=== PATIENT | male | born 1950 | race Caucasian/White ===

== ENCOUNTER 2017-05-01 16:32 | Inpatient (IN) | payer MEDICARE ==
[~2017-05-01] VITALS: Ht 172.7 cm; Wt 109.2 kg
[~2017-05-01 16:32] MED LIST: ALDACTONE25 MG PO; AMBIEN10 MG PO; ANTIVERT25 MG PO; APIDRA100 U/M1 SQ; ASPIRIN81 MG PO; BACTROBAN 22 GM22 GM TOPICAL; CARAFATE1 G PO; CARDIZEM30 MG PO; CARTIA XT180 MG PO; CATAPRES0.2 MG PO; COREG12.5 MG PO; CYCLOBENZAPRINE10 MG PO; CYMBALTA30 MG PO; CYMBALTA60 MG PO; DILT-CD180 MG PO; ELAVIL25 MG PO; GLUCOPHAGE1000 MG PO; GLUCOPHAGE500 MG PO; HUMALOG 30100 UNITS/ SC; HYDROCODONE-APA1 TAB PO; HYZAAR 100-25 T1 TAB PO; K-TAB10 MEQ PO; LANTUS INSULIN10 ML SC; LASIX20 MG PO; LASIX40 MG PO; LEVEMIR100 U/M1 SC; LEVEMIR100 U/M1 SQ; LISINOPRIL10 MG PO; LISINOPRIL5 MG PO; METOPROLOL TART50 MG PO; MIRAPEX0.25 MG PO; NEURONTIN600 MG PO; NORVASC10 MG PO; PLAVIX75 MG PO; PROTONIX40 MG PO; SOLARAZE100 GM TP; SUBOXONE SL; TOPROL XL50 MG PO; TYLENOL W/CODEI1 TAB PO; ULTRAM50 MG PO; VALIUM 2 MG TAB2 MG PO
[2017-05-01 17:55] LABS: BASOPHILS 0.1 % (0-2); EOSINOPHILS 0.2 % (0-7); HEMATOCRIT 34.4 % (42.0-54.0); HEMOGLOBIN 11.3 g/dL (13.5-17.5); IMMATURE GRANULOCYTES 0.4 % (0-5); LYMPHOCYTES 12.3 % (15-50); MCH 26.5 pg (26.0-34.0); MCHC 32.8 g/dL (31.0-37.0); MCV 80.8 fL (80.0-100.0); MEAN PLATELET VOLUME 11.8 fL (7.4-10.4); MONOCYTES 6.4 % (2-11); NEUTROPHILS 80.6 % (40-80); PLATELET COUNT 158 10x3/uL (130-400); RBC 4.26 10x6/uL (4.20-6.10); RDW 16.1 % (11.5-14.5); WBC 12.9 10x3/uL (4.8-10.8)
[2017-05-01 18:23] LABS: ALBUMIN 2.9 g/dL (3.4-5.0); ALKALINE PHOSPHATASE 77 U/L (46-116); ALT (SGPT) 27 U/L (10-68); BILIRUBIN - TOTAL 0.51 mg/dL (0.2-1.3); CALCIUM 8.9 mg/dL (8.5-10.1); CARBON DIOXIDE 27.7 mmol/L (21.0-32.0); CHLORIDE - SERUM 103 mmol/L (98-107); CKMB 2.4 U/L (0.0-3.6); CREATINE KINASE 446 UL (21-232); CREATININE - SERUM 2.4 mg/dL (0.6-1.3); PROTEIN - SERUM 7.1 g/dL (6.4-8.2); SODIUM 140 mmol/L (136-145); UREA NITROGEN 46 mg/dL (7-18); eGFR NON AFRICAN AMERICAN 29 mL/min (90-120)
[2017-05-01 18:24] LABS: CALC OSMOLALITY 290 mosm/kg (275-300); GLUCOSE 91 mg/dL (74-106)
[2017-05-01 18:26] LABS: POTASSIUM - SERUM 2.9 mmol/L (3.5-5.1); TROPONIN-I 0.349 ng/mL (0.000-0.060)
[2017-05-01 18:28] LABS: APPEARANCE CLEAR (CLEAR); BILIRUBIN NEGATIVE (NEGATIVE); COLOR YELLOW (YELLOW); GLUCOSE 500 mg/dL (NEGATIVE); KETONE NEGATIVE (NEGATIVE); NITRITE NEGATIVE (NEGATIVE); PROTEIN NEGATIVE (NEGATIVE); SPECIFIC GRAVITY 1.015 (1.005-1.020); UROBILINOGEN NORMAL (NORMAL)
--- NOTE | 2017-05-01 20:55 | NUR ---
PT RECEIVED VIA STRETCHER AWAKE, ALERT, FAMILY AT SIDE. PT REQUIRED 3 OF US TO TRANSFER TO BED. PTS STATES PT WAS HERE A WEEK AGO AND WAS IN THE ICU. STATES PT HAS BEEN FALLING FREQUENTLY AT HOME AND DOES TRY TO GET UP OUT OF BED WITHOUT ASSISTANCE. PT WAS PLACED IN A BED WITH AN OVERHEAD TRAPEZE BAR. WILL ASSUME CARE AND MONITOR CLOSELY.
[2017-05-01] MEDS ORDERED: TYLENOL #4 W/CO1 TAB PO (22:13)
[2017-05-01] MEDS ORDERED: LYRICA150 MG PO (22:18)
[2017-05-01] MEDS ORDERED: OXYBUTYNIN CHLOR5 MG PO (22:24)
[2017-05-01] MEDS ORDERED: PRAVACHOL20 MG PO (22:25)
[2017-05-01] MEDS ORDERED: VITAMIN D250000 UNIT PO (22:26)
[2017-05-02] VITALS (7 sets, daily range): BP systolic 102–156; BP diastolic 62–74; Ht 172.7 cm; Wt 109.2 kg
[2017-05-02 00:30] LABS: CREATINE KINASE 340 UL (21-232)
[2017-05-02 00:31] LABS: CKMB 1.9 U/L (0.0-3.6); TROPONIN-I 0.296 ng/mL (0.000-0.060)
--- NOTE | 2017-05-02 00:48 | NUR ---
PT RESTING COMFORTABLY, STILL EXTREMELY WEAK, EYES CLOSED, RESPIRATIONS EVEN AND UNLABORED, EASILY ROUSABLE TO VERBAL STIMULI. NO NEEDS AT THIS TIME. CONTINUE TO MONITOR CLOSELY. BED LOW, CALL LIGHT IN REACH, SIDE RAILS X2, HOB 35 DEGREES, BED ALARM ON.
[2017-05-02 06:03] LABS: BASOPHILS 0 % (0-2); EOSINOPHILS 0.4 % (0-7); HEMOGLOBIN 10.3 g/dL (13.5-17.5); IMMATURE GRANULOCYTES 0.2 % (0-5); LYMPHOCYTES 14.8 % (15-50); MCHC 32.2 g/dL (31.0-37.0); MCV 80.8 fL (80.0-100.0); MEAN PLATELET VOLUME 11.7 fL (7.4-10.4); MONOCYTES 7.1 % (2-11); NEUTROPHILS 77.5 % (40-80); PLATELET COUNT 150 10x3/uL (130-400); RBC 3.96 10x6/uL (4.20-6.10); RDW 16.1 % (11.5-14.5); WBC 11.2 10x3/uL (4.8-10.8)
[2017-05-02 06:32] LABS: CALCIUM 8.5 mg/dL (8.5-10.1); CARBON DIOXIDE 28.3 mmol/L (21.0-32.0); CHLORIDE - SERUM 104 mmol/L (98-107); CKMB 0.9 U/L (0.0-3.6); CREATINE KINASE 222 UL (21-232); CREATININE - SERUM 2.2 mg/dL (0.6-1.3); MAGNESIUM - SERUM 1.8 mg/dL (1.8-2.4); SODIUM 141 mmol/L (136-145); UREA NITROGEN 40 mg/dL (7-18); eGFR NON AFRICAN AMERICAN 32 mL/min (90-120)
[2017-05-02 06:33] LABS: CALC OSMOLALITY 296 mosm/kg (275-300); GLUCOSE 212 mg/dL (74-106)
[2017-05-02 06:34] LABS: POTASSIUM - SERUM 2.7 mmol/L (3.5-5.1); TROPONIN-I 0.182 ng/mL (0.000-0.060)
--- NOTE | 2017-05-02 07:30 | NUR ---
REPORT RECEIVED. RR EVEN AND UNLABORED, PT IS CONFUSED TO SITUATION THIS MORNING. DENIES NEEDS AT THIS TIME. BED IN LOWEST POSTION, CALL HURLEY IN REACH, WILL CTM.
--- NOTE | 2017-05-02 10:41 | NUR ---
CALLED DR. JORGENSEN REGARDING POTASSIUM OF 2.7. WILL AWAIT CALL BACK/.
--- NOTE | 2017-05-02 10:45 | NUR ---
SPOKE TO DR. JORGENSEN REGARDING PT CONDTION. GAVE TELEPHONE ORDER FOR E PROTOCOL. WILL REPLACE POTASSIUM PER PROTOCL AND CTM.
--- NOTE | 2017-05-02 13:47 | NUR ---
SCD'S ON ELLEN LE
--- NOTE | 2017-05-02 15:00 | NUR ---
ASSSITED PT TO AMBULATE TO SHOWER X2 ASSIST. PT USED WALKER AND TOLERATED ACTIVITY WELL. NO SOB NOTED. PT IS ALERT AND ORIENTED. SHOWER COMPLETED AND BED CHANGE DONE. AFTER SHOWER, PT RETURNED TO BED X1 ASSIST. DENIES FURTHER NEEDS.
--- NOTE | 2017-05-02 15:45 | NUR ---
MED REC UPDATED AND CORRECT PER PT MOST ACCURATE.
[2017-05-02 16:11] LABS: ERYTHROCYTE SEDIMENTATION RATE 68 mm/hr (0-20)
--- NOTE | 2017-05-02 18:14 | NUR ---
ORDERED POTASSIUM LAB DRAW PER PROTOCOL. WILL AWAIT LAB DRAW.
[2017-05-02 18:47] LABS: CREATININE - URINE 77.3 mg/dL (30-125); PRO/CRE RATIO URINE 0.7 mg/g; PROTEIN - URINE 55.3 mg/dL (0.0-11.9)
[2017-05-02 18:50] LABS: APPEARANCE CLEAR (CLEAR); COLOR YELLOW (YELLOW); NITRITE NEGATIVE (NEGATIVE); PROTEIN NEGATIVE (NEGATIVE); SPECIFIC GRAVITY 1.005 (1.005-1.020)
[2017-05-02 18:51] LABS: BILIRUBIN NEGATIVE (NEGATIVE); GLUCOSE 1000 mg/dL (NEGATIVE); KETONE NEGATIVE (NEGATIVE); UROBILINOGEN NORMAL (NORMAL)
[2017-05-02 18:55] LABS: BACTERIA FEW /hpf (NONE SEEN); EPITHELIAL CELLS 0-5 /hpf (0-5); RED CELLS - URINE 0-5 /hpf (0-5)
--- NOTE | 2017-05-02 18:57 | NUR ---
PT RESTING QUILETY, RR EVEN AND UNLABORED. PT DENIES NEEDS AT THIS TIME. WILL GIVE REPORT ON PT CONDTION FOR THE DAY.
--- NOTE | 2017-05-02 20:00 | NUR ---
PT RESTING IN BED. ALERT/ORIENTED. VOICING NO NEEDS. SR PER TELEMETRY. PIV TO LEFT A/C SALINE LOCKED. SEE SHIFT ASSESSMENT.
--- NOTE | 2017-05-02 22:00 | NUR ---
BEDTIME MEDS GIVEN. PT RESTING. FSBS 309, 20 UNITS OF SLIDING SCALE GIVEN.
[2017-05-03 01:32] VITALS: BP 135/68
--- NOTE | 2017-05-03 02:42 | NUR ---
PT RESTING IN BED. NO DISTRESS. RESPS EVEN/NONLABORED. CPOC.
[2017-05-03 04:27] VITALS: BP 147/76
[2017-05-03 06:10] LABS: BASOPHILS 0 % (0-2); EOSINOPHILS 0.6 % (0-7); HEMATOCRIT 33.4 % (42.0-54.0); HEMOGLOBIN 10.6 g/dL (13.5-17.5); IMMATURE GRANULOCYTES 0.3 % (0-5); LYMPHOCYTES 14.8 % (15-50); MCHC 31.7 g/dL (31.0-37.0); MCV 82.1 fL (80.0-100.0); MEAN PLATELET VOLUME 11.9 fL (7.4-10.4); MONOCYTES 9.3 % (2-11); PLATELET COUNT 171 10x3/uL (130-400); RBC 4.07 10x6/uL (4.20-6.10); RDW 16.3 % (11.5-14.5); WBC 9.6 10x3/uL (4.8-10.8)
[2017-05-03 06:34] LABS: ALBUMIN 2.4 g/dL (3.4-5.0); ANION GAP 12.2 mmol/L (8-16); BILIRUBIN - TOTAL 0.63 mg/dL (0.2-1.3); CALCIUM 8.3 mg/dL (8.5-10.1); CREATININE - SERUM 1.7 mg/dL (0.6-1.3); MAGNESIUM - SERUM 1.9 mg/dL (1.8-2.4); PHOSPHOROUS 2.5 mg/dL (2.5-4.9); POTASSIUM - SERUM 3.2 mmol/L (3.5-5.1); PROTEIN - SERUM 6.7 g/dL (6.4-8.2)
--- NOTE | 2017-05-03 06:41 | NUR ---
PT RESTING IN BED. NO CHANGE FROM INITIAL SHIFT ASSESSMENT. CPOC.
--- NOTE | 2017-05-03 07:15 | NUR ---
REPORT RECEIVED. RR EVEN AND UNLABORED, PT QUESTIONING WHY HE HAS NOT BEEN RECEIVING HIS LEVEMIR AND LANTUS. WILL ADDRESS WITH PRIMARY CARE TODAY. BED IN LOWEST POSTION, CALL HURLEY IN REACH, PT SITTING ON SIDE OF BED. WILL CTM.
[2017-05-03 09:06] VITALS: BP 94/72
--- NOTE | 2017-05-03 09:30 | NUR ---
PTS K+ IS LOW THIS MORNING AT 3.2. GAVE 40MEQ OF POTASSIUM PER PROTOCOL. WILL RECHECK LAB IN 4 HRS.
[2017-05-03 12:00] VITALS: BP 146/71
--- NOTE | 2017-05-03 13:26 | NUR ---
SPOKE TO PTS FOR ROUGHLY 20 MINUTES REGARDING PT CONDITION. SHE REPORTS THAT PT FREQUENTLY BECOMES INCOHERENT AT HOME AND GETS CONFUSED. ALSO MENTIONED THAT PT FORGETS TO TAKE MEDICINE OFTEN. REPORTS FREQUENT HOME FALLS. REQUESTED UPDATE ON PT STATUS, GIVEN. EXPRESSED CONCERN OVER PT BEING D/C TOO EARLY, THIS HAS HAPPENED IN THE PAST. EXPLAINED THAT NO ORDERS ARE IN FOR D/C AT THIS POINT. DENIES FURTHER NEEDS, EXPRESSED HER GRATITUDE FOR SPEAKING WITH HER.
--- NOTE | 2017-05-03 14:00 | NUR ---
PT REPORTED THAT HE HAS DIFFUCLTY EATING THE FOOD, HE REPORTS IT IS DIFFICULT TO CHEW. WILL MODIFY DIET ORDER TO SOFT MECHANICAL. SPOKE TO SPEECH THERAPIST REGARDING PT REQUEST.
[2017-05-03 16:00] VITALS: BP 162/75
--- NOTE | 2017-05-03 18:30 | NUR ---
PT UP ON SIDE OF BED, BATHING HIMSELF. PT DENIES NEEDS AT THIS TIME. RR EVEN AND UNLABORED. WILL GIVE REPORT ON PT CONDTION FOR THE DAY.
[2017-05-03 19:00] VITALS: BP 150/73
--- NOTE | 2017-05-03 20:22 | NUR ---
PT HAS LEFT ROOM, WALKED DOWN HALLWAY TOWARDS ELEVATOR AND IS QUESTIONING IF THAT IS THE DOOR TO TAKE. ESCORTED PT BACK TO ROOM. MONI MAT APPLIED TO BED. PT HAS YELLOW FALL BRACELET AND FALL PRECAUTIONS ARE IN PLACE BUT HIS LEVEL OF CONFUSION IS GREATER TONIGHT THAN LAST NIGHT. IV THAT IS IN LEFT A/C IS NOT PATENT AND SURROUND TISSUE IS RED/WARM AND SWOLLEN. REMOVED IV. WILL ATTEMPT RESITE AFTER PT HAS SETTLED DOWN. CHANGED PT OUT OF STREET CLOTHES AND PLACED IN A GOWN. SEE ASSESSMENT.
--- NOTE | 2017-05-03 21:09 | NUR ---
FSBS 205, 12 UNITS OF SLIDING SCALE GIVEN. BEDTIME MEDS GIVEN. PT IS CONFUSED/DISORIENTED TO PLACE AND TIME. CONSTANT REORIENTATION. MONI MAT IN PLACE AND DOOR TO ROOM OPEN FOR PT TO BE VIEWABLE. WILL MONITOR.
[2017-05-04 00:29] VITALS: BP 160/77
--- NOTE | 2017-05-04 01:44 | NUR ---
PT HAS BEEN UP AND ODWN AND ALL OVER HIS ROOM. VERY RESTLESS. NO CLOTHES ON, WEARING A SHEET WRAPPED AROUND HIS BODY. STAFF REPEATEDLY TO ROOM AND PLACING HIM BACK ON MONI MAT IN BED OR CHAIR AND THEN PT BACK UP AND DOWN AGAIN. PT THEN C/O HEADACHE. MEDICATED WITH TYLENOL. BILLET SHEARER HAS NOW PROVIDED PT WITH A COMPLETE BED BATH IN HOPES OF RELAXING HIM AND PROMOTING REST. WILL MONITOR.
--- NOTE | 2017-05-04 02:19 | NUR ---
PT STILL AWAKE AND LYING IN BED, MUMBLING TO SELF, FUSSING WITH HIS COVERS. VERY RESTLESS. NO FURTHER C/O HEADACHE. MONI MAT IN PLACE. CLOSE SUPERVISION.
[2017-05-04 05:03] VITALS: BP 149/85
[2017-05-04 05:49] LABS: BASOPHILS 0.2 % (0-2); EOSINOPHILS 0.9 % (0-7); HEMATOCRIT 35.3 % (42.0-54.0); HEMOGLOBIN 11.1 g/dL (13.5-17.5); IMMATURE GRANULOCYTES 0.3 % (0-5); LYMPHOCYTES 15.6 % (15-50); MCH 26.1 pg (26.0-34.0); MCHC 31.4 g/dL (31.0-37.0); MCV 82.9 fL (80.0-100.0); MEAN PLATELET VOLUME 12.1 fL (7.4-10.4); MONOCYTES 9.1 % (2-11); NEUTROPHILS 73.9 % (40-80); PLATELET COUNT 188 10x3/uL (130-400); RBC 4.26 10x6/uL (4.20-6.10); RDW 16.1 % (11.5-14.5); WBC 9.6 10x3/uL (4.8-10.8)
[2017-05-04 06:20] LABS: ALBUMIN 2.7 g/dL (3.4-5.0); BILIRUBIN - TOTAL 0.7 mg/dL (0.2-1.3); CALCIUM 8.4 mg/dL (8.5-10.1); CARBON DIOXIDE 25.5 mmol/L (21.0-32.0); CREATININE - SERUM 1.7 mg/dL (0.6-1.3); PROTEIN - SERUM 6.4 g/dL (6.4-8.2)
[2017-05-04 06:23] LABS: ANION GAP 16.2 mmol/L (8-16); POTASSIUM - SERUM 3.7 mmol/L (3.5-5.1)
--- NOTE | 2017-05-04 07:17 | NUR ---
AM ROUNDING- RECEIVED REPORT FROM PARENT TRAINER NURSE MATTIE. PT IS CURRENTLY SITTING UP IN CHAIR WATCHING TV. ON ROOM AIR. REFUSES TO LEAVE HEART MONITOR ON PER MATTIE. PT REFUSES IV (PER MATTIE HAS TAKEN IV OUT). NO NEED AT THIS CURRENT TIME. PT INSTRUCTED TO STAY IN CHAIR. NON-SKID SOCKS ARE ON. WILL CONTINUE TO MONITOR.
[2017-05-04 08:14] VITALS: BP 117/59
--- NOTE | 2017-05-04 09:03 | CN ---
PATIENT NAME:YENI CORNELIUS MEDICAL RECORD: [id number] : 54 LOCATION:D. D.2127 ADMIT DATE: 05/01/17 ACCOUNT: [id number] CONSULTING PHYSICIAN: NADINE PEREZ MD REFERRING PHYSICIAN: ERNESTINA JORGENSEN MD DATE OF CONSULTATION: 05/02/2017 CARDIOLOGY CONSULT DIAGNOSES: 1. Shortness of breath, dyspnea on exertion. 2. Coronary artery disease. 3. Previous percutaneous transluminal coronary angioplasty stent. 4. Hypertension. 5. Hyperlipidemia. 6. Renal insufficiency. HISTORY OF PRESENT ILLNESS: This is a gentleman who presents with shortness of breath, dyspnea on exertion and chest x-ray suggested mild pulmonary edema. He has received diuresis. His breathing is improved. He had an echocardiogram earlier this month; however, with normal ejection fraction, no significant valvular heart disease. He has not had any chest pain or chest discomfort. His creatinine is 2.0. Last cardiac intervention was approximately 1 year ago. His EKG is with no acute ST-T changes. Troponin is normal. PHYSICAL EXAMINATION: GENERAL APPEARANCE: Well-nourished, well-developed, appears stated age. Level of distress, comfortable. PSYCHIATRIC: Mental status, alert, normal affect. Orientation, oriented to time, place and person. EYES: Lids and conjunctiva, noninjected. No discharge, no pallor. ENT: Lips, teeth, gums, normal dentition. Oropharynx, no cyanosis, no pallor. NECK: Carotid arteries, bilateral normal upstroke, no bruits, no thrills. JUGULAR VEINS: No jugular venous pressure or distention. CERVICAL LYMPH NODES: Nontender, nonenlarged. THYROID: Not enlarged. Nontender. No nodules. LUNGS: Respiratory effort, unlabored. CHEST: Normal curvature. No thoracic deformity. No chest wall tenderness. Percussion, resonant. Auscultation, clear. No wheezes, no rales, no rhonchi. CARDIOVASCULAR: Precordial exam, nondisplaced. No heaves or pericardial thrills. Rate and rhythm, regular. Heart sounds, normal S1, normal S2. No S3, no gallop, no rub. Systolic murmur, not heard. Diastolic murmur, not heard. EXTREMITIES: No cyanosis, no edema. Peripheral pulses, full and equal in all extremities, except as noted. No bruits appreciated. ABDOMEN: Soft, nondistended. Normal aorta. No bruit. Nontender. No masses. Liver, nontender, no hepatomegaly. Spleen, nontender, no splenomegaly. MUSCULOSKELETAL: No joint tenderness. No joint swelling. No erythema. NEUROLOGICAL: Normal gait, normal strength, normal tone. SKIN: Warm and dry. OVERALL IMPRESSION: Shortness of breath, most likely his pulmonary vascular congestion is secondary to the renal insufficiency. This is not heart failure per se. He has a normal ejection fraction, no significant valvular heart disease. He is not having any anginal symptomatology. At this time, no other cardiac workup or treatment is necessary. CONSULT REPORT [id number] YENI CORNELIUS TRANSINT:[id number] Voice Confirmation ID: [id number] DOCUMENT ID: [id number] NADINE PEREZ MD at 0903 CC: [id number] DICTATION DATE: 05/02/17817 TITLE SPECIALIST: 05/02/17 0950 ADM IN [id number] [place] [address]
[2017-05-04 12:05] VITALS: BP 164/88
--- NOTE | 2017-05-04 13:29 | NUR ---
PT CONTINUES TO WALK IN HALLWAY CONFUSED TO SITUATION. THIS NURSE HAS ESCORTED PT BACK TO ROOM SEVERAL TIMES. NON-SKID SOCKS ARE ON. PT LAYING DOWN IN BED NOW. WILL CONTINUE TO MONITOR.
[2017-05-04 16:18] VITALS: BP 142/77
--- NOTE | 2017-05-04 18:31 | NUR ---
PRIOR ON SHIFT PT HAD LOCKED BATHROOM DOOR. THIS NURSE ASKED PT WHAT HE WAS DOING, PT LAUGHED AND STATES HE IS "SLEEPING". AMBER RIVERA GOT PT OUT OF BATHROOM. NO NEED AT THIS TIME. WILL CONTINUE TO MONITOR.
[2017-05-04 19:00] VITALS: BP 159/89
--- NOTE | 2017-05-04 19:33 | NUR ---
RECEIVED REPORT, WILL ASSUME CARE OF PT, PT AT BEDSIDE, PT SITTING ON SIDE OF BED, CALL LIGHT IN REACH, BED ALARM IS ON, WILL CONTINUE PLAN OF CARE
--- NOTE | 2017-05-04 22:53 | NUR ---
BS-222- GAVE 12 UNITS HUMALOG, AND 50 UNITS OF LEVEMIR
[2017-05-05 01:21] VITALS: BP 150/73
[2017-05-05 04:00] VITALS: BP 159/79
[2017-05-05 05:12] LABS: BASOPHILS 0.1 % (0-2); EOSINOPHILS 0.8 % (0-7); HEMATOCRIT 32.7 % (42.0-54.0); HEMOGLOBIN 10.5 g/dL (13.5-17.5); IMMATURE GRANULOCYTES 0.4 % (0-5); LYMPHOCYTES 15.4 % (15-50); MCHC 32.1 g/dL (31.0-37.0); MEAN PLATELET VOLUME 11.2 fL (7.4-10.4); MONOCYTES 10.7 % (2-11); NEUTROPHILS 72.6 % (40-80); PLATELET COUNT 189 10x3/uL (130-400); RBC 4.04 10x6/uL (4.20-6.10); RDW 15.8 % (11.5-14.5); WBC 8.3 10x3/uL (4.8-10.8)
[2017-05-05 05:21] LABS: MCV 80.9 fL (80.0-100.0)
[2017-05-05 05:23] LABS: ALBUMIN 2.4 g/dL (3.4-5.0); ANION GAP 13.7 mmol/L (8-16); BILIRUBIN - TOTAL 0.5 mg/dL (0.2-1.3); CALCIUM 8.5 mg/dL (8.5-10.1); CARBON DIOXIDE 26.5 mmol/L (21.0-32.0); CREATININE - SERUM 1.5 mg/dL (0.6-1.3); POTASSIUM - SERUM 3.2 mmol/L (3.5-5.1); PROTEIN - SERUM 6.8 g/dL (6.4-8.2)
--- NOTE | 2017-05-05 07:26 | NUR ---
AM ROUNDING- RECEIVED REPORT FROM VEGETABLE PREPARER NURSE BRISEIDA. PT IS CURRENTLY LAYING IN BED ON BACK WITH EYES CLOSED RESTING. MONI BED ALARM IS ON DUE TO PT BEING CONFUSED. ON ROOM AIR. NO MONITOR (DUE TO PT NOT KEEPING IT ON). NO IV (PT REFUSED). WILL CONTINUE TO MONITOR AND CONTINUE WITH PLAN OF CARE.
[2017-05-05 08:42] VITALS: BP 159/76
[2017-05-05 12:09] VITALS: BP 162/84
--- NOTE | 2017-05-05 12:20 | NUR ---
PTS D/C PAPERWORK IS DONE. THIS NURSE CALLED PTS REGARDING D/C TRANSPORATION. STATES SHE WILL COME GET PT.
--- NOTE | 2017-05-05 13:02 | NUR ---
Patient Name: YENI CORNELIUS Admission Status: ER Accout number: [id number] Admission Date: 05-01-2017 : 1950 Admission Diagnosis: Attending: ERNESTINA VELÁZQUEZ Current LOS: 4 Anticipated DC Date: 05-05-2017 Planned Disposition: Home Primary Insurance: [employer] ADV Discharge Planning Comments: * Is the patient Alert and Oriented? Yes 0 * How many steps to enter\exit or inside your home? FEW 0 * PCP DR. MINOR 0 * Pharmacy PT CANNOT REMEMBER 0 * Preadmission Environment Home with Family 0 * ADLs Independent 0 * Equipment Cane CPAP Oxygen Walker 0 * Other Equipment OXYGEN AT NIGHT ONLY [facility] - MEDICAL EQUIPMENT PROVIDER PREFERENCE 0 * List name and contact numbers for known caregivers / representatives who currently or will assist patient after discharge: DORIS CORNELIUS, SPOUSE, 0 * Community resources currently utilized Other 0 * Please name any agencies selected above. [facility] 0 * Additional services required to return to the preadmission environment? No 0 * Can the patient safely return to the preadmission environment? Yes 0 * Has this patient been hospitalized within the prior 30 days at any hospital? No 0 CM MET WITH PT IN ROOM TO DISCUSS DISCHARGE PLANNING AND NEEDS. PT REPORTS LIVING AT HOME INDEPENDENTLY WITH HIS SPOUSE. PT HAS CANE, CPAP, NIGHT OXYGEN AND WALKER FROM [facility]. PT HAS NO OUTSIDE SERVICES ASSISTING IN THE HOME. CM DISCUSSED AVAILABILITY OF HOME HEALTH, REHAB SERVICES AND MEDICAL EQUIPMENT. PT DENIES DISCHARGE NEEDS, REPORTS [facility] NURSE WILL BE COMING TO SEE HIM AND DOES NOT SEE NEED OF HOME HEALTH AT THIS TIME. PT REPORTS HIS SPOUSE WILL PICK HIM UP FOR DISCHARGE HOME. IMPORTANT MESSAGE FROM MEDICARE PROVIDED AND EXPLAINED. Saddle Stitching Machine Operator: Marv Polk
--- NOTE | 2017-05-05 15:06 | NUR ---
ZAFAR, DAY SHIFT NURSE EXPLAINED D/C PAPERWORK TO PT AND . D/C PAPERWORK SIGNED BY PT AND PLACED IN CHART. PT HAD NO IV TO REMOVE. PT D/V VIA WHEELCHAIR.
[2017-05-06 07:31] LABS: UPE RAND - ALBUMIN 28.4 % (()); UPE RAND - ALPHA 1 GLOBULIN 11.1 % (()); UPE RAND - ALPHA 2 GLOBULIN 26.1 % (()); UPE RAND - BETA GLOBULIN 20.1 % (()); UPE RAND - GAMMA GLOBULIN 14.3 % (())
[2017-05-06 07:31] LABS: SPE - A/G RATIO 0.9 (0.7-1.7); SPE - ALBUMIN 2.7 g/dL (2.9-4.4); SPE - ALPHA-1 GLOBULIN 0.4 g/dL (0.0-0.4); SPE - ALPHA-2 GLOBULIN 0.9 g/dL (0.4-1.0); SPE - BETA GLOBULIN 0.8 g/dL (0.7-1.3); SPE - GAMMA GLOBULIN 0.8 g/dL (0.4-1.8); SPE - M-SPIKE 0.2 g/dL (Not Observed); SPE - TOTAL PROTEIN 5.6 g/dL (6.0-8.5)
== END 2017-05-05 15:24 | disposition home or self-care (01) | DRG 683 ==
LOC: D.ER 16:32 → D.M2 19:35
PROVIDERS: Family Medicine; Internal Medicine Nephrology; ADMIT Family Medicine Adult Medicine
DX: N17.9 Acute kidney failure, unspecified (principal); I13.0 Hypertensive heart and chronic kidney disease with heart failure and stage 1 through stage 4 chronic kidney disease, or unspecified chronic kidney disease; N18.4 Chronic kidney disease, stage 4 (severe); E11.22 Type 2 diabetes mellitus with diabetic chronic kidney disease; E11.65 Type 2 diabetes mellitus with hyperglycemia; I12.9 Hypertensive chronic kidney disease with stage 1 through stage 4 chronic kidney disease, or unspecified chronic kidney disease; D63.1 Anemia in chronic kidney disease; E78.5 Hyperlipidemia, unspecified; E87.6 Hypokalemia; I25.10 Atherosclerotic heart disease of native coronary artery without angina pectoris; M25.522 Pain in left elbow; I50.9 Heart failure, unspecified; R79.89 Other specified abnormal findings of blood chemistry; N28.9 Disorder of kidney and ureter, unspecified; M19.022 Primary osteoarthritis, left elbow; Z95.5 Presence of coronary angioplasty implant and graft

== ENCOUNTER → 2017-06-10 11:14 | Outpatient (CLI) | payer MEDICARE ==
[2017-05-02 12:49] VITALS: BMI 36.3
[~2017-06-10 11:14] MED LIST changes: +BAYER CHEWABLE81 MG PO; +BUPRENORPHIN-N1 EACH SL; +ELAVIL75 MG PO; +FUROSEMIDE20 MG PO; +GLIPIZIDE10 MG PO; +LYRICA150 MG PO; +LYRICA75 MG PO; +METOLAZONE5 MG PO; +NEURONTIN600 MG; +NORVASC2.5 MG PO; +NOVOLOG100 U/M1 SC; +OMNICEF300 MG PO; +OXYBUTYNIN CHLOR5 MG PO; +PRAVACHOL20 MG PO; +PROTONIX40 MG; +PULMICORT0.5 MG/21 INH; +TYLENOL #4 W/CO1 TAB PO; +VITAMIN D250000 UNIT PO
== END | disposition home or self-care (01) ==
LOC: D.MRI 11:14
DX: R42 Dizziness and giddiness (principal); S09.90XA Unspecified injury of head, initial encounter; R44.3 Hallucinations, unspecified; R56.9 Unspecified convulsions; X58.XXXA Exposure to other specified factors, initial encounter; Y93.89 Activity, other specified; Y92.89 Other specified places as the place of occurrence of the external cause

== ENCOUNTER 2017-06-22 15:51 | Inpatient (IN) | payer MEDICARE ==
[~2017-06-22] VITALS: Ht 172.7 cm; Wt 104.5 kg
--- NOTE | ~2017-06-22 | CN ---
PATIENT NAME:YENI ESPINOZA MEDICAL RECORD: [id number] : 54 LOCATION:D. D.2111 ADMIT DATE: 06/22/17 ACCOUNT: [id number] CONSULTING PHYSICIAN: NADINE PEREZ MD REFERRING PHYSICIAN: LISA RODRIGUEZ MD DATE OF CONSULTATION: 06/26/2017 DIAGNOSES: 1. Shortness of breath -- dyspnea on exertion. 2. Dqgzv-ph-lxzjxic renal insufficiency. 3. Chronic obstructive pulmonary disease. 4. Bronchitis. 5. Coronary artery disease. 6. Previous multivessel percutaneous transluminal coronary angioplasty stent. 7. Hypertension. 8. Hyperlipidemia. HISTORY OF PRESENT ILLNESS: Mr. Espinoza is well known to us with a past history of coronary artery disease. He presents with shortness of breath, dyspnea on exertion. He also has kvuwh-wf-lsmhsjo renal insufficiency and has bronchitis and COPD. He has been treated by pulmonary for this. His EKG is with no changes. Troponin is normal. He had an echocardiogram last month, revealing normal ejection fraction at 50% with no significant valvular heart disease. He has had no anginal symptomatology. PHYSICAL EXAMINATION: GENERAL APPEARANCE: Well-nourished, well-developed, appears stated age. Level of distress, comfortable. PSYCHIATRIC: Mental status, alert, normal affect. Orientation, oriented to time, place and person. EYES: Lids and conjunctiva, noninjected. No discharge, no pallor. ENT: Lips, teeth, gums, normal dentition. Oropharynx, no cyanosis, no pallor. NECK: Carotid arteries, bilateral normal upstroke, no bruits, no thrills. JUGULAR VEINS: No jugular venous pressure or distention. CERVICAL LYMPH NODES: Nontender, nonenlarged. THYROID: Not enlarged. Nontender. No nodules. LUNGS: Respiratory effort, unlabored. CHEST: Normal curvature. No thoracic deformity. No chest wall tenderness. Percussion, resonant. Auscultation, clear. No wheezes, no rales, no rhonchi. CARDIOVASCULAR: Precordial exam, nondisplaced. No heaves or pericardial thrills. Rate and rhythm, regular. Heart sounds, normal S1, normal S2. No S3, no gallop, no rub. Systolic murmur, not heard. Diastolic murmur, not heard. EXTREMITIES: No cyanosis, no edema. Peripheral pulses, full and equal in all extremities, except as noted. No bruits appreciated. ABDOMEN: Soft, nondistended. Normal aorta. No bruit. Nontender. No masses. Liver, nontender, no hepatomegaly. Spleen, nontender, no splenomegaly. MUSCULOSKELETAL: No joint tenderness. No joint swelling. No erythema. NEUROLOGICAL: Normal gait, normal strength, normal tone. SKIN: Warm and dry. OVERALL IMPRESSION: Shortness of breath, dyspnea on exertion, most likely secondary to primary pulmonary process. He does not have heart failure with a normal ejection fraction, no significant valvular heart disease. At this time, no other cardiac workup treatment is necessary. CONSULT REPORT [id number] YENI ESPINOZA TRANSINT:[id number] Voice Confirmation ID: [id number] DOCUMENT ID: [id number] NADINE PEREZ MD at 1025 CC: [id number] DICTATION DATE: 06/26/17 0933 CATTLE CARE WORKER: 06/26/17 1314 DIS IN 06/28/17 [id number] [place] [address]
[~2017-06-22 15:51] MED LIST changes: -BAYER CHEWABLE81 MG PO; -BUPRENORPHIN-N1 EACH SL; -ELAVIL75 MG PO; -FUROSEMIDE20 MG PO; -GLIPIZIDE10 MG PO; -LYRICA75 MG PO; -METOLAZONE5 MG PO; -NEURONTIN600 MG; -NORVASC2.5 MG PO; -NOVOLOG100 U/M1 SC; -OMNICEF300 MG PO; -PROTONIX40 MG; -PULMICORT0.5 MG/21 INH
[2017-06-22 17:09] LABS: BASOPHILS 0.3 % (0-2); EOSINOPHILS 0.3 % (0-7); HEMATOCRIT 35.2 % (42.0-54.0); IMMATURE GRANULOCYTES 0.1 % (0-5); LYMPHOCYTES 7.2 % (15-50); MCH 24.3 pg (26.0-34.0); MCHC 31.3 g/dL (31.0-37.0); MCV 77.9 fL (80.0-100.0); MEAN PLATELET VOLUME 11.1 fL (7.4-10.4); MONOCYTES 8.5 % (2-11); NEUTROPHILS 83.6 % (40-80); PLATELET COUNT 194 10x3/uL (130-400); RBC 4.52 10x6/uL (4.20-6.10); RDW 15.9 % (11.5-14.5)
[2017-06-22 17:38] LABS: ALBUMIN 3.4 g/dL (3.4-5.0); ANION GAP 13.9 mmol/L (8-16); BILIRUBIN - TOTAL 0.54 mg/dL (0.2-1.3); CALCIUM 8.9 mg/dL (8.5-10.1); CREATININE - SERUM 1.5 mg/dL (0.6-1.3); POTASSIUM - SERUM 3.9 mmol/L (3.5-5.1); PROTEIN - SERUM 7.5 g/dL (6.4-8.2)
[2017-06-22 17:44] LABS: TROPONIN-I 0.016 ng/mL (0.000-0.060)
[2017-06-23] VITALS: BP 141/74
[2017-06-23] MEDS ORDERED: GLUCOPHAGE1000 MG PO (00:13)
[2017-06-23] MEDS ORDERED: CYMBALTA60 MG PO (00:59)
[2017-06-23] MEDS ORDERED: NEURONTIN600 MG (01:03)
[2017-06-23] MEDS ORDERED: BUPRENORPHIN-N1 EACH SL (01:06)
[2017-06-23] MEDS ORDERED: ALDACTONE25 MG PO (01:08)
[2017-06-23] MEDS ORDERED: PROTONIX40 MG (01:09)
[2017-06-23] MEDS ORDERED: CARTIA XT180 MG PO (01:09)
[2017-06-23] MEDS ORDERED: LISINOPRIL5 MG PO (01:10)
[2017-06-23] MEDS ORDERED: GLIPIZIDE10 MG PO (01:11)
[2017-06-23] MEDS ORDERED: NORVASC10 MG PO (01:11)
[2017-06-23] MEDS ORDERED: ELAVIL75 MG PO (01:13)
[2017-06-23] MEDS ORDERED: BAYER CHEWABLE81 MG PO (01:13)
[2017-06-23] MEDS ORDERED: METOLAZONE5 MG PO (01:13)
[2017-06-23 01:44] VITALS: BMI 41.1
[2017-06-23 08:43] VITALS: BP 161/75
[2017-06-23 12:11] VITALS: BP 157/77
[2017-06-23 17:50] VITALS: BP 185/67
[2017-06-23 22:14] VITALS: BP 143/55
[2017-06-24 01:10] VITALS: BP 132/64
[2017-06-24 04:49] LABS: HEMATOCRIT 33.1 % (42.0-54.0); HEMOGLOBIN 10.5 g/dL (13.5-17.5); LYMPHOCYTES 13.4 % (15-50); MCH 24.1 pg (26.0-34.0); MCHC 31.7 g/dL (31.0-37.0); MCV 76.1 fL (80.0-100.0); MEAN PLATELET VOLUME 11.1 fL (7.4-10.4); NEUTROPHILS 72.5 % (40-80); PLATELET COUNT 168 10x3/uL (130-400); RBC 4.35 10x6/uL (4.20-6.10); WBC 6.1 10x3/uL (4.8-10.8)
[2017-06-24 05:02] LABS: CALCIUM 8.6 mg/dL (8.5-10.1); CARBON DIOXIDE 28.1 mmol/L (21.0-32.0); CREATININE - SERUM 1.8 mg/dL (0.6-1.3)
[2017-06-24 05:07] VITALS: BP 164/65
[2017-06-24 05:14] LABS: ANION GAP 14.8 mmol/L (8-16)
[2017-06-24 05:44] LABS: POTASSIUM - SERUM 2.9 mmol/L (3.5-5.1)
[2017-06-24 08:19] VITALS: BP 168/81
[2017-06-24 12:21] VITALS: BP 150/72
[2017-06-24 12:34] VITALS: Ht 172.7 cm; Wt 104.5 kg
[2017-06-24 13:19] LABS: % SATURATION 5 % (15-55); IRON 16 ug/dl (35-150); TOTAL IRON BIND CAPACITY 303 ug/dl (260-445); UNSAT IRON BIND CAPACITY 287 ug/dl (150-375)
[2017-06-24 16:08] VITALS: BP 177/91
[2017-06-24 17:35] LABS: APPEARANCE CLEAR (CLEAR); BILIRUBIN NEGATIVE (NEGATIVE); COLOR YELLOW (YELLOW); GLUCOSE 250 mg/dL (NEGATIVE); KETONE NEGATIVE (NEGATIVE); NITRITE NEGATIVE (NEGATIVE); PROTEIN TRACE mg/dL (NEGATIVE); SPECIFIC GRAVITY 1.015 (1.005-1.020); UROBILINOGEN NORMAL (NORMAL)
[2017-06-24] MEDS ORDERED: TOPROL XL50 MG PO (18:27)
[2017-06-24] MEDS ORDERED: FUROSEMIDE20 MG PO (18:29)
[2017-06-24] MEDS ORDERED: HYZAAR 100-25 T1 TAB PO (18:29)
[2017-06-24] MEDS ORDERED: LYRICA150 MG PO (18:30)
[2017-06-24] MEDS ORDERED: OXYBUTYNIN CHLOR5 MG PO (18:30)
[2017-06-24] MEDS ORDERED: PRAVACHOL20 MG PO (18:31)
[2017-06-24] MEDS ORDERED: NOVOLOG100 U/M1 SC (18:32)
[2017-06-24 21:59] VITALS: BP 122/80
[2017-06-25 01:46] VITALS: BP 143/75
[2017-06-25 05:24] VITALS: BP 153/79
[2017-06-25 07:21] LABS: FOLATE (FOLIC ACID) - SERUM 8.4 ng/mL (>3.0)
[2017-06-25 08:30] VITALS: BP 128/63
[2017-06-25 10:16] LABS: ANION GAP 14.9 mmol/L (8-16); CALCIUM 8.8 mg/dL (8.5-10.1); CARBON DIOXIDE 26.6 mmol/L (21.0-32.0); CREATININE - SERUM 2.1 mg/dL (0.6-1.3); POTASSIUM - SERUM 3.5 mmol/L (3.5-5.1)
[2017-06-25 10:48] LABS: BASOPHILS 0.1 % (0-2); EOSINOPHILS 0 % (0-7); HEMATOCRIT 34.1 % (42.0-54.0); HEMOGLOBIN 10.6 g/dL (13.5-17.5); IMMATURE GRANULOCYTES 0.3 % (0-5); LYMPHOCYTES 12.4 % (15-50); MCH 24.1 pg (26.0-34.0); MCHC 31.1 g/dL (31.0-37.0); MCV 77.7 fL (80.0-100.0); MEAN PLATELET VOLUME 11.8 fL (7.4-10.4); MONOCYTES 10.1 % (2-11); NEUTROPHILS 77.1 % (40-80); PLATELET COUNT 198 10x3/uL (130-400); RBC 4.39 10x6/uL (4.20-6.10); RDW 16.5 % (11.5-14.5); WBC 7.5 10x3/uL (4.8-10.8)
[2017-06-25 11:28] VITALS: BP 149/96
[2017-06-25 21:37] VITALS: BP 120/65
[2017-06-26 01:49] VITALS: BP 119/62
[2017-06-26 05:33] LABS: HEMATOCRIT 34.2 % (42.0-54.0); HEMOGLOBIN 10.4 g/dL (13.5-17.5); MCH 23.9 pg (26.0-34.0); MCHC 30.4 g/dL (31.0-37.0); MCV 78.4 fL (80.0-100.0); MEAN PLATELET VOLUME 11.3 fL (7.4-10.4); PLATELET COUNT 191 10x3/uL (130-400); RBC 4.36 10x6/uL (4.20-6.10); RDW 16.2 % (11.5-14.5); WBC 5.8 10x3/uL (4.8-10.8)
[2017-06-26 05:36] VITALS: BP 140/68
[2017-06-26 05:45] LABS: CALCIUM 8.2 mg/dL (8.5-10.1); CARBON DIOXIDE 30.5 mmol/L (21.0-32.0); CREATININE - SERUM 2.2 mg/dL (0.6-1.3); POTASSIUM - SERUM 3.5 mmol/L (3.5-5.1)
[2017-06-26 07:22] LABS: BASOPHILS 1 % (0-2); LYMPHOCYTES 27 % (15-50); MONOCYTES 9 % (2-11); NEUTROPHILS 63 % (40-80); PLATELET ESTIMATE NORMAL
[2017-06-26 08:23] VITALS: BP 114/66
[2017-06-26 12:14] VITALS: BP 109/49
[2017-06-26 17:09] VITALS: BP 114/53
[2017-06-26 21:30] VITALS: BP 100/50
[2017-06-27 04:45] LABS: HEMATOCRIT 34.3 % (42.0-54.0); HEMOGLOBIN 10.7 g/dL (13.5-17.5); MCH 24.3 pg (26.0-34.0); MCHC 31.2 g/dL (31.0-37.0); PLATELET COUNT 187 10x3/uL (130-400); RDW 16.1 % (11.5-14.5); WBC 6.1 10x3/uL (4.8-10.8)
[2017-06-27 04:57] LABS: ANION GAP 12.7 mmol/L (8-16); CARBON DIOXIDE 27.9 mmol/L (21.0-32.0); CREATININE - SERUM 2.1 mg/dL (0.6-1.3); POTASSIUM - SERUM 3.6 mmol/L (3.5-5.1)
[2017-06-27 04:59] LABS: EOSINOPHILS 1 % (0-7); LYMPHOCYTES 8 % (15-50); MONOCYTES 9 % (2-11); NEUTROPHILS 82 % (40-80); PLATELET ESTIMATE NORMAL
[2017-06-27 06:36] VITALS: BP 130/79
[2017-06-27 07:06] LABS: CREATININE - URINE 136.5 mg/dL (30-125); PROTEIN - URINE 52.8 mg/dL (0.0-11.9)
[2017-06-27 09:09] VITALS: BP 142/77
[2017-06-27 12:15] VITALS: BP 138/58
[2017-06-27 15:58] VITALS: BP 111/58
[2017-06-27 20:26] VITALS: BP 156/84
[2017-06-28 03:34] VITALS: BP 141/92
[2017-06-28 06:22] LABS: BASOPHILS 0.3 % (0-2); EOSINOPHILS 2.4 % (0-7); HEMATOCRIT 35.9 % (42.0-54.0); HEMOGLOBIN 11.3 g/dL (13.5-17.5); IMMATURE GRANULOCYTES 0.4 % (0-5); LYMPHOCYTES 26.6 % (15-50); MCH 24.1 pg (26.0-34.0); MCHC 31.5 g/dL (31.0-37.0); MCV 76.5 fL (80.0-100.0); MEAN PLATELET VOLUME 11.5 fL (7.4-10.4); NEUTROPHILS 60.3 % (40-80); PLATELET COUNT 220 10x3/uL (130-400); RBC 4.69 10x6/uL (4.20-6.10); RDW 15.9 % (11.5-14.5); WBC 7.6 10x3/uL (4.8-10.8)
[2017-06-28 06:49] LABS: CALCIUM 9.5 mg/dL (8.5-10.1); CARBON DIOXIDE 30.2 mmol/L (21.0-32.0); CREATININE - SERUM 1.7 mg/dL (0.6-1.3); POTASSIUM - SERUM 3.2 mmol/L (3.5-5.1)
[2017-06-28 07:00] VITALS: BP 140/83
[2017-06-28 12:48] VITALS: BP 131/65
[2017-06-28] MEDS ORDERED: LYRICA75 MG PO (15:55)
[2017-06-28] MEDS ORDERED: NORVASC2.5 MG PO (15:57)
[2017-06-28] MEDS ORDERED: LASIX40 MG PO (15:58)
[2017-06-28] MEDS ORDERED: PULMICORT0.5 MG/21 INH (15:59)
[2017-06-28 16:00] VITALS: BP 144/72
[2017-06-28] MEDS ORDERED: OMNICEF300 MG PO (16:59)
[2017-06-29 12:12] LABS: OSMOLALITY - URINE 628 (())
[2017-07-03 13:19] LABS: IMMUNOGLOBULIN E 59 IU/mL (0-100)
== END 2017-06-28 18:02 | disposition home or self-care (01) | DRG 177 ==
LOC: D.ER 15:51 → D.M2 23:26
PROVIDERS: Family Medicine; Internal Medicine Nephrology; Internal Medicine Pulmonary Disease
DX: J69.0 Pneumonitis due to inhalation of food and vomit (principal); G93.40 Encephalopathy, unspecified; J96.21 Acute and chronic respiratory failure with hypoxia; I50.23 Acute on chronic systolic (congestive) heart failure; J44.1 Chronic obstructive pulmonary disease with (acute) exacerbation; N17.9 Acute kidney failure, unspecified; I11.0 Hypertensive heart disease with heart failure; I25.10 Atherosclerotic heart disease of native coronary artery without angina pectoris; I69.920 Aphasia following unspecified cerebrovascular disease; E11.9 Type 2 diabetes mellitus without complications; G47.33 Obstructive sleep apnea (adult) (pediatric); F41.8 Other specified anxiety disorders; G20 Parkinson's disease; R33.9 Retention of urine, unspecified; E78.5 Hyperlipidemia, unspecified; I08.1 Rheumatic disorders of both mitral and tricuspid valves; D50.9 Iron deficiency anemia, unspecified; Z95.5 Presence of coronary angioplasty implant and graft; Z87.891 Personal history of nicotine dependence

== ENCOUNTER → 2017-07-23 14:05 | Outpatient (CLI) | payer MEDICARE ==
[2017-06-24 12:34] VITALS: BMI 41.0
[~2017-07-23 14:05] MED LIST changes: +BAYER CHEWABLE81 MG PO; +BUPRENORPHIN-N1 EACH SL; +ELAVIL75 MG PO; +FUROSEMIDE20 MG PO; +GLIPIZIDE10 MG PO; +LYRICA75 MG PO; +METOLAZONE5 MG PO; +NEURONTIN600 MG; +NORVASC2.5 MG PO; +NOVOLOG100 U/M1 SC; +OMNICEF300 MG PO; +PROTONIX40 MG; +PULMICORT0.5 MG/21 INH
== END | disposition home or self-care (01) ==
LOC: D.RAD 14:05
DX: K59.00 Constipation, unspecified (principal); R10.84 Generalized abdominal pain; R10.13 Epigastric pain

== ENCOUNTER 2018-04-12 12:19 | Inpatient (IN) | payer MEDICARE, MEDICAID ==
[~2018-04-12] VITALS: Ht 172.7 cm; Wt 104.3 kg
--- NOTE | ~2018-04-12 | MORECARE ---
CASE MANAGEMENT DISCHARGE SUMMARY PATIENT: YENI CORNELIUS UNIT: [id number] ADM DATE: 04/12/18 AGE: 67 : 54 SEX: M ROOM/BED: D.0093 AUTHOR: CRISTA,DOC PHYSICIAN: REFERRING PHYSICIAN: LISA RODRIGUEZ MD DATE OF SERVICE: 04/13/18 Discharge Plan Patient Name: YENI CORNELIUS Facility: [facility]:[place] : 1950 Planned Disposition: Home Anticipated Discharge Date: Discharge Date: Expected LOS: Initial Reviewer: [email or web address] Initial Review Date: 04/12/2018 Generated: 04/13/18 5:51 pm Comments DCP- Discharge Planning Updated by [email or web address]: Elli Key on 04/13/18 3:[address] Patient Name: YENI CORNELIUS Admission Status: ER Accout number: [id number] Admission Date: 04-12-2018 : 1950 Admission Diagnosis: Attending: LISA RODRIGUEZ Current LOS: 1 Anticipated DC Date: Planned Disposition: Home Primary Insurance: [facility] MEDICARE SOLUTIONS Discharge Planning Comments: CM met with patient to assess discharge planning needs. Patient lives with his and grandson at home in [place] and plans to return there at discharge. He states that he is independent with his care at home. He said that his brother will be the one to drive him home. He wears Home O2 ([facility]) has a nebulizer, walker and cane at home. There are no steps at home and his home is safe. He is not opposed to Home Health if he needs it. He questioned about extra help. Referral sent to Ashok Rodriguez after permission was given to send info. Patient denies any other needs at this present time. CM will continue to follow and assist with DC planning as needed. Ashok rodriguez will come up tomorrow and see patient. Roll Changer: Elli Key DCPIA - Discharge Planning Initial Assessment Updated by [email or web address]: Elli Key on 04/13/18 4:41 pm * Is the patient Alert and Oriented? Yes * How many steps to enter\exit or inside your home? * PCP Tanvir Ma DRY ROASTER * Pharmacy [facility] * Preadmission Environment Home with Family * ADLs Independent * Equipment Cane Nebulizer Oxygen Walker * List name and contact numbers for known caregivers / representatives who currently or will assist patient after discharge: () TERESA (SON) [phone] * Verbal permission to speak to the caregivers and representatives has been obtained from the patient. N/A * Community resources currently utilized None * Additional services required to return to the preadmission environment? Yes * Can the patient safely return to the preadmission environment? Yes * Has this patient been hospitalized within the prior 30 days at any hospital? No Last DP export: 04/13/18 3:44 p Patient Name: YENI CORNELIUS Page [id number] at 1651 All edits/amendments must be made on the electronic document DICTATION DATE: 04/13/181650 STEM ROLLER OR CRUSHER OPERATOR: TOMÁS 04/13/181650 RPT#: [id number] DC DATE: STATUS: ADM IN [facility] [address] [place] [address] END OF REPORT
--- NOTE | ~2018-04-12 | MORECARE ---
CASE MANAGEMENT DISCHARGE SUMMARY PATIENT: EYNI CORNELIUS UNIT: [id number] ADM DATE: 04/12/18 AGE: 67 : 54 SEX: M ROOM/BED: D.0714 AUTHOR: CRISTA,DOC PHYSICIAN: REFERRING PHYSICIAN: LISA RODRIGUEZ MD DATE OF SERVICE: 04/15/18 Discharge Plan Patient Name: YENI CORNELIUS Facility: [facility]:[place] : 1950 Planned Disposition: Home Anticipated Discharge Date: 04/15/18 Discharge Date: Expected LOS: 3 Initial Reviewer: [email or web address] Initial Review Date: 04/12/2018 Generated: 04/15/18 5:14 pm Comments DCP- Discharge Planning Updated by [email or web address]: Elli Key on 04/13/18 3:[address] Patient Name: YENI CORNELIUS Admission Status: ER Accout number: [id number] Admission Date: 04-12-2018 : 1950 Admission Diagnosis: Attending: LISA RODRIGUEZ Current LOS: 1 Anticipated DC Date: Planned Disposition: Home Primary Insurance: [facility] MEDICARE SOLUTIONS Discharge Planning Comments: CM met with patient to assess discharge planning needs. Patient lives with his and grandson at home in [place] and plans to return there at discharge. He states that he is independent with his care at home. He said that his brother will be the one to drive him home. He wears Home O2 ([facility]) has a nebulizer, walker and cane at home. There are no steps at home and his home is safe. He is not opposed to Home Health if he needs it. He questioned about extra help. Referral sent to Ashok Rodriguez after permission was given to send info. Patient denies any other needs at this present time. CM will continue to follow and assist with DC planning as needed. Ashok rodriguez will come up tomorrow and see patient. Table Games Supervisor: Elli Key DCPIA - Discharge Planning Initial Assessment Updated by [email or web address]: Elli Key on 04/13/18 4:41 pm * Is the patient Alert and Oriented? Yes * How many steps to enter\exit or inside your home? * PCP Tanvir Ma SHELL SIEVE OPERATOR * Pharmacy [facility] * Preadmission Environment Home with Family * ADLs Independent * Equipment Cane Nebulizer Oxygen Walker * List name and contact numbers for known caregivers / representatives who currently or will assist patient after discharge: () TERESA (SON) [phone] * Verbal permission to speak to the caregivers and representatives has been obtained from the patient. N/A * Community resources currently utilized None * Additional services required to return to the preadmission environment? Yes * Can the patient safely return to the preadmission environment? Yes * Has this patient been hospitalized within the prior 30 days at any hospital? No Coverage Notice Reviewer: [email or web address] Mindi Polk Notice Issued Date-Time: 04/15/2018 16:00 Notice Type: IM Discharge Notice Notice Delivered To: Patient Relationship to Patient: Air Conditioning Unit Assembler Name: Delivery Method: HAND - Hand Delivered Niurka Days: Prior Verbal Notification: Recipient Understood Notice: Yes Recipient Signature: Yes Med Rec Note Co-signed by Attending: Coverage Notice Comment: Last DP export: 04/15/18 3:07 p Patient Name: YENI CORNELIUS Page [id number] at 1614 All edits/amendments must be made on the electronic document DICTATION DATE: 04/15/181612 ROCK DUSTER: TOMÁS 04/15/181612 RPT#: [id number] DC DATE: STATUS: ADM IN [facility] [address] [place] [address] END OF REPORT
--- NOTE | ~2018-04-12 | EC ---
PATIENT:YENI CORNELIUS DATE OF SERVICE: 04/12/18 SEX: M MEDICAL RECORD: [id number] DATE OF : [birth year] LOCATION:D.M2 D.211 AGE OF PATIENT: 67 ADMISSION DATE: 04/12/18 REFERRING PHYSICIAN: INTERPRETING PHYSICIAN: NAIDNE KHANNA MD ECHOCARDIOGRAM REPORT ECHO CHARGES 4 ECHO COMPLETE Date: 04/13/18 CLINICAL DIAGNOSIS: CHF HX OF CAD ECHOCARDIOGRAPHIC MEASUREMENTS (adult normal given) AC root (d.<3.7cm) 3.3 cm LV Septum d (<1.2 cm> 1.2 cm Valve Excursion 1.7 cm LV Septum (systole) 1.4 cm Left Atria (s.<4.0cm> 5.0 cm LVPW d(<1.2cm) 1.0 cm RV (d.<2.3cm) 4.8 cm LVPW (sytole) 1.4 cm LV diastole(<5.6CM) 7.0 cm MV E-F(>70mm/sec) cm LV systole 5.1 cm LVOT Diameter 2.3 cm MV exc.(>10mm) 2.3 cm Est.ejection fraction (50-75%) % DOPPLER: LVIT cm/sec A 68.0 cm/sec E 119 cm/sec LA cm/sec RVSP 38 mmHg LVOT 119 cm/sec AOP1/2T m/s Asc. Ao 164 cm/sec RVOT 111 cm/sec RA cm/sec PA 153 cm/sec AV Gradient Peak 10.73mmHg AV Mean 6.64 mmHg AV Area 3.2 cm MV Gradient Peak 6.81 mmHg MV Mean 2.52 mmHg MV Area cm COMMENTS: Senior Analyst: Isidoro CASTEL Workers Compensation Claims Supervisor: 1 Dr. Khanna TAPE# PACS Pericardial Effusion N DATE OF SERVICE: 04/13/2018 FINDINGS: 1. Left ventricular chamber size is moderately dilated. Left ventricular systolic function is mildly reduced. Overall ejection fraction is in 35% to 40% range. This is marked improvement over cardiac catheterization prior to the cardiac intervention. 2. Left atrium is enlarged at 5.0 cm. Right atrium and right ventricular chamber sizes are as well moderately dilated. 3. Valvular structures have normal structure and motion. ECHOCARDIOGRAM REPORT [id number] YENI CORNELIUS 4. Doppler interrogation reveals zefun-kx-xkpi mitral regurgitation and mild tricuspid regurgitation. No other valvular insufficiency or stenosis. Pulmonary systolic pressure is estimated at 38 mmHg. 5. No evidence of pericardial effusion or left ventricular thrombus. TRANSINT:[id number] Voice Confirmation ID: [id number] DOCUMENT ID: [id number] NADINE KHANNA MD at 1059 CC: [id number] DICTATION DATE: 04/13/18 1257 FINE DINING SERVER: 04/13/18 1304 DIS IN 04/15/18 [id number] [place] [id number]
--- NOTE | ~2018-04-12 | MORECARE ---
CASE MANAGEMENT DISCHARGE SUMMARY PATIENT: YENI CORNELIUS UNIT: [id number] ADM DATE: 04/12/18 AGE: 67 : 52 SEX: M ROOM/BED: D.2113 AUTHOR: ROSE MARY TOBIN PHYSICIAN: REFERRING PHYSICIAN: LISA RODRIGUEZ MD DATE OF SERVICE: 04/13/18 Discharge Plan Patient Name: [facility]ENI CORNELIUS [facility] [facility] 1950 Planned Disposition: Home Anticipated Discharge Date: Discharge Date: Expected LOS: Initial Reviewer: [email or web address] Initial Review Date: 04/12/2018 Generated: 04/13/18 5:44 pm DCPIA - Discharge Planning Initial Assessment Updated by [email or web address]: Elli Key on 04/13/18 4:41 pm * Is the patient Alert and Oriented? Yes * How many steps to enter\exit or inside your home? * PCP Tanvir Ma APN * [facility] * Preadmission Environment Home with Family * ADLs Independent * Equipment Cane Nebulizer Oxygen Walker * List name and contact numbers for known caregivers / representatives who currently or will assist patient after discharge: () TERESA (SON) [phone] * Verbal permission to speak to the caregivers and representatives has been obtained from the patient. N/A * Community resources currently utilized None * Additional services required to return to the preadmission environment? Yes * Can the patient safely return to the preadmission environment? Yes * Has this patient been hospitalized within the prior 30 days at any hospital? No Patient Name: YENI CORNELIUS Page 23927 at 1644 All edits/amendments must be made on the electronic document DICTATION DATE: 04/13/181643 911 EMERGENCY DISPATCHER: TOMÁS 04/13/181643 RPT#: [id number] DC DATE: STATUS: ADM IN [facility] [address] [place] [address] END OF REPORT
--- NOTE | ~2018-04-12 | MORECARE ---
CASE MANAGEMENT DISCHARGE SUMMARY PATIENT: YENI CORNELIUS UNIT: [id number] ADM DATE: 04/12/18 AGE: 67 : 52 SEX: M ROOM/BED: D.2113 AUTHOR: CRISTADOC PHYSICIAN: REFERRING PHYSICIAN: LISA RODRIGUEZ MD DATE OF SERVICE: 04/15/18 Discharge Plan Patient Name: YENI CORNELIUS Facility: [facility]:[place] : 1950 Planned Disposition: Home Anticipated Discharge Date: 04/15/18 Discharge Date: Expected LOS: 3 Initial Reviewer: [email or web address] Initial Review Date: 04/12/2018 Generated: 04/15/18 5:21 pm Comments DCP- Discharge Planning Updated by [email or web address]: Marv Chase on 04/15/18 3:[address] Patient Name: YENI CORNELIUS Encounter No: [id number] : 1950 Primary Insurance: [employer] MEDIC[employer] SOLUTIONS Anticipated DC Date: 04-15-2018 Planned Disposition: Home DCP follow-up note: CM MET WITH PT IN ROOM TO DISCUSS DISCHARGE NEEDS AND PLANNING. CM DISCUSSED AVAILABILITY OF HOME HEALTH, REHAB SERVICES AND MEDICAL EQUIPMENT. PT DENIES DISCHARGE NEEDS, DENIES NEED OF HOME HEALTH REPORTING DR. CLINE IS DOING WOUND CARE IN THE OFFICE. PT REPORTS HIS SPOUSE TO TRANSPORT HOME AT DISCHARGE. IMPORTANT MESSAGE FROM MEDICARE PROVIDED AND EXPLAINED. PT DID NOT HAVE [facility] PERSONAL CARE INFORMATION STATING HE DID NOT HAVE MEDICAID TO COVER THE SERVICES. CM EXPLAINED THAT [facility] AND ALL AGES WILL COME TO HIS HOME FOR FREE EVALUATION AND ASSIST WITH MEDICAID APPLILCATION IF THEY BELIEVE PT WILL QUALIFY. CM PROVIDED PT WITH THE INFORMATION FOR [facility] [employer] ALL AGES PT REPORTED THINKING HE THREW THE BROCURE IN THE TRASH. 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 MARV CHASE, CASE MANAGEMENT DCP- Discharge Planning Updated by [email or web address]: Elli Key on 04/13/18 3:[address] Patient Name: YENI CORNELIUS Admission Status: ER Accout number: [id number] Admission Date: 04-12-2018 : 1950 Admission Diagnosis: Attending: LISA RODRIGUEZ Current LOS: 1 Anticipated DC Date: Planned Disposition: Home Primary Insurance: [facility] MEDICARE SOLUTIONS Discharge Planning Comments: CM met with patient to assess discharge planning needs. Patient lives with his and grandson at home in [place] and plans to return there at discharge. He states that he is independent with his care at home. He said that his brother will be the one to drive him home. He wears Home [employer] ([employer]) has a nebulizer, walker and cane at home. There are no steps at home and his home is safe. He is not opposed to Home Health if he needs it. He questioned about extra help. Referral sent to Ashok Rodriguez after permission was given to send info. Patient denies any other needs at this present time. CM will continue to follow and assist with DC planning as needed. Ashok rodriguez will come up tomorrow and see patient. Senior Stock Plan Administrator: Elli Key DCPIA - Discharge Planning Initial Assessment Updated by [id number]: Elli Key on 04/13/18 4:41 pm * Is the patient Alert and Oriented? Yes * How many steps to enter\exit or inside your home? * PCP Tanvir Ma APN * [facility] * Preadmission Environment Home with Family * ADLs Independent * Equipment Cane Nebulizer Oxygen Walker * List name and contact numbers for known caregivers / representatives who currently or will assist patient after discharge: () TERESA (SON) [phone] * Verbal permission to speak to the caregivers and representatives has been obtained from the patient. N/A * Community resources currently utilized None * Additional services required to return to the preadmission environment? Yes * Can the patient safely return to the preadmission environment? Yes * Has this patient been hospitalized within the prior 30 days at any hospital? No Coverage Notice Reviewer: [email or web address] - Marv Chase Notice Issued Date-Time: 04/15/2018 16:00 Notice Type: IM Discharge Notice Notice Delivered To: Patient Relationship to Patient: Motor Driver Name: Delivery Method: HAND - Hand Delivered Niurka Days: Prior Verbal Notification: Recipient Understood Notice: Yes Recipient Signature: Yes Med Rec Note Co-signed by Attending: Coverage Notice Comment: Last DP export: 04/15/18 3:14 p Patient Name: YENI CORNELIUS Page [phone] at 1622 All edits/amendments must be made on the electronic document DICTATION DATE: 04/15/181620 IMPLEMENTATION ENGINEER: TOMÁS 04/15/181620 RPT#: [id number] PA DATE: STATUS: ADM IN [facility] [address] [place] [address] END OF REPORT
--- NOTE | ~2018-04-12 | HEMODYNAMI ---
PATIENT:YENI CORNELIUS MEDICAL RECORD: [id number] : 54 LOCATION:[place] [address] ADMISSION DATE: 04/12/18 Generatedon:04/12/201817:30 Patient name: YENI CORNELIUS Patient #: [id number] SSN: : 1950 Date of study: 04/12/2018 Page: Of Hemodynamic Procedure Report Patient Data Patient Demographics Procedure consent was obtained First Name: YENI Gender: Male Last Name: ASHLI : 1950 Patient #: [id number] Age: 67 year(s) Race: Unknown Additional ID: [id number] Contact details [address]: [address] [place] [address] State: [place] City: [place] Zip code: [address] Past Medical History Allergies: No known allergies Admission Admission Data Admission Date: 04/12/2018 Admission Time: 15:21 Room #: [facility] Procedure Procedure Types Cath Procedure Diagnostic Procedure LHC LHC w/Coronaries PCI Procedure Coronary Stent Coronary Stent Initial Peripheral Cath Diagnostic Procedure 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 Peripheral Procedures Zsast-Igdqlvc-Zgr-Off Procedure Description Procedure Date Procedure Date: 04/12/2018 Procedure Start Time: 17:09 Procedure End Time: 17:25 Procedure Staff Name Function Mansoor Khanna MD Performing Physician Melchor Alcocer RN Nurse Cony Dunn RN Nurse Merlin Mcmahon RT Monitor Annie Robertson RT Scrub Procedure Data Cath Procedure Fluoroscopy Diagnostic fluoroscopy Total fluoroscopy Time: 4.3 time: 4.3 min min Diagnostic fluoroscopy Total fluoroscopy dose: dose: 1517 mGy 1517 mGy Contrast Material Contrast Material Type Amount (ml) Isovue 300 132 Entry Location Entry Primary Successful Side Size Upsize Upsize Entry Closure Succes sful Closure Location (Fr) 1 (Fr) 2 (Fr) Remarks Device Remarks Femoral Right 6 Fr Exoseal artery Short Estimated blood loss: 10 ml Diagnostic catheters Device Type Used For End Catheter Placement MULTIPACK Pigtail 5 Fr Procedure catheter MULTIPACK JL 4.0 5Fr Procedure catheter MULTIPACK 3DRC 5Fr Procedure catheter Procedure Complications No complications Procedure Medications Medication Administration Route Dosage 0.9% NaCl I.V. 100 ml/hr Oxygen etCO2 Nasal cannula 2 l/min Lidocaine 2% added to field 20 Heparin Flush Bag added to field 2 bags (1000units/500ml NS) Oxygen 6 l/min Fentanyl I.V. 50 mcg Versed I.V. 1 mg Fentanyl I.V. 50 mcg Versed I.V. 1 mg Heparin Bolus I.V. 4000 units Integrilin (Bolus I.V. 9.5 ml 2mg/ml) Integrilin (Bolus I.V. 0.5 ml 2mg/ml) Hemodynamics Rest Heart Rate: 81 (bpm) Pressure Samples Time Site Value (mmHg) Purpose Heart Use Rate(bpm) 17:12 AO 140/77(103) Snapshot 81 Snapshots Pre Cath Intra NCS Post Cath Vital Signs Time Heart Resp SPO2 etCO2 NIBP (mmHg) Rhythm Pain Sedation Rate (ipm) (%) (mmHg) Status Level (bpm) 16:59:03 86 20 87 17.1 155/91(120) NSR 0 (11) 10(A) , No pain 17:03:19 120 18 95 17.1 155/86(121) NSR 0 (11) 10(A) , No pain 17:07:39 82 16 95 12.6 150/92(126) NSR 0 (11) 10(A) , No pain 17:11:59 80 16 95 34.1 153/80(113) NSR 0 (11) 10(A) , No pain 17:16:13 67 15 96 14.8 150/94(111) NSR 0 (11) 10(A) , No pain 17:20:33 82 22 97 16.3 148/80(100) NSR 0 (11) 10(A) , No pain 17:24:43 79 16 97 12.6 142/87(124) NSR 0 (11) 10(A) , No pain Medications Time Medication Route Dose Verified Delivered Reason Notes Effectiveness by by 16:43:06 0.9% NaCl I.V. 100 Mansoor Cony used for ml/hr Jey Dunn lock maintenance supervisor 16:43:16 Oxygen etCO2 2 Mansoor Cony used for Nasal l/min Jey Dunn procedure cannula RN 16:43:21 Lidocaine 2% added 20ml Mansoor Cony for local to vial Jey Dunn anesthetic field KOO 16:43:26 Heparin Flush added 2 Mansoor Cony used for Bag to bags Jey Dunn procedure (1000units/500ml RN NS) 16:59:30 Oxygen Simple 6 Mansoor Melchor Per physician Mask l/min Jey Alcocer RN 17:04:40 Fentanyl I.V. 50 Mansoor Melchor for sedation mcg Jey Alcocer RN 17:04:48 Versed I.V. 1 mg Mansoor Melchor for sedation Jey Alcocer RN 17:19:14 Fentanyl I.V. 50 Mansoor Melchor for sedation mcg Jey Alcocer RN 17:19:19 Versed I.V. 1 mg Mansoor Melchor for sedation Jey Alcocer RN 17:19:28 Heparin Bolus I.V. 4000 Mansoor Melchor for units Jey Alcocer RN anticoagulation 17:20:04 Integrilin I.V. 9.5 Mansoor Tolberty for (Bolus 2mg/ml) ml Jey Alcocer RN antiplatelet therapy 17:20:57 Integrilin I.V. 0.5 Mansoor Melchor for (Bolus 2mg/ml) ml Jey Alcocer RN antiplatelet therapy Procedure Log Time Note 16:34:28 Diagnostic Cath Status : Elective 16:34:52 Tejinder Cho RN sent for patient. Start room use. 16:34:53 Time tracking: Regular hours (M-F 7:00 - 5:00) 16:34:58 Plan of Care:Hemodynamics will remain stable., Cardiac rhythm will remain stable., Comfort level will be maintained., Respiratory function will remain adequate., Patient/ family verbilizes understanding of procedure., Procedure tolerated without complication., Recovers from procedure without complications.. 16:35:39 Procedure type changed to Cath procedure, Diagnostic procedure, LHC, LHC w/Coronaries, PCI procedure, Coronary Stent, Coronary Stent Initial, Peripheral Cath Diagnostic Procedure, 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 Peripheral Procedures, Polrr-Tutunmd-Emx-Off 16:43:06 0.9% NaCl 100 ml/hr I.V. was administered by Cony Dunn RN; used for procedure; 16:43:16 Oxygen 2 l/min etCO2 Nasal cannula was administered by Cony Dunn RN; used for procedure; 16:43:21 Lidocaine 2% 20ml vial added to field was administered by Cony Dunn RN; for local anesthetic; 16:43:26 Heparin Flush Bag (1000units/500ml NS) 2 bags added to field was administered by Cony Dunn RN; used for procedure; 16:51:35 Patient received from ED to CCL 1 Alert and oriented. Tansferred to table in Supine position. 16:51:37 Warm blankets applied, and mary hugger turned on for patient comfort. 16:51:38 Correct patient and procedure confirmed by team. 16:51:40 Signed procedure consent form obtained from patient. 16:51:47 H&P Date Dictated: 04/12/2018 Emergent; H&P N/A. 16:51:51 Pre-procedure instructions explained to patient. 16:51:56 Family in waiting room. 16:52:01 Patient NPO since Lunch. 16:52:08 Patient allergic to No known allergies 16:52:15 Was the patient premedicated? Yes 16:52:20 Is patient on blood thinner?Yes 16:52:23 ACC The patient was administered the following blood thiners within the last 24 hours: ACCPlavix 16:56:46 Patient diabetic? Yes. 16:56:48 If diabetic: On Metformin? No 16:56:54 Snore? Yes 16:56:57 Sleep apnea? No 16:57:01 Airway obstruction? Yes COPD 16:57:10 Dentures? No ? 16:57:45 Patient pain scale 2/10 ?. 16:57:51 Vital chart was started 16:58:02 Lab results completed and on chart. 16:58:09 Right groin area was prepped with chlora-prep and draped in sterile fashion 16:58:10 Alarms reviewed by R. N. 16:58:10 Sharps counted by scrub and verified by R.N. 16:58:12 Physician arrived 16:58:12 --------ALL STOP TIME OUT------ 16:58:13 Final Timeout: patient, procedure, and site verified with staff and physician. All members of the team are in agreement. 16:58:20 Right groin site verified by team. 16:58:25 Physical assessment completed. ASA score P 2 - A patient with mild systemic disease as per Mansoor Khanna MD. 16:58:30 Sedation plan: IV Moderate Sedation Medication:Versed, Fentanyl 16:59:13 Use device set Femoral Dx 16:59:15 ACIST Syringe (48895) opened to sterile field. 16:59:15 Bag Decanter (2002S) opened to sterile field. 16:59:16 Medline Cath Pack ([id number]) opened to sterile field. 16:59:18 ACIST Hand Control (96822) opened to sterile field. 16:59:19 ACIST Manifold (22146) opened to sterile field. 16:59:20 Tegaderm 4 x 4 (1626W) opened to sterile field. 16:59:21 PERCUTANEOUS ENTRY 19GA needle opened to sterile field. 16:59:30 Oxygen 6 l/min Simple Mask was administered by Melchor Alcocer RN; Per physician; 16:59:46 SHEATH 6FR [place] (EZY140) opened to sterile field. 17:04:40 Fentanyl 50 mcg I.V. was administered by Melchor Alcocer RN; for sedation; 17:04:48 Versed 1 mg I.V. was administered by Melchor Alcocer RN; for sedation; 17:05:24 DIAGNOSTIC Multipack 5Fr catheter set (MS6232) opened to sterile field. 17:05:25 DIAGNOSTIC WIRE .035 260cm J wire (642441) opened to sterile field. 17:08:13 Quick Combo opened to sterile field. 17:08:25 Quick combo pads placed on patients chest and back. 17:09:01 Procedure started. 17:09:01 Full Disclosure recording started 17:09:04 Local anesthetic to right femoral artery with Lidocaine 2% by Mansoor Khanna MD.INITIAL ACCESS ONLY 17:09:18 Zero performed for pressure channel P1 17:10:03 A 6 Fr Short sheath was inserted into the Right Femoral artery 17:10:18 A MULTIPACK Pigtail 5 Fr catheter was advanced over the wire and used for Procedure. 17:10:59 LV angiography performed. 17:11:00 LV gram done using DO 17:11:16 EF : 25 % 17:11:20 Injector settings: Ml/sec: 10, Volume: 20, 17:11:52 Abdominal Aortagram was performed. 17:12:10 Left leg runoff performed. 17:12:11 Right leg runoff performed. 17:12:29 Baseline sample Acquired. 17:12:45 Catheter removed. 17:13:00 A MULTIPACK JL 4.0 5Fr catheter was advanced over the wire and used for Procedure. 17:13:38 LCA angiography performed. 17:14:36 Catheter removed. 17:14:43 A MULTIPACK 3DRC 5Fr catheter was advanced over the wire and used for Procedure. 17:16:15 RCA angiography performed. 17:16:17 Catheter removed. 17:16:35 Use device set TAUTH PCI 17:17:14 INFLATOR Merit BasixCompak (CC3365) opened to sterile field. 17:17:17 CHOICE PT Extra Support 182cm wire ([id number]) opened to sterile field. 17:17:31 6 Fr XB 4 guide catheter was inserted over the wire 17:17:55 GUIDE 6FR XB 4.0 catheter ([id number]) opened to sterile field. 17:18:05 CPTXS wire advanced. 17:18:46 Wire advanced across lesion. 17:19:14 Fentanyl 50 mcg I.V. was administered by Melchor Alcocer RN; for sedation; 17:19:19 Versed 1 mg I.V. was administered by Melchor Alcocer RN; for sedation; 17:19:28 Heparin Bolus 4000 units I.V. was administered by Meclhor Alcocer RN; for anticoagulation; 17:20:04 Integrilin (Bolus 2mg/ml) 9.5 ml I.V. was administered by Melchor Alcocer RN; for antiplatelet therapy; 17:20:16 Inflate balloon Inflation number: 1 A EUPHORA 3.5 x 15 Balloon ([id number]) was prepped and advanced across the 1st Ob Lillian, then inflated to 15 MILKA for 0:10 (min:sec). 17:20:30 Balloon removed over the wire. 17:20:57 Integrilin (Bolus 2mg/ml) 0.5 ml I.V. was administered by Melchor Alcocer RN; for antiplatelet therapy; 17:21:51 Place stent Inflation Number: 2 A INTEGRITY RX 3.5 x 09 stent ([id number]) was prepped and advanced across the 1st Ob Lillian. The stent was deployed at 21 MILKA for 0:10 (min:sec). 17:22:43 Stent catheter was removed intact over wire. 17:22:44 Wire removed. 17:22:45 Guide catheter removed. 17:22:46 EXOSEAL 6Fr (EX600) opened to sterile field. 17:22:57 Sheath removed intact; hemostasis achieved with Exoseal to the Right Femoral artery. 17:22:58 Procedure ended.(Physican Out) 17:23:13 Fluoroscopy time 04.30 minutes. 17:23:17 Fluoroscopy dose: 1517 mGy 17:23:17 Flurop Dose total: 1517 17:23:21 Contrast amount:Isovue 300 132ml. 17:23:23 Sharps counted by scrub and verified by R.N. 17:23:24 Insertion/operative site no bleeding no hematoma. 17:23:29 Post-op/insertion site Right Femoral artery dressed using a 4 x 4 and Tegaderm. 17:23:30 Post Procedure Pulses reassessed and unchanged 17:23:32 Post-procedure physical assessment completed. ASA score P 2 - A patient with mild systemic disease as per Mansoor Khanna MD. 17:23:35 Post procedure rhythm: unchanged. 17:23:38 Estimated blood loss: 10 ml 17:23:41 Post procedure instruction explained to patient.Patient verbalizes understanding. 17:23:41 Patient needs reinforcement of post procedure teaching. 17:23:43 Procedure and supply charges have been captured, reviewed, submitted and are correct. 17:23:47 Procedure Complication : No complications 17:25:16 Vital chart was stopped 17:25:17 See physician's report for complete and final results. 17:25:23 Report given to PCU. 17:25:33 Patient transfered to PCU with Stretcher. 17:25:42 Procedure ended. 17:25:42 Full Disclosure recording stopped 17:25:46 End room use (Document Last) Intervention Summary Intervention Notes Time ActionType Lesion and Equipment Action# Pressure Duration Attributes Used 17:20:16 Inflate 1st Ob Lillian EUPHORA 3.5 1 15 00:10 balloon x 15 Balloon ([id number]) 17:21:51 Place stent 1st Ob Lillian INTEGRITY RX 2 21 00:10 3.5 x 09 stent ([id number]) Device Usage Item Name Manufacture Quantity Catalog Number Hospital Part Current Mini mal Lot# / Charge Number Stock Stock Serial# Code ACIST Acgerald [facility] 1 41390 887138 993140 438389 20 Syringe Medical (76688) Systems Inc Bag Decanter Microtek 1 2001S 388022 60733 540424 5 (2001S) Medical Inc. Medline Cath Medline 1 [id number] 311314 00208 354807 5 Pack ([id number]) ACIST Hand Acist 1 01150 258222 064912 433107 5 Control Medical (36113) Systems Inc ACIST Acist 1 43993 589231 697452 601567 5 Manifold Medical (47235) Systems Inc Tegaderm 4 x 3M 1 1626W 918165 254365 175833 5 4 (1626W) PERCUTANEOUS Cook Medical 1 Q29999 389946 655472 5 ENTRY 19GA needle SHEATH 6FR Terumo 1 WDX236 376213 167711 379214 40 [place] (NAY848) DIAGNOSTIC Cardinal 1 PW6783 828485 62567 642899 30 Multipack Health 5Fr catheter set (KM2016) DIAGNOSTIC St Shane 1 617075 528598 267015 008749 30 WIRE .035 260cm J wire (718340) DiningCircle 1 51743-232176 346655 748467 587703 5 MULTIPACK Cardinal 1 363741 5 Pigtail 5 Fr Health catheter MULTIPACK JL Cardinal 1 366229 5 4.0 5Fr Health catheter MULTIPACK Cardinal 1 993067 5 3DRC 5Fr Health catheter INFLATOR Merit 1 FO5137 868991 076614 004161 15 [facility] BasixCompak (MF4796) CHOICE PT Hathaway 1 [id number] 366159 223089 158540 5 Extra Scientific Support 182cm wire ([id number]) GUIDE 6FR XB Cardinal 1 [id number] 664155 475790 618727 2 4.0 catheter 64 Pixels ([id number]) EUPHORA 3.5 Medtronic 1 [id number] 463286 015694 706295 5 [id number] x 15 Balloon ([id number]) INTEGRITY RX Medtronic 1 [id number] 015463 169891 383924 5 [id number] 3.5 x 09 stent ([id number]) EXOSEAL 6Fr Cardinal 1 EX600 506094 336689 805904 10 (EX600) Health Signature Audit [place] Stage Time Signature Unsigned Intra-Procedure 04/12/2018 Merlin Mcmahon 5:30:00 PM RT(R) Signatures Monitor : Merlin Mcmahon RT Signature : Date : Time : [facility] [address] [place] [address]
--- NOTE | ~2018-04-12 | OP ---
PATIENT NAME: YENI CORNELIUS MEDICAL RECORD: [id number] :54 LOCATION:D.M2 D.2113 ADMISSION DATE:04/12/18 SURGEON: NADINE PEREZ MD DATE OF OPERATION: 04/12/2018 PROCEDURES: 1. PTCA stent left circumflex. 2. Left heart catheterization. 3. Selective coronary angiography. 4. Left ventriculogram. INDICATION: Non-Q-wave myocardial infarction, unstable angina, acute coronary syndrome. DESCRIPTION OF PROCEDURE IN DETAIL: After informed consent was obtained and after a detailed description of the risks, benefits as well as alternative therapies, the patient elected to proceed with angiogram and angioplasty. The right femoral area was prepped and draped in normal sterile fashion. Right femoral artery was cannulated via modified Seldinger technique with placement of 6-Kosovan sheath. All catheters exchanged through this sheath. FINDINGS: The left ventriculogram was performed in standard 30-degree DO view reveals global hypokinesis throughout all segments. Overall ejection fraction 15% to 20%. SELECTIVE CORONARY ANGIOGRAPHY: 1. Left main is with no significant angiographic disease. 2. Left anterior descending is chronically totally occluded. 3. The left circumflex is patent; however, the first obtuse marginal has 90% to 95% stenosis. 4. Right coronary artery is chronically totally occluded, fills via left to right collaterals off the circumflex. PTCA STENT OF THE CIRCUMFLEX: The stent used was a 3.5 x 9-mm Integrity stent. Result was 0% residual stenosis. OVERALL IMPRESSION: Successful percutaneous transluminal coronary angioplasty stent of the left circumflex going from 95% initial stenosis to 0% residual. TRANSINT:[id number] Voice Confirmation ID: [id number] DOCUMENT ID: [id number] NADINE PEREZ MD at 1059 CC: [id number] DICTATION DATE: 04/12/18 1729 SCRAP BALER: 04/12/182047 DIS IN 04/15/[address] [address]
--- NOTE | ~2018-04-12 | MORECARE ---
CASE MANAGEMENT DISCHARGE SUMMARY PATIENT: YENI CORNELIUS UNIT: [id number] ADM DATE: 04/12/18 AGE: 67 : 54 SEX: M ROOM/BED: D.6134 AUTHOR: CRISTA,DOC PHYSICIAN: REFERRING PHYSICIAN: LISA RODRIGUEZ MD DATE OF SERVICE: 04/15/18 Discharge Plan Patient Name: YENI CORNELIUS Facility: [facility]:[place] : 1950 Planned Disposition: Home Anticipated Discharge Date: 04/15/18 Discharge Date: Expected LOS: 3 Initial Reviewer: [email or web address] Initial Review Date: 04/12/2018 Generated: 04/15/18 5:07 pm Comments DCP- Discharge Planning Updated by [id number]: Elli Key on 04/13/18 3:[address] Patient Name: YENI CORNELIUS Admission Status: ER Accout number: [id number] Admission Date: 04-12-2018 : 1950 Admission Diagnosis: Attending: LISA RODRIGUEZ Current LOS: 1 Anticipated DC Date: Planned Disposition: Home Primary Insurance: [facility] MEDICARE SOLUTIONS Discharge Planning Comments: CM met with patient to assess discharge planning needs. Patient lives with his and grandson at home in [place] and plans to return there at discharge. He states that he is independent with his care at home. He said that his brother will be the one to drive him home. He wears Home O2 ([employer]) has a nebulizer, walker and cane at home. There are no steps at home and his home is safe. He is not opposed to Home Health if he needs it. He questioned about extra help. Referral sent to Ashok Rodriguez after permission was given to send info. Patient denies any other needs at this present time. CM will continue to follow and assist with DC planning as needed. Ashok rodriguez will come up tomorrow and see patient. Brand Coordinator: Elli Key DCPIA - Discharge Planning Initial Assessment Updated by [email or web address]: Elli Key on 04/13/18 4:41 pm * Is the patient Alert and Oriented? Yes * How many steps to enter\exit or inside your home? * PCP Tanvir Ma [facility] * Pharmacy [facility] * Preadmission Environment Home with Family * ADLs Independent * Equipment Cane Nebulizer Oxygen Walker * List name and contact numbers for known caregivers / representatives who currently or will assist patient after discharge: () TERESA ([phone] * Verbal permission to speak to the caregivers and representatives has been obtained from the patient. N/A * Community resources currently utilized None * Additional services required to return to the preadmission environment? Yes * Can the patient safely return to the preadmission environment? Yes * Has this patient been hospitalized within the prior 30 days at any hospital? No Last DP export: 04/13/18 3:51 p Patient Name: YENI CORNELIUS Page 38578 at 1607 All edits/amendments must be made on the electronic document DICTATION DATE: 04/15/181606 HEATING AND AIR CONDITIONING MECHANIC: TOMÁS 04/15/181606 RPT#: [id number] DC DATE: STATUS: ADM IN [facility] [address] [place] [address] END OF REPORT
--- NOTE | ~2018-04-12 | OP ---
PATIENT NAME: YENI CORNELIUS MEDICAL RECORD: [id number] :54 LOCATION:D.M2 D.2113 ADMISSION DATE:04/12/18 SURGEON: NADINE PEREZ MD DATE OF OPERATION: 04/12/2018 PROCEDURE: 1. Aortofemoral runoff. 2. Abdominal aortography. INDICATION: Claudication, peripheral vascular disease, limb threatening ischemia. PROCEDURE PERFORMED: After informed consent was obtained and after a detailed description of the risks, benefits as well as alternative therapies, the patient elected to proceed with angiogram and aortofemoral runoff. The catheter was advanced for abdominal aortography, pulled back for aortofemoral runoff. FINDINGS: RIGHT LEG: A. Iliac: The common internal and external iliacs are heavy calcification, but no flow-limiting stenosis. B. Femoral system: The common and deep femoral have widely patent. Superficial femoral has a 75% to 80% stenosis in the mid vessel. C. Popliteal and infrapopliteal vessels: The popliteal is patent; however, no infrapopliteal vessels are patent. These fill via collaterals. They appear to be severely diffusely diseased throughout their entire course with multiple areas of chronic total occlusions. This is not amenable to transcatheter revascularization. LEFT LEG: A. Iliac: The common internal and external iliacs have heavy calcification, but only mild irregularities, but no flow-limiting stenosis. B. Femoral system: The common superficial and deep femoral have mqiw-de-xxuhwkmy irregularities and diffuse disease, but no flow-limiting stenosis. C. Popliteal and infrapopliteal vessels. As with the right leg, the popliteal is patent. No infrapopliteal structures are patent. OVERALL IMPRESSION: Severe infrapopliteal disease bilaterally that is not amenable to transcatheter revascularization. TRANSINT:[id number] Voice Confirmation ID: [id number] DOCUMENT ID: [id number] NADINE PEREZ MD at 1059 CC: [id number] DICTATION DATE: 04/12/181728 LIFE SKILLS COACH: 04/12/182047 DIS IN 04/15/[address] [facility] [address] [place] [id number]
[~2018-04-12 12:19] MED LIST changes: +ASPIRIN EC81 M1 PO; +K-DUR20 MEQ PO; +KEFLEX500 MG PO
[2018-04-12 13:00] LABS: BASOPHILS 0.1 % (0-2); EOSINOPHILS 0 % (0-7); HEMATOCRIT 31.5 % (42.0-54.0); HEMOGLOBIN 9.7 g/dL (13.5-17.5); IMMATURE GRANULOCYTES 0.2 % (0-5); LYMPHOCYTES 11.7 % (15-50); MCH 21.7 pg (26.0-34.0); MCHC 30.8 g/dL (31.0-37.0); MCV 70.6 fL (80.0-100.0); MONOCYTES 6.4 % (2-11); NEUTROPHILS 81.6 % (40-80); RBC 4.46 10x6/uL (4.20-6.10); RDW 18.5 % (11.5-14.5); WBC 9.2 10x3/uL (4.8-10.8)
[2018-04-12 13:03] LABS: PLATELET COUNT 225 10x3/uL (130-400)
[2018-04-12 13:08] LABS: APTT 34.1 SECONDS (22.8-39.4); INR 1.22 (0.85-1.17)
[2018-04-12 13:09] LABS: D-DIMER-QUANTITATIVE 1.14 ug/mLFEU (0.20-0.54)
[2018-04-12 13:28] LABS: ANION GAP 14.4 mmol/L (8-16); CARBON DIOXIDE 27.2 mmol/L (21.0-32.0); CREATININE - SERUM 1.6 mg/dL (0.6-1.3); POTASSIUM - SERUM 3.6 mmol/L (3.5-5.1)
[2018-04-12 13:30] VITALS: BP 151/73
[2018-04-12 13:31] LABS: TROPONIN-I 1.834 ng/mL (0.000-0.060)
[2018-04-12 14:18] LABS: APPEARANCE CLEAR (CLEAR); BACTERIA NONE SEEN /hpf (NONE SEEN); BILIRUBIN NEGATIVE (NEGATIVE); COLOR YELLOW (YELLOW); EPITHELIAL CELLS NSEEN /hpf (0-5); GLUCOSE 1000 mg/dL (NEGATIVE); KETONE NEGATIVE (NEGATIVE); NITRITE NEGATIVE (NEGATIVE); PROTEIN 3+ mg/dL (NEGATIVE); RED CELLS - URINE 0-5 /hpf (0-5); SPECIFIC GRAVITY 1.015 (1.005-1.020); UROBILINOGEN NORMAL (NORMAL); WHITE CELLS - URINE 0-5 /hpf (0-5)
[2018-04-12 14:31] VITALS: BP 147/77
[2018-04-12 15:31] VITALS: BP 181/98
[2018-04-12 16:21] LABS: CKMB 6.7 U/L (0.0-3.6); CREATINE KINASE 157 UL (21-232)
[2018-04-12 16:25] LABS: TROPONIN-I 4.021 ng/mL (0.000-0.060)
[2018-04-12 16:54] LABS: BASOPHILS 0.2 % (0-2); EOSINOPHILS 0 % (0-7); HEMATOCRIT 31.6 % (42.0-54.0); HEMOGLOBIN 9.8 g/dL (13.5-17.5); IMMATURE GRANULOCYTES 0.2 % (0-5); LYMPHOCYTES 10.8 % (15-50); MCH 21.9 pg (26.0-34.0); MCV 70.5 fL (80.0-100.0); MONOCYTES 7.1 % (2-11); NEUTROPHILS 81.7 % (40-80); PLATELET COUNT 217 10x3/uL (130-400); RBC 4.48 10x6/uL (4.20-6.10); RDW 18.6 % (11.5-14.5); WBC 9.6 10x3/uL (4.8-10.8)
[2018-04-12 17:02] LABS: % SATURATION 4 % (15-55); IRON 12 ug/dl (35-150); TOTAL IRON BIND CAPACITY 270 ug/dl (260-445); UNSAT IRON BIND CAPACITY 258 ug/dl (150-375)
[2018-04-12] MEDS ORDERED: NORCO 7.5/325 T1 TA1 PO (18:02)
[2018-04-12 18:48] VITALS: BP 142/84; BMI 35.0
[2018-04-12 21:01] VITALS: BP 147/75
[2018-04-13 01:29] VITALS: BP 157/68
[2018-04-13 05:44] VITALS: BP 135/66
[2018-04-13 06:04] LABS: BASOPHILS 0.1 % (0-2); EOSINOPHILS 0.1 % (0-7); HEMATOCRIT 29.2 % (42.0-54.0); HEMOGLOBIN 8.9 g/dL (13.5-17.5); IMMATURE GRANULOCYTES 0.1 % (0-5); LYMPHOCYTES 14.4 % (15-50); MCH 21.4 pg (26.0-34.0); MCHC 30.5 g/dL (31.0-37.0); MCV 70.2 fL (80.0-100.0); MONOCYTES 8.3 % (2-11); PLATELET COUNT 228 10x3/uL (130-400); RBC 4.16 10x6/uL (4.20-6.10); RDW 18.6 % (11.5-14.5); WBC 8.7 10x3/uL (4.8-10.8)
[2018-04-13 06:44] LABS: ALBUMIN 2.3 g/dL (3.4-5.0); ANION GAP 12.9 mmol/L (8-16); BILIRUBIN - TOTAL 0.58 mg/dL (0.2-1.3); CALCIUM 8.3 mg/dL (8.5-10.1); CARBON DIOXIDE 30.4 mmol/L (21.0-32.0); CHOL - HDL RATIO 2.7 ratio (2.3-4.9); CREATININE - SERUM 1.5 mg/dL (0.6-1.3); LDL-HDL RATIO 1.3 ratio (1.5-3.5); MAGNESIUM - SERUM 1.8 mg/dL (1.8-2.4); POTASSIUM - SERUM 3.3 mmol/L (3.5-5.1); PROTEIN - SERUM 6.4 g/dL (6.4-8.2)
[2018-04-13 09:05] VITALS: BP 147/70
[2018-04-13 12:06] VITALS: BP 147/63
[2018-04-13 14:49] VITALS: Ht 172.7 cm; Wt 104.3 kg
[2018-04-13 17:12] VITALS: BP 132/70
[2018-04-13 20:00] VITALS: BP 124/64
[2018-04-14 04:00] VITALS: BP 128/66
[2018-04-14 06:19] LABS: BASOPHILS 0.3 % (0-2); EOSINOPHILS 1.6 % (0-7); HEMATOCRIT 30.6 % (42.0-54.0); HEMOGLOBIN 9.3 g/dL (13.5-17.5); IMMATURE GRANULOCYTES 0.1 % (0-5); LYMPHOCYTES 16.9 % (15-50); MCH 21.6 pg (26.0-34.0); MCHC 30.4 g/dL (31.0-37.0); MEAN PLATELET VOLUME 10.6 fL (7.4-10.4); NEUTROPHILS 71.1 % (40-80); PLATELET COUNT 231 10x3/uL (130-400); RBC 4.31 10x6/uL (4.20-6.10); RDW 18.5 % (11.5-14.5); WBC 6.7 10x3/uL (4.8-10.8)
[2018-04-14 06:52] LABS: CALCIUM 8.3 mg/dL (8.5-10.1); CARBON DIOXIDE 35.1 mmol/L (21.0-32.0); CREATININE - SERUM 1.6 mg/dL (0.6-1.3); MAGNESIUM - SERUM 1.8 mg/dL (1.8-2.4); PHOSPHOROUS 3.4 mg/dL (2.5-4.9); POTASSIUM - SERUM 3.1 mmol/L (3.5-5.1)
[2018-04-14 08:27] VITALS: BP 160/83
[2018-04-14 09:19] LABS: FOLATE (FOLIC ACID) - SERUM 11.3 ng/mL (>3.0)
[2018-04-14 11:00] VITALS: BP 147/89
[2018-04-14 18:38] VITALS: BP 139/89
[2018-04-14 20:00] VITALS: BP 198/96
[2018-04-15 00:53] VITALS: BP 166/70
[2018-04-15 04:00] VITALS: BP 160/89
[2018-04-15 05:51] LABS: BASOPHILS 0.3 % (0-2); EOSINOPHILS 2.2 % (0-7); HEMATOCRIT 33.4 % (42.0-54.0); HEMOGLOBIN 10.3 g/dL (13.5-17.5); IMMATURE GRANULOCYTES 0.3 % (0-5); LYMPHOCYTES 18.3 % (15-50); MCH 21.8 pg (26.0-34.0); MCHC 30.8 g/dL (31.0-37.0); MCV 70.8 fL (80.0-100.0); MEAN PLATELET VOLUME 10.9 fL (7.4-10.4); MONOCYTES 8.9 % (2-11); PLATELET COUNT 246 10x3/uL (130-400); RBC 4.72 10x6/uL (4.20-6.10); RDW 18.6 % (11.5-14.5); WBC 7.9 10x3/uL (4.8-10.8)
[2018-04-15 06:09] LABS: APTT 30.3 SECONDS (22.8-39.4); INR 1.16 (0.85-1.17); PROTIME 14.4 SECONDS (11.6-15.0)
[2018-04-15 06:22] LABS: ANION GAP 12.6 mmol/L (8-16); CALCIUM 8.6 mg/dL (8.5-10.1); CARBON DIOXIDE 30.2 mmol/L (21.0-32.0); CREATININE - SERUM 1.4 mg/dL (0.6-1.3); MAGNESIUM - SERUM 1.8 mg/dL (1.8-2.4); PHOSPHOROUS 3.3 mg/dL (2.5-4.9)
[2018-04-15 06:23] LABS: POTASSIUM - SERUM 3.8 mmol/L (3.5-5.1)
[2018-04-15 08:58] VITALS: BP 140/78
[2018-04-15 11:00] VITALS: BP 182/92
[2018-04-15 15:45] VITALS: BP 165/86
[2018-04-15] MEDS ORDERED: BROVANA15 MCG/2 M INH (15:55)
[2018-04-15] MEDS ORDERED: ATROVENT 0.02%2.5 ML UPD (15:55)
[2018-04-15] MEDS ORDERED: LEVAQUIN750 MG PO (15:55)
[2018-04-15] MEDS ORDERED: XOPENEX 0.0.63 MG/3 INH (15:55)
[2018-04-15] MEDS ORDERED: OMNICEF300 MG PO (15:55)
== END 2018-04-15 18:30 | disposition home or self-care (01) | DRG 248 ==
LOC: D.ER 12:19 → D.EDHOLD 15:21 → D.M2 15:21
PROVIDERS: Family Medicine; Internal Medicine Interventional Cardiology; Internal Medicine Nephrology; Specialist
PROC: B2151ZZ Fluoroscopy of Left Heart using Low Osmolar Contrast (ICD-10-PCS; 2018-04-12)
PROC: B4101ZZ Fluoroscopy of Abdominal Aorta using Low Osmolar Contrast (ICD-10-PCS; 2018-04-12)
PROC: 02703DZ Dilation of Coronary Artery, One Artery with Intraluminal Device, Percutaneous Approach (ICD-10-PCS; principal; 2018-04-12 17:00)
PROC: 4A023N7 Measurement of Cardiac Sampling and Pressure, Left Heart, Percutaneous Approach (ICD-10-PCS; 2018-04-12 17:00)
PROC: B2111ZZ Fluoroscopy of Multiple Coronary Arteries using Low Osmolar Contrast (ICD-10-PCS; 2018-04-12 17:00)
DX: I21.4 Non-ST elevation (NSTEMI) myocardial infarction (principal); I50.23 Acute on chronic systolic (congestive) heart failure; J69.0 Pneumonitis due to inhalation of food and vomit; J15.6 Pneumonia due to other Gram-negative bacteria; J44.0 Chronic obstructive pulmonary disease with (acute) lower respiratory infection; J44.1 Chronic obstructive pulmonary disease with (acute) exacerbation; I13.0 Hypertensive heart and chronic kidney disease with heart failure and stage 1 through stage 4 chronic kidney disease, or unspecified chronic kidney disease; E11.52 Type 2 diabetes mellitus with diabetic peripheral angiopathy with gangrene; I96 Gangrene, not elsewhere classified; I25.110 Atherosclerotic heart disease of native coronary artery with unstable angina pectoris; J30.9 Allergic rhinitis, unspecified; G20 Parkinson's disease; M81.0 Age-related osteoporosis without current pathological fracture; D50.9 Iron deficiency anemia, unspecified; I27.20 Pulmonary hypertension, unspecified; F41.9 Anxiety disorder, unspecified; F32.9 Major depressive disorder, single episode, unspecified; E11.621 Type 2 diabetes mellitus with foot ulcer; N18.9 Chronic kidney disease, unspecified; E11.22 Type 2 diabetes mellitus with diabetic chronic kidney disease; Z86.73 Personal history of transient ischemic attack (TIA), and cerebral infarction without residual deficits

== ENCOUNTER 2018-05-01 12:32 | Inpatient (IN) | payer MEDICARE, MEDICAID ==
[~2018-05-01] VITALS: Ht 172.7 cm
--- NOTE | ~2018-05-01 | EC ---
PATIENT:YENI CORNELIUS DATE OF SERVICE: 05/01/18 SEX: M MEDICAL RECORD: [id number] DATE OF : [birth year] LOCATION:D.M2 D.211 AGE OF PATIENT: 67 ADMISSION DATE: 05/01/18 REFERRING PHYSICIAN: INTERPRETING PHYSICIAN: DEREK PEREZ MD ECHOCARDIOGRAM REPORT ECHO CHARGES 5 ECHO LIMITED Date: 05/02/18 CLINICAL DIAGNOSIS: CHF ECHOCARDIOGRAPHIC MEASUREMENTS (adult normal given) AC root (d.<3.7cm) cm LV Septum d (<1.2 cm> 1.9 cm Valve Excursion cm LV Septum (systole) 2.1 cm Left Atria (s.<4.0cm> 4.3 cm LVPW d(<1.2cm) 1.7 cm RV (d.<2.3cm) 4.2 cm LVPW (sytole) 2.0 cm LV diastole(<5.6CM) 7.3 cm MV E-F(>70mm/sec) cm LV systole 4.6 cm LVOT Diameter cm MV exc.(>10mm) cm Est.ejection fraction (50-75%) % DOPPLER: LVIT cm/sec A cm/sec E cm/sec LA cm/sec RVSP 22 mmHg LVOT cm/sec AOP1/2T m/s Asc. Ao cm/sec RVOT cm/sec RA cm/sec PA cm/sec AV Gradient Peak mmHg AV Mean mmHg AV Area cm MV Gradient Peak mmHg MV Mean mmHg MV Area cm COMMENTS: Motor Vehicle Field Representative: 2 XENIA CASTLE [employer]olstery Measurer: Saundra Perez TAPE# PACS Pericardial Effusion N DATE OF SERVICE: PROCEDURE: Transthoracic echocardiogram. FINDINGS: 1. This is a limited study. The patient was shown to have a dilated left ventricular cavity. The ejection fraction is 35% to 40%. 2. Left atrium is mildly dilated. 3. There is mitral annular calcification associated with also trace mitral regurgitation. ECHOCARDIOGRAM REPORT [id number] YENI CORNELIUS 4. The aortic valve is grossly normal. 5. The right ventricle is mildly dilated. 6. Tricuspid valve has trace tricuspid regurgitation. RVSP appears to be normal at 22 mmHg. There is no pericardial effusion and there is moderate pulmonary valve insufficiency. CONCLUSIONS: The patient has evidence of hypertensive heart disease with a dilated left ventricle, a mildly reduced left ventricular systolic function and inflow characteristics are consistent with diastolic dysfunction. TRANSINT:[id number] Voice Confirmation ID: [id number] DOCUMENT ID: [id number] DEREK PEREZ MD CC: [id number] DICTATION DATE: 05/03/18 1034 HOUSE CARPENTER HELPER: 05/03/18 1055 ADM IN [facility] [address] [place] [id number]
--- NOTE | ~2018-05-01 | HEMODYNAMI ---
PATIENT:YENI CORNELIUS MEDICAL RECORD: [id number] : 54 LOCATION:[facility] D.2111 ADMISSION DATE: 05/01/18 Generatedon:05/06/201816:53 Patient name: YENI CORNELIUS Patient #: [id number] : 1950 Date of study: 05/06/2018 Page: Of Hemodynamic Procedure Report Patient Data Patient Demographics Procedure consent was obtained First Name: YENI Gender: Male Last Name: ASHLI : 1950 [facility] Initial: JENNIFER Age: 67 year(s) Patient #: [id number] Race: SSN: [id number] Additional ID: [id number] Contact details [address]: [address] [place] [address] State: [place] City: [place] Zip code: [address] Past Medical History Allergies Allergen Reaction Date Comments Reported Other allergy 05/06/2018 BIACTRIM Admission Admission Data Admission Date: 05/01/2018 Admission Time: 13:44 Room #: D.2111 Procedure Procedure Types Cath Procedure Peripheral Cath Diagnostic Procedure Abd/Extremity Extremities AFRO Lower Ext Arterio Procedure Description Procedure Date Procedure Date: 05/06/2018 Procedure Start Time: 15:34 Procedure Staff Name Function Jean Gonzales MD Performing Physician Isabel Wallace RN Nurse Jasmeet Wells RT Scrub April Magdaleno RT Monitor Portia Keenan RN Nurse Procedure Data Cath Procedure Fluoroscopy Diagnostic fluoroscopy Total fluoroscopy Time: time: 22.5 min 22.5 min Diagnostic fluoroscopy Total fluoroscopy dose: 393 dose: 393 mGy mGy Contrast Material Contrast Material Type Amount (ml) Isovue 300 95 Entry Location Entry Primary Successful Side Size Upsize Upsize Entry Closure Succes sful Closure Location (Fr) 1 (Fr) 2 (Fr) Remarks Device Remarks Femoral Exoseal artery Procedure Medications Medication Administration Route Dosage Heparin Flush Bag added to field 3 bags (1000units/500ml NS) Lidocaine 1% added to field 20 Versed I.V. 2 mg Fentanyl I.V. 100 mcg Versed I.V. 1 mg Fentanyl I.V. 50 mcg Heparin Bolus I.V. 5000 units Versed I.V. 1 mg Fentanyl I.V. 50 mcg Nitroglycerin IC/IA I.A. 250 mcg Hemodynamics Rest Heart Rate: 62 (bpm) Snapshots Pre Cath Intra NCS Post Cath Vital Signs Time Heart Resp SPO2 etCO2 NIBP (mmHg) Rhythm Pain Sedation Rate (ipm) (%) (mmHg) Status Level (bpm) 15:26:57 60 11 95 29.7 175/85(141) NSR 0 (11) 10(A) , No pain 15:31:32 57 98 13.4 169/89(138) NSR 0 (11) 10(A) , No pain 15:36:31 57 15 98 22.3 Measuring NSR 0 (11) 10(A) , No pain 15:37:26 57 14 98 19.3 166/84(105) NSR 0 (11) 10(A) , No pain 15:42:01 59 17 98 11.1 168/87(113) NSR 0 (11) 10(A) , No pain 15:47:00 60 14 95 0 Measuring NSR 0 (11) 10(A) , No pain 15:48:01 60 11 96 0 159/87(139) NSR 0 (11) 10(A) , No pain 15:52:32 60 19 94 24.5 166/91(137) NSR 0 (11) 10(A) , No pain 15:57:12 57 7 94 8.1 162/82(141) NSR 0 (11) 10(A) , No pain 16:01:47 55 13 96 14.1 162/89(140) NSR 0 (11) 10(A) , No pain 16:06:23 57 11 96 11.1 158/87(135) NSR 0 (11) 10(A) , No pain 16:10:57 56 11 98 18.6 162/87(134) NSR 0 (11) 10(A) , No pain 16:15:34 55 16 99 13.4 154/84(132) NSR 0 (11) 10(A) , No pain 16:20:06 55 97 23 148/87(131) NSR 0 (11) 10(A) , No pain 16:24:37 56 0 98 25.3 152/81(130) NSR 0 (11) 10(A) , No pain 16:29:09 54 9 98 22.3 148/83(129) NSR 0 (11) 10(A) , No pain 16:33:40 54 98 19.3 155/81(137) NSR 0 (11) 10(A) , No pain 16:38:14 56 5 95 10.4 137/73(123) NSR 0 (11) 10(A) , No pain 16:42:41 60 97 30.5 138/81(101) NSR 0 (11) 10(A) , No pain 16:47:07 58 96 9.6 146/82(119) NSR 0 (11) 10(A) , No pain 16:51:35 60 12 96 26.8 131/84(99) NSR 0 (11) 10(A) , No pain Medications Time Medication Route Dose Verified Delivered Reason Notes Effec tiveness by by 15:42:15 Heparin Flush added 3 M J Long M J Long used for Bag to bags MD BURRELL procedure (1000units/500ml field NS) 15:42:25 Lidocaine 1% added 20ml M J Long M J Long to vial MD BURRELL field 15:42:35 Versed I.V. 2 mg M J Long Isabel for MD Wallace RN sedation 15:43:37 Fentanyl I.V. 100 M J Long Isabel for mindy Wallace RN sedation 16:17:03 Versed I.V. 1 mg M J Long Isabel for MD Wallace RN sedation 16:17:12 Fentanyl I.V. 50 M J Long Isabel for mcg MD Wallace RN sedation 16:34:47 Heparin Bolus I.V. 5000 M J Long Isabel units MD Wallace RN 16:36:43 Versed I.V. 1 mg M J Long Isabel for MD Rodrigo KOO sedation 16:36:52 Fentanyl I.V. 50 M J Long Isabel for mindy Wallace RN sedation 16:40:22 Nitroglycerin I.A. 250 M J Long M J Long IC/IA mindy BURRELL MD Procedure Log Time Note 15:10:10 Jasmeet Wells RT (R) (CV) sent for patient. Start room use. 15:10:21 Time tracking: Regular hours (M-F 7:00 - 5:00) 15:10:26 Plan of Care:Hemodynamics will remain stable., Cardiac rhythm will remain stable., Comfort level will be maintained., Respiratory function will remain adequate., Patient/ family verbilizes understanding of procedure., Procedure tolerated without complication., Recovers from procedure without complications.. 15:10:32 Patient received from Med II to IR Alert and oriented. Tansferred to table in Supine position. 15:10:33 Correct patient and procedure confirmed by team. 15:10:35 Signed procedure consent form obtained from patient. 15:10:36 ECG and BP/O2 sat monitors applied to patient. 15:10:37 Full Disclosure recording started 15:10:37 - 15:10:42 H&P Date Dictated: 05/06/2018 Within 30 days and on chart.. 15:10:43 Pre-procedure instructions explained to patient. 15:10:43 Pre-op teaching completed and patient verbalized understanding. 15:10:47 Family unavailable. 15:10:50 Patient NPO since Midnight. 15:11:22 Patient allergic to Other allergyBIACTRIM 15:11:33 Is the patient allergic to Iodine/contrast media? No. 15:11:34 Is patient on blood thinner?Yes 15:11:37 ACC The patient was administered the following blood thiners within the last 24 hours: ACCPlavix 15:11:40 Patient diabetic? Yes. 15:11:43 If diabetic: On Metformin? No 15:11:46 - 15:11:46 ----Pre-sedation anethsthesia assessment.---- 15:11:50 Previous problem with sedation/anesthesia? No ? 15:11:54 Snore? Yes 15:11:55 Sleep apnea? Yes 15:11:56 Deviated septum? No 15:11:58 Opens mouth fully? No 15:12:00 Sticks out tongue? No 15:12:03 Airway obstruction? No ? 15:12:11 Dentures? Yes UPPER IN TIGHT 15:12:15 Pre procedure: right dorsailis pedis pulse Doppler 15:12:18 Pre procedure: left dorsailis pedis pulse Doppler 15:12:22 Pre procedure: right posterior tibial pulse Doppler 15:12:27 Pre procedure: left posterior tibial pulse Doppler 15:12:34 Use device set IR Diagnostic 15:12:35 ACIST Syringe (33201) opened to sterile field. 15:12:36 ACIST Hand Control (98023) opened to sterile field. 15:12:36 ACIST Manifold (42071) opened to sterile field. 15:12:37 Sterile Angiographic Pack opened to sterile field. 15:12:38 Bag Decanter (2002S) opened to sterile field. 15:12:39 Tegaderm 4 x 4 (1626W) opened to sterile field. 15:21:42 TUBING Contrast Injection High Pressure (ZGD666V) opened to sterile field. 15:21:42 DOC .035 wire (W96857) opened to sterile field. 15:21:43 SHEATH 5FR [place] (HKY693) opened to sterile field. 15:21:44 Micropuncture VSI 4FR kit opened to sterile field. 15:25:30 Vital chart was started 15:25:32 Baseline sample Acquired. 15:25:50 - 15:26:03 Left groin area was prepped with chlora-prep and draped in sterile fashion 15:26:07 - 15:33:11 Physician arrived 15:33:20 --------ALL STOP TIME OUT------ 15:33:22 Final Timeout: patient, procedure, and site verified with staff and physician. All members of the team are in agreement. 15:34:02 Procedure started. 15:34:09 Local anesthetic to left femerol artery with Lidocaine 1% by Jean Gonzales MD.INITIAL ACCESS ONLY 15:42:00 Angiodynamics Omniflush 5Fr 65cm ([id number]) opened to sterile field. 15:42:15 Heparin Flush Bag (1000units/500ml NS) 3 bags added to field was administered by Jean Gonzales MD; used for procedure; 15:42:25 Lidocaine 1% 20ml vial added to field was administered by Jean Gonzales MD; ; 15:42:35 Versed 2 mg I.V. was administered by Isabel Wallace RN; for sedation; 15:43:37 Fentanyl 100 mcg I.V. was administered by Isabel Wallace RN; for sedation; 15:47:47 GLIDE WIRE ANGLE 260cm (KR0045) opened to sterile field. 15:48:01 TORQUE DEVICE PLASTIC .038 ( TD01) opened to sterile field. 15:59:31 SHEATH 6FR Destination (RSR01) opened to sterile field. 15:59:40 CXI SUPPORT .035 135 CM STR catheter (J93562) opened to sterile field. 15:59:41 ARAYA 260 wire (U14574) opened to sterile field. 16:17:03 Versed 1 mg I.V. was administered by Isabel Wallace RN; for sedation; 16:17:12 Fentanyl 50 mcg I.V. was administered by Isabel Wallace RN; for sedation ; 16:21:59 ROADRUNNER .035 260 glide wire (A77017) opened to sterile field. 16:25:36 CHOICE PT Extra Support J 300cm guide wire (0991927O0) opened to steril e field. 16:27:55 Inflate balloon Inflation number: 1 A CHOCOLATE 2.5 x 120 x 150 balloon ([id number]) was prepped and advanced across the Undefined1, then inflated to 0 MILKA for 0:00 (min:sec). 16:28:43 INFLATOR BasixTOUCH (SZ0869) opened to sterile field. 16:34:47 Heparin Bolus 5000 units I.V. was administered by Isabel Wallace RN; ; 16:36:43 Versed 1 mg I.V. was administered by Isabel Wallace RN; for sedation; 16:36:52 Fentanyl 50 mcg I.V. was administered by Isabel Wallace RN; for sedation ; 16:40:03 SHEATH 6FR [place] (TFU847) opened to sterile field. 16:40:22 Nitroglycerin IC/IA 250 mcg I.A. was administered by Jean Gonzales MD; ; 16:49:22 A sheath was inserted into the Femoral artery 16:49:22 Sheath removed intact; hemostasis achieved with Exoseal to the Femoral artery. 16:49:32 EXOSEAL 6Fr (EX600) opened to sterile field. 16:49:37 Procedure ended.(Physican Out) 16:49:54 Fluoroscopy time 22.50 minutes. 16:50:01 Fluoroscopy dose: 393 mGy 16:50:01 Flurop Dose total: 393 16:50:15 Contrast amount:Isovue 300 95ml. 16:50:18 Procedure and supply charges have been captured, reviewed, submitted an d are correct. 16:52:27 Report given to AIRVEND. 16:53:08 Vital chart was stopped Intervention Summary Intervention Notes Time ActionType Lesion and Equipment Used Action# Pressure Duration Attributes 16:27:55 Inflate Undefined1 CHOCOLATE 2.5 x 1 0 00:00 balloon 120 x 150 balloon ([id number]) Device Usage Item Name Manufacture Quantity Catalog Number [facility] Part [facility] Minimal Lot# / Charge Number Stock Stock Serial# Code ACIST Syringe Acist Medical 1 79484 265473 115407 007760 20 (86787) Systems Inc ACIST Hand Acist Medical 1 52519 285712 566089 295664 5 Control (98435) Systems Inc ACIST Manifold Acist Medical 1 29972 542707 327956 837049 5 (69234) Systems Inc Sterile Cardinal 1 [id number] 370722 302624 5 Angiographic Pack Health Bag Decanter Microtek 1 2002S 078040 32388 448285 5 () Medical Inc. Tegaderm 4 x 4 3M 1 1626W 829151 908655 275951 5 (1626W) TUBING Contrast [facility] Medical 1 [id number] 998382 845659 213182 5 Injection High Pressure (SHR890R) DOC .035 wire [facility] 1 B21685 624352 649173 5 (E69923) SHEATH 5FR Terumo 1 AWM526 578234 460943 069593 40 [place] (GVE655) Micropuncture VSI VSI VASCULAR 1 7266V 667960 745272 5 4FR kit SOLUTIONS Angiodynamics Angiodynamics 1 66429111 688277 779558 597143 5 Omniflush 5Fr 65cm (89357185) GLIDE WIRE ANGLE Terumo 1 UZ9461 621063 551238 026733 5 260cm (JH7987) TORQUE DEVICE [place] 1 TD01 372966 541208 039377 5 PLASTIC .038 ( Scientific TD01) SHEATH 6FR Terumo 1 RSR01 329119 48802 558454 5 Destination (RSR01) CXI SUPPORT .035 [facility] 1 G96407 709699 667295 610119 5 2475489 135 CM STR catheter (P72075) ARAYA 260 wire [facility] 1 W69535 918896 12277 874612 5 9885680 (V78571) ROADRUNNER .035 [facility] 1 O61075 494202 419085 780719 5 [id number] 260 glide wire (Q24957) CHOICE PT Extra [place] 1 [id number] 851130 20181207 547370 5 Support J 300cm Scientific guide wire (9525886O2) CHOCOLATE 2.5 x Medtronic 1 [id number] 867820 519105 716706 5 [id number] 120 x 150 balloon O [id number] ([id number]) TW [id number] INFLATOR [facility] Medical 1 OL9584 376208 708058 761563 5 BasixTOUCH (NK7380) SHEATH 6FR Terumo 1 KBX694 120491 524162 696538 40 [place] (NNN283) EXOSEAL 6Fr Cardinal 1 EX600 515561 254109 017245 10 (EX600) Health Signature Audit [place] Stage Time Signature Unsigned Intra-Procedure 05/06/2018 April Magdaleno 4:53:04 PM RT(R) Signatures Monitor : April Magdaleno RT Signature : Date : Time : [place] [id number] [place] [address]
--- NOTE | ~2018-05-01 | MORECARE ---
CASE MANAGEMENT DISCHARGE SUMMARY PATIENT: YENI CORNELIUS UNIT: [id number] ADM DATE: 05/01/18 AGE: 67 : 54 SEX: M ROOM/BED: D.2111 AUTHOR: ROSE MARY TOBIN PHYSICIAN: REFERRING PHYSICIAN: LISA RODRIGUEZ MD DATE OF SERVICE: 05/07/18 Discharge Plan Patient Name: YENI CORNELIUS Facility: [facility]:[place] : 1950 Planned Disposition: Home Anticipated Discharge Date: 05/07/18 Discharge Date: 05/07/2018 Expected LOS: 6 Initial Reviewer: [email or web address] Initial Review Date: 05/07/2018 Generated: 05/07/18 6:44 pm Comments DCP- Discharge Planning Updated by [email or web address]: Marv Polk on 05/07/18 4:[address] Patient Name: YENI CORNELIUS Admission Status: ER Accout number: [id number] Admission Date: 05-01-2018 : 1950 Admission Diagnosis:SEPSIS, UNSPECIFIED ORGANISM Attending: LISA RODRIGUEZ Current LOS: 6 Anticipated DC Date: 05-07-2018 Planned Disposition: Home Primary Insurance: [facility] MEDICARE SOLUTIONS Discharge Planning Comments: CM MET WITH PT IN ROOM TO DISCUSS DISCHARGE PLANNING AND NEEDS. PT REPORTS LIVING AT HOME INDEPENDENTLY WITH SPOUSE AND GRANDSON. PT HAS HOME OXYGEN, NEBULIZER, CANE AND WALKER FROM [facility]. PT HAS NO OUTSIDE SERVICES ASSISTING IN THE HOME. CM DISCUSSED AVAILABILITY OF HOME HEALTH, REHAB SERVICES AND MEDICAL EQUIPMENT. PT DENIES DISCHARGE NEEDS, REPORTS HIS WILL PICK HIM UP FOR DISCHARGE HOME. IMPORTANT MESSAGE FROM MEDICARE PROVIDED AND EXPLAINED. THERMITE WELDER NURSE NOTIFIED. Director Of Development And Marketing: Marv Polk DCPIA - Discharge Planning Initial Assessment Updated by [email or web address]: Marv Polk on 05/07/18 5:42 pm * Is the patient Alert and Oriented? Yes * How many steps to enter\exit or inside your home? NONE * PCP EMILIANO DUKES * Pharmacy [facility] * Preadmission Environment Home with Family * ADLs Independent * Equipment Cane Nebulizer Oxygen Walker * Other Equipment HOME OXYGEN [facility] - MEDICAL EQUIPMENT PROVIDER * List name and contact numbers for known caregivers / representatives who currently or will assist patient after discharge: DORIS CORNELIUS, SPOUSE, * Verbal permission to speak to the caregivers and representatives has been obtained from the patient. N/A * Community resources currently utilized None * Please name any agencies selected above. NONE * Additional services required to return to the preadmission environment? No * Can the patient safely return to the preadmission environment? Yes * Has this patient been hospitalized within the prior 30 days at any hospital? Yes Coverage Notice Reviewer: [id number] Mindi Polk Notice Issued Date-Time: 05/07/2018 11:35 Notice Type: IM Discharge Notice Notice Delivered To: Patient Relationship to Patient: Pocket Secretary Assembler Name: Delivery Method: HAND - Hand Delivered Niurka Days: Prior Verbal Notification: Recipient Understood Notice: Yes Recipient Signature: Yes Med Rec Note Co-signed by Attending: Coverage Notice Comment: Patient Name: YENI CORNELIUS Page 54042 at 1744 All edits/amendments must be made on the electronic document DICTATION DATE: 05/07/181742 GARBAGE COLLECTOR: TOMÁS 05/07/181742 RPT#: [id number] DC DATE:05/07/18 STATUS: DIS IN [facility] [address] [place] [address] END OF REPORT
[~2018-05-01 12:32] MED LIST changes: +ATROVENT 0.02%2.5 ML UPD; +BROVANA15 MCG/2 M INH; +LEVAQUIN750 MG PO; +NORCO 7.5/325 T1 TA1 PO; +XOPENEX 0.0.63 MG/3 INH
[2018-05-01 13:15] VITALS: BP 136/63
[2018-05-01 13:16] LABS: BASOPHILS 0.4 % (0-2); EOSINOPHILS 0.4 % (0-7); HEMOGLOBIN 9.2 g/dL (13.5-17.5); IMMATURE GRANULOCYTES 0.2 % (0-5); LYMPHOCYTES 18.5 % (15-50); MCH 21.3 pg (26.0-34.0); MCHC 30.7 g/dL (31.0-37.0); MCV 69.6 fL (80.0-100.0); MONOCYTES 8.7 % (2-11); NEUTROPHILS 71.8 % (40-80); PLATELET COUNT 176 10x3/uL (130-400); RBC 4.31 10x6/uL (4.20-6.10); RDW 18.8 % (11.5-14.5); WBC 5.6 10x3/uL (4.8-10.8)
[2018-05-01 13:30] VITALS: BP 135/60
[2018-05-01 13:30] LABS: ALBUMIN 2.6 g/dL (3.4-5.0); ALKALINE PHOSPHATASE 89 U/L (46-116); ALT (SGPT) 14 U/L (10-68); BILIRUBIN - TOTAL 0.43 mg/dL (0.2-1.3); CALC OSMOLALITY 286 mosm/kg (275-300); CALCIUM 8.3 mg/dL (8.5-10.1); CARBON DIOXIDE 31.3 mmol/L (21.0-32.0); CHLORIDE - SERUM 102 mmol/L (98-107); CREATININE - SERUM 1.5 mg/dL (0.6-1.3); POTASSIUM - SERUM 3.3 mmol/L (3.5-5.1); PROTEIN - SERUM 6.6 g/dL (6.4-8.2); SODIUM 138 mmol/L (136-145); UREA NITROGEN 17 mg/dL (7-18); eGFR NON AFRICAN AMERICAN 50 mL/min (90-120)
[2018-05-01 13:31] LABS: GLUCOSE 259 mg/dL (74-106)
[2018-05-01 13:43] LABS: CKMB 0.8 U/L (0.0-3.6); CREATINE KINASE 53 UL (21-232); PRO BNP 6304 pg/mL (0-125)
[2018-05-01 13:45] VITALS: BP 130/63
[2018-05-01 13:45] LABS: TROPONIN-I < 0.017 ng/mL (0.000-0.060)
[2018-05-01 14:00] VITALS: BP 150/69
[2018-05-01] MEDS ORDERED: LEVEMIR IN100 UNITS/ SC (16:38)
[2018-05-01] MEDS ORDERED: NORCO 7.5/325 T1 TA1 PO (16:43)
[2018-05-01 17:01] VITALS: BP 147/69; BMI 33.9; BMI 37.3
[2018-05-01 20:00] VITALS: BP 119/61
[2018-05-02] VITALS: BP 140/66
[2018-05-02 04:00] VITALS: BP 129/59
[2018-05-02 08:12] VITALS: BP 128/41
[2018-05-02 12:16] VITALS: BP 144/66
[2018-05-02 16:08] LABS: INR 1.33 (0.85-1.17)
[2018-05-02 16:09] LABS: D-DIMER-QUANTITATIVE 1.44 ug/mLFEU (0.20-0.54)
[2018-05-02 16:30] LABS: % SATURATION 5 % (15-55); IRON 15 ug/dl (35-150); TOTAL IRON BIND CAPACITY 265 ug/dl (260-445); UNSAT IRON BIND CAPACITY 250 ug/dl (150-375)
[2018-05-02 18:32] VITALS: BP 152/68
[2018-05-02 20:30] VITALS: BP 135/70
[2018-05-03 00:30] VITALS: BP 130/67
[2018-05-03 04:30] VITALS: BP 137/68
[2018-05-03 05:14] LABS: BASOPHILS 0.3 % (0-2); EOSINOPHILS 0.8 % (0-7); HEMOGLOBIN 8.3 g/dL (13.5-17.5); IMMATURE GRANULOCYTES 0.3 % (0-5); LYMPHOCYTES 24.7 % (15-50); MCH 20.9 pg (26.0-34.0); MCHC 29.6 g/dL (31.0-37.0); MCV 70.5 fL (80.0-100.0); MONOCYTES 13.6 % (2-11); NEUTROPHILS 60.3 % (40-80); PLATELET COUNT 143 10x3/uL (130-400); RBC 3.97 10x6/uL (4.20-6.10)
[2018-05-03 05:18] LABS: WBC 3.8 10x3/uL (4.8-10.8)
[2018-05-03 05:27] LABS: ANION GAP 7.4 mmol/L (8-16); CARBON DIOXIDE 32.8 mmol/L (21.0-32.0); CREATININE - SERUM 1.8 mg/dL (0.6-1.3); LDL-HDL RATIO 1.4 ratio (1.5-3.5); POTASSIUM - SERUM 3.2 mmol/L (3.5-5.1)
[2018-05-03 09:31] VITALS: BP 140/62
[2018-05-03 11:35] VITALS: BP 139/65
[2018-05-03 12:21] LABS: APPEARANCE CLEAR (CLEAR); BACTERIA FEW /hpf (NONE SEEN); BILIRUBIN NEGATIVE (NEGATIVE); COLOR YELLOW (YELLOW); EPITHELIAL CELLS 0-5 /hpf (0-5); GLUCOSE NEGATIVE (NEGATIVE); KETONE NEGATIVE (NEGATIVE); MUCUS <1+ /lpf (NONE SEEN); NITRITE NEGATIVE (NEGATIVE); PROTEIN NEGATIVE (NEGATIVE); RED CELLS - URINE 0-5 /hpf (0-5); SPECIFIC GRAVITY 1.015 (1.005-1.020); UROBILINOGEN NORMAL (NORMAL); WHITE CELLS - URINE 0-5 /hpf (0-5)
[2018-05-03 13:51] VITALS: BMI 36.4
[2018-05-03 16:36] VITALS: BP 134/68
[2018-05-03 19:00] VITALS: BP 145/65
[2018-05-04 01:37] VITALS: BP 146/62
[2018-05-04 05:38] LABS: BASOPHILS 0.4 % (0-2); EOSINOPHILS 0.9 % (0-7); HEMATOCRIT 31.6 % (42.0-54.0); HEMOGLOBIN 9.5 g/dL (13.5-17.5); LYMPHOCYTES 16.2 % (15-50); MCH 21.3 pg (26.0-34.0); MCHC 30.1 g/dL (31.0-37.0); MCV 70.9 fL (80.0-100.0); MONOCYTES 10.5 % (2-11); PLATELET COUNT 169 10x3/uL (130-400); RBC 4.46 10x6/uL (4.20-6.10); RDW 18.9 % (11.5-14.5)
[2018-05-04 05:45] LABS: WBC 5.6 10x3/uL (4.8-10.8)
[2018-05-04 06:11] VITALS: BP 160/68
[2018-05-04 06:27] LABS: ANION GAP 11.7 mmol/L (8-16); CALCIUM 8.3 mg/dL (8.5-10.1); CARBON DIOXIDE 33.3 mmol/L (21.0-32.0); CREATININE - SERUM 1.9 mg/dL (0.6-1.3); MAGNESIUM - SERUM 1.9 mg/dL (1.8-2.4); PHOSPHOROUS 3.7 mg/dL (2.5-4.9)
[2018-05-04 07:28] LABS: FOLATE (FOLIC ACID) - SERUM 13.2 ng/mL (>3.0)
[2018-05-04 09:39] VITALS: BP 164/76
[2018-05-04 11:45] VITALS: BP 151/66
[2018-05-04 19:00] VITALS: BP 156/78
[2018-05-05 01:14] VITALS: BP 153/72
[2018-05-05 05:25] VITALS: BP 155/83
[2018-05-05 05:53] LABS: BASOPHILS 0.2 % (0-2); EOSINOPHILS 2.8 % (0-7); HEMATOCRIT 32.7 % (42.0-54.0); IMMATURE GRANULOCYTES 0.2 % (0-5); LYMPHOCYTES 36.8 % (15-50); MCH 21.3 pg (26.0-34.0); MCHC 30.6 g/dL (31.0-37.0); MCV 69.6 fL (80.0-100.0); MONOCYTES 11.1 % (2-11); NEUTROPHILS 48.9 % (40-80); PLATELET COUNT 198 10x3/uL (130-400); RDW 18.9 % (11.5-14.5); WBC 5.3 10x3/uL (4.8-10.8)
[2018-05-05 06:11] LABS: ANION GAP 8.7 mmol/L (8-16); CALCIUM 8.5 mg/dL (8.5-10.1); CARBON DIOXIDE 33.3 mmol/L (21.0-32.0); CREATININE - SERUM 1.6 mg/dL (0.6-1.3); PHOSPHOROUS 3.4 mg/dL (2.5-4.9); VANCOMYCIN - TROUGH 30.3 ug/mL (10.0-20.0)
[2018-05-05 09:27] VITALS: BP 146/78
[2018-05-05 11:33] VITALS: BP 139/59
[2018-05-05 16:30] VITALS: Ht 172.7 cm
[2018-05-05 19:45] VITALS: BP 156/69
[2018-05-05 23:35] VITALS: BP 148/76
[2018-05-06 03:34] VITALS: BP 160/77
[2018-05-06 06:14] LABS: BASOPHILS 0.5 % (0-2); EOSINOPHILS 2.6 % (0-7); HEMATOCRIT 35.3 % (42.0-54.0); HEMOGLOBIN 10.9 g/dL (13.5-17.5); IMMATURE GRANULOCYTES 0.2 % (0-5); LYMPHOCYTES 30.1 % (15-50); MCH 21.3 pg (26.0-34.0); MCHC 30.9 g/dL (31.0-37.0); MCV 69.1 fL (80.0-100.0); MONOCYTES 7.2 % (2-11); NEUTROPHILS 59.4 % (40-80); PLATELET COUNT 214 10x3/uL (130-400); RBC 5.11 10x6/uL (4.20-6.10); RDW 18.9 % (11.5-14.5); WBC 6.2 10x3/uL (4.8-10.8)
[2018-05-06 06:35] LABS: INR 1.17 (0.85-1.17); PROTIME 14.4 SECONDS (11.6-15.0)
[2018-05-06 06:39] LABS: ANION GAP 13.9 mmol/L (8-16); CALCIUM 8.9 mg/dL (8.5-10.1); CARBON DIOXIDE 31.2 mmol/L (21.0-32.0); CREATININE - SERUM 1.6 mg/dL (0.6-1.3); PHOSPHOROUS 3.8 mg/dL (2.5-4.9); POTASSIUM - SERUM 3.1 mmol/L (3.5-5.1)
[2018-05-06 08:22] VITALS: BP 156/57
[2018-05-06 11:39] VITALS: BP 174/82
[2018-05-06 15:30] VITALS: BP 179/86
[2018-05-06 19:45] VITALS: BP 146/76
[2018-05-06 23:45] VITALS: BP 180/86
[2018-05-07 03:55] VITALS: BP 187/85
[2018-05-07 05:04] LABS: BASOPHILS 0.5 % (0-2); EOSINOPHILS 1.9 % (0-7); HEMATOCRIT 35.8 % (42.0-54.0); IMMATURE GRANULOCYTES 0.2 % (0-5); LYMPHOCYTES 28.5 % (15-50); MCH 21.2 pg (26.0-34.0); MCHC 30.7 g/dL (31.0-37.0); MCV 68.8 fL (80.0-100.0); MONOCYTES 6.9 % (2-11); PLATELET COUNT 214 10x3/uL (130-400); RDW 18.6 % (11.5-14.5)
[2018-05-07 05:07] LABS: WBC 8.3 10x3/uL (4.8-10.8)
[2018-05-07 05:22] LABS: ANION GAP 11.6 mmol/L (8-16); CALCIUM 8.8 mg/dL (8.5-10.1); CARBON DIOXIDE 29.2 mmol/L (21.0-32.0); CREATININE - SERUM 1.7 mg/dL (0.6-1.3); PHOSPHOROUS 3.2 mg/dL (2.5-4.9); POTASSIUM - SERUM 3.8 mmol/L (3.5-5.1)
[2018-05-07 08:35] VITALS: BP 130/73
[2018-05-07] MEDS ORDERED: KEFLEX500 MG PO (09:50)
== END 2018-05-07 12:23 | disposition home or self-care (01) | DRG 853 ==
LOC: D.ER 12:32 → D.M2 13:44 → D.EDHOLD 13:44 → D.M2 15:15
PROVIDERS: Emergency Medicine; General Practice; Internal Medicine Nephrology; Radiology Vascular & Interventional Radiology
PROC: 047T3ZZ Dilation of Right Peroneal Artery, Percutaneous Approach (ICD-10-PCS; principal; 2018-05-06 15:00)
DX: A41.9 Sepsis, unspecified organism (principal); J96.21 Acute and chronic respiratory failure with hypoxia; I13.0 Hypertensive heart and chronic kidney disease with heart failure and stage 1 through stage 4 chronic kidney disease, or unspecified chronic kidney disease; F17.213 Nicotine dependence, cigarettes, with withdrawal; E11.52 Type 2 diabetes mellitus with diabetic peripheral angiopathy with gangrene; I96 Gangrene, not elsewhere classified; L03.031 Cellulitis of right toe; I50.9 Heart failure, unspecified; N18.9 Chronic kidney disease, unspecified; E11.22 Type 2 diabetes mellitus with diabetic chronic kidney disease; E11.40 Type 2 diabetes mellitus with diabetic neuropathy, unspecified; I25.10 Atherosclerotic heart disease of native coronary artery without angina pectoris; G20 Parkinson's disease; F41.9 Anxiety disorder, unspecified; F32.9 Major depressive disorder, single episode, unspecified; J44.9 Chronic obstructive pulmonary disease, unspecified; Z86.73 Personal history of transient ischemic attack (TIA), and cerebral infarction without residual deficits; E87.6 Hypokalemia; D50.9 Iron deficiency anemia, unspecified

== ENCOUNTER 2018-05-28 08:00 | Outpatient (CLI) | payer MEDICARE, MEDICAID ==
[~2018-05-28 08:00] MED LIST changes: +LEVEMIR IN100 UNITS/ SC
[2018-06-03 07:52] VITALS: BMI 33.3
== END 2018-05-28 08:01 | disposition home or self-care (01) ==
LOC: D.OPS 08:00
DX: M86.9 Osteomyelitis, unspecified (principal); Z01.812 Encounter for preprocedural laboratory examination; Z53.9 Procedure and treatment not carried out, unspecified reason

== ENCOUNTER 2018-06-03 07:20 | Day surgery (SDC) | payer MEDICARE, MEDICAID ==
[2018-05-28 11:49] LABS: BASOPHILS 0.3 % (0-2); HEMOGLOBIN 10.4 g/dL (13.5-17.5); IMMATURE GRANULOCYTES 0.3 % (0-5); LYMPHOCYTES 30.9 % (15-50); MCH 21.4 pg (26.0-34.0); MCHC 30.6 g/dL (31.0-37.0); MCV 69.8 fL (80.0-100.0); MONOCYTES 9.1 % (2-11); NEUTROPHILS 57.4 % (40-80); PLATELET COUNT 251 10x3/uL (130-400); RBC 4.87 10x6/uL (4.20-6.10); RDW 19.3 % (11.5-14.5); WBC 5.9 10x3/uL (4.8-10.8)
[2018-05-28 12:01] LABS: ANION GAP 13.2 mmol/L (8-16); CALCIUM 9.1 mg/dL (8.5-10.1); CARBON DIOXIDE 29.3 mmol/L (21.0-32.0); CREATININE - SERUM 1.4 mg/dL (0.6-1.3); POTASSIUM - SERUM 3.5 mmol/L (3.5-5.1)
[2018-05-28 13:25] LABS: APTT 26.5 SECONDS (22.8-39.4); INR 1.01 (0.85-1.17); PROTIME 12.8 SECONDS (11.6-15.0)
[~2018-06-03] VITALS: Ht 175.3 cm; Wt 102.1 kg
[2018-06-03 07:52] VITALS: BP 125/84; Ht 175.3 cm; Wt 102.1 kg
--- NOTE | 2018-06-03 12:19 | NUR ---
DC INSTRUCTIONS GIVEN TO PT/FAMILY. STATE UNDERSTANDING. DC'D IV CATH FULLY INTACT.
[2018-06-03] MEDS ORDERED: NORCO 10-325 TA1 TAB PO (12:20)
--- NOTE | 2018-06-03 12:42 | NUR ---
PT LEFT UNIT VIA WC AT 1239
== END 2018-06-03 12:39 | disposition home or self-care (01) ==
LOC: D.OPS 07:20 → D.PAN 09:15 → D.OPS 10:00 → D.PAN 10:00 → D.OPS 10:05
PROVIDERS: Anesthesiology
DX: E11.69 Type 2 diabetes mellitus with other specified complication (principal); M86.9 Osteomyelitis, unspecified; Z86.73 Personal history of transient ischemic attack (TIA), and cerebral infarction without residual deficits; G20 Parkinson's disease; I11.0 Hypertensive heart disease with heart failure; I50.9 Heart failure, unspecified; I25.10 Atherosclerotic heart disease of native coronary artery without angina pectoris; Z72.0 Tobacco use

== ENCOUNTER → 2018-06-22 17:26 | Outpatient (CLI) | payer MEDICARE, MEDICAID ==
[2018-06-03 07:52] VITALS: BMI 33.3
[~2018-06-22 17:26] MED LIST changes: +NORCO 10-325 TA1 TAB PO
== END | disposition home or self-care (01) ==
LOC: D.LABREF 17:26
DX: I50.9 Heart failure, unspecified (principal); I25.10 Atherosclerotic heart disease of native coronary artery without angina pectoris; E11.9 Type 2 diabetes mellitus without complications; J44.9 Chronic obstructive pulmonary disease, unspecified

== ENCOUNTER 2018-09-24 11:06 | Inpatient (IN) | payer MEDICARE, MEDICAID ==
[~2018-09-24 11:06] MED LIST changes: -K-TAB10 MEQ PO
[2018-09-24] MEDS ORDERED: LYRICA150 MG PO (11:30)
[2018-09-24] MEDS ORDERED: HYTRIN5 MG PO (11:32)
[2018-09-24] MEDS ORDERED: FUROSEMIDE40 MG PO (11:33)
[2018-09-24] MEDS ORDERED: COZAAR100 MG PO (11:34)
[2018-09-24] MEDS ORDERED: HYDROCHLOROTHIA25 MG PO (11:34)
[2018-09-24] MEDS ORDERED: SYMBICORT 16010.2 GM INH (11:35)
[2018-09-24] MEDS ORDERED: ALBUTEROL SULF8.5 GM INH (11:36)
[2018-09-24 11:50] LABS: BASOPHILS 0.3 % (0-2); EOSINOPHILS 1.2 % (0-7); HEMATOCRIT 32.7 % (42.0-54.0); HEMOGLOBIN 9.9 g/dL (13.5-17.5); IMMATURE GRANULOCYTES 0.1 % (0-5); LYMPHOCYTES 18.5 % (15-50); MCH 20.7 pg (26.0-34.0); MCHC 30.3 g/dL (31.0-37.0); MCV 68.3 fL (80.0-100.0); MONOCYTES 9.3 % (2-11); NEUTROPHILS 70.6 % (40-80); PLATELET COUNT 147 10x3/uL (130-400); RBC 4.79 10x6/uL (4.20-6.10); RDW 19.5 % (11.5-14.5); WBC 6.9 10x3/uL (4.8-10.8)
[2018-09-24 12:08] LABS: ALBUMIN 3.1 g/dL (3.4-5.0); ALKALINE PHOSPHATASE 101 U/L (46-116); ALT (SGPT) 19 U/L (10-68); BILIRUBIN - TOTAL 0.61 mg/dL (0.2-1.3); CALC OSMOLALITY 300 mosm/kg (275-300); CALCIUM 8.6 mg/dL (8.5-10.1); CARBON DIOXIDE 30.3 mmol/L (21.0-32.0); CHLORIDE - SERUM 104 mmol/L (98-107); CREATININE - SERUM 1.4 mg/dL (0.6-1.3); POTASSIUM - SERUM 3.4 mmol/L (3.5-5.1); SODIUM 143 mmol/L (136-145); UREA NITROGEN 28 mg/dL (7-18); eGFR NON AFRICAN AMERICAN 54 mL/min (90-120)
[2018-09-24 12:09] LABS: GLUCOSE 278 mg/dL (74-106)
[2018-09-24 12:19] LABS: CKMB 1.5 U/L (0.0-3.6); CREATINE KINASE 70 UL (21-232); PRO BNP 10497 pg/mL (0-125); TROPONIN-I 0.029 ng/mL (0.000-0.060)
[2018-09-24 13:00] VITALS: BP 173/90
[2018-09-24 14:00] VITALS: BP 176/95
--- NOTE | 2018-09-24 15:07 | NUR ---
REPORT CALLED, ROOM BEING CLEANED, FLOOR STAFF WILL NOTIFY WHEN ROOM READY.
--- NOTE | 2018-09-24 16:00 | NUR ---
PT HERE FROM ER. VSS AND WNL. ASSESSMENT PERFORMED. MED REC COMPLETED. DENIES PAIN AT THIS TIME, WILL CONT TO FOLLOW PLAN OF CARE
[2018-09-24 17:07] VITALS: BP 145/87; BMI 34.0
[2018-09-24] MEDS ORDERED: TYLENOL #4 W/CO1 TAB PO (17:40)
--- NOTE | 2018-09-24 19:15 | NUR ---
RECEIVED REPORT, WILL ASSUME CARE OF PT, DENIES ANY NEEDS AT THIS TIME, BED IS LOW, SRX2, CALL LIGHT IN REACH, WILL CONTINUE PLAN OF CARE
[2018-09-24 20:32] VITALS: BP 190/101
--- NOTE | 2018-09-24 22:22 | NUR ---
PLACED PT ON TELEMTRY
[2018-09-25 00:47] VITALS: BP 185/95
--- NOTE | 2018-09-25 02:54 | NUR ---
I have reviewed this patient and I concur with the Shift Assessment completed by the Licensed Practical Nurse today this shift.
[2018-09-25 04:57] LABS: BASOPHILS 0.4 % (0-2); EOSINOPHILS 1.5 % (0-7); HEMATOCRIT 33.7 % (42.0-54.0); HEMOGLOBIN 10.1 g/dL (13.5-17.5); IMMATURE GRANULOCYTES 0.1 % (0-5); LYMPHOCYTES 20.6 % (15-50); MCH 20.5 pg (26.0-34.0); MCV 68.4 fL (80.0-100.0); MONOCYTES 9.3 % (2-11); NEUTROPHILS 68.1 % (40-80); PLATELET COUNT 154 10x3/uL (130-400); RBC 4.93 10x6/uL (4.20-6.10); RDW 19.3 % (11.5-14.5); WBC 6.9 10x3/uL (4.8-10.8)
[2018-09-25 05:14] LABS: ALBUMIN 2.9 g/dL (3.4-5.0); BILIRUBIN - TOTAL 0.87 mg/dL (0.2-1.3); CALCIUM 8.3 mg/dL (8.5-10.1); CARBON DIOXIDE 34.2 mmol/L (21.0-32.0); CREATININE - SERUM 1.3 mg/dL (0.6-1.3); POTASSIUM - SERUM 3.2 mmol/L (3.5-5.1); PROTEIN - SERUM 6.9 g/dL (6.4-8.2)
--- NOTE | 2018-09-25 05:20 | NUR ---
K+ 3.2 WILL FOLLOW EP
[2018-09-25 05:24] VITALS: BP 179/92
--- NOTE | 2018-09-25 07:30 | NUR ---
REPORT RECIEVED AND MORNING ROUNDING COMPLETE. PT LAYING IN BED HIGH FOWLERS, PT STATES HE IS NOT FEELING WELL THIS MORNING. PT IS RECIEVEING O2 AT 2L VIA NC. PT HAS A LEFT UPPER ARM PIV THATS SL. DRESSING C/D/I. PT STATES HE HAS NO NEEDS AT THIS TIME. CALL LIGHT WITHIN REACH AND BED IN LOWEST POSITION.
[2018-09-25 08:10] VITALS: BP 175/94
[2018-09-25 11:37] VITALS: BMI 39.1
[2018-09-25 11:51] VITALS: BP 166/85
[2018-09-25 12:12] VITALS: BMI 34.0
[2018-09-25 16:01] VITALS: BP 146/80
--- NOTE | 2018-09-25 18:17 | NUR ---
I have reviewed this patient and I concur with the Shift Assessment completed by the Licensed Practical Nurse today this shift.
[2018-09-25 20:00] VITALS: BP 190/94
--- NOTE | 2018-09-25 20:14 | NUR ---
INITIAL ROUNDS COMPLETED AT 1915 HRS. PT SITTING IN CHAIR BY SINK SHAVING. DENIES ANY DISCOMFORT. ASSESSMENT COMPLETED AY 1950 HRS. SR WITH BBB AND OCC PVC'S PER CM HR 68. ALERT AND ORIENTED TO PERSON, PLACE AND TIME. NORIE[place]. IV TO UPPER L ARM SL. LUNGS DIMINISHED IN BASES BILAT. TRACE EDEMA TO LOWER LEGS. R BIG TOE AMPUTATED. DENIES ANY DISCOMFORT. SR UP X2, CALL LIGHT WITHIN REACH.
[2018-09-25] MEDS ORDERED: AMBIEN5 MG PO (20:31)
--- NOTE | 2018-09-25 21:57 | NUR ---
VOIDED PER BEDPAN. REPOSITIONED IN BED FOR COMFORT. CALL LIGHT WITHIN REACH.
[2018-09-26] VITALS: BP 175/93
--- NOTE | 2018-09-26 00:18 | NUR ---
PT RESTING WITH EYES CLOSED. RESP EVEN AND REGULAR. CPAP IN USE. CALL LIGHT WITHIN REACH.
--- NOTE | 2018-09-26 02:19 | NUR ---
PT RESTING WITH EYES CLOSED. RESP EVEN AND REGULAR. CPAP MACHINE IN USE. SR UP X2, CALL LIGHT WITHIN REACH.
--- NOTE | 2018-09-26 03:58 | NUR ---
PT RESTING WITH EYES CLOSED. RESP EVEN AND REGULAR. CPAP INUSE. CALL LIGHT WITHIN REACH.
[2018-09-26 04:00] VITALS: BP 159/72
--- NOTE | 2018-09-26 06:17 | NUR ---
PT STATED HE RESTED WELL DURING SHIFT. VSS. AM FSBS 135. NO COVERGE NEEDED. NEEDS MET; WILL CONTINUE TO MONITOR.
[2018-09-26 06:33] LABS: BASOPHILS 0.4 % (0-2); EOSINOPHILS 2.3 % (0-7); HEMATOCRIT 31.9 % (42.0-54.0); HEMOGLOBIN 9.5 g/dL (13.5-17.5); MCH 20.6 pg (26.0-34.0); MCHC 29.8 g/dL (31.0-37.0); MONOCYTES 10.4 % (2-11); NEUTROPHILS 58.9 % (40-80); PLATELET COUNT 153 10x3/uL (130-400); RBC 4.62 10x6/uL (4.20-6.10); RDW 19.8 % (11.5-14.5); WBC 5.6 10x3/uL (4.8-10.8)
[2018-09-26 06:40] LABS: ALBUMIN 2.8 g/dL (3.4-5.0); ANION GAP 10.3 mmol/L (8-16); BILIRUBIN - TOTAL 0.71 mg/dL (0.2-1.3); CALCIUM 8.5 mg/dL (8.5-10.1); CARBON DIOXIDE 32.1 mmol/L (21.0-32.0); CREATININE - SERUM 1.3 mg/dL (0.6-1.3); POTASSIUM - SERUM 3.4 mmol/L (3.5-5.1); PROTEIN - SERUM 6.5 g/dL (6.4-8.2)
--- NOTE | 2018-09-26 07:30 | NUR ---
RECEIVED PT IN BED AAOX4 RESP UNLABORED DENIES ANY NEEDS OR DISCOMFORT AT THIS TIME
[2018-09-26 08:14] VITALS: BP 173/85
--- NOTE | 2018-09-26 11:46 | NUR ---
FSBS 204 HUMALOG 4 UNITS GIVEN SQ LT ARM
[2018-09-26 12:08] VITALS: BP 164/76
[2018-09-26 15:49] VITALS: BP 151/81
--- NOTE | 2018-09-26 16:06 | NUR ---
FSBS 197 PT REFUSES COVERAGE
--- NOTE | 2018-09-26 20:14 | NUR ---
INITIAL ROUNDS COMPLETED AT 1910 HRS. PT IN BATHROOM. ASSESSMENT COMPLETED AT 1945 H RS. VSS. SR WITH BBB AND OCC PVC'S HR 63. IV TO UPPER L ARM WITH DOBUTREX AT 3MCQ/KG/MIN (9.4CC/HR). IV PATENT. O2 2LNC. LUNGS DIMINSHED IN BASES BILAT. TRACE EDEMA TO LOWER LEGS. OLD AMPUTATION TO R BIG TOE NOTED. CALL LIGHT WITHIN REACH.
[2018-09-26 20:33] VITALS: BP 178/87
--- NOTE | 2018-09-26 21:32 | NUR ---
PM FSBS 193. 2 UNITS HUMALOG GIVEN SUB-Q TO UPPER R ARM. PM MEDS GIVEN. PM SNACK SERVED. PT INSISTED THAT DOBUTREX DRIP BE DC'D. INFORMED PT RATIONALE FOR DRIP. PT THE STATED HE DOES'T NEED IT AND HE WILL TAKE PILLS AT HOME. DR ALMARAZ NOTIFIED. NO NEW ORDERS.
--- NOTE | 2018-09-26 23:47 | NUR ---
PT RESTING WITH EYES CLOSED. RESP EVEN AND REGULAR. SR UPX2,CALL LIGHT WITHIN REACH. CPAP IN USE.
[2018-09-27 00:33] VITALS: BP 180/96
--- NOTE | 2018-09-27 01:58 | NUR ---
PT RESTING WITH EYES CLOSED. RESP EVEN AND REGULAR. CALL LIGHT WITHIN REACH. CPAP IN USE.
--- NOTE | 2018-09-27 04:09 | NUR ---
PT RESTING WITH EYES CLOSED. RESP EVEN AND REGULAR. SR UP X2, CALL LIGHT WITHIN REACH. CPAP IN USE.
[2018-09-27 05:08] VITALS: BP 168/77
--- NOTE | 2018-09-27 06:42 | NUR ---
VSS THROUGHTOUT NIGHT. SR WITH BBB PER CM. PT DENIED ANY DISCOMFORT. AM FSBS 114. NO COVERAGE NEEDED. NEEDS MET; WILL CONTINUE TO MONITOR.
[2018-09-27 06:46] LABS: ALBUMIN 2.7 g/dL (3.4-5.0); ANION GAP 7.2 mmol/L (8-16); BILIRUBIN - TOTAL 0.68 mg/dL (0.2-1.3); CALCIUM 8.4 mg/dL (8.5-10.1); CARBON DIOXIDE 33.4 mmol/L (21.0-32.0); CREATININE - SERUM 1.5 mg/dL (0.6-1.3); POTASSIUM - SERUM 3.6 mmol/L (3.5-5.1); PROTEIN - SERUM 6.4 g/dL (6.4-8.2)
[2018-09-27 06:58] LABS: BASOPHILS 0.3 % (0-2); EOSINOPHILS 2.6 % (0-7); HEMATOCRIT 31.1 % (42.0-54.0); HEMOGLOBIN 9.1 g/dL (13.5-17.5); LYMPHOCYTES 28.1 % (15-50); MCH 20.3 pg (26.0-34.0); MCHC 29.3 g/dL (31.0-37.0); MCV 69.3 fL (80.0-100.0); MONOCYTES 11.5 % (2-11); NEUTROPHILS 57.5 % (40-80); PLATELET COUNT 149 10x3/uL (130-400); RBC 4.49 10x6/uL (4.20-6.10); RDW 19.6 % (11.5-14.5); WBC 6.2 10x3/uL (4.8-10.8)
--- NOTE | 2018-09-27 07:40 | NUR ---
REPORT RECEIVED. WILL CONTINUE WITH POC. PT CURRENTLY LYING SUPINE. CALL LIGHT W/I REACH. PT IS AAO AND UP AD SANTI. RR EVEN AND UNLABORED ON 2L 02. L.UPPER ARM PIV IS SALINE LOCKED. PT DENIES ANY NEEDS AT THIS TIME. NO S/S OF DISTRESS NOTED. WILL CTM.
[2018-09-27 08:00] VITALS: BP 160/83
--- NOTE | 2018-09-27 11:04 | NUR ---
I have reviewed this patient and I concur with the Shift Assessment completed by the Licensed Practical Nurse today this shift.
[2018-09-27 12:00] VITALS: BP 176/82
[2018-09-27 16:20] VITALS: BP 178/75
--- NOTE | 2018-09-27 17:10 | NUR ---
OT NOTE: PT COMPLETED ADL MOB WITH CGA/MIN A. PT COMPLETED BED MOB WITH SBA. PT COMPLETED BUE AROM EX. PT COMPLETED FACE WASHING AT SINK WITH CGA/MIN A. [id number] THANK YOU, NEL DELEON
[2018-09-27 20:00] VITALS: BP 153/101
--- NOTE | 2018-09-27 20:15 | NUR ---
RECEIVED REPORT, WILL ASSUME CARE OF PT,ROAMING IN WADE IN A WHEELCHAIR
[2018-09-28] VITALS: BP 167/101
--- NOTE | 2018-09-28 03:48 | NUR ---
I have reviewed this patient and I concur with the Shift Assessment completed by the Licensed Practical Nurse today this shift.
[2018-09-28 04:00] VITALS: BP 147/92
[2018-09-28 06:29] LABS: ALBUMIN 3.3 g/dL (3.4-5.0); ANION GAP 14.8 mmol/L (8-16); BILIRUBIN - TOTAL 1.36 mg/dL (0.2-1.3); CALCIUM 8.6 mg/dL (8.5-10.1); CARBON DIOXIDE 28.1 mmol/L (21.0-32.0); CREATININE - SERUM 1.6 mg/dL (0.6-1.3); POTASSIUM - SERUM 3.9 mmol/L (3.5-5.1); PROTEIN - SERUM 7.1 g/dL (6.4-8.2)
[2018-09-28 06:39] LABS: HEMATOCRIT 35.3 % (42.0-54.0); HEMOGLOBIN 10.7 g/dL (13.5-17.5); MCH 20.7 pg (26.0-34.0); MCHC 30.3 g/dL (31.0-37.0); MCV 68.4 fL (80.0-100.0); PLATELET COUNT 168 10x3/uL (130-400); RBC 5.16 10x6/uL (4.20-6.10); RDW 20.3 % (11.5-14.5)
[2018-09-28 06:47] LABS: WBC 11.1 10x3/uL (4.8-10.8)
--- NOTE | 2018-09-28 07:00 | NUR ---
RECEIVED REPORT. ASSUMED CARE OF PATIENT. PATIENT LYING IN BED WITH EYES CLOSED. STRONG URINE ODOR FROM ROOM. PATIENT REPORTED TO BE URINATING IN FLOOR LAST NIGHT. RESP EVEN AND UNLABORED. O2 VIA NC @ 2L/MIN. NO DISTRESS. EASILY AROUSED AND PATIENT GOES RIGHT BACK TO SLEEEP.
--- NOTE | 2018-09-28 08:27 | NUR ---
ASSISTED PATIENT OOB TO CHAIR AT BEDSIDE. PATIENT DRENCHED IN URINE. BED CLEANSED AT THIS TIME. PATIENT PULLING OXYGEN OFF. PATIENT IS NOT ORIENTED TO PLACE OR TIME, ONLY NAME. PATIENT REFUSING IV TO BE CONNECTED, DOBUTAMINE. PATIENT DID TAKE ALL ORAL MEDICATIONS AT THIS TIME WITHOUT DIFFICULTY. LYRICA HELD PATIENT AWAKE ONE MOMENT, SLEEPING THE NEXT, APPEARS SEDATED. PATIENT QUESTIONED ABOUT PAIN, HE DENIES ANY PAIN EXCEPT FOR A FEW PAINS IN HIS STOMACH. QUESTIONED ABOUT BOWEL MOVEMENTS AND PATIENT HAD A BOWEL MOVEMENT LAST PM PER HIM. CALL LIGHT PLACED WITHIN REACH. TRAY TABLE PLACED IN FRONT OF PATIENT WITH AM MEAL ON TABLE. CALL LIGHT PLACED WITHIN REACH. NO ACUTE DISTRESS.
[2018-09-28 08:39] LABS: EOSINOPHILS 1 % (0-7); LYMPHOCYTES 15 % (15-50); MONOCYTES 8 % (2-11); NEUTROPHILS 76 % (40-80); PLATELET ESTIMATE NORMAL
[2018-09-28 08:40] LABS: ANISOCYTOSIS OCC; ROULEAUX OCC
--- NOTE | 2018-09-28 08:41 | NUR ---
SPOKE WITH LAUREEN ABOUT PATIENTS COGNITIVE STATUS. INFORMED LYRICA DOSE HELD DUE TO PATIENT APPEARS SEDATED AND IS NOT ORIENTED. NEW ORDERS RECEIVED FOR ABGS NOW. RT CALLED AND INFORMED OF NEW ORDER.
[2018-09-28 08:57] VITALS: BP 189/111
--- NOTE | 2018-09-28 11:31 | NUR ---
FSBS 168. PATIENT REFUSING TO EAT. INSULIN NOT ADMINISTERED. PATIENT PLACED IN BED BY THERAPY. PATIENT LYING IN BED WITH EYES OPEN. NO CHANGE OF COGNITION SINCE THIS AM. PATIENT IS AWAKE ONE MINUTE, SLEEPING THE NEXT. VSS. CALL LIGHT WITHIN REACH. PATIENT NOT PARTICIPATING IN CARES.
[2018-09-28 11:59] VITALS: BP 152/86
--- NOTE | 2018-09-28 12:07 | NUR ---
PATIENTS CALLED TO CHECK ON HIM QUESTIONING ABOUT HIS RELEASED. DISCUSSED CONDITION. PATIENTS STATES HE HAS BEEN HOSPITALIZED ALOT FOR DISORIENTATION AND SHE NOTICED YESTERDAY THAT HE WAS TALKING AND NOT MAKING SENSE. PATIENTS THANKED THIS VETERINARY PHARMACOLOGIST AND STATED IT IS BETTER IF HE IS UP THERE BECAUSE HE COMES HOME AND FALLS BEING DISORIENTED AND THEN I HAVE TO BRING HIM RIGHT BACK. NOTIFIED WE ARE MONITORING HIM CAREFULLY.
--- NOTE | 2018-09-28 13:29 | NUR ---
Nutrition Follow Up: Reviewed chart Pt on a Diabetic diet eating 89% past 3 days Pt is not eating well today BG 168,[address] following
--- NOTE | 2018-09-28 13:55 | NUR ---
PATIENT LYING IN BED, CONFUSED, NOT ANWERING APPROPRIATELY. PATIENT WILL NOT LEAVE HIS OXYGEN ON. REAPPLIED OXYGEN. CALL LIGHT WITHIN REACH. CONTINUES TO PULL HIS OXYGEN OFF. REAPPLIED AGAIN. PATIENT COMPLAINS OF PAIN TO HIS ABDOMEN. ABD SOFT, NOT TENDER DURING PALPATION. BS X 4. HOB ELEVATED, WHEEZES NOTED BILATERALLY.
--- NOTE | 2018-09-28 14:06 | NUR ---
TURNED AND REPOSITIONED. INCONTINENT CARE PROVIDED. NO DISTRESS. CPAP APPLIED PATIENT IS A MOUTH BREATHER AND WAS DRIFTING OFF TO SLEEP. RESTING WELL AT THIS TIME.
--- NOTE | 2018-09-28 15:01 | NUR ---
PATIENT RESTING WITH CPAP ON. TAKES CPAP OFF MULTIPLE TIMES AND NURSING REPLACES CPAP. CONTINUES TO BE CONFUSED, ALTERED MENTAL STATUS, DENIES PAIN, LYRICA HELD DUE TO MENTAL STATUS FLUCTUATING. CALL LIGHT WITHIN REACH.
[2018-09-28 16:11] VITALS: BP 188/90
--- NOTE | 2018-09-28 16:36 | NUR ---
PATIENT HAS NOT CONSUMED ANY MEAL TODAY NOR CONSUMED SNACKS THAT HAVE BEEN OFFERED. FSBS 206. INSULIN NOT ADMINISTERED BECAUSE PATIENT IS NOT EATING.
--- NOTE | 2018-09-28 17:32 | NUR ---
URINALYSIS COLLECTED VIA IN AND OUT CATH AND SUBMITTED TO LAB AT 1725
[2018-09-28 18:08] LABS: APPEARANCE CLEAR (CLEAR); BILIRUBIN NEGATIVE (NEGATIVE); COLOR YELLOW (YELLOW); GLUCOSE NEGATIVE (NEGATIVE); KETONE NEGATIVE (NEGATIVE); NITRITE NEGATIVE (NEGATIVE); PROTEIN 1+ mg/dL (NEGATIVE); SPECIFIC GRAVITY 1.025 (1.005-1.020); UROBILINOGEN NORMAL (NORMAL)
--- NOTE | 2018-09-28 18:11 | NUR ---
AT BEDSIDE AND SWITCHED PATIENT FROM CPAP TO BIPAP. PATIENT WITH MASK ON AT THIS TIME. CALL LIGHT WITHIN REACH. .
--- NOTE | 2018-09-28 19:20 | NUR ---
ASSESSMENT COMPLETE, PT RESTING WITH BIPAP IN USE. PT AROUSES TO STERNAL RUB AND WILL ANSWER TO NAME. PT CONFUSED TO TIME AND PLACE. IV TO LEFT UPPER ARM SL, IV SITE CLEAN AND DRY. BED ALARM IN USE FOR PT SAFETY, BED LOW, CL IN REACH.
--- NOTE | 2018-09-28 19:38 | NUR ---
OT NOTE: PT COMPLETED BED MOB AND SUPINE TO SIT WITH CGA/MIN A. PT COMPLETED GROOMING TASK WITH SET UP. 120/136 THANK YOU, NEL DELEON
[2018-09-28 20:00] VITALS: BP 162/99
--- NOTE | 2018-09-28 20:34 | NUR ---
PT WONT WAKE UP ENOUGH TO TAKE PO MEDS.
--- NOTE | 2018-09-28 22:16 | NUR ---
PT AWAKE NOW, MEDICATIONS GIVEN IN A BITE OF APPLE SAUCE. PT PULLED OFF BIPAP MASK AND MASK IS NOW BROKEN, RT AT BED SIDE TO REPLACE MASK.
--- NOTE | 2018-09-28 23:10 | NUR ---
ENTERED PTS ROOM, PTS NC IS OFF AND IV TO LEFT UPPER ARM IS OUT, TIP INTACT. PLACED PT BACK ON O2 VIA NC.
[2018-09-29 00:30] VITALS: BP 189/104
--- NOTE | 2018-09-29 00:35 | NUR ---
SOLE CUTTER AT BED SIDE, BATH AND LINEN CHANGE COMPLETE.
--- NOTE | 2018-09-29 01:36 | NUR ---
RT AT BED SIDE, PT PLACED BACK ON BI PAP.
--- NOTE | 2018-09-29 04:07 | NUR ---
I have reviewed this patient and I concur with the Shift Assessment completed by the Licensed Practical Nurse today this shift.
[2018-09-29 05:00] VITALS: BP 163/88
[2018-09-29 05:01] LABS: BASOPHILS 0.2 % (0-2); EOSINOPHILS 0 % (0-7); HEMATOCRIT 35.2 % (42.0-54.0); HEMOGLOBIN 10.6 g/dL (13.5-17.5); IMMATURE GRANULOCYTES 0.2 % (0-5); LYMPHOCYTES 10.5 % (15-50); MCH 20.7 pg (26.0-34.0); MCHC 30.1 g/dL (31.0-37.0); MCV 68.8 fL (80.0-100.0); MONOCYTES 8.4 % (2-11); NEUTROPHILS 80.7 % (40-80); PLATELET COUNT 152 10x3/uL (130-400); RBC 5.12 10x6/uL (4.20-6.10); RDW 20.5 % (11.5-14.5); WBC 12.3 10x3/uL (4.8-10.8)
[2018-09-29 05:27] LABS: ALBUMIN 2.9 g/dL (3.4-5.0); ANION GAP 15.2 mmol/L (8-16); BILIRUBIN - TOTAL 1.68 mg/dL (0.2-1.3); CALCIUM 8.7 mg/dL (8.5-10.1); CARBON DIOXIDE 27.6 mmol/L (21.0-32.0); POTASSIUM - SERUM 3.8 mmol/L (3.5-5.1); PROTEIN - SERUM 7.4 g/dL (6.4-8.2)
--- NOTE | 2018-09-29 05:47 | NUR ---
BS 248, COVERED WITH 2 UNITS PER INSULIN, WHICH IS HALF THE DOSE ORDERED, DID NOT WANT TO GIEVN FULL AMOUNT DUE TO PT NOT EATING WELL.
--- NOTE | 2018-09-29 07:24 | NUR ---
REPORT RECEIVED. WILL CONTINUE WITH POC. PT CURRENTLY LYING SEMI FOWLERS. CALL LIGHT W/I REACH. PT IS AAO AND UP WITH ASSIST. RR EVEN AND UNLABORED ON 2L 02. [facility] NURSE REPORTED PT PULLED OUT PIV. PT IS PLEASANT AT THE MOMENT AND DENIES ANY NEEDS. WILL CTM.
[2018-09-29 08:39] VITALS: BP 128/76
--- NOTE | 2018-09-29 10:03 | NUR ---
STARTED NEW PIV TO THE RIGHT HAND. 22GA X1 ATTEMPT. PT TOLERATED WELL AND VERBALIZED HE WOULD NOT PULL THIS ONE OUT. RESTARTED DOBUTAMINE DRIP @3MCG/KG/IN OR 9ML/HR. PT DENIES ANY NEEDS. WILL CTM.
[2018-09-29 11:51] VITALS: BP 130/61
--- NOTE | 2018-09-29 12:26 | NUR ---
OT NOTE: PT UP IN BED, AGAIN VERY LETHARGIC WITH HAND ON HIS COFFEE CUP(WHICH WAS SPILLED ALL OVER TRAY)..AWAKENED PT BUT REQUIRED FREQ CUES TO STAY AWAKE. CONTINUAL CUES FOR EACH BITE OF BREAKFAST. SET UP AND VERBAL CUES FOR GROOMING; ABLE TO ALEXANDR DENTURES WITHOUT ASSIST. BED MOB WITH MIN ASSIST; SIT TO STAND WITH MIN ASSIST IN ORDER TO CLEAN FOOD FROM BED. BACK TO BED BUT STILL LETHARGIC. ORIENTED TO PLACE AND ABLE TO PROVIDE INFO REGARDING PLOF, HOWEVER, STILL CONFUSED.(830/9) LISSETTE MACIAS, OTR/L
--- NOTE | 2018-09-29 15:06 | NUR ---
I have reviewed this patient and I concur with the Shift Assessment completed by the Licensed Practical Nurse today this shift.
--- NOTE | 2018-09-29 16:38 | MORECARE ---
CASE MANAGEMENT DISCHARGE SUMMARY PATIENT: YENI CORNELIUS UNIT: [id number] ADM DATE: 09/24/18 AGE: 67 : 52 SEX: M ROOM/BED: D.2128 AUTHOR: CRISTADOC PHYSICIAN: REFERRING PHYSICIAN: ASHLYN LOPEZ MD DATE OF SERVICE: 09/29/18 Discharge Plan Patient Name: YENI CORNELIUS Facility: [facility]:[place] : 1950 Planned Disposition: Home with Home Health Anticipated Discharge Date: 09/29/18 Discharge Date: Expected LOS: 5 Initial Reviewer: [id number] Initial Review Date: 09/24/2018 Generated: 09/29/18 5:38 pm DCPIA - Discharge Planning Initial Assessment Updated by RASTA: Marv Polk on 09/29/18 4:36 pm * Is the patient Alert and Oriented? Yes * How many steps to enter\exit or inside your home? NONE * PCP [facility] * Pharmacy [facility] * Preadmission Environment Home with Family * ADLs Independent * Equipment Cane Nebulizer Oxygen Walker * Other Equipment HOME OXYGEN ONLY [facility] - PROVIDER * List name and contact numbers for known caregivers / representatives who currently or will assist patient after discharge: DORIS CORNELIUS, SPOUSE, * Verbal permission to speak to the caregivers and representatives has been obtained from the patient. Yes * Community resources currently utilized None * Please name any agencies selected above. NONE * Additional services required to return to the preadmission environment? No * Can the patient safely return to the preadmission environment? Yes * Has this patient been hospitalized within the prior 30 days at any hospital? No External Providers External Provider: [email or web address] Next Contact Date: 09/30/2018 Service Request Date: Service Type: Resolution: Reviewer: Comments: Coverage Notice Reviewer: [id number] Mindi Polk Notice Issued Date-Time: 09/29/2018 9:25 Notice Type: Patient Choice Letter Notice Delivered To: Patient Relationship to Patient: Printing Technician Name: Delivery Method: HAND - Hand Delivered Niurka Days: Prior Verbal Notification: Recipient Understood Notice: Yes Recipient Signature: Yes Med Rec Note Co-signed by Attending: Coverage Notice Comment: [facility] Reviewer: [id number] Mindi Polk Notice Issued Date-Time: 09/29/2018 9:25 Notice Type: IM Discharge Notice Notice Delivered To: Patient Relationship to Patient: Printing Technician Name: Delivery Method: HAND - Hand Delivered Niurka Days: Prior Verbal Notification: Recipient Understood Notice: Yes Recipient Signature: Yes Med Rec Note Co-signed by Attending: Coverage Notice Comment: Patient Name: YENI CORNELIUS Page [phone] at 1638 All edits/amendments must be made on the electronic document DICTATION DATE: 09/29/181637 BELLOWS ASSEMBLER: TOMÁS 09/29/188 RPT#: [id number] DC DATE: STATUS: ADM IN [facility] [address] [place] [address] END OF REPORT
--- NOTE | 2018-09-29 16:47 | MORECARE ---
CASE MANAGEMENT DISCHARGE SUMMARY PATIENT: YENI CORNELIUS UNIT: [id number] ADM DATE: 09/24/18 AGE: 67 : 52 SEX: M ROOM/BED: D.4527 AUTHOR: CRISTA,DOC PHYSICIAN: REFERRING PHYSICIAN: ASHLYN LOPEZ MD DATE OF SERVICE: 09/29/18 Discharge Plan Patient Name: YENI CORNELIUS Facility: [facility]:[place] : 1950 Planned Disposition: Home with Home Health Anticipated Discharge Date: 09/29/18 Discharge Date: Expected LOS: 5 Initial Reviewer: [email or web address] Initial Review Date: 09/24/2018 Generated: 09/29/18 5:47 pm Comments DCP- Discharge Planning Updated by [id number]: Marv Polk on 09/29/18 3:[address] Patient Name: YENI CORNELIUS Admission Status: ER Accout number: [id number] Admission Date: 09-24-2018 : 1950 Admission Diagnosis:SHORTNESS OF BREATH Attending: ASHLYN LOPEZ Current LOS: 5 Anticipated DC Date: 09-29-2018 Planned Disposition: Home with Home Health Primary Insurance: [facility] MEDICARE [employer] PLANNED EXTERNAL PROVIDER: [facility] Discharge Planning Comments: CM MET WITH PT IN ROOM TO DISCUSS DISCHARGE PLANNING AND NEEDS. PT REPORTS LIVING AT HOME INDEPENDENTLY WITH SPOUSE. PT HAS HOME OXYGEN ONLY, CANE, NEBULIZER, AND WALKER FROM [facility]. PT HAS NO OUTSIDE SERVICES ASSISTING IN THE HOME. CM DISCUSSED AVAILABILITY OF HOME HEALTH, REHAB SERVICES AND MEDICAL EQUIPMENT. PT WOULD LIKE HOME HEALTH WITH [facility] FOR DISCHARGE HOME. PROVIDER LISTING GIVEN, CHOICE SIGNED FOR [facility]. PT DENIES OTHER DISCHARGE NEEDS AT THIS TIME, REPORTS HIS WILL PICK HIM UP FOR DISCHARGE HOME. IMPORTANT MESSAGE FROM MEDICARE PROVIDED AND EXPLAINED. PT PLANS TO DISCHARGE HOME WITH SPOUSE, WANTS [facility] FOR DISCHARGE HOME. CM TO COMPLETE HOME HEALTH ARRANGEMENTS WITH PHYSICIAN AGREEMENT AND HOME HEALTH ORDERS. CM TO FOLLOW AND ASSIST NEEDED. Termite Exterminator: Marv Polk DCPIA - Discharge Planning Initial Assessment Updated by [id number]: Marv Polk on 09/29/18 4:36 pm * Is the patient Alert and Oriented? Yes * How many steps to enter\exit or inside your home? NONE * PCP [facility] * Pharmacy [facility] * Preadmission Environment Home with Family * ADLs Independent * Equipment Cane Nebulizer Oxygen Walker * Other Equipment HOME OXYGEN ONLY [facility] - PROVIDER * List name and contact numbers for known caregivers / representatives who currently or will assist patient after discharge: DORIS CORNELIUS, SPOUSE, * Verbal permission to speak to the caregivers and representatives has been obtained from the patient. Yes * Community resources currently utilized None * Please name any agencies selected above. NONE * Additional services required to return to the preadmission environment? No * Can the patient safely return to the preadmission environment? Yes * Has this patient been hospitalized within the prior 30 days at any hospital? No Coverage Notice Reviewer: [id number] Polk Notice Issued Date-Time: 09/29/2018 9:25 Notice Type: Patient Choice Letter Notice Delivered To: Patient Relationship to Patient: Civil Engineering Intern Name: Delivery Method: HAND - Hand Delivered Niurka Days: Prior Verbal Notification: Recipient Understood Notice: Yes Recipient Signature: Yes Med Rec Note Co-signed by Attending: Coverage Notice Comment: [facility] Reviewer: [id number] Polk Notice Issued Date-Time: 09/29/2018 9:25 Notice Type: IM Discharge Notice Notice Delivered To: Patient Relationship to Patient: Civil Engineering Intern Name: Delivery Method: HAND - Hand Delivered Niurka Days: Prior Verbal Notification: Recipient Understood Notice: Yes Recipient Signature: Yes Med Rec Note Co-signed by Attending: Coverage Notice Comment: Last DP export: 09/29/18 3:38 p Patient Name: YENI CORNELIUS Page [phone] at 1647 All edits/amendments must be made on the electronic document DICTATION DATE: 09/29/181646 CHARCOAL BURNER BEEHIVE KILN: TOMÁS 09/29/181646 RPT#: [id number] DC DATE: STATUS: ADM IN [facility] [address] [place] [address] END OF REPORT
--- NOTE | 2018-09-29 19:22 | NUR ---
PT CALLED FOR A SWEET TEA. PT RECEIVED. PT ATE 20% OF HIS DINNER. REMOVED TRAY FROM ROOM. PT IS ALERT, BUT NOT ORIENTED TO SITUATION AT THIS TIME. DOBUTAMINE INFUSING ORDERED AT 9.1 TO RIGHT HAND 22G. PT ON 3.5L O2 NC. BIPAP AT BEDSIDE. PT WILL CALL FOR ASSIST WHEN NEEDED. ALARM ON AND ACTIVE. NAME AND DATE PLACED ON BOARD. WILL CPOC
[2018-09-29 20:00] VITALS: BP 142/72; BP 161/78
--- NOTE | 2018-09-29 22:05 | NUR ---
PT FSBS TREATED WITH 55 UNITS OF LEVEMIR. PT BEDCHANGED AND PT UP TO SHOWER. RIGHT HAND INFUSING DOBUTAMINE ORDERED. PT BACK TO SIDE OF BED. DENIES ANY NEEDS. PT HAS AN ALTERED THOUGHT PROCESS. ABLE TO TELL NURSE NAME, AND YEAR. HAS DIFFICULTY ANSWERING QUESTIONS. PT HAS NO S/S OF DISTRESS. BEDLOW AND CALL LIGHT INREACH. WILL CPOC
[2018-09-30 00:30] VITALS: BP 146/72; BP 161/78
[2018-09-30 04:30] VITALS: BP 140/76
--- NOTE | 2018-09-30 05:41 | NUR ---
PT ASLEEP. BIPAP ON, BEDLOW AND CALL LIGHT IN REACH. ALARM ON AND ACTIVE. PT HAS NO S/S OF DISTRESS. WILL CPOC
--- NOTE | 2018-09-30 07:21 | NUR ---
PT FSBS IS 178 2 UNITS GIVEN ORDERED.
[2018-09-30 07:41] LABS: BASOPHILS 0.2 % (0-2); EOSINOPHILS 0.2 % (0-7); HEMOGLOBIN 9.8 g/dL (13.5-17.5); IMMATURE GRANULOCYTES 0.3 % (0-5); LYMPHOCYTES 13.6 % (15-50); MCH 20.9 pg (26.0-34.0); MCHC 29.7 g/dL (31.0-37.0); MCV 70.2 fL (80.0-100.0); MONOCYTES 10.8 % (2-11); NEUTROPHILS 74.9 % (40-80); PLATELET COUNT 129 10x3/uL (130-400); RDW 20.8 % (11.5-14.5)
[2018-09-30 07:47] LABS: ANION GAP 10.4 mmol/L (8-16); CALCIUM 8.5 mg/dL (8.5-10.1); CARBON DIOXIDE 29.1 mmol/L (21.0-32.0); CREATININE - SERUM 1.5 mg/dL (0.6-1.3); POTASSIUM - SERUM 3.5 mmol/L (3.5-5.1)
[2018-09-30 07:56] LABS: WBC 9.1 10x3/uL (4.8-10.8)
[2018-09-30 08:33] VITALS: BP 132/64
[2018-09-30 11:48] VITALS: BP 130/69
--- NOTE | 2018-09-30 15:39 | NUR ---
OT NOTE: PT SEEN IN PM.. NO FAMILY IN ROOM. PT HOLDING A SONIC CUP AND STATED THAT HIS BROUGHT THIS TO HIM. PT SITTING UP ON EDGE OF BED WITH GOOD SITTING BALANCE. PT ABLE TO SCOOT BACK ON BED WITHOUT ASSIST( HE WAS SITTING ON THE VERY EDGE)..ABLE TO PERFORM SIMPLE GROOMING TASKS WITH SET UP AND SEVERAL VERBAL CUES. PT REMAINS SLOW TO RESPOND TO VERBAL COMMANDS. PERFORMED UE AROM EXS WITH MINIMAL REST BREAKS. ASSISTED BACK IN BED WITH VERY MINIMAL ASSIST.() LISSETTE MACIAS, OTR/L
[2018-09-30 15:52] VITALS: BP 138/71
--- NOTE | 2018-09-30 15:57 | NUR ---
OT NOTE: PT COMPLETED TRANSFERS WITH MIN A. PT COMPLETED ADL MOB WITH MIN A. PT COMPLETED SELF HYGIENE TASKS WITH MIN A FOR TASK COMPLETION. 199/725 THANK YOU, NEL DELEON
--- NOTE | 2018-09-30 19:10 | NUR ---
WALKING ROUNDS. PT DOBUTAMINE NOT ON TURNED PUMP ON AND CHECKED IV. IV IS OUT AND IS NOT INTACT. REMOVED IV AND WILL PLACE IV SOON ABLE. PT SITTING ON SIDE OF BED, 3.5L O2 NC. PT DENIES ANY NEEDS AT THIS TIME. NO S/S OF DISTRESS. CALL LIGHT IN REACH. WILL CPOC
[2018-09-30 20:00] VITALS: BP 189/111
--- NOTE | 2018-09-30 21:00 | NUR ---
PT SITTING ON SIDE OF BED. NOURISHMENT WITHIN REACH. 3.5L O2 NC. PT DENIES ANY NEEDS AT THIS TIME. NO S/S OF DISTRESS. WILL START PIV SOON POSSIBLE.
--- NOTE | 2018-09-30 23:17 | NUR ---
PT FSBS IS 162 LEVEMIR GIVEN ORDERED 55 UNITS. VELIA CLARK ATTEMPTING FOR IV. RIGHT HAND IV REMOVED WITH CATH INTACT. PT STATES IT HAS BEEN OFF SINCE AFTER LUNCH. PT HAS NO S/S OF DISTRESS. MONITOR PLACED ON PT FOR MONITORING. PT WILL CALL FOR ASSIST WHEN NEEDED. WILL CPOC
--- NOTE | 2018-09-30 23:27 | NUR ---
ONE ATTEMPT UNSUCCESSFUL. STARTING SECOND ATTEMPT NOW
--- NOTE | 2018-09-30 23:30 | NUR ---
BP IS 189/111 NIGHT TIME TOPROL GIVEN.
--- NOTE | 2018-09-30 23:38 | NUR ---
LEFT FOREARM 20G PLACED. DOBUTAMINE RESTARTED ORDERED AT 3MCG/KG/HR RATE IS 9.1 PT SITTING ON SIDE OF BED DRINKING TEA. NO S/S OF DISTRESS. WILL CPOC
--- NOTE | 2018-10-01 03:33 | NUR ---
CALLED DR RODRIGUEZ REGARDING INCREASED BLOOD PRESSURE, NO ANSWER LEFT VOICE MAIL WILL CALL BACK LATER IF ABLE
--- NOTE | 2018-10-01 04:15 | NUR ---
SPOKE WITH MYLA REGARDING BLOOD PRESSURE. SHE STATED CONTINUE TO WATCH BP, GIVE MORNING MEDICATIONS EARLY IF NEEDED. WILL CPOC
--- NOTE | 2018-10-01 04:53 | NUR ---
PT HAD A RUN OF 9 PVC'S IN A ROW. CHECKED ON PT. PT AROUSED WHEN NURSE VERBALIZED TO PT. PT DENIES ANY NEEDS. WILL CPOC
[2018-10-01 05:00] VITALS: BP 181/93
[2018-10-01 06:07] LABS: HEMATOCRIT 36.1 % (42.0-54.0); HEMOGLOBIN 10.7 g/dL (13.5-17.5); MCH 21.4 pg (26.0-34.0); MCHC 29.6 g/dL (31.0-37.0); MCV 72.1 fL (80.0-100.0); NEUTROPHILS 74.3 % (40-80); PLATELET COUNT 123 10x3/uL (130-400); RBC 5.01 10x6/uL (4.20-6.10); RDW 21.3 % (11.5-14.5); WBC 9.7 10x3/uL (4.8-10.8)
[2018-10-01 06:17] LABS: ANION GAP 7.7 mmol/L (8-16); CALCIUM 8.1 mg/dL (8.5-10.1); CARBON DIOXIDE 31.9 mmol/L (21.0-32.0)
[2018-10-01 06:34] LABS: CREATININE - SERUM 3.2 mg/dL (0.6-1.3)
[2018-10-01 06:35] LABS: POTASSIUM - SERUM 2.6 mmol/L (3.5-5.1)
--- NOTE | 2018-10-01 06:54 | NUR ---
POTASSIUM 2.6 STARTED ELECTROLYTE PROTOCOL. 1ST 20MEQ OF KDUR GIVEN. GLUCOSE 99 NO INSULIN NEEDED. PT WILL CALL FOR ASSIST WHEN NEEDED. WILL CPOC
--- NOTE | 2018-10-01 07:30 | NUR ---
REPORT RECEIVED. WILL CONTINUE WITH POC. PT CURRENTLY SITTING ON EDGE OF BED. CALL LIGHT W/I REACH. PT IS AAO AND UP WITH ASSIST. RR EVEN AND UNLABORED ON 3.5L 02. L.FOR PIV IS SALINE LOCKED. PT DENIES ANY NEEDS AT THIS TIME. NO S/S OF DISTRESS NOTED. WILL CTM.
[2018-10-01 09:10] VITALS: BP 154/76
--- NOTE | 2018-10-01 10:45 | NUR ---
PT REFUSED BIPAP AT THIS TIME, WILL NOT LET ME PLACE BIPAP ON FACE, STATED HE DOES NOT WANT IT AND WILL NOT WEAR IT
--- NOTE | 2018-10-01 12:40 | NUR ---
OT NOTE: PT ALERT AND SITTING ON EOB IN AM. APPEARED IN GOOD SPIRITS; ORIENTED X 3. PROVIDED PT WITH BASIN AND HE WAS ABLE TO PERFORM BATHING TASKS WHILE SITTING ON EOB WITH OCCASSIONAL ASSIST. ( MIN ASSIST FOR FEET).. ABLE TO ALEXANDR GOWN AND SHORTS WITH SET UP AND EXT TIME; IN ROOM AMBULATION TO SINK AND THEN TO CHAIR ( APPROX 12 FT) WITH WALKER, GAIT BELT, 02, AND CGA. UE STRENGTHENING EXS WITH MIN REST BREAKS. PT OBSERVED LATER AMBULATING WITH WALKER DOWN HALLWAY. HE WAS MORE CONFUSED AND DISORIENTED. STATED HE WAS TRYING TO FIND THE MAN THAT HE WAS SUPPOSED TO HELP THIS AFTERNOON BUT DIDNT KNOW HIS NAME OR WHERE HE WAS. RE ORIENTED PT..ASSISTED BACK TO CHAIR AND PROVIDED ALARM PAD. RE APPLIED 02 AND REPLACED PHONE, CALL LIGHT, AND URINAL NEXT TO CHAIR. ([phone]...[phone])
--- NOTE | 2018-10-01 12:44 | MORECARE ---
CASE MANAGEMENT DISCHARGE SUMMARY PATIENT: YENI CORNELIUS UNIT: [id number] ADM DATE: 09/24/18 AGE: 67 : 52 SEX: M ROOM/BED: D.5366 AUTHOR: CRISTA,DOC PHYSICIAN: REFERRING PHYSICIAN: ASHLYN LOPEZ MD DATE OF SERVICE: 10/01/18 Discharge Plan Patient Name: YENI CORNELIUS Facility: [facility]:[place] : 1950 Planned Disposition: Home with Home Health Anticipated Discharge Date: 09/29/18 Discharge Date: Expected LOS: 5 Initial Reviewer: [id number] Initial Review Date: 09/24/2018 Generated: 10/01/18 1:44 pm Comments DCP- Discharge Planning Updated by [email or web address]: Marv Polk on 09/29/18 3:[address] Patient Name: YENI CORNELIUS Admission Status: ER Accout number: [id number] Admission Date: 09-24-2018 : 1950 Admission Diagnosis:SHORTNESS OF BREATH Attending: ASHLYN LOPEZ Current LOS: 5 Anticipated DC Date: 09-29-2018 Planned Disposition: Home with Home Health Primary Insurance: [facility] MEDICARE [employer] PLANNED EXTERNAL PROVIDER: [facility] Discharge Planning Comments: CM MET WITH PT IN ROOM TO DISCUSS DISCHARGE PLANNING AND NEEDS. PT REPORTS LIVING AT HOME INDEPENDENTLY WITH SPOUSE. PT HAS HOME OXYGEN ONLY, CANE, NEBULIZER, AND WALKER FROM [facility]. PT HAS NO OUTSIDE SERVICES ASSISTING IN THE HOME. CM DISCUSSED AVAILABILITY OF HOME HEALTH, REHAB SERVICES AND MEDICAL EQUIPMENT. PT WOULD LIKE HOME HEALTH WITH [facility] FOR DISCHARGE HOME. PROVIDER LISTING GIVEN, CHOICE SIGNED FOR [facility]. PT DENIES OTHER DISCHARGE NEEDS AT THIS TIME, REPORTS HIS WILL PICK HIM UP FOR DISCHARGE HOME. IMPORTANT MESSAGE FROM MEDICARE PROVIDED AND EXPLAINED. PT PLANS TO DISCHARGE HOME WITH SPOUSE, WANTS [facility] FOR DISCHARGE HOME. CM TO COMPLETE HOME HEALTH ARRANGEMENTS WITH PHYSICIAN AGREEMENT AND HOME HEALTH ORDERS. CM TO FOLLOW AND ASSIST NEEDED. Cctv Technician: Marv Polk DCPIA - Discharge Planning Initial Assessment Updated by [id number]: Marv Polk on 09/29/18 4:36 pm * Is the patient Alert and Oriented? Yes * How many steps to enter\exit or inside your home? NONE * PCP [facility] * Pharmacy [facility] * Preadmission Environment Home with Family * ADLs Independent * Equipment Cane Nebulizer Oxygen Walker * Other Equipment HOME OXYGEN ONLY [facility] - PROVIDER * List name and contact numbers for known caregivers / representatives who currently or will assist patient after discharge: DORIS CORNELIUS, SPOUSE, * Verbal permission to speak to the caregivers and representatives has been obtained from the patient. Yes * Community resources currently utilized None * Please name any agencies selected above. NONE * Additional services required to return to the preadmission environment? No * Can the patient safely return to the preadmission environment? Yes * Has this patient been hospitalized within the prior 30 days at any hospital? No External [facility]iders [facility] Next Contact Date: 10/01/2018 Service Request Date: Service Type: Resolution: Reviewer: Comments: Coverage Notice Reviewer: [id number] Mindi Polk Notice Issued Date-Time: 09/29/2018 9:25 Notice Type: Patient Choice Letter Notice Delivered To: Patient Relationship to Patient: Road Inspector Name: Delivery Method: HAND - Hand Delivered Niurka Days: Prior Verbal Notification: Recipient Understood Notice: Yes Recipient Signature: Yes Med Rec Note Co-signed by Attending: Coverage Notice Comment: [facility] Reviewer: [id number] Mindi Polk Notice Issued Date-Time: 09/29/2018 9:25 Notice Type: IM Discharge Notice Notice Delivered To: Patient Relationship to Patient: Road Inspector Name: Delivery Method: HAND - Hand Delivered Niurka Days: Prior Verbal Notification: Recipient Understood Notice: Yes Recipient Signature: Yes Med Rec Note Co-signed by Attending: Coverage Notice Comment: Last DP export: 09/29/18 3:47 p Patient Name: YENI CORNELIUS Page 05145 at 1244 All edits/amendments must be made on the electronic document DICTATION DATE: 10/01/18 1243 STEAM POWERPLANT SUPERVISOR: TOMÁS 10/01/18 1243 RPT#: [id number] NH DATE: STATUS: ADM IN [facility] [address] [place] [address] END OF REPORT
--- NOTE | 2018-10-01 13:01 | MORECARE ---
CASE MANAGEMENT DISCHARGE SUMMARY PATIENT: YENI CORNELIUS UNIT: [id number] ADM DATE: 09/24/18 AGE: 67 : 52 SEX: M ROOM/BED: D.2128 AUTHOR: CRISTA,DOC PHYSICIAN: REFERRING PHYSICIAN: ASHLYN LOPEZ MD DATE OF SERVICE: 10/01/18 Discharge Plan Patient Name: YENI CORNELIUS Facility: [facility]:[place] : 1950 Planned Disposition: Home with Home Health Anticipated Discharge Date: 09/29/18 Discharge Date: Expected LOS: 5 Initial Reviewer: [id number] Initial Review Date: 09/24/2018 Generated: 10/01/18 2:00 pm Comments DCP- Discharge Planning Updated by [id number]: Marv Polk on 10/01/18 11:[address] Patient Name: YENI CORNELIUS Encounter No: [id number] : 1950 Primary Insurance: [facility]IC[facility] SOLUTIONS Anticipated DC Date: 09-29-2018 Planned Disposition: Home with Home Health External Planned Provider: [facility] DCP follow-up note: CM RECEIVED ORDER FOR TRILOGY. CM MET WITH PT IN ROOM DISCUSSED ORDER, PROVIDED PROVIDER LISTING. PT SIGNED CONSENT FOR [facility] HE ALREADY HAS OXYGEN AND NEBULIZER WITH THEM. CM CALLED [facility], , SPOKE TO CAYLA WHO TOOK TRILOGY ORDER. CM FAX TRILOGY ORDERS TO [facility] AT [phone]. [facility] TO PROCESS TRILOGY ORDER AND IF QUALIFIES[facility]. CM WAITING TRILOGY MACHINE PROCESSING AND DELIVERY FROM [facility]. PT PLANS TO DISCHARGE HOME WITH SPOUSE, WANTS [facility] FOR DISCHARGE HOME. CM TO COMPLETE HOME HEALTH ARRANGEMENTS WITH PHYSICIAN AGREEMENT AND HOME HEALTH ORDERS. CM TO FOLLOW AND ASSIST NEEDED. Press Writer: Marv Polk DCP- Discharge Planning Updated by [id number]: Marv Polk on 09/29/18 3:[address] Patient Name: YENI CORNELIUS Admission Status: ER Accout number: [id number] Admission Date: 09-24-2018 : 1950 Admission Diagnosis:SHORTNESS OF BREATH Attending: ASHLYN LOPEZ Current LOS: 5 Anticipated DC Date: 09-29-2018 Planned Disposition: Home with Home Health Primary Insurance: [facility] SOLUTIONS PLANNED EXTERNAL PROVIDER: [facility] Discharge Planning Comments: CM MET WITH PT IN ROOM TO DISCUSS DISCHARGE PLANNING AND NEEDS. PT REPORTS LIVING AT HOME INDEPENDENTLY WITH SPOUSE. PT HAS HOME OXYGEN ONLY, CANE, NEBULIZER, AND WALKER FROM [facility]. PT HAS NO OUTSIDE SERVICES ASSISTING IN THE HOME. CM DISCUSSED AVAILABILITY OF HOME HEALTH, REHAB SERVICES AND MEDICAL EQUIPMENT. PT WOULD LIKE HOME HEALTH WITH [facility] FOR DISCHARGE HOME. PROVIDER LISTING GIVEN, CHOICE SIGNED FOR [facility]. PT DENIES OTHER DISCHARGE NEEDS AT THIS TIME, REPORTS HIS WILL PICK HIM UP FOR DISCHARGE HOME. IMPORTANT MESSAGE FROM MEDICARE PROVIDED AND EXPLAINED. PT PLANS TO DISCHARGE HOME WITH SPOUSE, WANTS [facility] FOR DISCHARGE HOME. CM TO COMPLETE HOME HEALTH ARRANGEMENTS WITH PHYSICIAN AGREEMENT AND HOME HEALTH ORDERS. CM TO FOLLOW AND ASSIST NEEDED. Press Writer: Marv Polk DCPIA - Discharge Planning Initial Assessment Updated by [id number]: Marv Polk on 09/29/18 4:36 pm * Is the patient Alert and Oriented? Yes * How many steps to enter\exit or inside your home? NONE * PCP [facility] * Pharmacy [facility] * Preadmission Environment Home with Family * ADLs Independent * Equipment Cane Nebulizer Oxygen Walker * Other Equipment HOME OXYGEN ONLY [facility] - PROVIDER * List name and contact numbers for known caregivers / representatives who currently or will assist patient after discharge: DORIS CORNELIUS, SPOUSE, * Verbal permission to speak to the caregivers and representatives has been obtained from the patient. Yes * Community resources currently utilized None * Please name any agencies selected above. NONE * Additional services required to return to the preadmission environment? No * Can the patient safely return to the preadmission environment? Yes * Has this patient been hospitalized within the prior 30 days at any hospital? No Coverage Notice Reviewer: [id number] Mindi Polk Notice Issued Date-Time: 09/29/2018 9:25 Notice Type: Patient Choice Letter Notice Delivered To: Patient Relationship to Patient: Supervisor Rubber Covering Name: Delivery Method: HAND - Hand Delivered Niurka Days: Prior Verbal Notification: Recipient Understood Notice: Yes Recipient Signature: Yes Med Rec Note Co-signed by Attending: Coverage Notice Comment: [facility] Reviewer: [id number] Polk Notice Issued Date-Time: 09/29/2018 9:25 Notice Type: IM Discharge Notice Notice Delivered To: Patient Relationship to Patient: Supervisor Rubber Covering Name: Delivery Method: HAND - Hand Delivered Niurka Days: Prior Verbal Notification: Recipient Understood Notice: Yes Recipient Signature: Yes Med Rec Note Co-signed by Attending: Coverage Notice Comment: Reviewer: [id number] Mindi Polk Notice Issued Date-Time: 10/01/2018 12:25 Notice Type: Patient Choice Letter Notice Delivered To: Patient Relationship to Patient: Supervisor Rubber Covering Name: Delivery Method: HAND - Hand Delivered Niurka Days: Prior Verbal Notification: Recipient Understood Notice: Yes Recipient Signature: Yes Med Rec Note Co-signed by Attending: Coverage Notice Comment: JUAN MANUEL [employer] DP export: 10/01/18 11:44 a Patient Name: YENI CORNELIUS Page 53241 at 1301 All edits/amendments must be made on the electronic document DICTATION DATE: 10/01/18 1300 SCRAP CHARGER: TOMÁS 10/01/18 1300 RPT#: [id number] DC DATE: STATUS: ADM IN [facility] [address] [place] [address] END OF REPORT
[2018-10-01 13:24] VITALS: BP 159/82
--- NOTE | 2018-10-01 13:45 | NUR ---
Nutrition Follow Up: Diabetic diet-pt is eating well >/=75% intake of meals today Weight 209lb BG 182,99 today Pt reports no nutritional requests or concerns at this time Encouraged good po intake RD following
--- NOTE | 2018-10-01 15:05 | NUR ---
PT REFUSES TO WEAR BIPAP STATES HE WILL NOT PUT IT ON. PT THINKS HE HAS BEEN WEARING BIPAP BUT HE HAS NOT. PT WILL NOT LET ME PLACE BIPAP ON HIS FACE EVEN THOUGH THE RISKS WERE EXPLAINED TO PT
--- NOTE | 2018-10-01 15:13 | MORECARE ---
CASE MANAGEMENT DISCHARGE SUMMARY PATIENT: YENI CORNELIUS UNIT: [id number] ADM DATE: 09/24/18 AGE: 67 : 52 SEX: M ROOM/BED: D.2630 AUTHOR: CRISTA,DOC PHYSICIAN: REFERRING PHYSICIAN: ASHLYN LOPEZ MD DATE OF SERVICE: 10/01/18 Discharge Plan Patient Name: YENI CORNELIUS Facility: [facility]:[place] : 1950 Planned Disposition: Home with Home Health Anticipated Discharge Date: 09/29/18 Discharge Date: Expected LOS: 5 Initial Reviewer: [id number] Initial Review Date: 09/24/2018 Generated: 10/01/18 4:13 pm Comments DCP- Discharge Planning Updated by [id number]: Marv Polk on 10/01/18 2:[address] Patient Name: YENI CORNELIUS Encounter No: [id number] : 1950 Primary Insurance: [facility] MEDICARE SOLUTIONS Anticipated DC Date: 09-29-2018 Planned Disposition: Home with Home Health External Planned Provider: [facility] DCP follow-up note: CM RECEIVED ORDER FOR TRILOGY. CM MET WITH PT IN ROOM DISCUSSED ORDER, PROVIDED PROVIDER LISTING. PT SIGNED CONSENT FOR [facility] HE ALREADY HAS OXYGEN AND NEBULIZER WITH THEM. CM CALLED [facility], , SPOKE TO CAYLA WHO TOOK TRILOGY ORDER. CM FAX TRILOGY ORDERS TO [facility] AT [phone]. [facility] TO PROCESS TRILOGY ORDER AND IF QUALIFIES[facility]. CM WAITING TRILOGY MACHINE PROCESSING AND DELIVERY FROM [facility]. PT PLANS TO DISCHARGE HOME WITH SPOUSE, WANTS [facility] FOR DISCHARGE HOME. CM TO COMPLETE HOME HEALTH ARRANGEMENTS WITH PHYSICIAN AGREEMENT AND HOME HEALTH ORDERS. CM TO FOLLOW AND ASSIST NEEDED. Correctional Medicine Physician: Marv Polk Appended by Marv Polk on 10/01/2018 15:12 CDT: CM SPOKE TO [facility] STITCH RUBBER AT THE NURSES STATION, SHE HAS RECEIVED REFERRAL AND THEY CANNOT BILL PT'S INSURANCE FOR TRILOGY MACHINE. THEY FORWARDED THE REFERRAL TO [facility] [place]. CM SPOKE TO PT IN ROOM WHO REPORTS HE RATHER USE SOMEONE LOCAL. CM CALLED [facility], SPOKE TO KRISS WHO INFORMED CM THAT THEY CAN BILL PT'S INSURANCE. CM NOTIFIED PT IN ROOM, PT SIGNED CONSENT FOR [facility]. CM CALLED [facility], , NOTIFIED TO CANCEL REFERRAL. CM RECEIVED CALL FROM LUANNE WHO ASKED CM WHY THE ORDER WAS CANCELLED. CM EXPLAINED. CM LATER RECEIVED CALL FROM LUANNE WHO INFORMED CM THAT PT'S SPOUSE HAS BEEN CALLED AND SHE WANTS TO USE [facility] FOR THE TRILOGY AND THEY WILL PROCESS ORDER FOR DELIVERY TO HOSPITAL TOMORROW, 10-02-18, AND THEY WILL BE PROVIDING PT GREAT SERVICE AND SUPPORT AT HOME. CM CALLED AND SPOKE TO DORIS CORNELIUS, PT'S SPOUSE, , WHO VERIFIED CHOICE. CM SPOKE TO PT IN ROOM, DISCUSSED ABOVE, PT SIGNED CHOICE FOR [facility]. [facility], , TO PROCESS ORDER AND DELIVER TRILOGY MACHINE TO PT'S HOSPITAL ROOM TOMORROW. PT PLANS TO DISCHARGE HOME WITH SPOUSE, WANTS [facility] FOR DISCHARGE HOME. CM TO COMPLETE HOME HEALTH ARRANGEMENTS WITH PHYSICIAN AGREEMENT AND HOME HEALTH ORDERS. CM TO FOLLOW AND ASSIST NEEDED. Correctional Medicine Physician: Marv Polk DCP- Discharge Planning Updated by [id number]: Marv Polk on 09/29/18 3:[address] Patient Name: YENI CORNELIUS Admission Status: ER Accout number: [id number] Admission Date: 09-24-2018 : 1950 Admission Diagnosis:SHORTNESS OF BREATH Attending: ASHLYN LOPEZ Current LOS: 5 Anticipated DC Date: 09-29-2018 Planned Disposition: Home with Home Health Primary Insurance: [facility] MEDICARE SOLUTIONS PLANNED EXTERNAL PROVIDER: [facility] Discharge Planning Comments: CM MET WITH PT IN ROOM TO DISCUSS DISCHARGE PLANNING AND NEEDS. PT REPORTS LIVING AT HOME INDEPENDENTLY WITH SPOUSE. PT HAS HOME OXYGEN ONLY, CANE, NEBULIZER, AND WALKER FROM [facility]. PT HAS NO OUTSIDE SERVICES ASSISTING IN THE HOME. CM DISCUSSED AVAILABILITY OF HOME HEALTH, REHAB SERVICES AND MEDICAL EQUIPMENT. PT WOULD LIKE HOME HEALTH WITH [facility] FOR DISCHARGE HOME. PROVIDER LISTING GIVEN, CHOICE SIGNED FOR [facility]. PT DENIES OTHER DISCHARGE NEEDS AT THIS TIME, REPORTS HIS WILL PICK HIM UP FOR DISCHARGE HOME. IMPORTANT MESSAGE FROM MEDICARE PROVIDED AND EXPLAINED. PT PLANS TO DISCHARGE HOME WITH SPOUSE, WANTS [facility] FOR DISCHARGE HOME. CM TO COMPLETE HOME HEALTH ARRANGEMENTS WITH PHYSICIAN AGREEMENT AND HOME HEALTH ORDERS. CM TO FOLLOW AND ASSIST NEEDED. Correctional Medicine Physician: Marv Polk DCPIA - Discharge Planning Initial Assessment Updated by RASTA: Marv Polk on 09/29/18 4:36 pm * Is the patient Alert and Oriented? Yes * How many steps to enter\exit or inside your home? NONE * PCP [facility] * Pharmacy [facility] * Preadmission Environment Home with Family * ADLs Independent * Equipment Cane Nebulizer Oxygen Walker * Other Equipment HOME OXYGEN ONLY [facility] - PROVIDER * List name and contact numbers for known caregivers / representatives who currently or will assist patient after discharge: DORIS CORNELIUS, SPOUSE, * Verbal permission to speak to the caregivers and representatives has been obtained from the patient. Yes * Community resources currently utilized None * Please name any agencies selected above. NONE * Additional services required to return to the preadmission environment? No * Can the patient safely return to the preadmission environment? Yes * Has this patient been hospitalized within the prior 30 days at any hospital? No Coverage Notice Reviewer: [id number] Polk Notice Issued Date-Time: 09/29/2018 9:25 Notice Type: Patient Choice Letter Notice Delivered To: Patient Relationship to Patient: Mechanical Press Operator Name: Delivery Method: HAND - Hand Delivered Niurka Days: Prior Verbal Notification: Recipient Understood Notice: Yes Recipient Signature: Yes Med Rec Note Co-signed by Attending: Coverage Notice Comment: [facility] Reviewer: [id number] Polk Notice Issued Date-Time: 09/29/2018 9:25 Notice Type: IM Discharge Notice Notice Delivered To: Patient Relationship to Patient: Mechanical Press Operator Name: Delivery Method: HAND - Hand Delivered Niurka Days: Prior Verbal Notification: Recipient Understood Notice: Yes Recipient Signature: Yes Med Rec Note Co-signed by Attending: Coverage Notice Comment: Reviewer: [id number] Polk Notice Issued Date-Time: 10/01/2018 12:25 Notice Type: Patient Choice Letter Notice Delivered To: Patient Relationship to Patient: Mechanical Press Operator Name: Delivery Method: HAND - Hand Delivered Niurka Days: Prior Verbal Notification: Recipient Understood Notice: Yes Recipient Signature: Yes Med Rec Note Co-signed by Attending: Coverage Notice Comment: JUAN MANUEL Rebolledo DP export: 10/01/18 12:01 p Patient Name: YENI CORNELIUS Page [id number] at 1513 All edits/amendments must be made on the electronic document DICTATION DATE: 10/01/181512 TRANSIT OPERATOR: TOMÁS 10/01/181512 RPT#: [id number] DC DATE: STATUS: ADM IN [facility] [address] [place] [address] END OF REPORT
[2018-10-01 17:05] VITALS: BP 171/858
--- NOTE | 2018-10-01 19:20 | NUR ---
PT UP WALKING AROUND. TRIED TO GO DOWN STAIRS. REDIRECTED PT TO ROOM AND SET IN CHAIR WITH AN ALARM. PT GIVEN NOURISHMENT. PT WILL CALL FOR ASSIST WHEN NEEDED. CHECKED SUGAR DURING REPORT IT IS 168. WILL CPOC
--- NOTE | 2018-10-01 19:30 | NUR ---
PT REFUSING TELEMETRY. RETURNED TO PROFESSOR OF LITERATURE
--- NOTE | 2018-10-01 19:52 | NUR ---
fsbs IS 168 NIGHT DOSE OF LEVEMIR GIVEN. PT SITTING IN CHAIR. HOLDING BAG OF CLOTHES. WANTING TO GO HOME TONIGHT. TOLD PT FOR SAFETY HE NEEDS TO STAY IN ROOM AND LET NURSES AND STAFF ASSIST WITH NEEDS. PT AGREES FOR NOW. NOURISHMENT PROVIDED. SNACK PROVIDED. PT ALARM ON AND ACTIVE. WILL CPOC
[2018-10-01 20:00] VITALS: BP 182/87
--- NOTE | 2018-10-02 00:35 | NUR ---
PT HAS NOW SETTLED DOWN. ON BIPAP. ALARM ON AND ACTIVE. PT GOT OUT OF BED AND KEPT TRYING TO LEAVE EVERY 10-20 MINS SINCE NURSE TOOK OVER. PT HAS NO S/S OF DISTRESS. BEDLOW AND CALL LIGHT IN REACH. WILL CPOC
--- NOTE | 2018-10-02 02:50 | NUR ---
PT ASLEEP. ON O2. PT HAS NO S/S OF DISTRESS. BEDLOW AND CALL LIGHT IN REACH. ALARM ON AND ACTIVE WILL CPOC
--- NOTE | 2018-10-02 03:27 | NUR ---
PT WOKE UP ALARM ALERTED NURSE. PT SITTING ON SIDE OF BED EATING GRAMCRACKERS AND DRINKING ON MILK. PT SETTING ALARM OFF SEVERAL TIMES WITHIN THE LAST 20 MINS FALLING ASLEEP AND LEANING FORWARD. NURSE PLACED O2 BACK ONTO PT AND INSTRUCTED TO LEAN BACK AND PUT FEET INTO BED. PT COMPLIED. BEDLOW AND CALL LIGHT IN REACH. ALARM ON AND ACTIVE. WILL CPOC
[2018-10-02 05:56] LABS: BASOPHILS 0.1 % (0-2); EOSINOPHILS 0.8 % (0-7); HEMATOCRIT 32.3 % (42.0-54.0); HEMOGLOBIN 9.6 g/dL (13.5-17.5); IMMATURE GRANULOCYTES 0.3 % (0-5); LYMPHOCYTES 9.5 % (15-50); MCH 20.9 pg (26.0-34.0); MCHC 29.7 g/dL (31.0-37.0); MCV 70.2 fL (80.0-100.0); MONOCYTES 10.6 % (2-11); NEUTROPHILS 78.7 % (40-80); RDW 21.4 % (11.5-14.5); WBC 8.8 10x3/uL (4.8-10.8)
[2018-10-02 05:58] LABS: PLATELET COUNT 163 10x3/uL (130-400)
[2018-10-02 06:04] LABS: ANION GAP 14.7 mmol/L (8-16); CALCIUM 8.4 mg/dL (8.5-10.1); CARBON DIOXIDE 26.1 mmol/L (21.0-32.0); POTASSIUM - SERUM 3.8 mmol/L (3.5-5.1)
[2018-10-02 06:19] LABS: CREATININE - SERUM 1.3 mg/dL (0.6-1.3)
[2018-10-02 06:22] VITALS: BP 160/60
--- NOTE | 2018-10-02 06:34 | NUR ---
PT GLUCOSE IS 80, NO INSULIN NEEDED. PT ALARM ON AND ACTIVE. PT REFUSES SNACK. DIET COKE GIVEN. PT DENIES ANY OTHER NEEDS. NO S/S OF DISTRESS. WILL CPOC
--- NOTE | 2018-10-02 07:00 | NUR ---
RECEIVED REPORT. ASSUMED CARE OF PATIENT. SITTING UP IN BED, ALERT, AND CONFUSED. PATIENT TELLING THIS ROUTE SALESPERSON IT IS 1996 AND THAT HE IS NOT IN THE HOSPITAL. REORIENTED. CALL LIGHT WITHIN REACH. BED ALARM PATENT TO FULL BED. NO DISTRESS.
--- NOTE | 2018-10-02 08:57 | NUR ---
[employer] HERE TO SET UP TRILOGY BUT PATIENT IS NOT ORIENTED AND NON ABLE TO COMPREHEND INSTRUCTIONS PROVIDED. ATTEMPTYING TO CALL PATIENT SPOUSE. REACHED ON HOME NUMBER AND SHE STATES IT IS OKAY FOR REP TO COME TO THE HOUSE. LUBA KENNEDY, FOREPART REDUCER IS THE REP FROM [facility] THAT WILL BE GOING TO THE HOME ONCE LEAVING THE HOSPITAL.
[2018-10-02 09:08] VITALS: BP 174/86
--- NOTE | 2018-10-02 09:40 | NUR ---
PATIENT FOUND SITTING IN FLOOR BESIDE BED WHEN THIS UNDERLAY STITCHER EXITED [id number]. BED ALARM ALARMING. PATIENT STATES HE SLID OFF OF THE BED. PT, VERNON, CARYN KOO AND THIS UNDERLAY STITCHER ASSISTED PATIENT OUT OF FLOOR TO BED AFTER COMPLETING ASSESSMENT OF PATIENT FOR ACUTE INJURIES. ABLE TO MOVE ALL EXTREMITIES WITHOUT DIFFICULTY. PATIENT NOTED TO BE WEAK TRANSFERRING TO BED. PATIENT PROVIDED WITH INCONTINENT CARE. SIDE RAILS UP FOR SAFETY. BED ALARM PATENT. CALL LIGHT WITHIN REACH. NO ACUTE DISTRESS. OXYGEN REAPPLIED.
--- NOTE | 2018-10-02 09:59 | NUR ---
BED ALARM. PATIENT FOUND SCOOTED TO THE END OF THE BED TRYING TO GET UP. PATIENT IS CONFUSED STATING THAT SOME MAN IS WAITING ON HIM. ASSISTED PATIENT BACK TO BED. OXYGEN REAPPLIED PATIENT KEEPS PULLING OXYGEN OFF. CALL LIGHT WITHIN REACH. NO DISTRESS. BED ALARM PATENT.
[2018-10-02 11:31] VITALS: BP 152/71
--- NOTE | 2018-10-02 11:47 | NUR ---
FSBS 75. NO INSULIN PER SLIDING SCALE. PATIENT FOUND WITH OXYGEN OFF AGAIN. REAPPLIED. TALKING STATING HE IS GOING HOME, ASSISTED TO SCOOT BACK UP IN THE BED. BED ALARM PATENT.
--- NOTE | 2018-10-02 12:04 | NUR ---
PULLED PATIENT UP IN BED AGAIN. REAPPLIED OXGEN. NO DISTRESS. CALL LIGHT WITIN REACH
[2018-10-02 15:30] VITALS: BP 173/93
--- NOTE | 2018-10-02 16:29 | NUR ---
FSBS 76. NO INSULIN PER SLIDING SCALE.
--- NOTE | 2018-10-02 17:30 | NUR ---
RESTING IN BED WITH EYE CLOSED, BIPAP PATENT. AROUSED BY SPEECH AND SOFT TOUCH. CALL LIGHT WITHIN REACH. NO DISTRESS.
--- NOTE | 2018-10-02 19:57 | NUR ---
RECIEVED UP IN BED WITH HOB ELEVATED AND BIPAP IN PLACE. EYES CLOSED AND EASILY AROUSED TO VERBAL STIMULI. BIPAP ALARM WENT OFF AND REENTERED THE ROOM AND PT HAD REMOVED BIPAP. ASKED WHAT HE NEEDED AND UNABLE TO ANSWER. BABBLES WHEN ATTEMPTED TO ANSWER. ORIENTED TO PERSON ONLY. REPORTED INCONTINENT OF URINE. URINAL AT BEDSIDE. ASSITED PT TO DRINK WATER. UNABLE TO FOLLOW DIRECTION TO SUCK ON STRAW. LID TAKEN OFF AND ABLE TO GIVE WATER. BED ALARM IN PLACE.
[2018-10-02 20:00] VITALS: BP 190/99
[2018-10-03] VITALS: BP 181/82
--- NOTE | 2018-10-03 02:57 | NUR ---
PATIENT REFUSED TO GO BACK ON HIS BIPAP AT 0258
[2018-10-03 03:00] VITALS: BP 169/71
[2018-10-03 05:45] LABS: BASOPHILS 0.3 % (0-2); EOSINOPHILS 0.1 % (0-7); IMMATURE GRANULOCYTES 0.3 % (0-5); LYMPHOCYTES 8.4 % (15-50); MCH 20.9 pg (26.0-34.0); MCHC 29.7 g/dL (31.0-37.0); MCV 70.2 fL (80.0-100.0); MONOCYTES 8.1 % (2-11); NEUTROPHILS 82.8 % (40-80); PLATELET COUNT 200 10x3/uL (130-400); RBC 5.27 10x6/uL (4.20-6.10); RDW 21.8 % (11.5-14.5); WBC 11.7 10x3/uL (4.8-10.8)
[2018-10-03 05:51] LABS: CARBON DIOXIDE 24.2 mmol/L (21.0-32.0); CREATININE - SERUM 1.5 mg/dL (0.6-1.3); POTASSIUM - SERUM 4.2 mmol/L (3.5-5.1)
--- NOTE | 2018-10-03 06:07 | NUR ---
PULLING BIPAP AND O2 PER HIGH FLOW OFF ALL SHIFT UNABLE TO REDIRECT AT TIME. TORE UP BIPAP MASK AND RT NOTIFIED AND AWARE. INCONTINENT SEVERAL TIMES AND SA UP ON SIDE OF BED AND URINATED IN FLOOR. PT STATES " I DID'NT KNOW THAT". VERY CONFUSED. REQUIRED SEVERAL COMPLETE BED CHANGES AND FLOOR WIPED UP AND EVS MOPPED AREA. ABLE TO PUT BIPAP BACK ON HIM AND LAYING IN BED WITH EYES CLOSED AT THIS TIME. HAS BEEN AWAKE MOST OF NIGHT.
--- NOTE | 2018-10-03 07:34 | NUR ---
ROUNDING DONE WITH PATIENT RECEIVING UPDRAFT TREATMENT. PATIENT IS ALERT TO SELF ONLY. ON 3L PER HIGH FLOW. LEFT FA PIV SEEN WITH SALINE LOCK. DEPENDS ON. BILATERAL WHEEZES HEARD THROUGHOUT LUNG HDZ. WILL MONITOR FOR SAFETY.
--- NOTE | 2018-10-03 07:56 | NUR ---
B/P MEDS GIVEN EARLY FOR B/P READING OF 198/98.
[2018-10-03 08:32] VITALS: BP 198/98
[2018-10-03 12:27] VITALS: BP 189/75
--- NOTE | 2018-10-03 14:06 | NUR ---
PATIENT IS RESTING WITH HIS BIPAP ON. I WILL RE-SITE IV AFTER HE WAKES UP.
--- NOTE | 2018-10-03 14:15 | NUR ---
OT NOTE: PT MORE CONFUSED TODAY..VERY SLOW PROCESSING. WANTS TO GO SEE BUT THINKS WE ARE AT THE [employer]. ATTEMPTED TO RE ORIENT BUT PT UNABLE TO REMEMBER WITH 2 MIN INTERVALS. ASSISTED PT WITH AMB AROUND BED. PT HAD URINATED IN FLOOR AND WAS UNAWARE..PROVIDED CLEAN SOCKS AND PT REQUIRED MIN/MOD ASSIST TO ALEXANDR THEM.. CONSTANT CUES TO STAY FOCUSED ON TASK. STATING THAT HIS BACK WAS HURTIN BUT WANTED NOTHING FOR PAIN. ASSISTED PT TO CHAIR, AND THEN HE WANTED TO RETURN TO BED. EDUCATION AND ORIENTATION TO CALL LIGHT. LISSETTE MACIAS, OTR/L
--- NOTE | 2018-10-03 15:25 | NUR ---
RESTING WITH EYES CLOSED, RESP ARE EVEN. ON BIPAP. WILL ATTEMPT IV WHEN AWAKE.
[2018-10-03 15:58] VITALS: BP 147/77
--- NOTE | 2018-10-03 16:11 | NUR ---
I ATTEMPTED IV SITE TO RIGHT AC, UNABLE TO THREAD PAST FLASH. I CALLED YOVANY, WATCHSTANDER AND SHE IS UNABLE TO COME. I ALSO CALLED ICU AND ER, THEY ARE UNABLE TO COME.
--- NOTE | 2018-10-03 16:30 | NUR ---
PER DR RODRIGUEZ WE CAN LEAVE THE IV OUT.
--- NOTE | 2018-10-03 16:34 | NUR ---
DR RODRIGUEZ HERE TO MAKE ROUNDS.
--- NOTE | 2018-10-03 19:52 | NUR ---
RECIEVED SITTING UP ON SIDE OF BED. ALERT AND CONFUSED. SPEECH IS BABBLED. PT IS TOTAL CARE. INCONT OF B/B. HAS NO IV AT THIS TIME. VERY HARD TO REDIRECT TO STAY IN BED. BED ALARM IN PLACE AND FUNCTIONING PROPERLY. WEARING YELLOW GOWN AND STAR ON THE DOOR. O2 AT 3 LITERS PER HIGH FLOW N/C. CONT TO PULL O2 OFF. REPLACED PRN.
[2018-10-03 20:26] VITALS: BP 142/79
[2018-10-04 01:17] VITALS: BP 163/83
[2018-10-04 05:29] LABS: BASOPHILS 0.3 % (0-2); EOSINOPHILS 0.4 % (0-7); HEMATOCRIT 35.2 % (42.0-54.0); HEMOGLOBIN 10.5 g/dL (13.5-17.5); IMMATURE GRANULOCYTES 0.2 % (0-5); MCH 20.9 pg (26.0-34.0); MCHC 29.8 g/dL (31.0-37.0); MCV 70.1 fL (80.0-100.0); NEUTROPHILS 82.1 % (40-80); PLATELET COUNT 200 10x3/uL (130-400); RBC 5.02 10x6/uL (4.20-6.10); RDW 21.5 % (11.5-14.5); WBC 10.8 10x3/uL (4.8-10.8)
[2018-10-04 05:55] VITALS: BP 182/90
[2018-10-04 05:56] LABS: ANION GAP 11.4 mmol/L (8-16); CALCIUM 8.6 mg/dL (8.5-10.1); CARBON DIOXIDE 28.6 mmol/L (21.0-32.0); CREATININE - SERUM 1.5 mg/dL (0.6-1.3)
[2018-10-04 08:08] VITALS: BP 171/86
[2018-10-04 12:08] VITALS: BP 179/80
--- NOTE | 2018-10-04 15:00 | NUR ---
ATTEMPTED TO GIVE PT HIS MEDICATION. PT WOULD NOT OPEN MOUTH TO TAKE MEDICATION. SECOND NURSE ATTEMPTED MEDICATION ADMINISTRATION AND FAILED WELL.
--- NOTE | 2018-10-04 16:13 | NUR ---
ORDERED IV SOLU-MEDROL. PT HAD NO IV ACCESS. INSERTED 22G PIV TO PT LEFT UPPER ARM X1 ATTEMPT. PT TOLERATED WELL. WILL CONT TO FOLLOW POC
--- NOTE | 2018-10-04 16:29 | NUR ---
OT NOTE: PT COMPLETED BUE AARBONY EXS. PT HAS INCREASED CONFUSION. NURSING AWARE. THANK YOU, NEL DELEON
[2018-10-04 17:21] LABS: APPEARANCE CLEAR (CLEAR); BILIRUBIN NEGATIVE (NEGATIVE); COLOR YELLOW (YELLOW); GLUCOSE NEGATIVE (NEGATIVE); KETONE NEGATIVE (NEGATIVE); NITRITE NEGATIVE (NEGATIVE); PROTEIN 1+ mg/dL (NEGATIVE); SPECIFIC GRAVITY 1.015 (1.005-1.020); UROBILINOGEN NORMAL (NORMAL)
--- NOTE | 2018-10-04 18:34 | NUR ---
PT GROANING AND STATES HE IS IN PAIN. NOTIFIED PRECIOUS LANZA THAT NURSING HAS HELD LYRICA DUE TO PT BEING LETHARGIC AND NOW PT IS REFUSING ORAL MEDICATIONS. PER MYLA LANG, NO IV PAIN MEDICATION WILL BE ORDERED AND CONT TO TRY TO GET PT TO TAKE THE LYRICA.
--- NOTE | 2018-10-04 19:14 | NUR ---
ASSESSMENT COMPLETE, PT ALERT BUT CONFUSED TO TIME AND PLACE AND SITUATION. RESPERATIONS NON LABORED ON O2 AT 3 LITERS VIA NC. IV TO LEFT UPPER SL, SITE CLEAN AND DRY. MONI MAYITO IN USE FOR PT SAFETY, BED LOW, CL IN REACH.
[2018-10-04 22:04] VITALS: BP 160/84
[2018-10-05 00:04] VITALS: BP 127/73
--- NOTE | 2018-10-05 04:26 | NUR ---
I have reviewed this patient and I concur with the Shift Assessment completed by the Licensed Practical Nurse today this shift.
[2018-10-05 05:55] VITALS: BP 180/85
[2018-10-05 06:50] LABS: ALBUMIN 2.6 g/dL (3.4-5.0); ANION GAP 13.3 mmol/L (8-16); BILIRUBIN - TOTAL 1.04 mg/dL (0.2-1.3); CALCIUM 8.9 mg/dL (8.5-10.1); CARBON DIOXIDE 28.6 mmol/L (21.0-32.0); POTASSIUM - SERUM 3.9 mmol/L (3.5-5.1); PROTEIN - SERUM 7.2 g/dL (6.4-8.2)
[2018-10-05 06:51] LABS: CREATININE - SERUM 1.1 mg/dL (0.6-1.3)
[2018-10-05 07:42] VITALS: BP 181/87
--- NOTE | 2018-10-05 07:44 | NUR ---
PT LAYING IN BED RESTING. PT ALERT TO SELF. REORIENTED PT TO TIME, PLACE AND SITUATION. SPEECH GARBLED. 3L 02 VIA HIGH FLOW AT THIS TIME. SAFETY PRECATIONS IN PLACE. MONI MAT ON. WHITE BED ALARM ON. NO SKID SOCKS IN PLACE. SR UP X 3. BED LOWERED AND LOCKED. CL IN REACH. WILL CTM.
[2018-10-05 08:44] LABS: BASOPHILS 0 % (0-2); EOSINOPHILS 0 % (0-7); HEMATOCRIT 36.7 % (42.0-54.0); IMMATURE GRANULOCYTES 0.2 % (0-5); LYMPHOCYTES 4.4 % (15-50); MCH 20.9 pg (26.0-34.0); MCV 69.8 fL (80.0-100.0); MONOCYTES 2.7 % (2-11); NEUTROPHILS 92.7 % (40-80); PLATELET COUNT 231 10x3/uL (130-400); RBC 5.26 10x6/uL (4.20-6.10); RDW 21.5 % (11.5-14.5); WBC 8.6 10x3/uL (4.8-10.8)
--- NOTE | 2018-10-05 09:40 | MORECARE ---
CASE MANAGEMENT DISCHARGE SUMMARY PATIENT: YENI CORNELIUS UNIT: [id number] ADM DATE: 09/24/18 AGE: 67 : 52 SEX: M ROOM/BED: D.2128 AUTHOR: CRISTADOC PHYSICIAN: REFERRING PHYSICIAN: ASHLYN LOPEZ MD DATE OF SERVICE: 10/05/18 Discharge Plan Patient Name: YENI CORNELIUS Facility: [facility]:[place] : 1950 Planned Disposition: Home with Home Health Anticipated Discharge Date: 09/29/18 Discharge Date: Expected LOS: 5 Initial Reviewer: [id number] Initial Review Date: 09/24/2018 Generated: 10/05/18 10:40 am Comments DCP- Discharge Planning Updated by [id number]: Marv Polk on 10/05/18 8:[address] Patient Name: YENI CORNELIUS Encounter No: [id number] : 1950 Primary Insurance: [facility] MEDICARE SOLUTIONS Anticipated DC Date: 09-29-2018 Planned Disposition: Home with Home Health External Planned Provider: [facility] DCP follow-up note: CM CALLED LUBA OF [facility], , TRILOGY HAS BEEN DELIVERED, SET UP AT PT'S HOME PER REQUEST OF SPOUSE, TEACHING HAS BEEN PROVIDED TO PT'S SPOUSE. PT'S SPOUSE INFORMED LUBA THAT THEY ALSO WANT A HOSPITAL BED, BEDSIDE COMMODE AND WALKER FOR HOME USE. PT PLANS TO DISCHARGE HOME WITH SPOUSE, WANTS [facility] FOR DISCHARGE HOME. CM TO COMPLETE HOME HEALTH ARRANGEMENTS WITH PHYSICIAN AGREEMENT AND HOME HEALTH ORDERS. PT'S SPOUSE REQUESTING HOSPITAL BED, BEDSIDE COMMODE AND WALKER. CM TO ARRANGE WITH [facility] WITH PHYSICAL AGREEMENT AND ORDERS. CM TO FOLLOW AND ASSIST NEEDED. Candlemaker: Marv Polk DCP- Discharge Planning Updated by [id number]: Marv Polk on 10/01/18 2:[address] Patient Name: YENI CORNELIUS Encounter No: [id number] : 1950 Primary Insurance: C MEDICARE SOLUTIONS Anticipated DC Date: 09-29-2018 Planned Disposition: Home with Home Health External Planned Provider: [facility] DCP follow-up note: CM RECEIVED ORDER FOR TRILOGY. CM MET WITH PT IN ROOM DISCUSSED ORDER, PROVIDED PROVIDER LISTING. PT SIGNED CONSENT FOR [facility] HE ALREADY HAS OXYGEN AND NEBULIZER WITH THEM. CM CALLED [facility], , SPOKE TO CAYLA WHO TOOK TRILOGY ORDER. CM FAX TRILOGY ORDERS TO [facility] AT [phone]. [facility] TO PROCESS TRILOGY ORDER AND IF QUALIFIES, DELIVER TO HOPITAL ROOM WHEN APPROVED. CM WAITING TRILOGY MACHINE PROCESSING AND DELIVERY FROM [facility]. PT PLANS TO DISCHARGE HOME WITH SPOUSE, WANTS [facility] FOR DISCHARGE HOME. CM TO COMPLETE HOME HEALTH ARRANGEMENTS WITH PHYSICIAN AGREEMENT AND HOME HEALTH ORDERS. CM TO FOLLOW AND ASSIST NEEDED. Candlemaker: Marv Polk Appended by Marv Polk on 10/01/2018 15:12 CDT: CM SPOKE TO [facility] AUTOMATION MANAGER AT THE NURSES STATION, SHE HAS RECEIVED REFERRAL AND THEY CANNOT BILL PT'S INSURANCE FOR TRILOGY MACHINE. THEY FORWARDED THE REFERRAL TO [facility] IN [place]. CM SPOKE TO PT IN ROOM WHO REPORTS HE RATHER USE SOMEONE LOCAL. CM CALLED [facility], SPOKE TO KRISS WHO INFORMED CM THAT THEY CAN BILL PT'S INSURANCE. CM NOTIFIED PT IN ROOM, PT SIGNED CONSENT FOR [facility]. CM CALLED [facility], , NOTIFIED TO CANCEL REFERRAL. CM RECEIVED CALL FROM LUBA [facility] WHO ASKED CM WHY THE ORDER WAS CANCELLED. CM EXPLAINED. CM LATER RECEIVED CALL FROM LUBA [facility] WHO INFORMED CM THAT PT'S SPOUSE HAS BEEN CALLED AND SHE WANTS TO USE [facility] FOR THE TRILOGY AND THEY WILL PROCESS ORDER FOR DELIVERY TO HOSPITAL TOMORROW, 10-02-18, AND THEY WILL BE PROVIDING PT GREAT SERVICE AND SUPPORT AT HOME. CM CALLED AND SPOKE TO DORIS CORNELIUS, PT'S SPOUSE, , WHO VERIFIED CHOICE. CM SPOKE TO PT IN ROOM, DISCUSSED ABOVE, PT SIGNED CHOICE FOR [facility]. [facility], , TO PROCESS ORDER AND DELIVER TRILOGY MACHINE TO PT'S HOSPITAL ROOM TOMORROW. PT PLANS TO DISCHARGE HOME WITH SPOUSE, WANTS [facility] FOR DISCHARGE HOME. CM TO COMPLETE HOME HEALTH ARRANGEMENTS WITH PHYSICIAN AGREEMENT AND HOME HEALTH ORDERS. CM TO FOLLOW AND ASSIST NEEDED. Candlemaker: Marv Polk DCP- Discharge Planning Updated by [id number]: Marv Polk on 09/29/18 3:[address] Patient Name: YENI CORNELIUS Admission Status: ER Accout number: [id number] Admission Date: 09-24-2018 : 1950 Admission Diagnosis:SHORTNESS OF BREATH Attending: ASHLYN LOPEZ Current LOS: 5 Anticipated DC Date: 09-29-2018 Planned Disposition: Home with Home Health Primary Insurance: [facility] MEDICARE SOLUTIONS PLANNED EXTERNAL PROVIDER: [facility] Discharge Planning Comments: CM MET WITH PT IN ROOM TO DISCUSS DISCHARGE PLANNING AND NEEDS. PT REPORTS LIVING AT HOME INDEPENDENTLY WITH SPOUSE. PT HAS HOME OXYGEN ONLY, CANE, NEBULIZER, AND WALKER FROM [facility]. PT HAS NO OUTSIDE SERVICES ASSISTING IN THE HOME. CM DISCUSSED AVAILABILITY OF HOME HEALTH, REHAB SERVICES AND MEDICAL EQUIPMENT. PT WOULD LIKE HOME HEALTH WITH [facility] FOR DISCHARGE HOME. PROVIDER LISTING GIVEN, CHOICE SIGNED FOR [facility]. PT DENIES OTHER DISCHARGE NEEDS AT THIS TIME, REPORTS HIS WILL PICK HIM UP FOR DISCHARGE HOME. IMPORTANT MESSAGE FROM MEDICARE PROVIDED AND EXPLAINED. PT PLANS TO DISCHARGE HOME WITH SPOUSE, WANTS [facility] FOR DISCHARGE HOME. CM TO COMPLETE HOME HEALTH ARRANGEMENTS WITH PHYSICIAN AGREEMENT AND HOME HEALTH ORDERS. CM TO FOLLOW AND ASSIST NEEDED. Candlemaker: Marv Polk DCPIA - Discharge Planning Initial Assessment Updated by [id number]: Marv Polk on 09/29/18 4:36 pm * Is the patient Alert and Oriented? Yes * How many steps to enter\exit or inside your home? NONE * PCP [facility] * Pharmacy [facility] * Preadmission Environment Home with Family * ADLs Independent * Equipment Cane Nebulizer Oxygen Walker * Other Equipment HOME OXYGEN ONLY [facility] - PROVIDER * List name and contact numbers for known caregivers / representatives who currently or will assist patient after discharge: DORIS CORNELIUS, SPOUSE, * Verbal permission to speak to the caregivers and representatives has been obtained from the patient. Yes * Community resources currently utilized None * Please name any agencies selected above. NONE * Additional services required to return to the preadmission environment? No * Can the patient safely return to the preadmission environment? Yes * Has this patient been hospitalized within the prior 30 days at any hospital? No Coverage Notice Reviewer: [id number] - Marv Polk Notice Issued Date-Time: 09/29/2018 9:25 Notice Type: Patient Choice Letter Notice Delivered To: Patient Relationship to Patient: Inspector Sheet Metal Parts Name: Delivery Method: HAND - Hand Delivered Niurka Days: Prior Verbal Notification: Recipient Understood Notice: Yes Recipient Signature: Yes Med Rec Note Co-signed by Attending: Coverage Notice Comment: [facility] Reviewer: RASTA Polk Notice Issued Date-Time: 09/29/2018 9:25 Notice Type: IM Discharge Notice Notice Delivered To: Patient Relationship to Patient: Inspector Sheet Metal Parts Name: Delivery Method: HAND - Hand Delivered Niurka Days: Prior Verbal Notification: Recipient Understood Notice: Yes Recipient Signature: Yes Med Rec Note Co-signed by Attending: Coverage Notice Comment: Reviewer: RASTA Polk Notice Issued Date-Time: 10/01/2018 12:25 Notice Type: Patient Choice Letter Notice Delivered To: Patient Relationship to Patient: Inspector Sheet Metal Parts Name: Delivery Method: HAND - Hand Delivered Niurka Days: Prior Verbal Notification: Recipient Understood Notice: Yes Recipient Signature: Yes Med Rec Note Co-signed by Attending: Coverage Notice Comment: [facility] Reviewer: RASTA Polk Notice Issued Date-Time: 10/01/2018 14:25 Notice Type: Patient Choice Letter Notice Delivered To: Patient Relationship to Patient: Inspector Sheet Metal Parts Name: Delivery Method: HAND - Hand Delivered Niurka Days: Prior Verbal Notification: Recipient Understood Notice: Yes Recipient Signature: Yes Med Rec Note Co-signed by Attending: Coverage Notice Comment: [place] Reviewer: RASTA Polk Notice Issued Date-Time: 10/01/2018 14:55 Notice Type: Patient Choice Letter Notice Delivered To: Patient Relationship to Patient: Inspector Sheet Metal Parts Name: Delivery Method: PHONE - Phone Niurka Days: Prior Verbal Notification: Recipient Understood Notice: Yes Recipient Signature: Yes Med Rec Note Co-signed by Attending: Coverage Notice Comment: [facility] DP export: 10/01/18 2:13 p Patient Name: YENI CORNELIUS Page [id number] at 0940 All edits/amendments must be made on the electronic document DICTATION DATE: 10/05/18938 RESEARCH TEST ENGINE OPERATOR: TOMÁS 10/05/18938 RPT#: [id number] DC DATE: STATUS: ADM IN [facility] [address] [place] [address] END OF REPORT
--- NOTE | 2018-10-05 09:53 | NUR ---
PT GIVEN A BATH BY CLINICAL APPLICATIONS SPECIALIST. AFTER BATH PT SAT UP IN BED. PT REFUSES TO EAT BREAKFAST. PT UNABLE TO TELL ME WHERE HE IS OR WHY. PT SPEECH VERY GARBLED AND SLURRED. PT ONLY ABLE TO TELL ME HIS NAME. PT TOOK MEDICATIONS IN APPLE SAUCE. PT MOANED THE WHOLE TIME NURSE IN ROOM. IV TO R UPPER ARM PATENT, SL, NO REDNESS, OR EDEMA NOTED. SPOKE WITH ABOUT PT CARE. FALL PRECAUTIONS IN PLACE. WILL CTM.
--- NOTE | 2018-10-05 09:55 | NUR ---
DR. FAIR IN PT ROOM ROUNDING. STATED HE WOULD PUT IN ORDERS FOR PT TO HAVE LASIX
[2018-10-05 11:25] VITALS: BP 163/95
--- NOTE | 2018-10-05 12:34 | NUR ---
PT FOUND LAYING ON HIS STOMACH WITHOUT WEARING HIS OXYGEN. O2 REAPPLIED. SPO2 97%. REPOSITIONED PT BACK ON HIS BACK AND UP IN BED. PT MOANING AND GROANING. UN ABLE TO UNDERSTAND WORDS. REFUSES TO EAT LUNCH. SR UP X 3. YELLOW GOWN ON. NON SKID SOCKS ON. MONI MAT ON. WHITE BED ALARM ON. WILL CTM.
--- NOTE | 2018-10-05 13:11 | NUR ---
PT BED ALARM GOING OFF. UPON ENTERING PT ROOM, PT SITTING UP ON SIDE OF BED. WITH ASSISTANCE. WE GOT PT BACK UP IN BED. PT STATED THAT HE DIDNT KNOW WHAT HE WAS DOING. PT VERY CONFUSED AT THIS TIME. BED ALARM ON. WILL CTM.
--- NOTE | 2018-10-05 13:25 | NUR ---
I have reviewed this patient and I concur with the Shift Assessment completed by the Licensed Practical Nurse today this shift.
--- NOTE | 2018-10-05 14:36 | MORECARE ---
CASE MANAGEMENT DISCHARGE SUMMARY PATIENT: YENI CORNELIUS UNIT: [id number] ADM DATE: 09/24/18 AGE: 67 : 54 SEX: M ROOM/BED: D.2128 AUTHOR: CRISTADOC PHYSICIAN: REFERRING PHYSICIAN: ASHLYN LOPEZ MD DATE OF SERVICE: 10/05/18 Discharge Plan Patient Name: YENI CORNELIUS Facility: [facility]:[place] : 1950 Planned Disposition: Home with Home Health Anticipated Discharge Date: 09/29/18 Discharge Date: Expected LOS: 5 Initial Reviewer: [id number] Initial Review Date: 09/24/2018 Generated: 10/05/18 3:36 pm Comments DCP- Discharge Planning Updated by [id number]: Marv Polk on 10/05/18 8:[address] Patient Name: YENI CORNELIUS Encounter No: [id number] : 1950 Primary Insurance: [facility] MEDICARE SOLUTIONS Anticipated DC Date: 09-29-2018 Planned Disposition: Home with Home Health External Planned Provider: [facility] DCP follow-up note: CM CALLED LUBA OF [facility], , TRILOGY HAS BEEN DELIVERED, SET UP AT PT'S HOME PER REQUEST OF SPOUSE, TEACHING HAS BEEN PROVIDED TO PT'S SPOUSE. PT'S SPOUSE INFORMED LUBA THAT THEY ALSO WANT A HOSPITAL BED, BEDSIDE COMMODE AND WALKER FOR HOME USE. PT PLANS TO DISCHARGE HOME WITH SPOUSE, WANTS [facility] FOR DISCHARGE HOME. CM TO COMPLETE HOME HEALTH ARRANGEMENTS WITH PHYSICIAN AGREEMENT AND HOME HEALTH ORDERS. PT'S SPOUSE REQUESTING HOSPITAL BED, BEDSIDE COMMODE AND WALKER. CM TO ARRANGE WITH [facility] WITH PHYSICAL AGREEMENT AND ORDERS. CM TO FOLLOW AND ASSIST NEEDED. Underground Repairer: Marv Polk DCP- Discharge Planning Updated by [id number]: Marv Polk on 10/01/18 2:[address] Patient Name: YENI CORNELIUS Encounter No: [id number] : 1950 Primary Insurance: C MEDICARE SOLUTIONS Anticipated DC Date: 09-29-2018 Planned Disposition: Home with Home Health External Planned Provider: [facility] DCP follow-up note: CM RECEIVED ORDER FOR TRILOGY. CM MET WITH PT IN ROOM DISCUSSED ORDER, PROVIDED PROVIDER LISTING. PT SIGNED CONSENT FOR [facility] HE ALREADY HAS OXYGEN AND NEBULIZER WITH THEM. CM CALLED [facility], , SPOKE TO CAYLA WHO TOOK TRILOGY ORDER. CM FAX TRILOGY ORDERS TO [facility] AT [phone]. [facility] TO PROCESS TRILOGY ORDER AND IF QUALIFIES, DELIVER TO HOPITAL ROOM WHEN APPROVED. CM WAITING TRILOGY MACHINE PROCESSING AND DELIVERY FROM [facility]. PT PLANS TO DISCHARGE HOME WITH SPOUSE, WANTS [facility] FOR DISCHARGE HOME. CM TO COMPLETE HOME HEALTH ARRANGEMENTS WITH PHYSICIAN AGREEMENT AND HOME HEALTH ORDERS. CM TO FOLLOW AND ASSIST NEEDED. Underground Repairer: Marv Polk Appended by Marv Polk on 10/01/2018 15:12 CDT: CM SPOKE TO [facility] RN PROVIDER RELATIONS AT THE NURSES STATION, SHE HAS RECEIVED REFERRAL AND THEY CANNOT BILL PT'S INSURANCE FOR TRILOGY MACHINE. THEY FORWARDED THE REFERRAL TO [facility] IN [place]. CM SPOKE TO PT IN ROOM WHO REPORTS HE RATHER USE SOMEONE LOCAL. CM CALLED [facility], SPOKE TO KRISS WHO INFORMED CM THAT THEY CAN BILL PT'S INSURANCE. CM NOTIFIED PT IN ROOM, PT SIGNED CONSENT FOR [facility]. CM CALLED [facility], , NOTIFIED TO CANCEL REFERRAL. CM RECEIVED CALL FROM LUBA [employer] WHO ASKED CM WHY THE ORDER WAS CANCELLED. CM EXPLAINED. CM LATER RECEIVED CALL FROM [facility] [employer] WHO INFORMED CM THAT PT'S SPOUSE HAS BEEN CALLED AND SHE WANTS TO USE [facility] FOR THE TRILOGY AND THEY WILL PROCESS ORDER FOR DELIVERY TO HOSPITAL TOMORROW, 10-02-18, AND THEY WILL BE PROVIDING PT GREAT SERVICE AND SUPPORT AT HOME. CM CALLED AND SPOKE TO DORIS CORNELIUS, PT'S SPOUSE, , WHO VERIFIED CHOICE. CM SPOKE TO PT IN ROOM, DISCUSSED ABOVE, PT SIGNED CHOICE FOR [facility]. [facility], , TO PROCESS ORDER AND DELIVER TRILOGY MACHINE TO PT'S HOSPITAL ROOM TOMORROW. PT PLANS TO DISCHARGE HOME WITH SPOUSE, WANTS [facility] FOR DISCHARGE HOME. CM TO COMPLETE HOME HEALTH ARRANGEMENTS WITH PHYSICIAN AGREEMENT AND HOME HEALTH ORDERS. CM TO FOLLOW AND ASSIST NEEDED. Underground Repairer: Marv Polk DCP- Discharge Planning Updated by [id number]: Marv Polk on 09/29/18 3:[address] Patient Name: YENI CORNELIUS Admission Status: ER Accout number: [id number] Admission Date: 09-24-2018 : 1950 Admission Diagnosis:SHORTNESS OF BREATH Attending: ASHLYN LOPEZ Current LOS: 5 Anticipated DC Date: 09-29-2018 Planned Disposition: Home with Home Health Primary Insurance: [facility] MEDICARE SOLUTIONS PLANNED EXTERNAL PROVIDER: [facility] Discharge Planning Comments: CM MET WITH PT IN ROOM TO DISCUSS DISCHARGE PLANNING AND NEEDS. PT REPORTS LIVING AT HOME INDEPENDENTLY WITH SPOUSE. PT HAS HOME OXYGEN ONLY, CANE, NEBULIZER, AND WALKER FROM [facility]. PT HAS NO OUTSIDE SERVICES ASSISTING IN THE HOME. CM DISCUSSED AVAILABILITY OF HOME HEALTH, REHAB SERVICES AND MEDICAL EQUIPMENT. PT WOULD LIKE HOME HEALTH WITH [facility] FOR DISCHARGE HOME. PROVIDER LISTING GIVEN, CHOICE SIGNED FOR [facility]. PT DENIES OTHER DISCHARGE NEEDS AT THIS TIME, REPORTS HIS WILL PICK HIM UP FOR DISCHARGE HOME. IMPORTANT MESSAGE FROM MEDICARE PROVIDED AND EXPLAINED. PT PLANS TO DISCHARGE HOME WITH SPOUSE, WANTS [facility] FOR DISCHARGE HOME. CM TO COMPLETE HOME HEALTH ARRANGEMENTS WITH PHYSICIAN AGREEMENT AND HOME HEALTH ORDERS. CM TO FOLLOW AND ASSIST NEEDED. Underground Repairer: Marv Polk DCPIA - Discharge Planning Initial Assessment Updated by [id number]: Marv Polk on 10/05/18 2:36 pm * Is the patient Alert and Oriented? Yes * How many steps to enter\exit or inside your home? NONE * PCP [facility] - DR. VERAS * Pharmacy [facility] * Preadmission Environment Home with Family * ADLs Independent * Equipment Cane Nebulizer Oxygen Walker * Other Equipment HOME OXYGEN ONLY [facility] - PROVIDER * List name and contact numbers for known caregivers / representatives who currently or will assist patient after discharge: DORIS CORNELIUS, SPOUSE, * Verbal permission to speak to the caregivers and representatives has been obtained from the patient. Yes * Community resources currently utilized None * Please name any agencies selected above. NONE * Additional services required to return to the preadmission environment? No * Can the patient safely return to the preadmission environment? Yes * Has this patient been hospitalized within the prior 30 days at any hospital? No Coverage Notice Reviewer: [id number] - Marv Polk Notice Issued Date-Time: 09/29/2018 9:25 Notice Type: IM Discharge Notice Notice Delivered To: Patient Relationship to Patient: Country Printer Apprentice Name: Delivery Method: HAND - Hand Delivered Niurka Days: Prior Verbal Notification: Recipient Understood Notice: Yes Recipient Signature: Yes Med Rec Note Co-signed by Attending: Coverage Notice Comment: Reviewer: RASTA Polk Notice Issued Date-Time: 10/01/2018 14:55 Notice Type: Patient Choice Letter Notice Delivered To: Patient Relationship to Patient: Country Printer Apprentice Name: Delivery Method: PHONE - Phone Niurka Days: Prior Verbal Notification: Recipient Understood Notice: Yes Recipient Signature: Yes Med Rec Note Co-signed by Attending: Coverage Notice Comment: TANA allergy specialist: RASTA Polk Notice Issued Date-Time: 10/01/2018 14:25 Notice Type: Patient Choice Letter Notice Delivered To: Patient Relationship to Patient: Country Printer Apprentice Name: Delivery Method: HAND - Hand Delivered Niurka Days: Prior Verbal Notification: Recipient Understood Notice: Yes Recipient Signature: Yes Med Rec Note Co-signed by Attending: Coverage Notice Comment: [place] Reviewer: RASTA Polk Notice Issued Date-Time: 10/01/2018 12:25 Notice Type: Patient Choice Letter Notice Delivered To: Patient Relationship to Patient: Country Printer Apprentice Name: Delivery Method: HAND - Hand Delivered Niurka Days: Prior Verbal Notification: Recipient Understood Notice: Yes Recipient Signature: Yes Med Rec Note Co-signed by Attending: Coverage Notice Comment: JUAN MANUEL Reviewer: RASTA Polk Notice Issued Date-Time: 09/29/2018 9:25 Notice Type: Patient Choice Letter Notice Delivered To: Patient Relationship to Patient: Country Printer Apprentice Name: Delivery Method: HAND - Hand Delivered Niurka Days: Prior Verbal Notification: Recipient Understood Notice: Yes Recipient Signature: Yes Med Rec Note Co-signed by Attending: Coverage Notice Comment: [facility] DP export: 10/05/18 8:40 a Patient Name: YENI CORNELIUS Page [id number] at 1436 All edits/amendments must be made on the electronic document DICTATION DATE: 10/05/181435 IRONER: TOMÁS 10/05/181435 RPT#: [id number] DC DATE: STATUS: ADM IN [facility] [address] [place] [address] END OF REPORT
[2018-10-05 15:26] VITALS: BP 166/81
--- NOTE | 2018-10-05 19:15 | NUR ---
PT RESTING IN BED. O2 PLACED BACK ON, FAMILY IN ROOM BUT IS ASLEEP. PT GIVEN NOURISHMENT. NAME AND DATE PLACED NO BOARD. BED ALARM ON AND ACTIVE. WILL CPOC
--- NOTE | 2018-10-05 19:52 | NUR ---
OT NOTE: PT REQUIRED MAX/TOTAL A WITH FACE WASHING AND HAIR GROOMING TASKS. PT CONFUSED THIS AM. THANK YOU, NEL DELEON
--- NOTE | 2018-10-05 21:19 | NUR ---
PT SITTING ON SIDE OF BED. NIGHT MEDICATIONS GIVEN. NO REG INSULIN. ONLY LEVEMIR. PT FACE IS FLUSHED. NO FEVER. PT DENIES ANY NEEDS. HAS NO S/S OF DISTRESS. BEDALARM ON AND ACTIVE. WILL CPOC
[2018-10-05 21:27] VITALS: BP 172/79
--- NOTE | 2018-10-05 22:36 | NUR ---
PT INCONT A MODERATE AMOUNT. CLEANED PT AND APPLIED NEW BREIF. CLEANED BED AND ASSISTED PT WITH LAYING DOWN. RESP IN ROOM GIVING A BREATHING TREATMENT. PT ALERT TO NAME ONLY. UNABLE TO GET PT TO TAKE ALL OF ORAL MEDICATIONS. BEDALARM ON AND ACTIVE. WILL CPOC
[2018-10-06 00:38] VITALS: BP 178/87
--- NOTE | 2018-10-06 00:49 | NUR ---
PT SITTING ON SIDE OF BED. EXPRESSING PAIN. UNABLE TO TELL NURSE WHERE, TYLENOL GIVEN. FAMILY BACK INTO ROOM. ALARM ON AND ACTIVE. PLACED O2 BACK ON. WILL CPOC
--- NOTE | 2018-10-06 00:55 | NUR ---
GAVE PT A TYLENOL AND LAID BACK INTO BED. ALARM ON AND ACTIVE. WILL CPOC
--- NOTE | 2018-10-06 01:44 | NUR ---
APPLIED MED FULL FACE MASK VIA BILEVEL FI02 40% PT LILLIAN APPLICATION WELL. SEVERAL ATTEMPTS HAVE BEEN MADE TO KEEP NC ON NOSE HOWEVER PT CONTINUOUSLY TAKES OFF.
--- NOTE | 2018-10-06 02:00 | NUR ---
PT TOOK OFF BIPAP. PLACED MASK BACK ON ATTEMPTED TO LAY PT DOWN. PT CONTINUES TO SIT ON SIDE OF BED. ALARM ON AND ACTIVE. WILL CPOC
--- NOTE | 2018-10-06 02:15 | NUR ---
PT TOOK OFF MASK AGAIN. PLACED NC AND LAID PT DOWN ONCE AGAIN. ALARM ON AND ACTIVE. PT HAS NO S/S OF DISTRESS. WILL CPOC
--- NOTE | 2018-10-06 04:50 | NUR ---
PT SITTING UP ON SIDE OF BED AGAIN. CHANGED PT BREIF. INCONT A MODERATE AMOUNT. FAMILY AT BEDSIDE. NOT ASSISTING WITH PT CONFUSION OR PT GETTING OUT OF BED, FAMILY SLEEPING IN CHAIR WITH BLANKET OVER FACE. PUT PT O2 BACK ON AND FIXED ALARM. WILL CPOC
[2018-10-06 05:38] LABS: BASOPHILS 0 % (0-2); EOSINOPHILS 0 % (0-7); HEMATOCRIT 39.5 % (42.0-54.0); HEMOGLOBIN 12.3 g/dL (13.5-17.5); IMMATURE GRANULOCYTES 0.3 % (0-5); LYMPHOCYTES 3.9 % (15-50); MCH 21.8 pg (26.0-34.0); MCHC 31.1 g/dL (31.0-37.0); MCV 69.9 fL (80.0-100.0); MONOCYTES 5.8 % (2-11); PLATELET COUNT 265 10x3/uL (130-400); RBC 5.65 10x6/uL (4.20-6.10); RDW 22.1 % (11.5-14.5)
[2018-10-06 06:15] VITALS: BP 164/80
--- NOTE | 2018-10-06 06:22 | NUR ---
FAMILY LEFT. PT LAYING IN BED. O2 ON 3L NO S/S OF DISTRESS. WILL CPOC
[2018-10-06 06:40] LABS: ANION GAP 11.8 mmol/L (8-16); BILIRUBIN - TOTAL 0.88 mg/dL (0.2-1.3); CALCIUM 9.1 mg/dL (8.5-10.1); CARBON DIOXIDE 30.9 mmol/L (21.0-32.0); CREATININE - SERUM 1.5 mg/dL (0.6-1.3); MAGNESIUM - SERUM 2.5 mg/dL (1.8-2.4); PHOSPHOROUS 4.3 mg/dL (2.5-4.9); POTASSIUM - SERUM 3.7 mmol/L (3.5-5.1); PROTEIN - SERUM 7.3 g/dL (6.4-8.2)
--- NOTE | 2018-10-06 07:12 | NUR ---
FSBS IS 194 2 UNITS GIVEN PER SLIDING SCALE. PT ALARM ON AND ACTIVE. WILL CPCO
[2018-10-06 08:03] VITALS: BP 165/80
[2018-10-06 11:50] VITALS: BP 171/87
--- NOTE | 2018-10-06 13:39 | NUR ---
Nutrition Follow Up: Pt was asleep at the time of RD visit. Interview deferred. Chart reviewed. Diet: ADA PO Intake: 29% meal avg BM: 10/04/18 Labs reviewed - Glucose, Na elevated Meds noted including Lasix, Solu Medrol Pt continues with poor po intake. Pt is currently not meeting est nutritional needs. Rec consider liberalizing diet to encourage po intake. Will send Glucerna with meals. Will continue to honor food preferences. RD following.
--- NOTE | 2018-10-06 14:51 | NUR ---
OT NOTE: PT SEEN IN AM. PT SITTING ON EOB WITH HEAD ON BEDSIDE TABLE. PT CONFUSED AND DISORIENTED. PROVIDED PT WITH WASH CLOTH AND WAS ABLE TO WASH FACE AND HANDS. PT ASKED IF HE WOULD LIKE TO SIT UP IN CHAIR AND HE STATED NO. ATTEMPTED UE AROM EXS BUT PT REQUIRED FREQ AND CONSTANT CUES TO CONTINUE WITH EXS. LISSETTE MACIAS, OTR/L
[2018-10-06 15:05] VITALS: BP 175/87
--- NOTE | 2018-10-06 16:51 | MORECARE ---
CASE MANAGEMENT DISCHARGE SUMMARY PATIENT: YENI CORNELIUS UNIT: [id number] ADM DATE: 09/24/18 AGE: 67 : [birth year] SEX: M ROOM/BED: D.2128 AUTHOR: CRISTA,DOC PHYSICIAN: REFERRING PHYSICIAN: ASHLYN LOPEZ MD DATE OF SERVICE: 10/06/18 Discharge Plan Patient Name: YENI CORNELIUS Facility: [facility]:[place] : 1950 Planned Disposition: Home with Home Health Anticipated Discharge Date: 09/29/18 Discharge Date: Expected LOS: 5 Initial Reviewer: [id number] Initial Review Date: 09/24/2018 Generated: 10/06/18 5:51 pm Comments DCP- Discharge Planning Updated by [id number]: Marv Polk on 10/06/18 3:[address] Patient Name: YENI CORNELIUS Encounter No: [id number] : 1950 Primary Insurance: [facility] MEDICARE SOLUTIONS Anticipated DC Date: 09-29-2018 Planned Disposition: Home with Home Health External Planned Provider: [facility] DCP follow-up note: CM RECEIVED CALL FROM PT'S SPOUSE, , WHO INFORMED CM THAT SHE BROUGHT THE TRILOGY FROM HOME BUT STAFF BROKE IT IN ROOM, SHE HAS CONTACTED [facility] TO COME AND REPLACE THE BROKEN MASK. REPORTED PLAN FOR PT TO GO HOME AND DOES NOT WANT HOSPITAL BED, BUT THINKS SHE MAY NEED A NEW WALKER AND BEDSIDE COMMODE. CM LATER MET WITH [facility], , TRILOGY HAS BEEN REPAIRED; [facility] PROVIDED CM WITH INVOICE AND INFORMED CM THAT THE HOSPITAL NEEDS TO PAY FOR THE REPLACEMENT STAFF BROKE IT; [facility] REPORTS THE BEDSIDE NURSE SIGNED THE WRITTEN STATEMENT ON THE INVOICE AND THE NURSES AIDE INITIALE THE STATEMENT. [facility] REPORTS THEY CAN DELIVER BEDSIDE COMMODE AND WALKER FOR HOME USE IF NEEDED AND ORDERS ARE OBTAINED. CM NOTIFIED DIRECTOR OLIVIA REINA PROVIDED PAPERWORK FROM [facility]. PT PLANS TO DISCHARGE HOME WITH SPOUSE, WANTS [facility] FOR DISCHARGE HOME. CM TO COMPLETE HOME HEALTH ARRANGEMENTS WITH PHYSICIAN AGREEMENT AND HOME HEALTH ORDERS. PT'S SPOUSE REQUESTING BEDSIDE COMMODE AND WALKER. CM TO ARRANGE WITH [facility] WITH PHYSICIAN AGREEMENT AND ORDERS. CM TO FOLLOW AND ASSIST NEEDED. Coil Maker: Marv Polk DCP- Discharge Planning Updated by [id number]: Marv Polk on 10/05/18 8:[address] Patient Name: YENI CORNELIUS Encounter No: [id number] : 1950 Primary Insurance: [facility] MEDICARE SOLUTIONS Anticipated DC Date: 09-29-2018 Planned Disposition: Home with Home Health External Planned Provider: [facility] follow-up note: CM CALLED [facility], , TRILOGY HAS BEEN DELIVERED, SET UP AT PT'S HOME PER REQUEST OF SPOUSE, TEACHING HAS BEEN PROVIDED TO PT'S SPOUSE. PT'S SPOUSE INFORMED [facility] THAT THEY ALSO WANT A HOSPITAL BED, BEDSIDE COMMODE AND WALKER FOR HOME USE. PT PLANS TO DISCHARGE HOME WITH SPOUSE, WANTS [facility] FOR DISCHARGE HOME. CM TO COMPLETE HOME HEALTH ARRANGEMENTS WITH PHYSICIAN AGREEMENT AND HOME HEALTH ORDERS. PT'S SPOUSE REQUESTING HOSPITAL BED, BEDSIDE COMMODE AND WALKER. CM TO ARRANGE WITH [facility] WITH PHYSICAL AGREEMENT AND ORDERS. CM TO FOLLOW AND ASSIST NEEDED. Coil Maker: Marv Polk UTP- Discharge Planning Updated by [id number]: Marv Polk on 10/01/18 2:[address] Patient Name: YENI CORNELIUS Encounter No: [id number] : 1950 Primary Insurance: [facility] MEDICARE SOLUTIONS Anticipated DC Date: 09-29-2018 Planned Disposition: Home with Home Health External Planned Provider: [facility] follow-up note: CM RECEIVED ORDER FOR TRILOGY. CM MET WITH PT IN ROOM DISCUSSED ORDER, PROVIDED PROVIDER LISTING. PT SIGNED CONSENT FOR [facility] HE ALREADY HAS OXYGEN AND NEBULIZER WITH THEM. CM CALLED [facility], , SPOKE TO CAYLA WHO TOOK TRILOGY ORDER. CM FAX TRILOGY ORDERS TO [facility] AT [phone]. [facility] TO PROCESS TRILOGY ORDER AND IF QUALIFIES, DELIVER TO [facility] ROOM WHEN APPROVED. CM WAITING TRILOGY MACHINE PROCESSING AND DELIVERY FROM [facility]. PT PLANS TO DISCHARGE HOME WITH SPOUSE, WANTS [facility] FOR DISCHARGE HOME. CM TO COMPLETE HOME HEALTH ARRANGEMENTS WITH PHYSICIAN AGREEMENT AND HOME HEALTH ORDERS. CM TO FOLLOW AND ASSIST NEEDED. Coil Maker: Marv Polk Appended by Marv Polk on 10/01/2018 15:12 CDT: CM SPOKE TO [facility] HOGSHEAD OPENER AT THE NURSES STATION, SHE HAS RECEIVED REFERRAL AND THEY CANNOT BILL PT'S INSURANCE FOR TRILOGY MACHINE. THEY FORWARDED THE REFERRAL TO [facility] IN [place]. CM SPOKE TO PT IN ROOM WHO REPORTS HE RATHER USE SOMEONE LOCAL. CM CALLED [facility], SPOKE TO KRISS WHO INFORMED CM THAT THEY CAN BILL PT'S INSURANCE. CM NOTIFIED PT IN ROOM, PT SIGNED CONSENT FOR [facility]. CM CALLED [facility], , NOTIFIED TO CANCEL REFERRAL. CM RECEIVED CALL FROM [facility] WHO ASKED CM WHY THE ORDER WAS CANCELLED. CM EXPLAINED. CM LATER RECEIVED CALL FROM [facility] WHO INFORMED CM THAT PT'S SPOUSE HAS BEEN CALLED AND SHE WANTS TO USE [facility] FOR THE TRILOGY AND THEY WILL PROCESS ORDER FOR DELIVERY TO HOSPITAL TOMORROW, 10-02-18, AND THEY WILL BE PROVIDING PT GREAT SERVICE AND SUPPORT AT HOME. CM CALLED AND SPOKE TO DORIS CORNELIUS, PT'S SPOUSE, , WHO VERIFIED CHOICE. CM SPOKE TO PT IN ROOM, DISCUSSED ABOVE, PT SIGNED CHOICE FOR [facility]. [facility], , TO PROCESS ORDER AND DELIVER TRILOGY MACHINE TO PT'S HOSPITAL ROOM TOMORROW. PT PLANS TO DISCHARGE HOME WITH SPOUSE, WANTS [facility] FOR DISCHARGE HOME. CM TO COMPLETE HOME HEALTH ARRANGEMENTS WITH PHYSICIAN AGREEMENT AND HOME HEALTH ORDERS. CM TO FOLLOW AND ASSIST NEEDED. Coil Maker: Marv Polk DCP- Discharge Planning Updated by [id number]: Marv Polk on 09/29/18 3:[address] Patient Name: YENI CORNELIUS Admission Status: ER Accout number: [id number] Admission Date: 09-24-2018 : 1950 Admission Diagnosis:SHORTNESS OF BREATH Attending: ASHLYN LOPEZ Current LOS: 5 Anticipated DC Date: 09-29-2018 Planned Disposition: Home with Home Health Primary Insurance: [facility] MEDICARE SOLUTIONS PLANNED EXTERNAL PROVIDER: [facility] Discharge Planning Comments: CM MET WITH PT IN ROOM TO DISCUSS DISCHARGE PLANNING AND NEEDS. PT REPORTS LIVING AT HOME INDEPENDENTLY WITH SPOUSE. PT HAS HOME OXYGEN ONLY, CANE, NEBULIZER, AND WALKER FROM [facility]. PT HAS NO OUTSIDE SERVICES ASSISTING IN THE HOME. CM DISCUSSED AVAILABILITY OF HOME HEALTH, REHAB SERVICES AND MEDICAL EQUIPMENT. PT WOULD LIKE HOME HEALTH WITH [facility] FOR DISCHARGE HOME. PROVIDER LISTING GIVEN, CHOICE SIGNED FOR [facility]. PT DENIES OTHER DISCHARGE NEEDS AT THIS TIME, REPORTS HIS WILL PICK HIM UP FOR DISCHARGE HOME. IMPORTANT MESSAGE FROM MEDICARE PROVIDED AND EXPLAINED. PT PLANS TO DISCHARGE HOME WITH SPOUSE, WANTS [facility] FOR DISCHARGE HOME. CM TO COMPLETE HOME HEALTH ARRANGEMENTS WITH PHYSICIAN AGREEMENT AND HOME HEALTH ORDERS. CM TO FOLLOW AND ASSIST NEEDED. Coil Maker: Marv Polk DCPIA - Discharge Planning Initial Assessment Updated by [id number]: Marv Polk on 10/05/18 2:36 pm * Is the patient Alert and Oriented? Yes * How many steps to enter\exit or inside your home? NONE * PCP [facility] - DR. VERAS * Pharmacy [facility] * Preadmission Environment Home with Family * ADLs Independent * Equipment Cane Nebulizer Oxygen Walker * Other Equipment HOME OXYGEN ONLY [facility] - PROVIDER * List name and contact numbers for known caregivers / representatives who currently or will assist patient after discharge: DORIS CORNELIUS, SPOUSE, * Verbal permission to speak to the caregivers and representatives has been obtained from the patient. Yes * Community resources currently utilized None * Please name any agencies selected above. NONE * Additional services required to return to the preadmission environment? No * Can the patient safely return to the preadmission environment? Yes * Has this patient been hospitalized within the prior 30 days at any hospital? No Coverage Notice Reviewer: [id number] Polk Notice Issued Date-Time: 09/29/2018 9:25 Notice Type: Patient Choice Letter Notice Delivered To: Patient Relationship to Patient: Infection Control Nurse Name: Delivery Method: HAND - Hand Delivered Niurka Days: Prior Verbal Notification: Recipient Understood Notice: Yes Recipient Signature: Yes Med Rec Note Co-signed by Attending: Coverage Notice Comment: [facility] Reviewer: [id number] Mindi Polk Notice Issued Date-Time: 09/29/2018 9:25 Notice Type: IM Discharge Notice Notice Delivered To: Patient Relationship to Patient: Infection Control Nurse Name: Delivery Method: HAND - Hand Delivered Niurka Days: Prior Verbal Notification: Recipient Understood Notice: Yes Recipient Signature: Yes Med Rec Note Co-signed by Attending: Coverage Notice Comment: Reviewer: [email or web address] Polk Notice Issued Date-Time: 10/01/2018 12:25 Notice Type: Patient Choice Letter Notice Delivered To: Patient Relationship to Patient: Infection Control Nurse Name: Delivery Method: HAND - Hand Delivered Niurka Days: Prior Verbal Notification: Recipient Understood Notice: Yes Recipient Signature: Yes Med Rec Note Co-signed by Attending: Coverage Notice Comment: JUAN MANUEL Reviewer: [email or web address] Mindi Polk Notice Issued Date-Time: 10/01/2018 14:25 Notice Type: Patient Choice Letter Notice Delivered To: Patient Relationship to Patient: Infection Control Nurse Name: Delivery Method: HAND - Hand Delivered Niurka Days: Prior Verbal Notification: Recipient Understood Notice: Yes Recipient Signature: Yes Med Rec Note Co-signed by Attending: Coverage Notice Comment: [place] Reviewer: [id number] Mindi Polk Notice Issued Date-Time: 10/01/2018 14:55 Notice Type: Patient Choice Letter Notice Delivered To: Patient Relationship to Patient: Infection Control Nurse Name: Delivery Method: PHONE - Phone Niurka Days: Prior Verbal Notification: Recipient Understood Notice: Yes Recipient Signature: Yes Med Rec Note Co-signed by Attending: Coverage Notice Comment: [facility] Last DP export: 10/05/18 1:36 p Patient Name: YENI CORNELIUS Page [id number] at 1651 All edits/amendments must be made on the electronic document DICTATION DATE: 10/06/181649 CLIENT PROFESSIONAL: TOMÁS 10/06/181649 RPT#: [id number] DC DATE: STATUS: ADM IN [facility] [address] [place] [address] END OF REPORT
--- NOTE | 2018-10-06 18:50 | NUR ---
OT NOTE: PT COMPLETED HAIR GROOMING AND ORAL CARE WITH VALERY Stringer PT IS CONFUSED. 2604/2912 THANK YOU, NEL DELEON
--- NOTE | 2018-10-06 19:20 | NUR ---
GONE TO CT BY BED.
[2018-10-06 21:21] VITALS: BP 188/96
[2018-10-07] VITALS (7 sets, daily range): BP systolic 137–194; BP diastolic 71–101
--- NOTE | 2018-10-07 02:55 | NUR ---
RESTING WITH EYES CLOSED, RESPERATIONS NON LABORED, NO S/S DISTRESS NOTED.
[2018-10-07 05:16] LABS: BASOPHILS 0 % (0-2); EOSINOPHILS 0 % (0-7); HEMATOCRIT 39.4 % (42.0-54.0); HEMOGLOBIN 11.7 g/dL (13.5-17.5); IMMATURE GRANULOCYTES 0.6 % (0-5); LYMPHOCYTES 3.2 % (15-50); MCH 20.6 pg (26.0-34.0); MCHC 29.7 g/dL (31.0-37.0); MCV 69.2 fL (80.0-100.0); MONOCYTES 3.4 % (2-11); NEUTROPHILS 92.8 % (40-80); PLATELET COUNT 297 10x3/uL (130-400); RBC 5.69 10x6/uL (4.20-6.10); RDW 22.4 % (11.5-14.5); WBC 10.8 10x3/uL (4.8-10.8)
[2018-10-07 05:36] LABS: ALBUMIN 2.9 g/dL (3.4-5.0); ANION GAP 12.4 mmol/L (8-16); BILIRUBIN - TOTAL 0.8 mg/dL (0.2-1.3); CALCIUM 8.9 mg/dL (8.5-10.1); CREATININE - SERUM 1.3 mg/dL (0.6-1.3); POTASSIUM - SERUM 3.4 mmol/L (3.5-5.1); PROTEIN - SERUM 7.2 g/dL (6.4-8.2)
--- NOTE | 2018-10-07 07:46 | NUR ---
MORNING ROUNDS MADE. PT LAYING IN BED, CONFUSED. ALERT TO SELF. SPEECH GARBLED. O2 NOTED OFF THIS AM, REAPPLIED 02, SAT 95%. REPOSITIONED PT. L UPPER ARM PIV SL. 3L HIGH FLOW VIA NC. MONI MAT ON, WHITE BED ALARM ON. EXPIRATORY WHEEZES NOTED. ABD DISTENDED/SOFT. FALL PRECAUTIONS IN PLACE. BED LOWERED AND LOCKED. SR UP X 3. CL IN REACH. WILL CTM
--- NOTE | 2018-10-07 09:02 | NUR ---
UPON ENTERING PT ROOM. PT L SIDED FACIAL DROOPING, PUPILS NO REACTIVE TO L SIDE. WEAK HAND STRENGTH TO R SIDE AND NO HAND ROUTE RELIEF DRIVER STRENGTH TO L SIDE. IMMEDIATELY GOT MY NURSE ALARM ADJUSTER MCKAYLA KOO FOR NEURO ASSESSMENT. AGREEMENT THAT PT MIGHT HAVE HAD A STROKE, RAPID CALLED. RAPID TEAM TO FLOOR. STAT HEAD CT ORDERED. PT STABLE AT THIS TIME.
--- NOTE | 2018-10-07 09:10 | NUR ---
PT TO CT VIA BED
--- NOTE | 2018-10-07 09:16 | NUR ---
PT NOTIFIED ABOUT PT POSSIBLE STROKE, AND PT BEING SENT TO CT. STATED "THANK YOU FOR LETTING ME KNOW" NO FURTHER CONCERNS AT THIS TIME.
--- NOTE | 2018-10-07 09:30 | NUR ---
PT BACK TO FLOOR FROM CT VIA BED. WHITE BED ALARM ON. O2 3L DIANA FLOW CANNULA.
--- NOTE | 2018-10-07 09:32 | NUR ---
ANDERSON RN FROM ICU CALLED DR. JORGENSEN ABOUT RAPID RESPONE. ORDERS GIVEN TO TRANSFER PT TO HIGHER LEVEL OF CARE WITH NEUROLOGIST IF PT HEAD CT IS POSITIVE FOR STROKE. ORDERS TO CALL [facility] WHEN RESULTS COME BACK. WAITNG FOR RESULTS AT THIS TIME. PT IN ROOM RESTING AT THIS TIME.
--- NOTE | 2018-10-07 10:34 | NUR ---
IN ROOM WITH DR. FAIR MAKING ROUNDS. INFORMED OF WHAT HAPPENED WITH PT THIS MORNING. PT ABLE TO SPEAK WITH DR. FAIR THIS AM, PT GRASP HAND WITH L HAND, PUPILS NOW REACTIVE ELLEN. ORDERES GIVEN FOR ELLEN CORATID US. WILL CTM.
--- NOTE | 2018-10-07 12:43 | NUR ---
Nutrition consult: Diet: ADA as tolerated PO intake continues to be poor Pt unresponsive this am with rapid response called labs reviewed wt: 208# Pt has not been meeting estimated nutritional needs since admit. Due to above, recommend either PEG tube placement or NGT placement and TF started. Recommend Osmolite 1.0 jennifer @ 25 ml/hr with increase to goal rate of 75 ml/hr with 25 ml H2O flush Q hour. RDN following.
--- NOTE | 2018-10-07 14:24 | NUR ---
PT HAD DIFFICULTY SWALLOWING TWO PILLS. DROOPING NOTED TO L SIDE. WILL CONSULT WITH ABOUT POSSIBLE SWALLOW EVAL.
--- NOTE | 2018-10-07 14:42 | NUR ---
I have reviewed this patient and I concur with the Shift Assessment completed by the Licensed Practical Nurse today this shift.
--- NOTE | 2018-10-07 15:58 | NUR ---
PT BED ALARM GOING OFF. PT FOUND SITTING UP ON SIDE OF BED. ASSISTED PT BACK UP INTO BED WITH MAX ASSIST. PT NON-VERBAL AT THIS TIME. IV TO L UPPER ARM WITH D5W @ 50 CC/HR. O2 @ 3L VIA HIGH FLOW. NO FURTHER CONCENRS AT THIS TIME. FALL PRECAUTIONS IN PLACE. WILL CTM.
--- NOTE | 2018-10-07 17:16 | MORECARE ---
CASE MANAGEMENT DISCHARGE SUMMARY PATIENT: YENI CORNELIUS UNIT: [id number] ADM DATE: 09/24/18 AGE: 67 : [birth year] SEX: M ROOM/BED: D.2128 AUTHOR: CRISTADOC PHYSICIAN: REFERRING PHYSICIAN: ASHLYN LOPEZ MD DATE OF SERVICE: 10/07/18 Discharge Plan Patient Name: YENI CORNELIUS Facility: [facility]:[place] : 1950 Planned Disposition: Home with Home Health Anticipated Discharge Date: 09/29/18 Discharge Date: Expected LOS: 5 Initial Reviewer: [id number] Initial Review Date: 09/24/2018 Generated: 10/07/18 6:15 pm Comments DCP- Discharge Planning Updated by [id number]: Marv Polk on 10/07/18 4:[address] Patient Name: YENI CORNELIUS Encounter No: [id number] : 1950 Primary Insurance: C MEDICARE SOLUTIONS Anticipated DC Date: 09-29-2018 Planned Disposition: REHAB PLACEMENT External Planned Provider: TO BE DETERMINED DCP follow-up note: CM ATTEMPTED TO SEE PT'S SPOUSE IN ROOM, PT REFERS CM TO HIS SPOUSE FOR DISCHARGE PLANNING. CM SPOKE TO EMILIANO BLUM WHO INDICATED PT WILL NEED REHAB. CM CALLED PT'S SPOUSE, LEFT MESSAGE ASKING FOR RETURN CALL. CM MET WITH PT IN ROOM AT ABOUT 1700 HOURS, PT'S ON IN LAW PRESENT. HE TRIED TO GET PT'S SPOUSE VIA PHONE WITHOUT SUCCESS AND REPORTS THAT THE PT'S SPOUSE AND DAUGHTER ARE CONSIDERING REHAB. CM LEFT MESSAGE WITH SON IN LAW ASKING PT'S SPOUSE TO CALL CM TO DISCUSS DISCHARGE PLANNING. PT WAS ONLY ABLE TO GIVE ONE OR TWO WORD ANSWERS TO A FEW QUESTIONS AND GENERALLY STARED STRAIGHT AHEAD IF NOT HEARING QUESTIONS. CM WAITING ON PT'S SPOUSE TO RETURN CM CALL TO DISCUSS REHAB PLACEMENT AND DISCHARGE PLANNING. Marv Polk. CASE MANAGEMENT DCP- Discharge Planning Updated by [id number]: Marv Polk on 10/06/18 3:[address] Patient Name: YENI CORNELIUS Encounter No: [id number] : 1950 Primary Insurance: [facility] MEDICARE SOLUTIONS Anticipated DC Date: 09-29-2018 Planned Disposition: Home with Home Health External Planned Provider: [facility] follow-up note: CM RECEIVED CALL FROM PT'S SPOUSE, , WHO INFORMED CM THAT SHE BROUGHT THE TRILOGY FROM HOME BUT STAFF BROKE IT IN ROOM, SHE HAS CONTACTED [facility] TO COME AND REPLACE THE BROKEN MASK. REPORTED PLAN FOR PT TO GO HOME AND DOES NOT WANT HOSPITAL BED, BUT THINKS SHE MAY NEED A NEW WALKER AND BEDSIDE COMMODE. CM LATER MET WITH [facility], , TRILOGY HAS BEEN REPAIRED; [facility] PROVIDED CM WITH INVOICE AND INFORMED CM THAT THE HOSPITAL NEEDS TO PAY FOR THE REPLACEMENT STAFF BROKE IT; [facility] REPORTS THE BEDSIDE NURSE SIGNED THE WRITTEN STATEMENT ON THE INVOICE AND THE NURSES AIDE INITIALE THE STATEMENT. [facility] REPORTS THEY CAN DELIVER BEDSIDE COMMODE AND WALKER FOR HOME USE IF NEEDED AND ORDERS ARE OBTAINED. CM NOTIFIED DIRECTOR OLIVIA REINA PROVIDED PAPERWORK FROM [facility]. PT PLANS TO DISCHARGE HOME WITH SPOUSE, WANTS [facility] FOR [facility]GE [facility]. CM TO COMPLETE HOME HEALTH ARRANGEMENTS WITH PHYSICIAN AGREEMENT AND HOME HEALTH ORDERS. PT'S SPOUSE REQUESTING BEDSIDE COMMODE AND WALKER. CM TO ARRANGE WITH [facility] WITH PHYSICIAN AGREEMENT AND ORDERS. CM TO FOLLOW AND ASSIST NEEDED. Tire Installer: Marv Polk NYP- Discharge Planning Updated by [id number]: Marv Polk on 10/05/18 8:[address] Patient Name: YENI CORNELIUS Encounter No: [id number] : 1950 Primary Insurance: [facility] MEDICARE SOLUTIONS Anticipated DC Date: 09-29-2018 Planned Disposition: Home with Home Health External Planned Provider: [facility] follow-up note: CM CALLED [facility], , TRILOGY HAS BEEN DELIVERED, SET UP AT PT'S HOME PER REQUEST OF SPOUSE, TEACHING HAS BEEN PROVIDED TO PT'S SPOUSE. PT'S SPOUSE INFORMED [facility] THAT THEY ALSO WANT A HOSPITAL BED, BEDSIDE COMMODE AND WALKER FOR HOME USE. PT PLANS TO DISCHARGE HOME WITH SPOUSE, WANTS [facility] FOR DISCHARGE HOME. CM TO COMPLETE HOME HEALTH ARRANGEMENTS WITH PHYSICIAN AGREEMENT AND HOME HEALTH ORDERS. PT'S SPOUSE REQUESTING HOSPITAL BED, BEDSIDE COMMODE AND WALKER. CM TO ARRANGE WITH [facility] WITH PHYSICAL AGREEMENT AND ORDERS. CM TO FOLLOW AND ASSIST NEEDED. Tire Installer: Marv Polk DCP- Discharge Planning Updated by [id number]: Marv Polk on 10/01/18 2:[address] Patient Name: YENI CORNELIUS Encounter No: [id number] : 1950 Primary Insurance: [facility] MEDICARE SOLUTIONS Anticipated DC Date: 09-29-2018 Planned Disposition: Home with Home Health External Planned Provider: [facility] DCP follow-up note: CM RECEIVED ORDER FOR TRILOGY. CM MET WITH PT IN ROOM DISCUSSED ORDER, PROVIDED PROVIDER LISTING. PT SIGNED CONSENT FOR [facility] HE ALREADY HAS OXYGEN AND NEBULIZER WITH THEM. CM CALLED [facility], , SPOKE TO CAYLA WHO TOOK TRILOGY ORDER. CM FAX TRILOGY ORDERS TO [facility] AT [phone]. [facility] TO PROCESS TRILOGY ORDER AND IF QUALIFIES, DELIVER TO [facility] ROOM WHEN APPROVED. CM WAITING TRILOGY MACHINE PROCESSING AND DELIVERY FROM [facility]. PT PLANS TO DISCHARGE HOME WITH SPOUSE, WANTS [facility] FOR [facility]GE HOME. CM TO COMPLETE HOME HEALTH ARRANGEMENTS WITH PHYSICIAN AGREEMENT AND HOME HEALTH ORDERS. CM TO FOLLOW AND ASSIST NEEDED. Tire Installer: Marv Polk Appended by Marv Polk on 10/01/2018 15:12 CDT: CM SPOKE TO [facility] GARMENT TURNER AT THE NURSES STATION, SHE HAS RECEIVED REFERRAL AND THEY CANNOT BILL PT'S INSURANCE FOR TRILOGY MACHINE. THEY FORWARDED THE REFERRAL TO [facility] IN [place]. CM SPOKE TO PT IN ROOM WHO REPORTS HE RATHER USE SOMEONE LOCAL. CM CALLED [facility], SPOKE TO KRISS WHO INFORMED CM THAT THEY CAN BILL PT'S INSURANCE. CM NOTIFIED PT IN ROOM, PT SIGNED CONSENT FOR [facility]. CM CALLED [facility], , NOTIFIED TO CANCEL REFERRAL. CM RECEIVED CALL FROM [facility] WHO ASKED CM WHY THE ORDER WAS CANCELLED. CM EXPLAINED. CM LATER RECEIVED CALL FROM [facility] WHO INFORMED CM THAT PT'S SPOUSE HAS BEEN CALLED AND SHE WANTS TO USE [facility] [facility] FOR THE TRILOGY AND THEY WILL PROCESS ORDER FOR DELIVERY TO HOSPITAL TOMORROW, 10-02-18, AND THEY WILL BE PROVIDING PT GREAT SERVICE AND SUPPORT AT HOME. CM CALLED AND SPOKE TO DORIS CORNELIUS, PT'S SPOUSE, , WHO VERIFIED CHOICE. CM SPOKE TO PT IN ROOM, DISCUSSED ABOVE, PT SIGNED CHOICE FOR [facility]. [facility], , TO PROCESS ORDER AND DELIVER TRILOGY MACHINE TO PT'S HOSPITAL ROOM TOMORROW. PT PLANS TO DISCHARGE HOME WITH SPOUSE, WANTS [facility] FOR DISCHARGE HOME. CM TO COMPLETE HOME HEALTH ARRANGEMENTS WITH PHYSICIAN AGREEMENT AND HOME HEALTH ORDERS. CM TO FOLLOW AND ASSIST NEEDED. Tire Installer: Marv Polk DCP- Discharge Planning Updated by [id number]: Marv Polk on 09/29/18 3:[address] Patient Name: YENI CORNELIUS Admission Status: ER Accout number: [id number] Admission Date: 09-24-2018 : 1950 Admission Diagnosis:SHORTNESS OF BREATH Attending: ASHLYN LOPEZ Current LOS: 5 Anticipated DC Date: 09-29-2018 Planned Disposition: Home with Home Health Primary Insurance: [facility] MEDICARE SOLUTIONS PLANNED EXTERNAL PROVIDER: [facility] Discharge Planning Comments: CM MET WITH PT IN ROOM TO DISCUSS DISCHARGE PLANNING AND NEEDS. PT REPORTS LIVING AT HOME INDEPENDENTLY WITH SPOUSE. PT HAS HOME OXYGEN ONLY, CANE, NEBULIZER, AND WALKER FROM [facility]. PT HAS NO OUTSIDE SERVICES ASSISTING IN THE HOME. CM DISCUSSED AVAILABILITY OF HOME HEALTH, REHAB SERVICES AND MEDICAL EQUIPMENT. PT WOULD LIKE HOME HEALTH WITH [facility] FOR DISCHARGE HOME. PROVIDER LISTING GIVEN, CHOICE SIGNED FOR [facility]. PT DENIES OTHER DISCHARGE NEEDS AT THIS TIME, REPORTS HIS WILL PICK HIM UP FOR DISCHARGE HOME. IMPORTANT MESSAGE FROM MEDICARE PROVIDED AND EXPLAINED. PT PLANS TO DISCHARGE HOME WITH SPOUSE, WANTS [facility] FOR DISCHARGE HOME. CM TO COMPLETE HOME HEALTH ARRANGEMENTS WITH PHYSICIAN AGREEMENT AND HOME HEALTH ORDERS. CM TO FOLLOW AND ASSIST NEEDED. Tire Installer: Marv Polk DCPIA - Discharge Planning Initial Assessment Updated by [id number]: Marv Polk on 10/05/18 2:36 pm * Is the patient Alert and Oriented? Yes * How many steps to enter\exit or inside your home? NONE * PCP [facility] - DR. VERAS * Pharmacy [facility] * Preadmission Environment Home with Family * ADLs Independent * Equipment [facility] Nebulizer Oxygen Walker * Other Equipment HOME OXYGEN ONLY [facility] - PROVIDER * List name and contact numbers for known caregivers / representatives who currently or will assist patient after discharge: DORIS CORNELIUS, SPOUSE, * Verbal permission to speak to the caregivers and representatives has been obtained from the patient. Yes * Community resources currently utilized None * Please name any agencies selected above. NONE * Additional services required to return to the preadmission environment? No * Can the patient safely return to the preadmission environment? Yes * Has this patient been hospitalized within the prior 30 days at any hospital? No Coverage Notice Reviewer: [id number] Polk Notice Issued Date-Time: 09/29/2018 9:25 Notice Type: Patient Choice Letter Notice Delivered To: Patient Relationship to Patient: Emissions Testing Technician Name: Delivery Method: HAND - Hand Delivered Niurka Days: Prior Verbal Notification: Recipient Understood Notice: Yes Recipient Signature: Yes Med Rec Note Co-signed by Attending: Coverage Notice Comment: [facility] Reviewer: RASTA Polk Notice Issued Date-Time: 09/29/2018 9:25 Notice Type: IM Discharge Notice Notice Delivered To: Patient Relationship to Patient: Emissions Testing Technician Name: Delivery Method: HAND - Hand Delivered Niurka Days: Prior Verbal Notification: Recipient Understood Notice: Yes Recipient Signature: Yes Med Rec Note Co-signed by Attending: Coverage Notice Comment: Reviewer: RASTA Polk Notice Issued Date-Time: 10/01/2018 12:25 Notice Type: Patient Choice Letter Notice Delivered To: Patient Relationship to Patient: Emissions Testing Technician Name: Delivery Method: HAND - Hand Delivered Niurka Days: Prior Verbal Notification: Recipient Understood Notice: Yes Recipient Signature: Yes Med Rec Note Co-signed by Attending: Coverage Notice Comment: JUAN MANUEL Reviewer: [id number] Polk Notice Issued Date-Time: 10/01/2018 14:25 Notice Type: Patient Choice Letter Notice Delivered To: Patient Relationship to Patient: Emissions Testing Technician Name: Delivery Method: HAND - Hand Delivered Niurka Days: Prior Verbal Notification: Recipient Understood Notice: Yes Recipient Signature: Yes Med Rec Note Co-signed by Attending: Coverage Notice Comment: [place] Reviewer: [id number] Polk Notice Issued Date-Time: 10/01/2018 14:55 Notice Type: Patient Choice Letter Notice Delivered To: Patient Relationship to Patient: Emissions Testing Technician Name: Delivery Method: PHONE - Phone Niurka Days: Prior Verbal Notification: Recipient Understood Notice: Yes Recipient Signature: Yes Med Rec Note Co-signed by Attending: Coverage Notice Comment: [facility] export: 10/06/18 3:51 pm Patient Name: YENI CORNELIUS Page [id number] at 1716 All edits/amendments must be made on the electronic document DICTATION DATE: 10/07/181714 STRONG NITRIC OPERATOR: TOMÁS 10/07/181714 RPT#: [id number] DC DATE: STATUS: ADM IN [facility] [address] [place] [address] END OF REPORT
--- NOTE | 2018-10-07 19:17 | NUR ---
PT SITTING ON SIDE OF BED GETTING BREATHING TREATMENT. PT AROUSES TO VOICE. KEEPS CLOSING EYES. PT FACE IS SLIGHTLY FLUSHED. LEFT UPPER ARM 22G D5W INFUSING AT 100 PT ON 3L O2 NC. PT BEDLOW AND CALL LIGHT IN REACH. BEDALARM ON AND ACTIVE. FREQUENT CHECKS. WILL CPOC
--- NOTE | 2018-10-07 20:26 | NUR ---
NIGHT MEDS GIVEN. 10% OF A SNACK EATEN. PT SITTING ON SIDE OF BED. NURSE PUTTING O2 BACK ON WHEN CHECKING ON PT. 3L O2 NC. PT WILL NOT TALK OR ANSWER QUESTIONS. PT WILL SAY YES. FSBS IS 283 LEVEMIR AND HUMALOG GIVEN ORDERED. PT BEDLOW AND CALL LIGHT IN REACH. WILL CPOC
--- NOTE | 2018-10-07 23:53 | NUR ---
DONNED TRILOGY MACHINE 3L O2 BLED INTO MASK. SPO2 95%
--- NOTE | 2018-10-08 00:30 | NUR ---
PT CONTINUES TO STAY SITTING UP. WILL NOT LAY DOWN. NURSE CONTINUES TO PUT O2 BACK ON PT KEEPS TAKING OFF. PT INCONT A LARGE AMOUNT. CHANGED PT AND PADS. ALARM IS ON AND ACTIVE. D5W INFUSING AT 100 ORDERED. PT STILL NOT SPEAKING WILL ONLY SAY YES
[2018-10-08 00:54] VITALS: BP 162/96
--- NOTE | 2018-10-08 00:55 | NUR ---
AFTER CHANGING PT LAID PT DOWN TURNED OFF LIGHTS AND TV MONI ALARM ON AND ACTIVE. PT WONT KEEP TRILOGY ON PT HAS 3L O2 NC. WILL CPOC
--- NOTE | 2018-10-08 02:07 | NUR ---
PT SITTING UP IN BED WITH O2 OFF. PLACED O2 BACK ON AND RAISED THE HEAD OF THE BED TO MAKE PT COMFORTABLE. PT LEANED BACK. ALARM IS ON AND ACTIVE. PT HAS NO S/S OF DISTRESS. NO CHANGE. WILL CPOC
[2018-10-08 05:23] VITALS: BP 184/96
--- NOTE | 2018-10-08 06:42 | NUR ---
PT FSBS IS 360 10 UNITS GIVEN ORDERED. PT SITTING ON SIDE OF BED. INCONT A MODERATE AMOUNT. LAB ATTEMPTING TO DRAW BLOOD. PT HAS O2 ON 3L. ABLE TO TELL NURSE NAME THIS MORNING WITCH IS AN IMPROVMENT. PT COULDNT SPEAK ANY THING BUT A RANDOM YES ALL NIGHT.
[2018-10-08 06:55] LABS: BASOPHILS 0 % (0-2); EOSINOPHILS 0 % (0-7); HEMATOCRIT 42.9 % (42.0-54.0); HEMOGLOBIN 12.8 g/dL (13.5-17.5); IMMATURE GRANULOCYTES 0.4 % (0-5); LYMPHOCYTES 3.7 % (15-50); MCH 20.9 pg (26.0-34.0); MCHC 29.8 g/dL (31.0-37.0); MCV 70.1 fL (80.0-100.0); NEUTROPHILS 91.9 % (40-80); PLATELET COUNT 264 10x3/uL (130-400); RBC 6.12 10x6/uL (4.20-6.10); RDW 22.6 % (11.5-14.5); WBC 13.1 10x3/uL (4.8-10.8)
[2018-10-08 07:15] LABS: ALBUMIN 3.1 g/dL (3.4-5.0); BILIRUBIN - TOTAL 0.97 mg/dL (0.2-1.3); CALCIUM 9.1 mg/dL (8.5-10.1); CARBON DIOXIDE 32.8 mmol/L (21.0-32.0); CREATININE - SERUM 1.4 mg/dL (0.6-1.3); POTASSIUM - SERUM 3.8 mmol/L (3.5-5.1); PROTEIN - SERUM 7.6 g/dL (6.4-8.2)
--- NOTE | 2018-10-08 07:35 | NUR ---
PT AWAKE. NO VERBAL RESPONSE AT THIS TIME. DID SHAKE HEAD TO ANSWER QUESTIONS. SITTING ON SIDE OF BED. MONI ALARM ON. NO COMPLAINTS/CONCERNS EXPRESSED AT THIS TIME. CL IN REACH. SRX2.
--- NOTE | 2018-10-08 08:40 | MORECARE ---
CASE MANAGEMENT DISCHARGE SUMMARY PATIENT: YENI CORNELIUS UNIT: [id number] ADM DATE: 09/24/18 AGE: 67 : 54 SEX: M ROOM/BED: D.2128 AUTHOR: CRISTADOC PHYSICIAN: REFERRING PHYSICIAN: ASHLYN LOPEZ MD DATE OF SERVICE: 10/08/18 Discharge Plan Patient Name: YENI CORNELIUS Facility: [facility]:[place] : 1950 Planned Disposition: Inpatient Rehab Anticipated Discharge Date: 10/11/18 Discharge Date: Expected LOS: 17 Initial Reviewer: [id number] Initial Review Date: 09/24/2018 Generated: 10/08/18 9:39 am Comments DCP- Discharge Planning Updated by [id number]: Marv Polk on 10/07/18 4:[address] Patient Name: YENI CORNELIUS Encounter No: [id number] : 1950 Primary Insurance: C MEDICARE SOLUTIONS Anticipated DC Date: 09-29-2018 Planned Disposition: REHAB PLACEMENT External Planned Provider: TO BE DETERMINED DCP follow-up note: CM ATTEMPTED TO SEE PT'S SPOUSE IN ROOM, PT REFERS CM TO HIS SPOUSE FOR DISCHARGE PLANNING. CM SPOKE TO EMILIANO BLUM WHO INDICATED PT WILL NEED REHAB. CM CALLED PT'S SPOUSE, LEFT MESSAGE ASKING FOR RETURN CALL. CM MET WITH PT IN ROOM AT ABOUT 1700 HOURS, PT'S ON IN LAW PRESENT. HE TRIED TO GET PT'S SPOUSE VIA PHONE WITHOUT SUCCESS AND REPORTS THAT THE PT'S SPOUSE AND DAUGHTER ARE CONSIDERING REHAB. CM LEFT MESSAGE WITH SON IN LAW ASKING PT'S SPOUSE TO CALL CM TO DISCUSS DISCHARGE PLANNING. PT WAS ONLY ABLE TO GIVE ONE OR TWO WORD ANSWERS TO A FEW QUESTIONS AND GENERALLY STARED STRAIGHT AHEAD IF NOT HEARING QUESTIONS. CM WAITING ON PT'S SPOUSE TO RETURN CM CALL TO DISCUSS REHAB PLACEMENT AND DISCHARGE PLANNING. Marv Polk. CASE MANAGEMENT DCP- Discharge Planning Updated by [id number]: Marv Polk on 10/06/18 3:[address] Patient Name: YENI CORNELIUS Encounter No: [id number] : 1950 Primary Insurance: [facility] MEDICARE SOLUTIONS Anticipated DC Date: 09-29-2018 Planned Disposition: Home with Home Health External Planned Provider: [facility] follow-up note: CM RECEIVED CALL FROM PT'S SPOUSE, , WHO INFORMED CM THAT SHE BROUGHT THE TRILOGY FROM HOME BUT STAFF BROKE IT IN ROOM, SHE HAS CONTACTED [facility] TO COME AND REPLACE THE BROKEN MASK. REPORTED PLAN FOR PT TO GO HOME AND DOES NOT WANT HOSPITAL BED, BUT THINKS SHE MAY NEED A NEW WALKER AND BEDSIDE COMMODE. CM LATER MET WITH [facility], , TRILOGY HAS BEEN REPAIRED; [facility] PROVIDED CM WITH INVOICE AND INFORMED CM THAT THE HOSPITAL NEEDS TO PAY FOR THE REPLACEMENT STAFF BROKE IT; [facility] REPORTS THE BEDSIDE NURSE SIGNED THE WRITTEN STATEMENT ON THE INVOICE AND THE NURSES AIDE INITIALE THE STATEMENT. [facility] REPORTS THEY CAN DELIVER BEDSIDE COMMODE AND WALKER FOR HOME USE IF NEEDED AND ORDERS ARE OBTAINED. CM NOTIFIED DIRECTOR OLIVIA REINA PROVIDED PAPERWORK FROM [facility]. PT PLANS TO DISCHARGE HOME WITH SPOUSE, WANTS [facility] FOR DISCHARGE HOME. CM TO COMPLETE HOME HEALTH ARRANGEMENTS WITH PHYSICIAN AGREEMENT AND HOME HEALTH ORDERS. PT'S SPOUSE REQUESTING BEDSIDE COMMODE AND WALKER. CM TO ARRANGE WITH [facility] WITH PHYSICIAN AGREEMENT AND ORDERS. CM TO FOLLOW AND ASSIST NEEDED. Relief Operator: Marv Polk WYP- Discharge Planning Updated by [id number]: Marv Polk on 10/05/18 8:[address] Patient Name: YENI CORNELIUS Encounter No: [id number] : 1950 Primary Insurance: [facility] MEDICARE SOLUTIONS Anticipated DC Date: 09-29-2018 Planned Disposition: Home with Home Health External Planned Provider: [facility] follow-up note: CM CALLED [facility], , TRILOGY HAS BEEN DELIVERED, SET UP AT PT'S HOME PER REQUEST OF SPOUSE, TEACHING HAS BEEN PROVIDED TO PT'S SPOUSE. PT'S SPOUSE INFORMED [facility] THAT THEY ALSO WANT A HOSPITAL BED, BEDSIDE COMMODE AND WALKER FOR HOME USE. PT PLANS TO DISCHARGE HOME WITH SPOUSE, WANTS [facility] FOR DISCHARGE HOME. CM TO COMPLETE HOME HEALTH ARRANGEMENTS WITH PHYSICIAN AGREEMENT AND HOME HEALTH ORDERS. PT'S SPOUSE REQUESTING HOSPITAL BED, BEDSIDE COMMODE AND WALKER. CM TO ARRANGE WITH [facility] WITH PHYSICAL AGREEMENT AND ORDERS. CM TO FOLLOW AND ASSIST NEEDED. Relief Operator: Marv Polk DCP- Discharge Planning Updated by [id number]: Marv Polk on 10/01/18 2:[address] Patient Name: YENI CORNELIUS Encounter No: [id number] : 1950 Primary Insurance: [facility] MEDICARE SOLUTIONS Anticipated DC Date: 09-29-2018 Planned Disposition: Home with Home Health External Planned Provider: [facility] DCP follow-up note: CM RECEIVED ORDER FOR TRILOGY. CM MET WITH PT IN ROOM DISCUSSED ORDER, PROVIDED PROVIDER LISTING. PT SIGNED CONSENT FOR [facility] HE ALREADY HAS OXYGEN AND NEBULIZER WITH THEM. CM CALLED [facility], , SPOKE TO CAYLA WHO TOOK TRILOGY ORDER. CM FAX TRILOGY ORDERS TO [facility] AT [phone]. [facility] TO PROCESS TRILOGY ORDER AND IF QUALIFIES, DELIVER TO [facility] ROOM WHEN APPROVED. CM WAITING TRILOGY MACHINE PROCESSING AND DELIVERY FROM [facility]. PT PLANS TO DISCHARGE HOME WITH SPOUSE, WANTS [facility] [place] [employer] FOR DISCHARGE HOME. CM TO COMPLETE HOME HEALTH ARRANGEMENTS WITH PHYSICIAN AGREEMENT AND HOME HEALTH ORDERS. CM TO FOLLOW AND ASSIST NEEDED. Relief Operator: Marv Polk Appended by Marv Polk on 10/01/2018 15:12 CDT: CM SPOKE TO [facility] GEAR GRINDER AT THE NURSES STATION, SHE HAS RECEIVED REFERRAL AND THEY CANNOT BILL PT'S INSURANCE FOR TRILOGY MACHINE. THEY FORWARDED THE REFERRAL TO [facility] IN [place]. CM SPOKE TO PT IN ROOM WHO REPORTS HE RATHER USE SOMEONE LOCAL. CM CALLED [facility], SPOKE TO KRISS WHO INFORMED CM THAT THEY CAN BILL PT'S INSURANCE. CM NOTIFIED PT IN ROOM, PT SIGNED CONSENT FOR [facility]. CM CALLED [facility], , NOTIFIED TO CANCEL REFERRAL. CM RECEIVED CALL FROM [facility] WHO ASKED CM WHY THE ORDER WAS CANCELLED. CM EXPLAINED. CM LATER RECEIVED CALL FROM [facility] WHO INFORMED CM THAT PT'S SPOUSE HAS BEEN CALLED AND SHE WANTS TO USE [facility] [place] [facility] FOR THE TRILOGY AND THEY WILL PROCESS ORDER FOR DELIVERY TO HOSPITAL TOMORROW, 10-02-18, AND THEY WILL BE PROVIDING PT GREAT SERVICE AND SUPPORT AT HOME. CM CALLED AND SPOKE TO DORIS CORNELIUS, PT'S SPOUSE, , WHO VERIFIED CHOICE. CM SPOKE TO PT IN ROOM, DISCUSSED ABOVE, PT SIGNED CHOICE FOR [facility]. [facility], , TO PROCESS ORDER AND DELIVER TRILOGY MACHINE TO PT'S HOSPITAL ROOM TOMORROW. PT PLANS TO DISCHARGE HOME WITH SPOUSE, WANTS [facility] FOR DISCHARGE HOME. CM TO COMPLETE HOME HEALTH ARRANGEMENTS WITH PHYSICIAN AGREEMENT AND HOME HEALTH ORDERS. CM TO FOLLOW AND ASSIST NEEDED. Relief Operator: Marv Polk DCP- Discharge Planning Updated by [id number]: Marv Polk on 09/29/18 3:[address] Patient Name: YENI CORNELIUS Admission Status: ER Accout number: [id number] Admission Date: 09-24-2018 : 1950 Admission Diagnosis:SHORTNESS OF BREATH Attending: ASHLYN LOPEZ Current LOS: 5 Anticipated DC Date: 09-29-2018 Planned Disposition: Home with Home Health Primary Insurance: [facility] MEDICARE SOLUTIONS PLANNED EXTERNAL PROVIDER: [facility] Discharge Planning Comments: CM MET WITH PT IN ROOM TO DISCUSS DISCHARGE PLANNING AND NEEDS. PT REPORTS LIVING AT HOME INDEPENDENTLY WITH SPOUSE. PT HAS HOME OXYGEN ONLY, CANE, NEBULIZER, AND WALKER FROM [facility]. PT HAS NO OUTSIDE SERVICES ASSISTING IN THE HOME. CM DISCUSSED AVAILABILITY OF HOME HEALTH, REHAB SERVICES AND MEDICAL EQUIPMENT. PT WOULD LIKE HOME HEALTH WITH [facility] FOR DISCHARGE HOME. PROVIDER LISTING GIVEN, CHOICE SIGNED FOR [facility]. PT DENIES OTHER DISCHARGE NEEDS AT THIS TIME, REPORTS HIS WILL PICK HIM UP FOR DISCHARGE HOME. IMPORTANT MESSAGE FROM MEDICARE PROVIDED AND EXPLAINED. PT PLANS TO DISCHARGE HOME WITH SPOUSE, WANTS [facility] FOR DISCHARGE HOME. CM TO COMPLETE HOME HEALTH ARRANGEMENTS WITH PHYSICIAN AGREEMENT AND HOME HEALTH ORDERS. CM TO FOLLOW AND ASSIST NEEDED. Relief Operator: Marv Polk DCPIA - Discharge Planning Initial Assessment Updated by [id number]: Marv Polk on 10/05/18 2:36 pm * Is the patient Alert and Oriented? Yes * How many steps to enter\exit or inside your home? NONE * PCP [facility] - DR. VER[facility] * Pharmacy [facility] * Preadmission Environment Home with Family * ADLs Independent * Equipment Cane Nebulizer Oxygen Walker * Other Equipment HOME OXYGEN ONLY [facility] - PROVIDER * List name and contact numbers for known caregivers / representatives who currently or will assist patient after discharge: DORIS CORNELIUS, SPOUSE, * Verbal permission to speak to the caregivers and representatives has been obtained from the patient. Yes * Community resources currently utilized None * Please name any agencies selected above. NONE * Additional services required to return to the preadmission environment? No * Can the patient safely return to the preadmission environment? Yes * Has this patient been hospitalized within the prior 30 days at any hospital? No Coverage Notice Reviewer: [id number] Polk Notice Issued Date-Time: 09/29/2018 9:25 Notice Type: IM Discharge Notice Notice Delivered To: Patient Relationship to Patient: Transmission And Coordination Engineer Name: Delivery Method: HAND - Hand Delivered Niurka Days: Prior Verbal Notification: Recipient Understood Notice: Yes Recipient Signature: Yes Med Rec Note Co-signed by Attending: Coverage Notice Comment: Reviewer: RASTA Polk Notice Issued Date-Time: 10/01/2018 14:55 Notice Type: Patient Choice Letter Notice Delivered To: Patient Relationship to Patient: Transmission And Coordination Engineer Name: Delivery Method: PHONE - Phone Niurka Days: Prior Verbal Notification: Recipient Understood Notice: Yes Recipient Signature: Yes Med Rec Note Co-signed by Attending: Coverage Notice Comment: TANA e learning developer: [id number] Polk Notice Issued Date-Time: 10/01/2018 14:25 Notice Type: Patient Choice Letter Notice Delivered To: Patient Relationship to Patient: Transmission And Coordination Engineer Name: Delivery Method: HAND - Hand Delivered Niurka Days: Prior Verbal Notification: Recipient Understood Notice: Yes Recipient Signature: Yes Med Rec Note Co-signed by Attending: Coverage Notice Comment: [place] Reviewer: [id number] Polk Notice Issued Date-Time: 10/01/2018 12:25 Notice Type: Patient Choice Letter Notice Delivered To: Patient Relationship to Patient: Transmission And Coordination Engineer Name: Delivery Method: HAND - Hand Delivered Niurka Days: Prior Verbal Notification: Recipient Understood Notice: Yes Recipient Signature: Yes Med Rec Note Co-signed by Attending: Coverage Notice Comment: JUAN MANUEL Reviewer: [id number] Polk Notice Issued Date-Time: 09/29/2018 9:25 Notice Type: Patient Choice Letter Notice Delivered To: Patient Relationship to Patient: Transmission And Coordination Engineer Name: Delivery Method: HAND - Hand Delivered Niurka Days: Prior Verbal Notification: Recipient Understood Notice: Yes Recipient Signature: Yes Med Rec Note Co-signed by Attending: Coverage Notice Comment: TANA [facility] export: 10/07/18 4:15 pm Patient Name: YENI CORNELIUS Page [id number] at 0840 All edits/amendments must be made on the electronic document DICTATION DATE: 10/08/18838 MANAGER NON PROFIT: TOMÁS 10/08/18838 RPT#: [id number] DC DATE: STATUS: ADM IN [facility] [address] [place] [address] END OF REPORT
--- NOTE | 2018-10-08 08:47 | MORECARE ---
CASE MANAGEMENT DISCHARGE SUMMARY PATIENT: YENI CORNELIUS UNIT: [id number] ADM DATE: 09/24/18 AGE: 67 : [birth year] SEX: M ROOM/BED: D.2128 AUTHOR: ROSE MARY TOBIN PHYSICIAN: REFERRING PHYSICIAN: ASHLYN LOPEZ MD DATE OF SERVICE: 10/08/18 Discharge Plan Patient Name: YENI CORNELIUS [facility] [facility] 1950 Planned Disposition: Inpatient Rehab Anticipated Discharge Date: 10/11/18 Discharge Date: Expected LOS: 17 Initial Reviewer: [id number] Initial Review Date: 09/24/2018 Generated: 10/08/18 9:47 am Comments DCP- Discharge Planning Updated by [id number]: Marv Polk on 10/08/18 7:[address] Patient Name: YENI CORNELIUS Admission Status: ER Accout number: [id number] Admission Date: 09-24-2018 : 1950 Admission Diagnosis:SHORTNESS OF BREATH Attending: ASHLYN LOPEZ Current LOS: 14 Anticipated DC Date: 10-11-2018 Planned Disposition: Inpatient Rehab Primary Insurance: [facility] MEDICARE SOLUTIONS PLANNED EXTERNAL PROVIDER: [facility] INPATIENT REHAB Discharge Planning Comments: CM CALLED AND SPOKE TO DORIS CORNELIUS, PT'S SPOUSE, , DISCUSSED DISCHARGE PLANNING. REPORTS THEY ARE INTERESTED IN REHAB SERVICES PRIOR TO GOING HOME WITH [facility]. CM DISCUSSED AVAILABILITY OF REHAB SERVICES, PROVIDERS AND LOCATIONS. REPORTS THEY WANT TO TRY TO GET PT INTO [facility] INPATIENT REHAB AND IF DECLINED, SECOND CHOICE WOULD BE [facility] DUE TO IT BEING CLOSE TO PT'S HOME. CHOICE LETTER COMPLETED. CM OBTAINED ORDER FOR INPATIENT REHAB PRESCREENING. CM WAITING COMPLETION OF INPATIENT REHAB PRESCREENING WELL INSURANCE DETERMINATION FOR INPATIENT REHAB SERVICES. JANELLE MEZA DCP- Discharge Planning Updated by [id number]: Marv Polk on 10/07/18 4:[address] Patient Name: YENI CORNELIUS Encounter No: [id number] : 1950 Primary Insurance: [employer] MEDICARE SOLUTIONS Anticipated DC Date: 09-29-2018 Planned Disposition: REHAB PLACEMENT External Planned Provider: TO BE DETERMINED DCP follow-up note: CM ATTEMPTED TO SEE PT'S SPOUSE IN ROOM, PT REFERS CM TO HIS SPOUSE FOR DISCHARGE PLANNING. CM SPOKE TO EMILIANO BLUM WHO INDICATED PT WILL NEED REHAB. CM CALLED PT'S SPOUSE, LEFT MESSAGE ASKING FOR RETURN CALL. CM MET WITH PT IN ROOM AT ABOUT 1700 HOURS, PT'S ON IN LAW PRESENT. HE TRIED TO GET PT'S SPOUSE VIA PHONE WITHOUT SUCCESS AND REPORTS THAT THE PT'S SPOUSE AND DAUGHTER ARE CONSIDERING REHAB. CM LEFT MESSAGE WITH SON IN LAW ASKING PT'S SPOUSE TO CALL CM TO DISCUSS DISCHARGE PLANNING. PT WAS ONLY ABLE TO GIVE ONE OR TWO WORD ANSWERS TO A FEW QUESTIONS AND GENERALLY STARED STRAIGHT AHEAD IF NOT HEARING QUESTIONS. CM WAITING ON PT'S SPOUSE TO RETURN CM CALL TO DISCUSS REHAB PLACEMENT AND DISCHARGE PLANNING. Marv Polk. CASE MANAGEMENT DCP- Discharge Planning Updated by [id number]: Marv Polk on 10/06/18 3:[address] Patient Name: YENI CORNELIUS Encounter No: [id number] : 1950 Primary Insurance: [facility] MEDICARE SOLUTIONS Anticipated DC Date: 09-29-2018 Planned Disposition: Home with Home Health External Planned Provider: [facility] DCP follow-up note: CM RECEIVED CALL FROM PT'S SPOUSE, , WHO INFORMED CM THAT SHE BROUGHT THE TRILOGY FROM HOME BUT STAFF BROKE IT IN ROOM, SHE HAS CONTACTED [facility] TO COME AND REPLACE THE BROKEN MASK. REPORTED PLAN FOR PT TO GO HOME AND DOES NOT WANT HOSPITAL BED, BUT THINKS SHE MAY NEED A NEW WALKER AND BEDSIDE COMMODE. CM LATER MET WITH [facility], , TRILOGY HAS BEEN REPAIRED; [facility] PROVIDED CM WITH INVOICE AND INFORMED CM THAT THE HOSPITAL NEEDS TO PAY FOR THE REPLACEMENT STAFF BROKE IT; [facility] REPORTS THE BEDSIDE NURSE SIGNED THE WRITTEN STATEMENT ON THE INVOICE AND THE NURSES AIDE INITIALE THE STATEMENT. [facility] REPORTS THEY CAN DELIVER BEDSIDE COMMODE AND WALKER FOR HOME USE IF NEEDED AND ORDERS ARE OBTAINED. CM NOTIFIED DIRECTOR OLIVIA REINA PROVIDED PAPERWORK FROM [facility]. PT PLANS TO DISCHARGE HOME WITH SPOUSE, [employer] [facility] FOR DISCHARGE HOME. CM TO COMPLETE HOME HEALTH ARRANGEMENTS WITH PHYSICIAN AGREEMENT AND HOME HEALTH ORDERS. PT'S SPOUSE REQUESTING BEDSIDE COMMODE AND WALKER. CM TO ARRANGE WITH [facility] WITH PHYSICIAN AGREEMENT AND ORDERS. CM TO FOLLOW AND ASSIST NEEDED. Atomizer Assembler: Marv Polk IAP- Discharge Planning Updated by [id number]: Marv Polk on 10/05/18 8:[address] Patient Name: YENI CORNELIUS Encounter No: [id number] : 1950 Primary Insurance: [facility] MEDICARE SOLUTIONS Anticipated DC Date: 09-29-2018 Planned Disposition: Home with Home Health External Planned Provider: [facility] follow-up note: CM CALLED [facility] OF [employer] [facility], , TRILOGY HAS BEEN DELIVERED, SET UP AT PT'S HOME PER REQUEST OF SPOUSE, TEACHING HAS BEEN PROVIDED TO PT'S SPOUSE. PT'S SPOUSE INFORMED [facility] THAT THEY ALSO WANT A HOSPITAL BED, BEDSIDE COMMODE AND WALKER FOR HOME USE. PT PLANS TO DISCHARGE HOME WITH SPOUSE, WANTS [employer] [facility] FOR DISCHARGE HOME. CM TO COMPLETE HOME HEALTH ARRANGEMENTS WITH PHYSICIAN AGREEMENT AND HOME HEALTH ORDERS. PT'S SPOUSE REQUESTING HOSPITAL BED, BEDSIDE COMMODE AND WALKER. CM TO ARRANGE WITH [facility] WITH PHYSICAL AGREEMENT AND ORDERS. CM TO FOLLOW AND ASSIST NEEDED. Atomizer Assembler: Marv Polk [facility]- Discharge Planning Updated by [id number]: Marv Polk on 10/01/18 2:[address] Patient Name: YENI CORNELIUS Encounter No: [id number] : 1950 Primary Insurance: [facility] MEDICARE SOLUTIONS Anticipated DC Date: 09-29-2018 Planned Disposition: Home with Home Health External Planned Provider: [facility] follow-up note: CM RECEIVED ORDER FOR TRILOGY. CM MET WITH PT IN ROOM DISCUSSED ORDER, PROVIDED PROVIDER LISTING. PT SIGNED CONSENT FOR [facility] HE ALREADY HAS OXYGEN AND NEBULIZER WITH THEM. CM CALLED [facility], , SPOKE TO CAYLA WHO TOOK TRILOGY ORDER. CM FAX TRILOGY ORDERS TO [facility] AT [phone]. [facility] TO PROCESS TRILOGY ORDER AND IF QUALIFIES, [facility] APPROVED. CM WAITING TRILOGY MACHINE PROCESSING AND DELIVERY FROM [facility]. PT PLANS TO DISCHARGE HOME WITH SPOUSE, WANTS [employer] [facility] FOR DISCHARGE HOME. CM TO COMPLETE HOME HEALTH ARRANGEMENTS WITH PHYSICIAN AGREEMENT AND HOME HEALTH ORDERS. CM TO FOLLOW AND ASSIST NEEDED. Atomizer Assembler: Marv Polk Appended by Marv Polk on 10/01/2018 15:12 CDT: CM SPOKE TO [facility] TOP DYEING MACHINE TENDER AT THE NURSES STATION, SHE HAS RECEIVED REFERRAL AND THEY CANNOT BILL PT'S INSURANCE FOR TRILOGY MACHINE. THEY FORWARDED THE REFERRAL TO [facility] IN [place]. CM SPOKE TO PT IN ROOM WHO REPORTS HE RATHER USE SOMEONE LOCAL. CM CALLED [facility], SPOKE TO KRISS WHO INFORMED CM THAT THEY CAN BILL PT'S INSURANCE. CM NOTIFIED PT IN ROOM, PT SIGNED CONSENT FOR [facility]. CM CALLED [facility], , NOTIFIED TO CANCEL REFERRAL. CM RECEIVED CALL FROM [facility] [employer] WHO ASKED CM WHY THE ORDER WAS CANCELLED. CM EXPLAINED. CM LATER RECEIVED CALL FROM [facility] [employer] WHO INFORMED CM THAT PT'S SPOUSE HAS BEEN CALLED AND SHE WANTS TO USE [facility] FOR THE TRILOGY AND THEY WILL PROCESS ORDER FOR DELIVERY TO HOSPITAL TOMORROW, 10-02-18, AND THEY WILL BE PROVIDING PT GREAT SERVICE AND SUPPORT AT HOME. CM CALLED AND SPOKE TO DORIS CORNELIUS, PT'S SPOUSE, , WHO VERIFIED CHOICE. CM SPOKE TO PT IN ROOM, DISCUSSED ABOVE, PT SIGNED CHOICE FOR [facility]. [facility], , TO PROCESS ORDER AND DELIVER TRILOGY MACHINE TO PT'S HOSPITAL ROOM TOMORROW. PT PLANS TO DISCHARGE HOME WITH SPOUSE, WANTS [facility] FOR DISCHARGE HOME. CM TO COMPLETE HOME HEALTH ARRANGEMENTS WITH PHYSICIAN AGREEMENT AND HOME HEALTH ORDERS. CM TO FOLLOW AND ASSIST NEEDED. Atomizer Assembler: Marv Polk DCP- Discharge Planning Updated by [id number]: Marv Polk on 09/29/18 3:[address] Patient Name: YENI CORNELIUS Admission Status: ER Accout number: [id number] Admission Date: 09-24-2018 : 1950 Admission Diagnosis:SHORTNESS OF BREATH Attending: ASHLYN LOPEZ Current LOS: 5 Anticipated DC Date: 09-29-2018 Planned Disposition: Home with Home Health Primary Insurance: [facility] MEDICARE SOLUTIONS PLANNED EXTERNAL PROVIDER: [employer] [facility] Discharge Planning Comments: CM MET WITH PT IN ROOM TO DISCUSS DISCHARGE PLANNING AND NEEDS. PT REPORTS LIVING AT HOME INDEPENDENTLY WITH SPOUSE. PT HAS HOME OXYGEN ONLY, CANE, NEBULIZER, AND WALKER FROM [facility]. PT HAS NO OUTSIDE SERVICES ASSISTING IN THE HOME. CM DISCUSSED AVAILABILITY OF HOME HEALTH, REHAB SERVICES AND MEDICAL EQUIPMENT. PT WOULD LIKE HOME HEALTH WITH [facility] FOR DISCHARGE HOME. PROVIDER LISTING GIVEN, CHOICE SIGNED FOR [facility] [employer] [facility]. PT DENIES OTHER DISCHARGE NEEDS AT THIS TIME, REPORTS HIS WILL PICK HIM UP FOR DISCHARGE HOME. IMPORTANT MESSAGE FROM MEDICARE PROVIDED AND EXPLAINED. PT PLANS TO DISCHARGE HOME WITH SPOUSE, WANTS [employer] [facility] FOR DISCHARGE HOME. CM TO COMPLETE HOME HEALTH ARRANGEMENTS WITH PHYSICIAN AGREEMENT AND HOME HEALTH ORDERS. CM TO FOLLOW AND ASSIST NEEDED. Atomizer Assembler: Marv Polk DCPIA - Discharge Planning Initial Assessment Updated by [id number]: Marv Polk on 10/05/18 2:36 pm * Is the patient Alert and Oriented? Yes * How many steps to enter\exit or inside your home? NONE * PCP [facility] - DR. VERAS * Pharmacy [facility] * Preadmission Environment Home with Family * ADLs Independent * Equipment Cane Nebulizer Oxygen Walker * Other Equipment HOME OXYGEN ONLY [facility] - PROVIDER * List name and contact numbers for known caregivers / representatives who currently or will assist patient after discharge: DORIS CORNELIUS, SPOUSE, * Verbal permission to speak to the caregivers and representatives has been obtained from the patient. Yes * Community resources currently utilized None * Please name any agencies selected above. NONE * Additional services required to return to the preadmission environment? No * Can the patient safely return to the preadmission environment? Yes * Has this patient been hospitalized within the prior 30 days at any hospital? No Coverage Notice Reviewer: [id number] Polk Notice Issued Date-Time: 09/29/2018 9:25 Notice Type: IM Discharge Notice Notice Delivered To: Patient Relationship to Patient: Track Laborer Name: Delivery Method: HAND - Hand Delivered Niurka Days: Prior Verbal Notification: Recipient Understood Notice: Yes Recipient Signature: Yes Med Rec Note Co-signed by Attending: Coverage Notice Comment: Reviewer: RASTA Polk Notice Issued Date-Time: 10/01/2018 14:55 Notice Type: Patient Choice Letter Notice Delivered To: Patient Relationship to Patient: Track Laborer Name: Delivery Method: PHONE - Phone Niurka Days: Prior Verbal Notification: Recipient Understood Notice: Yes Recipient Signature: Yes Med Rec Note Co-signed by Attending: Coverage Notice Comment: ELITE quality control director: RASTA Polk Notice Issued Date-Time: 10/01/2018 14:25 Notice Type: Patient Choice Letter Notice Delivered To: Patient Relationship to Patient: Track Laborer Name: Delivery Method: HAND - Hand Delivered Niurka Days: Prior Verbal Notification: Recipient Understood Notice: Yes Recipient Signature: Yes Med Rec Note Co-signed by Attending: Coverage Notice Comment: [place] Reviewer: [id number] Mindi Polk Notice Issued Date-Time: 10/01/2018 12:25 Notice Type: Patient Choice Letter Notice Delivered To: Patient Relationship to Patient: Track Laborer Name: Delivery Method: HAND - Hand Delivered Niurka Days: Prior Verbal Notification: Recipient Understood Notice: Yes Recipient Signature: Yes Med Rec Note Co-signed by Attending: Coverage Notice Comment: JUAN MANUEL Reviewer: [id number] Mindi Polk Notice Issued Date-Time: 09/29/2018 9:25 Notice Type: Patient Choice Letter Notice Delivered To: Patient Relationship to Patient: Track Laborer Name: Delivery Method: HAND - Hand Delivered Niurka Days: Prior Verbal Notification: Recipient Understood Notice: Yes Recipient Signature: Yes Med Rec Note Co-signed by Attending: Coverage Notice Comment: [facility] Last DP export: 10/08/18 7:39 am Patient Name: YENI CORNELIUS Page [id number] at 0847 All edits/amendments must be made on the electronic document DICTATION DATE: 10/08/18845 MOTION PICTURE ACTOR: TOMÁS 10/08/18845 RPT#: [id number] DC DATE: STATUS: ADM IN [facility] [address] [place] [address] END OF REPORT
[2018-10-08 09:30] VITALS: BP 166/87
--- NOTE | 2018-10-08 10:35 | NUR ---
I have reviewed this patient and I concur with the Shift Assessment completed by the Licensed Practical Nurse today this shift.
[2018-10-08 11:00] VITALS: BP 154/92
--- NOTE | 2018-10-08 11:35 | NUR ---
Rehab Note- Acute Inpatient Rehab prescreen order received. The patient has [facility] insurance and will require a PreAuth prior to an acute inpatient rehab stay. PreAuth has been started, Ref#[id number]. Will await for request for clinicals to be sent for review at this time. Will follow at this time. Thank you for this referral! Shayy Keenan RN Clinical Liaison, [facility] Rehab
--- NOTE | 2018-10-08 13:51 | NUR ---
PT HAS BEEN TALKING IN FULL SENTANCES AND HAVING COHEARENT CONVERSATIONS WITH IS FAMILY AND MYSELF. NO COMPLAINTS AT THIS TIME. CL IN REACH. SRX2.
--- NOTE | 2018-10-08 14:56 | NUR ---
PT RESTING COMFORTABLY FOR THE LAST HOUR. HAS BEEN UP ALL DAY. TRYING TO DISTURB LITTLE POSSIBLE.
--- NOTE | 2018-10-08 15:58 | NUR ---
OT NOTE: PT SEEN IN AM, SITTING ON EOB WITH ONLY A BRIEF ON. INITIALLY PT WAS VERY VERBAL, CONFUSED, BUT ABLE TO CARRY ON A SHORT CONVERSATION. BREAKFAST TRAY IN FRONT OF HIM, BUT HE REFUSED TO EAT OR DRINK. AFTER EXTENSIVE ENCOURAGEMENT, FINALLY AMBULATED PT TO TOILET, BRIEF WAS COMPLETELY WET. EXT TIME AND MOD ASSIST TO AMBULATE. CHANGED LINENS AND PROVIDED WASH CLOTH FOR PT TO WASH HANDS AND FACE. PT ABLE TO WASH FACE, BUT UNABLE TO DO REMAINDER OF BODY. VERY SLOW PROCESSING ( 10-12 SECONDS).. LONG ENOUGH TO FORGET WHAT HE WAS DOING. PT AGITATED AT TIMES, HE DID NOT WANT TO BATHE OR LIE DOWN..HOWEVER, EASILY RE DIRECTED. LISSETTE MACIAS, OTR/L
[2018-10-08 16:00] VITALS: BP 152/76
--- NOTE | 2018-10-08 16:09 | NUR ---
OT NOTE: PT COMPLETED BED MOB TASKS WITH MIN/MOD A. PT COMPLETED SIMPLE GROOMING TASK WITH MIN A. THANK YOU, ANN DELEON
--- NOTE | 2018-10-08 17:24 | NUR ---
PT ASLEEP THORUGH SUPPER. DID NOT DISTURB HE HAD NOT STARTED SLEEPING TILL SEVERAL HOURS AGO AFTER BEING UP MOST OF THE NIGHT. CL IN REACH. BED ALARM ON. SRX2.
[2018-10-08 20:00] VITALS: BP 167/91
--- NOTE | 2018-10-08 20:45 | NUR ---
INITIAL ROUNDS COMPLETED AT 1905 HRS. PT RESTING WITH EYES CLOSED WITH OWN BIPAP ON, RESP EVEN AND REGULAR. ASSESSMENT COMPLETED AT 1950 HRS. PT ALERT, ORIENTED TO PERSON AND PLACE. REORIENTED TO TIME. IV TO UPPER L ARM SL. LUNGS DIMINISHED IN BASES BILAT. [place]. FOLLOWS COMMANDS BUT SLOW TO RESPOND. SR UP X2, CALL LIGHT WITHIN REACH AND BED ALARM ON.
--- NOTE | 2018-10-08 22:48 | NUR ---
PM MEDS GIVEN. PT SWALLOWED WITHOUT DIFFICULTY. FSBS 171. PM INSULIN GIVEN PER S/S. SCHEDULED LEVEMIR GIVEN. PM SNACK SERVED. PT REFUSED TO WEAR BIPAP. O2 3LNC PLACED. PT INCONTINENT OF URINE. INCONTINENT CARE DONE. BED LINENS CHANGED. PT REPOSITIONED IN BED FOR COMFORT. PT ASKED TO CALL . PT KNEW PHONE NUMBER. PT SPOKE WITH . THIS NURSE ALSO SPOKE WITH SPOUSE AND INFORMED HER THAT THERE IS NO ORDERS FOR DC IN AM [facility] PT STATES THERE IS. SR UP X2, CALL LIGHT WITHIN REACH AND BED ALARM ON.
--- NOTE | 2018-10-09 00:16 | NUR ---
PT AWAKE; DENIES ANY DISCOMFORT. SR UP X2, CALL LIGHT WITHIN REACH AND BED ALARM ON.
--- NOTE | 2018-10-09 01:53 | NUR ---
PT RESTING WITH EYES CLOSED. RESP EVEN AND REGULAR. O2 3LNC. SR UP X2, CALL LIGHT WITHIN REACH AND BED ALARM ON.
--- NOTE | 2018-10-09 04:24 | NUR ---
PT INCONTINENT OF URINE. INCONTINENT CARE DONE. SR UP X2,CALL LIGHT WITHIN REACH AND BED ALARM ON.
[2018-10-09 04:39] VITALS: BP 142/78
--- NOTE | 2018-10-09 05:47 | NUR ---
VSS THROUGHOUT NIGHT. PT DENIED ANY DISCOMFORT. REFUSED TO WEAR TRILOGY MASK AT HS. NEEDS MET;WILL CONTINUE TO MONITOR.
[2018-10-09 05:54] LABS: BASOPHILS 0 % (0-2); EOSINOPHILS 0.1 % (0-7); HEMATOCRIT 39.2 % (42.0-54.0); HEMOGLOBIN 11.8 g/dL (13.5-17.5); IMMATURE GRANULOCYTES 0.4 % (0-5); LYMPHOCYTES 4.4 % (15-50); MCH 20.9 pg (26.0-34.0); MCHC 30.1 g/dL (31.0-37.0); MCV 69.4 fL (80.0-100.0); MONOCYTES 2.8 % (2-11); NEUTROPHILS 92.3 % (40-80); PLATELET COUNT 248 10x3/uL (130-400); RBC 5.65 10x6/uL (4.20-6.10); WBC 13.4 10x3/uL (4.8-10.8)
[2018-10-09 06:14] LABS: ALBUMIN 2.6 g/dL (3.4-5.0); ANION GAP 9.6 mmol/L (8-16); BILIRUBIN - TOTAL 0.77 mg/dL (0.2-1.3); CALCIUM 8.3 mg/dL (8.5-10.1); CREATININE - SERUM 1.3 mg/dL (0.6-1.3); POTASSIUM - SERUM 3.6 mmol/L (3.5-5.1); PROTEIN - SERUM 6.4 g/dL (6.4-8.2)
--- NOTE | 2018-10-09 06:53 | NUR ---
PT RESTING COMFORTABLY IN BED, WEARING TRIOLOGY AT THIS TIME. RESP EVEN AND NONLABORED. LT UPPER ARM IV SL. BEDSIDE RAILS X2, MONI ALARM ON, CALL LIGHT IN REACH, NAD NOTED, WILL CONTINUE PLAN OF CARE.
--- NOTE | 2018-10-09 08:22 | NUR ---
AM MEDS GIVEN AT THIS TIME. PT UP TO SIDE OF BED, EATING BREAKFAST, DENIES ANY NEEDS AT THIS TIME. CALL LIGHT IN REACH, NAD NOTED,W ILL CONTINUE TO MONITOR.
[2018-10-09 08:44] VITALS: BP 159/80
--- NOTE | 2018-10-09 10:29 | NUR ---
TRIED CALLING PT'S AND SHE IS UNAVAILABLE.
--- NOTE | 2018-10-09 11:53 | NUR ---
BLOOD SUGAR OF 213, 4UINITS OF INSULIN GIVEN PER S.S, PT DENIES ANY NEEDS AT THIS TIME. CALL LIGHT IN REACH, NAD NOTED, WILL CONTINUE TO MONITOR.
[2018-10-09 12:08] VITALS: BP 139/75
--- NOTE | 2018-10-09 14:50 | NUR ---
CALLED PHARMACY AND SPOKE WITH RAGHAV, INFORMED HER THAT I NEED ANOTHER LEVEMIR PEN FOR PT FOR PATRICK.
[2018-10-09 15:50] VITALS: BP 155/86
--- NOTE | 2018-10-09 16:18 | NUR ---
BLOOD SUGAR OF 215, 4UNITS OF INSULIN GIVEN PER S/S. PT UP TO SIDE OF BED, DENIES ANY NEEDS AT THIS TIME. CALL LIGHT IN REACH, NAD NOTED.
[2018-10-09 19:55] VITALS: BP 170/77
--- NOTE | 2018-10-09 20:35 | NUR ---
RECIEVED UP IN BED WITH EYES OPEN. PLEASANT AND SMILING. ASKED THIS NURSE "HOW ARE YOU". THIS NURSE TOOK CARE OF PT LAST WEEKEND. ORIENTED X4 AT THIS TIME. ASKING WHEN HE COULD LEAVE TOMORROW. STATED HIS DOCTOR HAD DISCHARGED HIM TODAY. UNSURE OF WHICH DOCTOR. EXPLAINED THAT HE HAD MORE THAN ON DOCTOR AND I WOULD HAVE TO LOOK. NO DISCHARGE ORDER AT SUNI TIME.
[2018-10-09 23:55] VITALS: BP 138/68
[2018-10-10 03:59] VITALS: BP 129/71
[2018-10-10 06:32] LABS: BASOPHILS 0 % (0-2); EOSINOPHILS 0.1 % (0-7); HEMATOCRIT 38.9 % (42.0-54.0); HEMOGLOBIN 11.8 g/dL (13.5-17.5); IMMATURE GRANULOCYTES 0.4 % (0-5); LYMPHOCYTES 9.8 % (15-50); MCH 20.9 pg (26.0-34.0); MCHC 30.3 g/dL (31.0-37.0); MONOCYTES 7.8 % (2-11); NEUTROPHILS 81.9 % (40-80); PLATELET COUNT 233 10x3/uL (130-400); RBC 5.64 10x6/uL (4.20-6.10); WBC 10.7 10x3/uL (4.8-10.8)
[2018-10-10 06:42] LABS: ALBUMIN 2.7 g/dL (3.4-5.0); ANION GAP 7.6 mmol/L (8-16); BILIRUBIN - TOTAL 0.58 mg/dL (0.2-1.3); CALCIUM 8.6 mg/dL (8.5-10.1); CARBON DIOXIDE 31.8 mmol/L (21.0-32.0); CREATININE - SERUM 1.5 mg/dL (0.6-1.3); POTASSIUM - SERUM 3.4 mmol/L (3.5-5.1); PROTEIN - SERUM 6.2 g/dL (6.4-8.2)
--- NOTE | 2018-10-10 07:13 | NUR ---
PT IN ROOM ON PHONE, STATES NO COMPLAINTS OR CONCERNS. A/O FOR ME. CL IN REACH, SRX2.
--- NOTE | 2018-10-10 07:54 | NUR ---
PT DECIDED HE WOULD BE LEAVING AND TOOK OFF DOWN THE WADE WONDERING, WITH HOME BIPAP MACHINE ON HIS SHOULDER. STATED HIS SON WAS GOING TO COME PICK HIM UP AND HE WAS LEAVING THIS MORNING. FINALLY GOT PT TO SIT AND CALM DOWN, WON'T BE HERE UNTIL LATER AND CONVINCED HIM TO WAIT FOR HIS DISCHARGE PLEASE. PT IS STILL DISGRUNTLED BUT CURRENTLY PARKED IN A WHEELCHAIR IN FRONT OF THE NURSES DESK SO THAT I CAN KEEP A CLOSER EYE ON HIM AND SO HE DOESN'T FEEL MORE SECLUDED.
[2018-10-10 08:09] VITALS: BP 143/83
--- NOTE | 2018-10-10 08:23 | NUR ---
PT FAMILY CAME TO VISIT AND STATED THAT THE PATIENT HAS A LONG STANDING HISTORY OF DEVOLVING INTO HIS CURRENT CONFUSED STATE EVERY TIME HE NEEDS A STINT. STATED THAT LAST TIME THEY KNEW HE HAD 70% BLOCKAGE. FAMILY IS REQUESTING THAT ANA MELGOZA SO THEY CAN MAKE SURE IT'S NOT ANOTHER HEART CATH ISSUE.
[2018-10-10 11:12] VITALS: BP 148/86
--- NOTE | 2018-10-10 14:30 | NUR ---
I have reviewed this patient and I concur with the Shift Assessment completed by the Licensed Practical Nurse today this shift.
[2018-10-10 16:12] VITALS: BP 153/80
--- NOTE | 2018-10-10 19:37 | NUR ---
ROUNDS COMPLETED. VSS. AAOX1. PT APPEARS CONFUSED, FOUND PT TRYING TO WALK OUT OF HIS ROOM. BED ALARM ON. BUT FAMILY FOUND SEEM TO HAVE FOUND A WAY TO TURN BOTH BED AND MOIN ALARM OFF. EDUCATE FAMILY ON THE IMPORTANCE OF THE BED ALARM. FAMILY STATES PT SEEM TO BE MORE CONFUSED AT HS. DISCOLARATION TO RLE. PT DENIES ANY PAIN AT THIS TIME. FAMILY AT BEDSIDE O2 2L. PT DENIES ANY FURTHER NEEDS AT THIS TIME. WILL CTM. CL IN REACH, BED IN LOW, SR UP X2. MONI ARM ON.
[2018-10-10 20:38] VITALS: BP 151/68
--- NOTE | 2018-10-11 03:00 | NUR ---
PT IN BED WITH EYES CLOSED. TRILOGY BIPAP ON. WILL CPOC.
[2018-10-11 04:57] VITALS: BP 122/53
[2018-10-11 06:33] LABS: BASOPHILS 0 % (0-2); EOSINOPHILS 0.4 % (0-7); HEMATOCRIT 39.2 % (42.0-54.0); HEMOGLOBIN 11.7 g/dL (13.5-17.5); IMMATURE GRANULOCYTES 0.4 % (0-5); LYMPHOCYTES 16.5 % (15-50); MCH 20.9 pg (26.0-34.0); MCHC 29.8 g/dL (31.0-37.0); MCV 69.9 fL (80.0-100.0); MONOCYTES 7.5 % (2-11); NEUTROPHILS 75.2 % (40-80); PLATELET COUNT 246 10x3/uL (130-400); RBC 5.61 10x6/uL (4.20-6.10); RDW 22.1 % (11.5-14.5); WBC 9.8 10x3/uL (4.8-10.8)
[2018-10-11 06:53] LABS: ALBUMIN 2.5 g/dL (3.4-5.0); ANION GAP 6.5 mmol/L (8-16); BILIRUBIN - TOTAL 0.55 mg/dL (0.2-1.3); CALCIUM 8.3 mg/dL (8.5-10.1); CREATININE - SERUM 1.3 mg/dL (0.6-1.3); POTASSIUM - SERUM 3.5 mmol/L (3.5-5.1); PROTEIN - SERUM 5.7 g/dL (6.4-8.2)
[2018-10-11 08:23] VITALS: BP 173/87
--- NOTE | 2018-10-11 08:30 | NUR ---
PT RESTING IN BED, SHIFT ASSESSMENT PERFORMED. PT ORIENTED TO NAME AND ONLY. MONI ALARM ON AND TESTED. DENIES PAIN AT THIS TIME. CALL LIGHT WITHIN REACH. WILL CONT TO FOLLOW POC
[2018-10-11 11:57] VITALS: BP 138/64
--- NOTE | 2018-10-11 14:46 | CN ---
PATIENT NAME:YENI CORNELIUS MEDICAL RECORD: [id number] : 54 LOCATION:.[facility].2128 ADMIT DATE: 09/24/18 ACCOUNT: [id number] CONSULTING PHYSICIAN: JENA HU MD REFERRING PHYSICIAN: ASHLYN LOPEZ MD DATE OF CONSULTATION: 10/10/2018 PSYCHIATRIC CONSULTATION IDENTIFYING DATA: The patient is 67 years old and he is admitted to the hospital secondary to multiple medical problems. CHIEF COMPLAINT: Confusion and agitation. HISTORY OF PRESENT ILLNESS: The patient is unfortunately critically ill. He has been admitted to the hospital secondary to an exacerbation of underlying COPD. He has chronic respiratory failure with hypoxia. He also has congestive heart failure, coronary artery disease, hypertension, diabetes, Parkinson's disease, and myopathy. The patient is experiencing symptoms of delirium, some confusion, some agitation, and some restlessness. Given his current medical state, it is really not possible to determine what his baseline level of functioning was, but it is clear that this is a worsening of his underlying symptoms. He at times has been agitated, but he has not been threatening or aggressive from what I can discern from scanning the physician and nursing notes. MENTAL STATUS: The patient is awake, alert, and partially oriented. His mood is anxious. His affect is constricted. Thought processes are disorganized. There are no thoughts of harming himself or others and no overt psychotic symptoms. ASSESSMENT: Delirium. PLAN: The patient is clearly delirious secondary to multiple factors. Obviously, the treatment is to correct underlying metabolic conditions and improve his hypoxia. Unfortunately, the use of steroids is worsening the condition. I am going to take a fairly subtle approach to him since I do not want to suppress his respirations by sedating him. I am going to recommend and in fact have ordered Trilafon at bedtime along with p.r.n. use of Geodon. He will also receive Cymbalta on a scheduled basis. I think his long-term prognosis is guarded and his mental status will clearly improve once his underlying metabolic symptoms resolve and the steroids can be discontinued. TRANSINT:[id number] Voice Confirmation ID: [id number] DOCUMENT ID: [id number] JENA HU MD at 1442 CC: [id number] DICTATION DATE: 10/10/18 1110 FIRE TOWER KEEPER: 10/10/18 1223 ADM IN [facility] 0 [facility]
[2018-10-11 15:40] VITALS: BP 146/61
--- NOTE | 2018-10-11 18:18 | NUR ---
PT RESTING IN CHAIR. MONI ALARM ON AND TESTED. DENIES ANY OTHER NEEDS AT THIS TIME.WILL CONT TO FOLLOW POC
--- NOTE | 2018-10-11 19:11 | NUR ---
RECIEVED UP IN BED WITH EYES OPEN AND TV ON. ALERT AND ORIENTED X4. AMBULATED WITH SBA. REMAINS INCONT OF URINE. O2 @ 2L PER N/C. DENIES ANY NEEDS AT THIS TIME.
[2018-10-11 20:46] VITALS: BP 154/76
[2018-10-12] VITALS (7 sets, daily range): BP systolic 132–158; BP diastolic 67–82
[2018-10-12 07:04] LABS: ALBUMIN 2.6 g/dL (3.4-5.0); BILIRUBIN - TOTAL 0.79 mg/dL (0.2-1.3); CALCIUM 8.1 mg/dL (8.5-10.1); CARBON DIOXIDE 30.2 mmol/L (21.0-32.0); CREATININE - SERUM 1.1 mg/dL (0.6-1.3); POTASSIUM - SERUM 3.2 mmol/L (3.5-5.1); PROTEIN - SERUM 5.7 g/dL (6.4-8.2)
--- NOTE | 2018-10-12 07:10 | NUR ---
RECEIVED SITTING UP ON SIDE OF BED. RESP EVEN WITHOUT LABOR O2 ON ALERT ANSWERS TO NAME AND IN FULL SENTENCES. CL IN REACH. SKIN W/D WILL CONTINUE WITH PLAN OF CARE.
[2018-10-12 07:13] LABS: HEMATOCRIT 39.2 % (42.0-54.0); HEMOGLOBIN 11.9 g/dL (13.5-17.5); MCH 20.8 pg (26.0-34.0); MCHC 30.4 g/dL (31.0-37.0); MCV 68.5 fL (80.0-100.0); PLATELET COUNT 267 10x3/uL (130-400); RBC 5.72 10x6/uL (4.20-6.10); RDW 22.4 % (11.5-14.5)
[2018-10-12 07:50] LABS: BASOPHILS 1 % (0-2); EOSINOPHILS 1 % (0-7); LYMPHOCYTES 13 % (15-50); MONOCYTES 10 % (2-11); NEUTROPHILS 74 % (40-80); PLATELET ESTIMATE NORMAL
--- NOTE | 2018-10-12 09:00 | NUR ---
ASSESSMENT COMPLETE WITH NO C/O AT THIS TIME. RESP EVEN WITHOUT LABOR SKIN W/D SITTING UP ON SIDE OF BED WITH BED ALARM ON AND NON-SKID SOCKS CL IN REACH
--- NOTE | 2018-10-12 10:17 | MORECARE ---
CASE MANAGEMENT DISCHARGE SUMMARY PATIENT: YENI CORNELIUS UNIT: [id number] ADM DATE: 09/24/18 AGE: 67 : [birth year] SEX: M ROOM/BED: D.2128 AUTHOR: ROSE MARY TOBIN PHYSICIAN: REFERRING PHYSICIAN: ASHLYN LOPEZ MD DATE OF SERVICE: 10/12/18 Discharge Plan Patient Name: YENI CORNELIUS Facility: [facility]:[place] : 1950 Planned Disposition: Inpatient Rehab Anticipated Discharge Date: 10/11/18 Discharge Date: Expected LOS: 17 Initial Reviewer: [id number] Initial Review Date: 09/24/2018 Generated: 10/12/18 11:16 am Comments DCP- Discharge Planning Updated by [id number]: April Chase on 10/12/18 9:[address] Patient Name: YENI CORNELIUS Encounter No: [id number] : 1950 Primary Insurance: [employer] MEDICARE SOLUTIONS Anticipated DC Date: 10-11-2018 Planned Disposition: Inpatient Rehab External Planned Provider: [facility] INPATIENT REHAB DCP follow-up note: CM RECEIVED CALL FROM ADRIAN OF INPATIENT REHAB AT [facility], PATIENTS INSURANCE HAS APPROVED INPATIENT REHAB. CM NOTIFIED PT IN ROOM WHO IS WILLING FOR REHAB AT [facility]. IMPORTANT MESSAGE FROM MEDICARE PROVIDED AND EXPLAINED. PT REPORTS THAT DR. RODRIGUEZ DISCUSSED POSSIBLE TRANSFER TO [facility] DUE TO STOKE, PT STATES HE WILL DO WHAT THE DOCTOR THINKS BEST. CM NOTIFED EMILIANO JAY OF INSURANCE AUTHORIZATION FOR INPATIENT REHAB. PT'S INSURANCE HAS AUTHORIZED INPATIENT REHAB SERVICES AT [facility]. CM WAITING MEDICAL STABILITY FOR DISCHARGE TO REHAB. NOTIFY INPATIENT REHAB WHEN READY TO DISCHARGE. April Chase CASE MANAGEMENT DCP- Discharge Planning Updated by [id number]: April Chase on 10/08/18 7:[address] Patient Name: YENI CORNELIUS Admission Status: ER Accout number: [id number] Admission Date: 09-24-2018 : 1950 Admission Diagnosis:SHORTNESS OF BREATH Attending: ASHLYN LOPEZ Current LOS: 14 Anticipated DC Date: 10-11-2018 Planned Disposition: Inpatient Rehab Primary Insurance: C MEDICARE SOLUTIONS PLANNED EXTERNAL PROVIDER: [facility] INPATIENT REHAB Discharge Planning Comments: CM CALLED AND SPOKE TO DORIS CORNELIUS, PT'S SPOUSE, , DISCUSSED DISCHARGE PLANNING. REPORTS THEY ARE INTERESTED IN REHAB SERVICES PRIOR TO GOING HOME WITH [facility]. CM DISCUSSED AVAILABILITY OF REHAB SERVICES, PROVIDERS AND LOCATIONS. REPORTS THEY WANT TO TRY TO GET PT INTO [facility] INPATIENT REHAB AND IF DECLINED, SECOND CHOICE WOULD BE [facility] DUE TO IT BEING CLOSE TO PT'S HOME. CHOICE LETTER COMPLETED. CM OBTAINED ORDER FOR INPATIENT REHAB PRESCREENING. CM WAITING COMPLETION OF INPATIENT REHAB PRESCREENING WELL INSURANCE DETERMINATION FOR INPATIENT REHAB SERVICES. APRIL CHASE, CASE MANAGEMENT DCP- Discharge Planning Updated by [id number]: April Chase on 10/07/18 4:[address] Patient Name: YENI CORNELIUS Encounter No: [id number] : 1950 Primary Insurance: [facility] MEDICARE SOLUTIONS Anticipated DC Date: 09-29-2018 Planned Disposition: REHAB PLACEMENT External Planned Provider: TO BE DETERMINED DCP follow-up note: CM ATTEMPTED TO SEE PT'S SPOUSE IN ROOM, PT REFERS CM TO HIS SPOUSE FOR DISCHARGE PLANNING. CM SPOKE TO EMILIANO BLUM WHO INDICATED PT WILL NEED REHAB. CM CALLED PT'S SPOUSE, LEFT MESSAGE ASKING FOR RETURN CALL. CM MET WITH PT IN ROOM AT ABOUT 1700 HOURS, PT'S ON IN LAW PRESENT. HE TRIED TO GET PT'S SPOUSE VIA PHONE WITHOUT SUCCESS AND REPORTS THAT THE PT'S SPOUSE AND DAUGHTER ARE CONSIDERING REHAB. CM LEFT MESSAGE WITH SON IN LAW ASKING PT'S SPOUSE TO CALL CM TO DISCUSS DISCHARGE PLANNING. PT WAS ONLY ABLE TO GIVE ONE OR TWO WORD ANSWERS TO A FEW QUESTIONS AND GENERALLY STARED STRAIGHT AHEAD IF NOT HEARING QUESTIONS. CM WAITING ON PT'S SPOUSE TO RETURN CM CALL TO DISCUSS REHAB PLACEMENT AND DISCHARGE PLANNING. April Chase. CASE MANAGEMENT DCP- Discharge Planning Updated by [id number]: April Chase on 10/06/18 3:[address] Patient Name: YENI CORNELIUS Encounter No: [id number] : 1950 Primary Insurance: [facility] MEDICARE SOLUTIONS Anticipated DC Date: 09-29-2018 Planned Disposition: Home with Home Health External Planned Provider: [facility] DCP follow-up note: CM RECEIVED CALL FROM PT'S SPOUSE, , WHO INFORMED CM THAT SHE BROUGHT THE TRILOGY FROM HOME BUT STAFF BROKE IT IN ROOM, SHE HAS CONTACTED [facility]BA OF [facility] TO COME AND REPLACE THE BROKEN MASK. REPORTED PLAN FOR PT TO GO HOME AND DOES NOT WANT HOSPITAL BED, BUT THINKS SHE MAY NEED A NEW WALKER AND BEDSIDE COMMODE. CM LATER MET WITH [facility]BA OF [facility], , TRILOGY HAS BEEN REPAIRED; [facility] PROVIDED CM WITH INVOICE AND INFORMED CM THAT THE HOSPITAL NEEDS TO PAY FOR THE REPLACEMENT STAFF BROKE IT; [facility] REPORTS THE BEDSIDE NURSE SIGNED THE WRITTEN STATEMENT ON THE INVOICE AND THE NURSES AIDE INITIALE THE STATEMENT. [facility] REPORTS THEY CAN DELIVER BEDSIDE COMMODE AND WALKER FOR HOME USE IF NEEDED AND ORDERS ARE OBTAINED. CM NOTIFIED DIRECTOR OLIVIA REINA PROVIDED PAPERWORK FROM [facility]. PT PLANS TO DISCHARGE HOME WITH SPOUSE, WANTS [facility] FOR DISCHARGE HOME. CM TO COMPLETE HOME HEALTH ARRANGEMENTS WITH PHYSICIAN AGREEMENT AND HOME HEALTH ORDERS. PT'S SPOUSE REQUESTING BEDSIDE COMMODE AND WALKER. CM TO ARRANGE WITH [facility] WITH PHYSICIAN AGREEMENT AND ORDERS. CM TO FOLLOW AND ASSIST NEEDED. Director Heart: April Chase [facility]- Discharge Planning Updated by [id number]: April Chase on 10/05/18 8:[address] Patient Name: YENI CORNELIUS Encounter No: [id number] : 1950 Primary Insurance: [facility] MEDICARE SOLUTIONS Anticipated DC Date: 09-29-2018 Planned Disposition: Home with Home Health External Planned Provider: [facility] follow-up note: CM CALLED [facility]BA OF [facility], , TRILOGY HAS BEEN DELIVERED, SET UP AT PT'S HOME PER REQUEST OF SPOUSE, TEACHING HAS BEEN PROVIDED TO PT'S SPOUSE. PT'S SPOUSE INFORMED [facility] THAT THEY ALSO WANT A HOSPITAL BED, BEDSIDE COMMODE AND WALKER FOR HOME USE. PT PLANS TO DISCHARGE HOME WITH SPOUSE, WANTS [facility] FOR DISCHARGE HOME. CM TO COMPLETE HOME HEALTH ARRANGEMENTS WITH PHYSICIAN AGREEMENT AND HOME HEALTH ORDERS. PT'S SPOUSE REQUESTING HOSPITAL BED, BEDSIDE COMMODE AND WALKER. CM TO ARRANGE WITH [facility] WITH PHYSICAL AGREEMENT AND ORDERS. CM TO FOLLOW AND ASSIST NEEDED. Director Heart: April Chase NHP- Discharge Planning Updated by [id number]: April Chase on 10/01/18 2:[address] Patient Name: YENI CORNELIUS Encounter No: [id number] : 1950 Primary Insurance: [facility] MEDICARE SOLUTIONS Anticipated DC Date: 09-29-2018 Planned Disposition: Home with Home Health External Planned Provider: [facility] DCP follow-up note: CM RECEIVED ORDER FOR TRILOGY. CM MET WITH PT IN ROOM DISCUSSED ORDER, PROVIDED PROVIDER LISTING. PT SIGNED CONSENT FOR [facility] HE ALREADY HAS OXYGEN AND NEBULIZER WITH THEM. CM CALLED [facility], , SPOKE TO CAYLA WHO TOOK TRILOGY ORDER. CM FAX TRILOGY ORDERS TO [facility] AT [phone]. [facility] TO PROCESS TRILOGY ORDER AND IF QUALIFIES, DELIVER TO [facility] WHEN APPROVED. CM WAITING TRILOGY MACHINE PROCESSING AND DELIVERY FROM [facility]. PT PLANS TO DISCHARGE HOME WITH SPOUSE, WANTS [facility] FOR DISCHARGE HOME. CM TO COMPLETE HOME HEALTH ARRANGEMENTS WITH PHYSICIAN AGREEMENT AND HOME HEALTH ORDERS. CM TO FOLLOW AND ASSIST NEEDED. Director Heart: April Chase Appended by April Chase on 10/01/2018 15:12 CDT: CM SPOKE TO [facility] STAMP CLASSIFIER AT THE NURSES STATION, SHE HAS RECEIVED REFERRAL AND THEY CANNOT BILL PT'S INSURANCE FOR TRILOGY MACHINE. THEY FORWARDED THE REFERRAL TO [facility] IN [place]. CM SPOKE TO PT IN ROOM WHO REPORTS HE RATHER USE SOMEONE LOCAL. CM CALLED [facility], SPOKE TO KRISS WHO INFORMED CM THAT THEY CAN BILL PT'S INSURANCE. CM NOTIFIED PT IN ROOM, PT SIGNED CONSENT FOR [facility]. CM CALLED [facility], , NOTIFIED TO CANCEL REFERRAL. CM RECEIVED CALL FROM [facility] WHO ASKED CM WHY THE ORDER WAS CANCELLED. CM EXPLAINED. CM LATER RECEIVED CALL FROM [facility] WHO INFORMED CM THAT PT'S SPOUSE HAS BEEN CALLED AND SHE WANTS TO USE [facility] FOR THE TRILOGY AND THEY WILL PROCESS ORDER FOR DELIVERY TO HOSPITAL TOMORROW, 10-02-18, AND THEY WILL BE PROVIDING PT GREAT SERVICE AND SUPPORT AT HOME. CM CALLED AND SPOKE TO ASHLI, PT'S SPOUSE, , WHO VERIFIED CHOICE. CM SPOKE TO PT IN ROOM, DISCUSSED ABOVE, PT SIGNED CHOICE FOR [facility]. [facility], , TO PROCESS ORDER AND DELIVER TRILOGY MACHINE TO PT'S HOSPITAL ROOM TOMORROW. PT PLANS TO DISCHARGE HOME WITH SPOUSE, WANTS [facility] FOR DISCHARGE HOME. CM TO COMPLETE HOME HEALTH ARRANGEMENTS WITH PHYSICIAN AGREEMENT AND HOME HEALTH ORDERS. CM TO FOLLOW AND ASSIST NEEDED. Director Heart: April Chase DCP- Discharge Planning Updated by [id number]: April Chase on 09/29/18 3:[address] Patient Name: YENI CORNELIUS Admission Status: ER Accout number: [id number] Admission Date: 09-24-2018 : 1950 Admission Diagnosis:SHORTNESS OF BREATH Attending: ASHLYN LOPEZ Current LOS: 5 Anticipated DC Date: 09-29-2018 Planned Disposition: Home with Home Health Primary Insurance: [facility] MEDICARE SOLUTIONS PLANNED EXTERNAL PROVIDER: [facility] Discharge Planning Comments: CM MET WITH PT IN ROOM TO DISCUSS DISCHARGE PLANNING AND NEEDS. PT REPORTS LIVING AT HOME INDEPENDENTLY WITH SPOUSE. PT HAS HOME OXYGEN ONLY, CANE, NEBULIZER, AND WALKER FROM [facility]. PT HAS NO OUTSIDE SERVICES ASSISTING IN THE HOME. CM DISCUSSED AVAILABILITY OF HOME HEALTH, REHAB SERVICES AND MEDICAL EQUIPMENT. PT WOULD LIKE HOME HEALTH WITH [facility] FOR DISCHARGE HOME. PROVIDER LISTING GIVEN, CHOICE SIGNED FOR [facility]. PT DENIES OTHER DISCHARGE NEEDS AT THIS TIME, REPORTS HIS WILL PICK HIM UP FOR DISCHARGE HOME. IMPORTANT MESSAGE FROM MEDICARE PROVIDED AND EXPLAINED. PT PLANS TO DISCHARGE HOME WITH SPOUSE, WANTS [facility] FOR DISCHARGE HOME. CM TO COMPLETE HOME HEALTH ARRANGEMENTS WITH PHYSICIAN AGREEMENT AND HOME HEALTH ORDERS. CM TO FOLLOW AND ASSIST NEEDED. Director Heart: April Chase DCPIA - Discharge Planning Initial Assessment Updated by [id number]: April Chase on 10/05/18 2:36 pm * Is the patient Alert and Oriented? Yes * How many steps to enter\exit or inside your home? NONE * PCP [facility] - DR. VERAS * Pharmacy [facility] * Preadmission Environment Home with Family * ADLs Independent * Equipment Cane Nebulizer Oxygen Walker * Other Equipment HOME OXYGEN ONLY [facility] - PROVIDER * List name and contact numbers for known caregivers / representatives who currently or will assist patient after discharge: DORIS CORNELIUS, SPOUSE, * Verbal permission to speak to the caregivers and representatives has been obtained from the patient. Yes * Community resources currently utilized None * Please name any agencies selected above. NONE * Additional services required to return to the preadmission environment? No * Can the patient safely return to the preadmission environment? Yes * Has this patient been hospitalized within the prior 30 days at any hospital? No Coverage Notice Reviewer: RASTA Chase Notice Issued Date-Time: 09/29/2018 9:25 Notice Type: Patient Choice Letter Notice Delivered To: Patient Relationship to Patient: Bass Guitar Teacher Name: Delivery Method: HAND - Hand Delivered Niurka Days: Prior Verbal Notification: Recipient Understood Notice: Yes Recipient Signature: Yes Med Rec Note Co-signed by Attending: Coverage Notice Comment: [facility] Reviewer: [id number] Chase Notice Issued Date-Time: 09/29/2018 9:25 Notice Type: IM Discharge Notice Notice Delivered To: Patient Relationship to Patient: Bass Guitar Teacher Name: Delivery Method: HAND - Hand Delivered Niurka Days: Prior Verbal Notification: Recipient Understood Notice: Yes Recipient Signature: Yes Med Rec Note Co-signed by Attending: Coverage Notice Comment: Reviewer: RASTA Chase Notice Issued Date-Time: 10/01/2018 12:25 Notice Type: Patient Choice Letter Notice Delivered To: Patient Relationship to Patient: Bass Guitar Teacher Name: Delivery Method: HAND - Hand Delivered Niurka Days: Prior Verbal Notification: Recipient Understood Notice: Yes Recipient Signature: Yes Med Rec Note Co-signed by Attending: Coverage Notice Comment: JUAN MANUEL Reviewer: [id number] Chase Notice Issued Date-Time: 10/01/2018 14:25 Notice Type: Patient Choice Letter Notice Delivered To: Patient Relationship to Patient: Bass Guitar Teacher Name: Delivery Method: HAND - Hand Delivered Niurka Days: Prior Verbal Notification: Recipient Understood Notice: Yes Recipient Signature: Yes Med Rec Note Co-signed by Attending: Coverage Notice Comment: [place] Reviewer: [id number] Chase Notice Issued Date-Time: 10/01/2018 14:55 Notice Type: Patient Choice Letter Notice Delivered To: Patient Relationship to Patient: Bass Guitar Teacher Name: Delivery Method: PHONE - Phone Niurka Days: Prior Verbal Notification: Recipient Understood Notice: Yes Recipient Signature: Yes Med Rec Note Co-signed by Attending: Coverage Notice Comment: TANA track sweeper: [id number] Chase Notice Issued Date-Time: 10/08/2018 8:15 Notice Type: Patient Choice Letter Notice Delivered To: Family Member Relationship to Patient: Spouse Bass Guitar Teacher Name: DORIS CORNELIUS Delivery Method: HAND - Hand Delivered Niurka Days: Prior Verbal Notification: Recipient Understood Notice: Yes Recipient Signature: Yes Med Rec Note Co-signed by Attending: Coverage Notice Comment: Reviewer: [id number] - April Chase Notice Issued Date-Time: 10/12/2018 9:53 Notice Type: IM Discharge Notice Notice Delivered To: Patient Relationship to Patient: Bass Guitar Teacher Name: Delivery Method: HAND - Hand Delivered Niurka Days: Prior Verbal Notification: Recipient Understood Notice: Yes Recipient Signature: Yes Med Rec Note Co-signed by Attending: Coverage Notice Comment: Last DP export: 10/08/18 7:47 am Patient Name: YENI CORNELIUS Page [id number] at 1017 All edits/amendments must be made on the electronic document DICTATION DATE: 10/12/18 1016 SWIM COACH: TOMÁS 10/12/18 1016 RPT#: [id number] DC DATE: STATUS: ADM IN [facility] [address] [place] [address] END OF REPORT
--- NOTE | 2018-10-12 11:44 | NUR ---
Rehab Note- Received call from Amaya with [facility] stating that the patient had been approved and given auth for inpatient acute rehab stay. Auth #[id number]. Spoke with CHALO Chance. Thank you for this referral! Shayy Keenan RN CLinical Liaison, [facility] Rehab
--- NOTE | 2018-10-12 13:54 | NUR ---
LYING SUPINE IN BED WITH RESP EVEN WITHOUT LABOR AROUSES EASILY RESP EVEN WITHOUT LABOR O2 REPLACED AT THIS TIME AND CONTINUE TO ENCOURAGE HIM TO WEAR IT NO CHANGE IN STATUS CL IN REACH
--- NOTE | 2018-10-12 14:15 | NUR ---
Nutrition Follow Up Diabetic diet with 100,75,100% intake of meals yesterday-intake varies Glucerna ordered with meals and pt has Glucerna on bedside table Weight 202.8lb BG 51,101 today-spoke with nursing RD following
--- NOTE | 2018-10-12 19:00 | NUR ---
PATIENT LAYING IN BED. NO COMPLAINTS AT THIS TIME. NO DISTRESS NOTED.
--- NOTE | 2018-10-12 19:44 | NUR ---
OT NOTE: PT SITTING UP IN BED. MUCH MORE VERBAL TODAY. ABLE TO PERFORM BED MOB WITH SPV; REMAINS CONFUSED AND DISORIENTED. SIT TO STAND WITH MIN ASSIST; IN ROOM AMBULATION WITH MIN ASSIST, GAIT BELT , AND WALKER. ALSO AMB APPROX 100 FT IN HALLWAY TO IMPROVE FUNCTIONAL ENDURANCE. ABLE TO ALEXANDR AND DOFF BRIEF WITH MIN ASSIST. SINK HYGIENE WITH USE OF WALKER AND VERBAL CUES FOR SAFETY WITH MIN ASSIST. LISSETTE MACIAS, OTR/L
--- NOTE | 2018-10-13 04:40 | NUR ---
I have reviewed this patient and I concur with the Shift Assessment completed by the Licensed Practical Nurse today this shift.
[2018-10-13 04:54] VITALS: BP 150/97
[2018-10-13 04:57] LABS: BASOPHILS 0 % (0-2); EOSINOPHILS 1.7 % (0-7); HEMATOCRIT 41.5 % (42.0-54.0); HEMOGLOBIN 12.6 g/dL (13.5-17.5); IMMATURE GRANULOCYTES 0.6 % (0-5); LYMPHOCYTES 16.9 % (15-50); MCHC 30.4 g/dL (31.0-37.0); MCV 69.1 fL (80.0-100.0); MONOCYTES 8.5 % (2-11); NEUTROPHILS 72.3 % (40-80); PLATELET COUNT 232 10x3/uL (130-400); RBC 6.01 10x6/uL (4.20-6.10); RDW 22.4 % (11.5-14.5); WBC 8.5 10x3/uL (4.8-10.8)
[2018-10-13 05:04] VITALS: BP 146/87
[2018-10-13 05:24] LABS: ALBUMIN 2.8 g/dL (3.4-5.0); ANION GAP 9.2 mmol/L (8-16); BILIRUBIN - TOTAL 0.94 mg/dL (0.2-1.3); CALCIUM 8.3 mg/dL (8.5-10.1); CARBON DIOXIDE 29.4 mmol/L (21.0-32.0); CREATININE - SERUM 1.2 mg/dL (0.6-1.3); POTASSIUM - SERUM 3.6 mmol/L (3.5-5.1); PROTEIN - SERUM 6.4 g/dL (6.4-8.2)
--- NOTE | 2018-10-13 07:10 | NUR ---
REPORT RECIEVED FROM REAL ESTATE INSTRUCTOR. PATIENT LAYING IN BED ON BACK WITH EYES CLOSED AND BREATHING EVENLY O2 PER NC. VSS. PATIENT IS STABLE. WILL CONTINTINUE WITH PLAN OF CARE.
--- NOTE | 2018-10-13 07:10 | NUR ---
REPORT RECEIVED FROM BLOW TORCH OPERATOR AND PATIENT CARE ASSUMED. PATIENT IS AWAKE, ALERT AND ORIENTED X 3. VSS AND PATIENT IS STABLE. PATIENT DENIES ANY NEEDS OR PAIN. WILL CONTINUE WITH PLAN OF CARE.SR UP X 2 BED IN LOW POSITION AND CALL LIGHT IN REACH. BED ALARM TESTED AND WORKING.
[2018-10-13 07:37] VITALS: BP 138/78
[2018-10-13] MEDS ORDERED: PERPHENAZINE2 MG PO (11:18)
[2018-10-13] MEDS ORDERED: CYMBALTA20 MG PO (11:19)
[2018-10-13 11:31] VITALS: BP 146/84
--- NOTE | 2018-10-13 12:43 | MORECARE ---
CASE MANAGEMENT DISCHARGE SUMMARY PATIENT: YENI CORNELIUS UNIT: [id number] ADM DATE: 09/24/18 AGE: 67 : [birth year] SEX: M ROOM/BED: D.2128 AUTHOR: ROSE MARY TOBIN PHYSICIAN: REFERRING PHYSICIAN: ASHLYN LOPEZ MD DATE OF SERVICE: 10/13/18 Discharge Plan Patient Name: YENI CORNELIUS Facility: [facility]:[employer] : 1950 Planned Disposition: Inpatient Rehab Anticipated Discharge Date: 10/13/18 Discharge Date: Expected LOS: 19 Initial Reviewer: [id number] Initial Review Date: 09/24/2018 Generated: 10/13/18 1:43 pm Comments DCP- Discharge Planning Updated by [id number]: Marv Polk on 10/13/18 11:[address] Patient Name: YENI CORNELIUS Encounter No: [id number] : 1950 Primary Insurance: [employer] Anticipated DC Date: 10-11-2018 Planned Disposition: Inpatient Rehab External Planned Provider:[facility] DCP follow-up note: CM RECEIVED DISCHARGE ORDER TO REHAB, CALLED DORIS CORNELIUS, SPOUSE, , LEFT DETAILED MESSAGE NOTIFYING OF REHAB DISCHARGE TODAY AND LEFT CM CONTACT NUMBER FOR RETURN CALL IF NECESSARY. CM SPOKE TO ADRIAN OF INPATIENT REHAB, THEY PLAN TO ACCEPT PT TODAY FOR REHAB. PT NOTIFIED, IN AGREEMENT WITH DISCHARGE TO INPATIENT REHAB, STATES HE SPOKE TO HIS VIA PHONE THIS MORNING AND SHE KNOWS WHAT IS GOING ON. [facility] TO CONTACT MED 2 NURSE WITH ROOM NUMBER WHEN READY TO ACCEPT PT AND NURSE REPORT. Marv Polk, CASE MANAGEMENT DCP- Discharge Planning Updated by [id number]: Marv Polk on 10/12/18 9:[address] Patient Name: YENI CORNELIUS Encounter No: [id number] : 1950 Primary Insurance: [employer] Anticipated DC Date: 10-11-2018 Planned Disposition: Inpatient Rehab External Planned Provider: [facility] DCP follow-up note: CM RECEIVED CALL FROM ADRIAN OF INPATIENT REHAB AT [place], PATIENTS INSURANCE HAS APPROVED INPATIENT REHAB. CM NOTIFIED PT IN ROOM WHO IS WILLING FOR REHAB AT [facility]. IMPORTANT MESSAGE FROM MEDICARE PROVIDED AND EXPLAINED. PT REPORTS THAT DR. RODRIGUEZ DISCUSSED POSSIBLE TRANSFER TO [facility] DUE TO STOKE, PT STATES HE WILL DO WHAT THE DOCTOR THINKS BEST. CM NOTIFED EMILIANO JAY OF INSURANCE AUTHORIZATION FOR INPATIENT REHAB. PT'S INSURANCE HAS AUTHORIZED INPATIENT REHAB SERVICES AT [facility]. CM WAITING MEDICAL STABILITY FOR DISCHARGE TO REHAB. NOTIFY INPATIENT REHAB WHEN READY TO DISCHARGE. JANELLE Meza MANAGEMENT DCP- Discharge Planning Updated by [id number]: Marv Polk on 10/08/18 7:[address] Patient Name: YENI CORNELIUS Admission Status: ER Accout number: [id number] Admission Date: 09-24-2018 : 1950 Admission Diagnosis:SHORTNESS OF BREATH Attending: ASHLYN LOPEZ Current LOS: 14 Anticipated DC Date: 10-11-2018 Planned Disposition: Inpatient Rehab Primary Insurance: [employer] PLANNED EXTERNAL PROVIDER: [facility] Discharge Planning Comments: CM CALLED AND SPOKE TO DORIS CORNELIUS, PT'S SPOUSE, , DISCUSSED DISCHARGE PLANNING. REPORTS THEY ARE INTERESTED IN REHAB SERVICES PRIOR TO GOING HOME WITH [facility]. CM DISCUSSED AVAILABILITY OF REHAB SERVICES, PROVIDERS AND LOCATIONS. REPORTS THEY WANT TO TRY TO GET PT INTO [facility] AND IF DECLINED, SECOND CHOICE WOULD BE [facility] DUE TO IT BEING CLOSE TO PT'S HOME. CHOICE LETTER COMPLETED. CM OBTAINED ORDER FOR INPATIENT REHAB PRESCREENING. CM WAITING COMPLETION OF INPATIENT REHAB PRESCREENING WELL INSURANCE DETERMINATION FOR INPATIENT REHAB SERVICES. JANELLE MEZA DCP- Discharge Planning Updated by [id number]: Marv Polk on 10/07/18 4:[address] Patient Name: YENI CORNELIUS Encounter No: [id number] : 1950 Primary Insurance: [employer] Anticipated DC Date: 09-29-2018 Planned Disposition: REHAB PLACEMENT External Planned Provider: TO BE DETERMINED DCP follow-up note: CM ATTEMPTED TO SEE PT'S SPOUSE IN ROOM, PT REFERS CM TO HIS SPOUSE FOR DISCHARGE PLANNING. CM SPOKE TO EMILIANO BLUM WHO INDICATED PT WILL NEED REHAB. CM CALLED PT'S SPOUSE, LEFT MESSAGE ASKING FOR RETURN CALL. CM MET WITH PT IN ROOM AT ABOUT 1700 HOURS, PT'S ON IN LAW PRESENT. HE TRIED TO GET PT'S SPOUSE VIA PHONE WITHOUT SUCCESS AND REPORTS THAT THE PT'S SPOUSE AND DAUGHTER ARE CONSIDERING REHAB. CM LEFT MESSAGE WITH SON IN LAW ASKING PT'S SPOUSE TO CALL CM TO DISCUSS DISCHARGE PLANNING. PT WAS ONLY ABLE TO GIVE ONE OR TWO WORD ANSWERS TO A FEW QUESTIONS AND GENERALLY STARED STRAIGHT AHEAD IF NOT HEARING QUESTIONS. CM WAITING ON PT'S SPOUSE TO RETURN CM CALL TO DISCUSS REHAB PLACEMENT AND DISCHARGE PLANNING. Marv Polk. CASE MANAGEMENT DCP- Discharge Planning Updated by [id number]: Marv Polk on 10/06/18 3:[address] Patient Name: YENI CORNELIUS Encounter No: [id number] : 1950 Primary Insurance: [employer] Anticipated DC Date: 09-29-2018 Planned Disposition: Home with Home Health External Planned Provider: [facility] DCP follow-up note: CM RECEIVED CALL FROM PT'S SPOUSE, , WHO INFORMED CM THAT SHE BROUGHT THE TRILOGY FROM HOME BUT STAFF BROKE IT IN ROOM, SHE HAS CONTACTED [facility] TO COME AND REPLACE THE BROKEN MASK. REPORTED PLAN FOR PT TO GO HOME AND DOES NOT WANT HOSPITAL BED, BUT THINKS SHE MAY NEED A NEW WALKER AND BEDSIDE COMMODE. CM LATER MET WITH [facility] OF [facility] [place], , TRILOGY HAS BEEN REPAIRED; [facility] PROVIDED CM WITH INVOICE AND INFORMED CM THAT THE HOSPITAL NEEDS TO PAY FOR THE REPLACEMENT STAFF BROKE IT; [facility] REPORTS THE BEDSIDE NURSE SIGNED THE WRITTEN STATEMENT ON THE INVOICE AND THE NURSES AIDE INITIALE THE STATEMENT. [facility] REPORTS THEY CAN DELIVER BEDSIDE COMMODE AND WALKER FOR HOME USE IF NEEDED AND ORDERS ARE OBTAINED. CM NOTIFIED DIRECTOR OLIVIA REINA PROVIDED PAPERWORK FROM [facility]. PT PLANS TO DISCHARGE HOME WITH SPOUSE, WANTS [facility] FOR DISCHARGE HOME. CM TO COMPLETE HOME HEALTH ARRANGEMENTS WITH PHYSICIAN AGREEMENT AND HOME HEALTH ORDERS. PT'S SPOUSE REQUESTING BEDSIDE COMMODE AND WALKER. CM TO ARRANGE WITH [facility] WITH PHYSICIAN AGREEMENT AND ORDERS. CM TO FOLLOW AND ASSIST NEEDED. Clinical Education Assistant: Marv Polk DCP- Discharge Planning Updated by [id number]: Marv Polk on 10/05/18 8:[address] Patient Name: YENI CORNELIUS Encounter No: [id number] : 1950 Primary Insurance: [employer] Anticipated DC Date: 09-29-2018 Planned Disposition: Home with Home Health External Planned Provider: [facility] DCP follow-up note: CM CALLED [facility] OF [facility], , TRILOGY HAS BEEN DELIVERED, SET UP AT PT'S HOME PER REQUEST OF SPOUSE, TEACHING HAS BEEN PROVIDED TO PT'S SPOUSE. PT'S SPOUSE INFORMED [facility] THAT THEY ALSO WANT A HOSPITAL BED, BEDSIDE COMMODE AND WALKER FOR HOME USE. PT PLANS TO DISCHARGE HOME WITH SPOUSE, WANTS [facility] FOR DISCHARGE HOME. CM TO COMPLETE HOME HEALTH ARRANGEMENTS WITH PHYSICIAN AGREEMENT AND HOME HEALTH ORDERS. PT'S SPOUSE REQUESTING HOSPITAL BED, BEDSIDE COMMODE AND WALKER. CM TO ARRANGE WITH [facility] WITH PHYSICAL AGREEMENT AND ORDERS. CM TO FOLLOW AND ASSIST NEEDED. Clinical Education Assistant: Marv Polk DCP- Discharge Planning Updated by [id number]: Marv Polk on 10/01/18 2:[address] Patient Name: YENI CORNELIUS Encounter No: [id number] : 1950 Primary Insurance: [employer] Anticipated DC Date: 09-29-2018 Planned Disposition: Home with Home Health External Planned Provider: [facility] DCP follow-up note: CM RECEIVED ORDER FOR TRILOGY. CM MET WITH PT IN ROOM DISCUSSED ORDER, PROVIDED PROVIDER LISTING. PT SIGNED CONSENT FOR [facility] HE ALREADY HAS OXYGEN AND NEBULIZER WITH THEM. CM CALLED [facility], , SPOKE TO CAYLA WHO TOOK TRILOGY ORDER. CM FAX TRILOGY ORDERS TO [facility] AT [phone]. [facility] TO PROCESS TRILOGY ORDER AND IF QUALIFIES, DELIVER TO HOPITAL ROOM WHEN APPROVED. CM WAITING TRILOGY MACHINE PROCESSING AND DELIVERY FROM [facility]. PT PLANS TO DISCHARGE HOME WITH SPOUSE, WANTS [facility] FOR DISCHARGE HOME. CM TO COMPLETE HOME HEALTH ARRANGEMENTS WITH PHYSICIAN AGREEMENT AND HOME HEALTH ORDERS. CM TO FOLLOW AND ASSIST NEEDED. Clinical Education Assistant: Marv Polk Appended by Marv Polk on 10/01/2018 15:12 CDT: CM SPOKE TO [facility] APARTMENT LEASING SPECIALIST AT THE NURSES STATION, SHE HAS RECEIVED REFERRAL AND THEY CANNOT BILL PT'S INSURANCE FOR TRILOGY MACHINE. THEY FORWARDED THE REFERRAL TO [facility] IN [place]. CM SPOKE TO PT IN ROOM WHO REPORTS HE RATHER USE SOMEONE LOCAL. CM CALLED [facility], SPOKE TO KRISS WHO INFORMED CM THAT THEY CAN BILL PT'S INSURANCE. CM NOTIFIED PT IN ROOM, PT SIGNED CONSENT FOR [facility]. CM CALLED [facility], , NOTIFIED TO CANCEL REFERRAL. CM RECEIVED CALL FROM [facility] WHO ASKED CM WHY THE ORDER WAS CANCELLED. CM EXPLAINED. CM LATER RECEIVED CALL FROM [facility] WHO INFORMED CM THAT PT'S SPOUSE HAS BEEN CALLED AND SHE WANTS TO USE [facility] FOR THE TRILOGY AND THEY WILL PROCESS ORDER FOR DELIVERY TO HOSPITAL TOMORROW, 10-02-18, AND THEY WILL BE PROVIDING PT GREAT SERVICE AND SUPPORT AT HOME. CM CALLED AND SPOKE TO DORIS CORNELIUS, PT'S SPOUSE, , WHO VERIFIED CHOICE. CM SPOKE TO PT IN ROOM, DISCUSSED ABOVE, PT SIGNED CHOICE FOR [facility]. [facility], , TO PROCESS ORDER AND DELIVER TRILOGY MACHINE TO PT'S HOSPITAL ROOM TOMORROW. PT PLANS TO DISCHARGE HOME WITH SPOUSE, WANTS [facility] FOR DISCHARGE HOME. CM TO COMPLETE HOME HEALTH ARRANGEMENTS WITH PHYSICIAN AGREEMENT AND HOME HEALTH ORDERS. CM TO FOLLOW AND ASSIST NEEDED. Clinical Education Assistant: Marv Polk DCP- Discharge Planning Updated by [id number]: Marv Polk on 09/29/18 3:[address] Patient Name: YENI CORNELIUS Admission Status: ER Accout number: [id number] Admission Date: 09-24-2018 : 1950 Admission Diagnosis:SHORTNESS OF BREATH Attending: ASHLYN LOPEZ Current LOS: 5 Anticipated DC Date: 09-29-2018 Planned Disposition: Home with Home Health Primary Insurance: [employer] PLANNED EXTERNAL PROVIDER: [facility] Discharge Planning Comments: CM MET WITH PT IN ROOM TO DISCUSS DISCHARGE PLANNING AND NEEDS. PT REPORTS LIVING AT HOME INDEPENDENTLY WITH SPOUSE. PT HAS HOME OXYGEN ONLY, CANE, NEBULIZER, AND WALKER FROM [facility]. PT HAS NO OUTSIDE SERVICES ASSISTING IN THE HOME. CM DISCUSSED AVAILABILITY OF HOME HEALTH, REHAB SERVICES AND MEDICAL EQUIPMENT. PT WOULD LIKE HOME HEALTH WITH [facility] FOR DISCHARGE HOME. PROVIDER LISTING GIVEN, CHOICE SIGNED FOR [facility]. PT DENIES OTHER DISCHARGE NEEDS AT THIS TIME, REPORTS HIS WILL PICK HIM UP FOR DISCHARGE HOME. IMPORTANT MESSAGE FROM MEDICARE PROVIDED AND EXPLAINED. PT PLANS TO DISCHARGE HOME WITH SPOUSE, WANTS [facility] FOR DISCHARGE HOME. CM TO COMPLETE HOME HEALTH ARRANGEMENTS WITH PHYSICIAN AGREEMENT AND HOME HEALTH ORDERS. CM TO FOLLOW AND ASSIST NEEDED. Clinical Education Assistant: Marv Polk DCPIA - Discharge Planning Initial Assessment Updated by RASTA: Marv Polk on 10/05/18 2:36 pm * Is the patient Alert and Oriented? Yes * How many steps to enter\exit or inside your home? NONE * PCP [facility] - DR. VERAS * Pharmacy [facility] * Preadmission Environment Home with Family * ADLs Independent * Equipment Cane Nebulizer Oxygen Walker * Other Equipment HOME OXYGEN ONLY [facility] - PROVIDER * List name and contact numbers for known caregivers / representatives who currently or will assist patient after discharge: DORIS CORNELIUS, SPOUSE, * Verbal permission to speak to the caregivers and representatives has been obtained from the patient. Yes * Community resources currently utilized None * Please name any agencies selected above. NONE * Additional services required to return to the preadmission environment? No * Can the patient safely return to the preadmission environment? Yes * Has this patient been hospitalized within the prior 30 days at any hospital? No Coverage Notice Reviewer: [id number] Mindi Polk Notice Issued Date-Time: 09/29/2018 9:25 Notice Type: Patient Choice Letter Notice Delivered To: Patient Relationship to Patient: Vulcanized Fiber Unit Operator Name: Delivery Method: HAND - Hand Delivered Niurka Days: Prior Verbal Notification: Recipient Understood Notice: Yes Recipient Signature: Yes Med Rec Note Co-signed by Attending: Coverage Notice Comment: [facility] Reviewer: [id number] Mindi Polk Notice Issued Date-Time: 09/29/2018 9:25 Notice Type: IM Discharge Notice Notice Delivered To: Patient Relationship to Patient: Vulcanized Fiber Unit Operator Name: Delivery Method: HAND - Hand Delivered Niurka Days: Prior Verbal Notification: Recipient Understood Notice: Yes Recipient Signature: Yes Med Rec Note Co-signed by Attending: Coverage Notice Comment: Reviewer: [id number] Polk Notice Issued Date-Time: 10/01/2018 12:25 Notice Type: Patient Choice Letter Notice Delivered To: Patient Relationship to Patient: Vulcanized Fiber Unit Operator Name: Delivery Method: HAND - Hand Delivered Niurka Days: Prior Verbal Notification: Recipient Understood Notice: Yes Recipient Signature: Yes Med Rec Note Co-signed by Attending: Coverage Notice Comment: JUAN MANUEL Reviewer: [id number] Mindi Polk Notice Issued Date-Time: 10/01/2018 14:25 Notice Type: Patient Choice Letter Notice Delivered To: Patient Relationship to Patient: Vulcanized Fiber Unit Operator Name: Delivery Method: HAND - Hand Delivered Niurka Days: Prior Verbal Notification: Recipient Understood Notice: Yes Recipient Signature: Yes Med Rec Note Co-signed by Attending: Coverage Notice Comment: [place] Reviewer: [id number] Mindi Polk Notice Issued Date-Time: 10/01/2018 14:55 Notice Type: Patient Choice Letter Notice Delivered To: Patient Relationship to Patient: Vulcanized Fiber Unit Operator Name: Delivery Method: PHONE - Phone Niurka Days: Prior Verbal Notification: Recipient Understood Notice: Yes Recipient Signature: Yes Med Rec Note Co-signed by Attending: Coverage Notice Comment: TANA FLORENCEcanoe builder: [id number] Mindi Polk Notice Issued Date-Time: 10/08/2018 8:15 Notice Type: Patient Choice Letter Notice Delivered To: Family Member Relationship to Patient: Spouse Vulcanized Fiber Unit Operator Name: DORIS CORNELIUS Delivery Method: HAND - Hand Delivered Niurka Days: Prior Verbal Notification: Recipient Understood Notice: Yes Recipient Signature: Yes Med Rec Note Co-signed by Attending: Coverage Notice Comment: Reviewer: [id number] Polk Notice Issued Date-Time: 10/12/2018 9:53 Notice Type: IM Discharge Notice Notice Delivered To: Patient Relationship to Patient: Vulcanized Fiber Unit Operator Name: Delivery Method: HAND - Hand Delivered Niurka Days: Prior Verbal Notification: Recipient Understood Notice: Yes Recipient Signature: Yes Med Rec Note Co-signed by Attending: Coverage Notice Comment: Last DP export: 10/12/18 9:16 am Patient Name: YENI CORNELIUS Page [id number] at 1243 All edits/amendments must be made on the electronic document DICTATION DATE: 10/13/18 1242 BUTTON RECLAIMER: TOMÁS 10/13/18 1242 RPT#: [id number] DC DATE: STATUS: ADM IN [facility] [address] [place] [address] END OF REPORT
--- NOTE | 2018-10-13 15:00 | NUR ---
PATIENT IS STABLE AND VSS. ORDER RECEIVED FOR PATIENT FOR DC TO INPATIENT REHAB. WRITTEN AND VERBAL INSTRUCTIONS GIVEN. PATIENT VERBALIZED UNDERSTANDING AND SIGNED PAPERWORK . REPORT CALLED TO [facility] ON REHAB UNIT. PATIENT TRANSPORTED TO REHAB VIA AND HOPSITAL PERSONNEL. ALL PERSONAL BELONGINGS TAKEN WITH HIM.
--- NOTE | 2018-10-13 15:40 | NUR ---
OT NOTE: PT MORE ORIENTED AND LESS CONFUSED THIS AM. ABLE TO AMB IN ROOM WITH WALKER AND MIN ASSIST. AMB TO BATHROOM AND ABLE TO DEMONSTRATE TOILET TRANSFER WITH MIN ASSIST ( PT PREVIOUSLY INCONTINENT OF BLADDER )..SIMPLE GROOMING AND HYGIENE WITH SET UP AND VERBAL CUES. PT SCHEDULED FOR DC TO IP REHAB WHEN BED AVAILABLE. LISSETTE MACIAS, OTR/L
--- NOTE | 2018-10-13 15:46 | NUR ---
OT NOTE: PT AT [facility] WITH MIN A. PT COMPLETED BED MOB TASKS WITH CGA. PT COMPLETED FACE WASHING WITH SET UP. THANK YOU, NEL DELEON
[2018-11-01] MEDS ORDERED: HYDROCODON-ACE1 EAC2 PO (04:41)
[2018-11-01] MEDS ORDERED: CYMBALTA60 MG PO (04:41)
[2018-11-09] MEDS ORDERED: FLAGYL500 MG PO (10:07)
[2018-11-09] MEDS ORDERED: BETAPACE 120 M120 MG PO (10:08)
== END 2018-10-13 17:16 | DRG 291 ==
LOC: D.ER 11:06 → D.M2 14:23 → D.EDHOLD 14:23 → D.M2 14:38
PROVIDERS: Family Medicine; Family Medicine Adult Medicine; Internal Medicine Nephrology; Internal Medicine Pulmonary Disease; ADMIT Family Medicine; ATTEND Family Medicine
PROC: 5A09457 Assistance with Respiratory Ventilation, 24-96 Consecutive Hours, Continuous Positive Airway Pressure (ICD-10-PCS; principal; 2018-09-26)
DX: I13.0 Hypertensive heart and chronic kidney disease with heart failure and stage 1 through stage 4 chronic kidney disease, or unspecified chronic kidney disease (principal); J96.01 Acute respiratory failure with hypoxia; I50.23 Acute on chronic systolic (congestive) heart failure; J44.1 Chronic obstructive pulmonary disease with (acute) exacerbation; E87.0 Hyperosmolality and hypernatremia; N18.9 Chronic kidney disease, unspecified; E11.22 Type 2 diabetes mellitus with diabetic chronic kidney disease; D50.9 Iron deficiency anemia, unspecified; E87.6 Hypokalemia; I25.10 Atherosclerotic heart disease of native coronary artery without angina pectoris; G47.33 Obstructive sleep apnea (adult) (pediatric); G20 Parkinson's disease; I25.5 Ischemic cardiomyopathy; I08.1 Rheumatic disorders of both mitral and tricuspid valves; R41.0 Disorientation, unspecified; Z86.73 Personal history of transient ischemic attack (TIA), and cerebral infarction without residual deficits; Z87.891 Personal history of nicotine dependence

== ENCOUNTER 2018-10-13 14:56 | Inpatient (IN) | payer MEDICARE, MEDICAID ==
[~2018-10-13 14:56] MED LIST changes: +ALBUTEROL SULF8.5 GM INH; +AMBIEN5 MG PO; +COZAAR100 MG PO; +CYMBALTA20 MG PO; +FUROSEMIDE40 MG PO; +HYDROCHLOROTHIA25 MG PO; +HYTRIN5 MG PO; +PERPHENAZINE2 MG PO; +SYMBICORT 16010.2 GM INH
--- NOTE | 2018-10-13 16:00 | NUR ---
PT ARRIVED TO UNIT VIA WHEELCHAIR ACCOMPANIED BY HOSPITAL STAFF. PT IS A&O AND NON COMPLIANT TO CALL LIGHT. PT INSISTS THAT HE DOES NOT NEED TO CALL FOR ASSISTANCE. PT ASSESSMENT COMPLETE AT THIS TIME.
--- NOTE | 2018-10-13 16:23 | NUR ---
PATIENT ADMITTED TO REHAB FROM ACUTE FLOOR. DR. VERAS IS PATIENT PCP. DME AT HOME IS O2, CANE, NEBULIZER AND WALKER. AT DISCHARGE PATIENT WOULD LIKE TO HAVE [facility]. WILL CONTINUE TO FOLLOW WITH PATIENT.
[2018-10-13 17:14] VITALS: BP 141/80; BMI 32.5
--- NOTE | 2018-10-13 17:50 | NUR ---
PT HAS GOTTEN UP MULTIPLE TIMES WITHOUT USING THE CALL LIGHT. PT WAS LOUD AND CURSED AT [facility], [facility], WHEN HE WAS TOLD HE NEEDED TO USE THE CALL LIGHT BEFORE GETTING UP.
--- NOTE | 2018-10-13 19:05 | NUR ---
PATIENT IS CONFUSED. HE CONTINUES TO SET OFF CHAIR ALARM, STATES HE "IS GOING TO SHAVE" OR THAT HE "IS GOING HOME." REDIRECTED ONCE AGAIN AND TAKEN BACK TO HIS CHAIR. HIS GAIT IS UNSTEADY. CHAIR ALARM ACTIVATED AND CALL LIGHT IN REACH.
[2018-10-13 20:30] VITALS: BP 135/75
[2018-10-13 22:00] VITALS: BP 114/45
--- NOTE | 2018-10-14 00:01 | NUR ---
PATIENT IS SLEEPING. BED IS DOWN LOW WITH SIDE RAILS UP X2. CALL LIGHT IS IN REACH. BED ALARM IS ACTIVATED.
--- NOTE | 2018-10-14 04:01 | NUR ---
PATIENT IS SLEEPING.
[2018-10-14 06:04] LABS: BASOPHILS 0 % (0-2); EOSINOPHILS 2.6 % (0-7); HEMATOCRIT 34.6 % (42.0-54.0); HEMOGLOBIN 10.5 g/dL (13.5-17.5); IMMATURE GRANULOCYTES 0.6 % (0-5); LYMPHOCYTES 26.3 % (15-50); MCH 20.8 pg (26.0-34.0); MCHC 30.3 g/dL (31.0-37.0); MCV 68.5 fL (80.0-100.0); NEUTROPHILS 56.5 % (40-80); PLATELET COUNT 186 10x3/uL (130-400); RBC 5.05 10x6/uL (4.20-6.10); RDW 22.6 % (11.5-14.5); WBC 5.4 10x3/uL (4.8-10.8)
[2018-10-14 06:08] LABS: CALCIUM 8.2 mg/dL (8.5-10.1); CARBON DIOXIDE 28.3 mmol/L (21.0-32.0); CREATININE - SERUM 1.2 mg/dL (0.6-1.3); POTASSIUM - SERUM 3.3 mmol/L (3.5-5.1)
--- NOTE | 2018-10-14 06:36 | NUR ---
LAB CALLED WITH A GLUCOSE OF 56. AT THE SAME TIME LAB ROB PATIENT'S BLOOD THE BLOOD SUGAR WAS 58 VIA GLUCOMETER. OJ X 1 GIVEN. FOLLOW UP BLOOD SUGAR IS 75.
--- NOTE | 2018-10-14 08:15 | NUR ---
PT RESTING IN BED WITH EYES OPEN CALL LIGHT IN REACH NO PROBLEMS WILL MONITER.PT EATING BREAKFAST TOLERATING WELL
--- NOTE | 2018-10-14 10:00 | NUR ---
IN THERAPY.LILLIAN WELL.
[2018-10-14 12:00] VITALS: BMI 32.5
--- NOTE | 2018-10-14 17:42 | NUR ---
PT RESTING IN BED WITH EYES OPEN CALL LIGHT IN REACH NO PROBLEMS WILL MONITER
[2018-10-14 20:10] VITALS: BP 93/57
--- NOTE | 2018-10-14 20:16 | NUR ---
AWAKE AND ALERT. SITTING IN WHEELCHAIR IN ROOM. RESPIRATIONS UNLABORED. NO DISTRESS NOTED. CALL LIGHT IN REACH.
--- NOTE | 2018-10-15 02:38 | NUR ---
INCONTINENT OF URINE AND HAD LEG HANGING OFF BED. REPOSITIONED FOR COMFORT AND INCONTINENCE CARE PERFORMED. NOW RESTING QUIETLY WITH NO DISTRESS NOTED.
--- NOTE | 2018-10-15 04:55 | NUR ---
QUIET HOURS. NO ACUTE CHANGES IN CONDITION THIS SHIFT. NO DISTRESS NOTED.
[2018-10-15 06:59] LABS: BASOPHILS 0 % (0-2); EOSINOPHILS 1.4 % (0-7); HEMATOCRIT 35.3 % (42.0-54.0); HEMOGLOBIN 10.7 g/dL (13.5-17.5); IMMATURE GRANULOCYTES 0.4 % (0-5); LYMPHOCYTES 25.4 % (15-50); MCH 20.9 pg (26.0-34.0); MCHC 30.3 g/dL (31.0-37.0); MCV 68.8 fL (80.0-100.0); NEUTROPHILS 60.8 % (40-80); PLATELET COUNT 210 10x3/uL (130-400); RBC 5.13 10x6/uL (4.20-6.10); RDW 22.3 % (11.5-14.5)
[2018-10-15 07:01] LABS: ANION GAP 9.8 mmol/L (8-16); CALCIUM 8.3 mg/dL (8.5-10.1); CARBON DIOXIDE 27.9 mmol/L (21.0-32.0)
[2018-10-15 07:04] LABS: CREATININE - SERUM 1.6 mg/dL (0.6-1.3); POTASSIUM - SERUM 3.7 mmol/L (3.5-5.1)
[2018-10-15 07:11] LABS: WBC 7.1 10x3/uL (4.8-10.8)
--- NOTE | 2018-10-15 08:17 | NUR ---
PT RESTING IN BED WITH EYES OPEN CALL LIGHT IN REACH NO PROBLEMS WILL MONITER
--- NOTE | 2018-10-15 15:42 | NUR ---
PT RESTING IN BED WITH EYES OPEN CALL LIGHT IN REACH WILL MONITER
--- NOTE | 2018-10-15 16:49 | NUR ---
LAYING ON RIGHT SIDE IN BED WATCHING TV AND READING MAGAZINE. DENIES NEEDS OR C/O. CALL LIGHT IN REACH
--- NOTE | 2018-10-15 18:00 | NUR ---
I have reviewed this patient and I concur with the Shift Assessment completed by the Licensed Practical Nurse today this shift.
[2018-10-15 19:07] VITALS: BP 121/67
--- NOTE | 2018-10-15 19:17 | NUR ---
RESTING IN BED WITH RESPIRATIONS UNLABORED. SUPPER TRAY AT BEDSIDE BUT HE HAD NOT EATEN ANY OF IT. I ASK HIM IF HE WAS OK AND HE STATED "YEAH IM JUST SLEEPY". I ENCOURAGED HIM TO TRY TO EAT SOME OF HIS MEAL. HE STATED "OKAY I WILL". NO ACUTE DISTRESS NOTED. CALL LIGHT IN REACH.
--- NOTE | 2018-10-15 19:53 | NUR ---
NOW ALERT SITTING IN WHEELCHAIR EATING HIS SUPPER. NO DISTRESS NOTED.
--- NOTE | 2018-10-16 03:10 | NUR ---
RESTING IN BED WITH EYES CLOSED AND RESPIRATIONS UNLABORED. NO DISTRESS NOTED.
--- NOTE | 2018-10-16 05:44 | NUR ---
QUIET HOURS. RESPIRATIONS UNLABORED. NO CHANGES IN CONDITION NOTED THIS SHIFT.
--- NOTE | 2018-10-16 08:00 | NUR ---
PT EATING BREAKFAST, DENIES NEEDS. WCTM.
[2018-10-16 08:30] VITALS: BP 109/54
--- NOTE | 2018-10-16 09:15 | NUR ---
PT AM MEDS ADMINISTERED. PT DENIES NEEDS. WCTM.
--- NOTE | 2018-10-16 19:11 | NUR ---
PATIENT IS SITTING UP IN HIS WHEEL CHAIR. HE DENIES ANY NEEDS AT THIS TIME. CALL LIGHT IS IN REACH.
[2018-10-16 20:00] VITALS: BP 106/70
--- NOTE | 2018-10-17 00:01 | NUR ---
PATIENT IS SLEEPING.
--- NOTE | 2018-10-17 04:01 | NUR ---
PATIENT IS SLEEPING WHILE SITTING UIP IN WHEELCHAIR NEXT TO HIS BED. CALL LIGHT IS IN REACH.
--- NOTE | 2018-10-17 07:28 | NUR ---
ALERT WITH CONFUSION AT TIMES. RESP EVEN AND UNLABORED. CL IN REACH. NO DISTRESS NOTED.
[2018-10-17 08:52] VITALS: BP 127/71
--- NOTE | 2018-10-17 14:27 | NUR ---
NO CHANGE IN ASSESSMENT. LEFT ON DAY PASS WITH . PERMISSION PIPE FITTER WELDING PER DR METZGER TO GO WITH FAMILY AND TO RETURN IN A FEW HOURS.
--- NOTE | 2018-10-17 17:33 | NUR ---
STILL OUT ON DAY PASS.
--- NOTE | 2018-10-17 19:00 | NUR ---
PATIENT REMAINS OUT ON PASS WITH HIS SPOUSE.
--- NOTE | 2018-10-17 20:00 | NUR ---
PATIENT REMAINS OUT ON PASS WITH HIS SPOUSE.
--- NOTE | 2018-10-17 20:37 | NUR ---
PT OFF THE FLOOR TX NOT GIVEN
--- NOTE | 2018-10-17 21:00 | NUR ---
PATIENT REMAINS OUT ON PASS WITH HIS SPOUSE.
--- NOTE | 2018-10-17 21:37 | NUR ---
2136: PATIENT REMAINS OUT ON PASS. ATTEMP TO REACH PATIENT'S SON TERESA. MESSAGE LEFT FOR TERESA TO CALL BACK. 2137: FAMILY MEMBER REACHED WHO GAVE mRS. ISIDRO'S PHONE NUMBER. 2138: CALLED MRS. CORNELIUS AND LEFT MESSAGE FOR HER TO CALL NURSE. 2156: mRS. CORNELIUS WALKED ON TO THE UNIT. SHE IS ANGRAY AND STATES SHE LET HER OUT "UP FRONT" BECAUSE SHE HAD TO GO THROUGH ER AND WHEN SHE WENT BACK FOR MR. ISIDRO'S HE WAS GONE. SHE STATES THAT WE NEVER SHOULD HAVE LET HIM GO OUT ON PASS, AND SHE WILL GO LOOK FOR HIM. 2199: PATIENT ARRIVED BACK TO REHAB UNIT WITH HIS SPOUSE.
--- NOTE | 2018-10-17 22:00 | NUR ---
PATIENT IS NOW BACK IN HIS ROOM. BLOOD SUGAR AND VITAL SIGNS CHECKED. HE IS ABOUT TO TAKE HIS 2100 MEDICATIONS AND EAT A [employer] LEAD [employer]AD FOR DINNER.
[2018-10-17 22:10] VITALS: BP 173/85
[2018-10-18 06:17] LABS: BASOPHILS 0.2 % (0-2); EOSINOPHILS 0.6 % (0-7); HEMATOCRIT 32.8 % (42.0-54.0); HEMOGLOBIN 10.1 g/dL (13.5-17.5); IMMATURE GRANULOCYTES 0.4 % (0-5); MCH 21.1 pg (26.0-34.0); MCHC 30.8 g/dL (31.0-37.0); MCV 68.6 fL (80.0-100.0); MONOCYTES 8.8 % (2-11); PLATELET COUNT 204 10x3/uL (130-400); RBC 4.78 10x6/uL (4.20-6.10); RDW 22.5 % (11.5-14.5); WBC 4.9 10x3/uL (4.8-10.8)
[2018-10-18 06:30] LABS: ANION GAP 10.6 mmol/L (8-16); CALCIUM 8.5 mg/dL (8.5-10.1); CARBON DIOXIDE 27.2 mmol/L (21.0-32.0); CREATININE - SERUM 1.3 mg/dL (0.6-1.3); POTASSIUM - SERUM 3.8 mmol/L (3.5-5.1)
[2018-10-18 08:07] VITALS: BP 150/80
--- NOTE | 2018-10-18 13:35 | NUR ---
Nutrition Follow Up: Chart reviewed Diet: ADA PO Intake: 77% meal avg - po intake improving BM: 10/18/18 Labs reviewed - Glucose elevated Meds noted including Lasix Rec continue current diet. RD following.
[2018-10-18 19:00] VITALS: BP 125/71
--- NOTE | 2018-10-18 19:14 | NUR ---
AWAKE AND ALERT. RESTING IN BED WITH RESPIORATIONS UNLABORED. C/O NAUSEA. WILL MEDICATE WITH NEW ORDER OF ZOFRAN SOON AVAILIABLE. NO OTHER DISTRESS NOTED.
--- NOTE | 2018-10-19 | NUR ---
PT RESTING WITH EYES CLOSED, RESP QUIET, NO DISTRESS NOTED, LEFT UNDISTURBED AT THIS TIME, BED IN LOW POSITION, SIDE RAILS X 2, CALL LIGHT IN REACH
--- NOTE | 2018-10-19 01:08 | NUR ---
RESTING IN BED WITH EYES CLOSED AND RESPIRAITONS UNLABORED. NO FURTHER C/O DIARHHEA AFTER BEING MEDICATED WITH PEPTO-BISMAL EARLIER IN SHIFT. NO DISTRESS NOTED. CALL LIGHT IN REACH.
--- NOTE | 2018-10-19 03:26 | NUR ---
AT 0207 WAS MEDICATED WITH PEPTO-BISMOL FOR GI UPSET AND DIARRHEA. NOW RESTING IN BED WITH NO DISTRESS NOTED. WILL CONTINUE TO MONITOR.
--- NOTE | 2018-10-19 05:34 | NUR ---
RESTING IN BED. NO ACUTE DISTRESS NOTED. NO NEEDS VOICED.
--- NOTE | 2018-10-19 07:30 | NUR ---
ALERT AND ORIENTED. RESP EVEN AND UNLABORED NO DISTRESS NOTED.
[2018-10-19 08:14] VITALS: BP 98/54
--- NOTE | 2018-10-19 11:52 | NUR ---
PARTICIPATED IN THERAPY THIS AM.
--- NOTE | 2018-10-19 14:32 | NUR ---
CLINICAL UPDATES FAXED TO [facility] , AUTH. # [id number], MEMBER # [id number] WITH CONFORMAION RECIEVED. TENATIVE DISCHARGE DATE IS 10/20/18
--- NOTE | 2018-10-19 15:41 | NUR ---
NO CHANGE IN ASSESSMENT. NO C/O PAIN. CL IN REACH.
[2018-10-19 19:00] VITALS: BP 154/69
--- NOTE | 2018-10-19 22:31 | NUR ---
AWAKE AND ALERT. SITTING IN WHEELCHAIR IN ROOM. STATES HE HAS HAD A BETTER DAY TODAY WITH LESS DIARRHEA. RESPIRATIONS UNLABORED. NO DISTRESS NOTED.
--- NOTE | 2018-10-20 02:53 | NUR ---
CONTINUES RESTING IN BED WITH RESPIRATIONS UNLABORED. NO DISTRESS NOTED. CALL LIGHT IN REACH.
--- NOTE | 2018-10-20 05:48 | NUR ---
QUIET HOURS. NO ACUTE CHANGES IN CONDITION THIS SHIFT. NO DIARRHEA THIS SHIFT. UP FOR SHOWER. NO DISTRESS NOTED.
--- NOTE | 2018-10-20 07:39 | NUR ---
ALERT AND ORIENTED. NO C/O PAIN. RESP EVEN AND UNLABORED. CL IN REACH.
[2018-10-20 07:59] LABS: BASOPHILS 0 % (0-2); EOSINOPHILS 1.6 % (0-7); HEMATOCRIT 34.6 % (42.0-54.0); HEMOGLOBIN 10.3 g/dL (13.5-17.5); IMMATURE GRANULOCYTES 0.2 % (0-5); LYMPHOCYTES 16.3 % (15-50); MCH 20.9 pg (26.0-34.0); MCHC 29.8 g/dL (31.0-37.0); MCV 70.3 fL (80.0-100.0); MONOCYTES 9.5 % (2-11); NEUTROPHILS 72.4 % (40-80); PLATELET COUNT 186 10x3/uL (130-400); RBC 4.92 10x6/uL (4.20-6.10); WBC 5.6 10x3/uL (4.8-10.8)
[2018-10-20 08:00] VITALS: BP 124/72
--- NOTE | 2018-10-20 08:07 | RHP ---
PATIENT: YENI CORNELIUS MEDICAL RECORD: [id number] ACCOUNT: [id number] [facility] Liliana1109 : [birth year] ADMISSION DATE: 10/13/18 REHABILITATION HISTORY AND PHYSICAL EXAMINATION POST ADMISSION PHYSICIAN EXAMINATION ADMITTING DIAGNOSIS: Critical illness myopathy. HISTORY OF PRESENT ILLNESS: The patient admitted to inpatient rehab for a neurological condition of critical illness myopathy. He is a 67-year-old gentleman who presented to the ED with shortness of breath starting 2 days prior to admission that became worse. He had bilateral lower extremity, scrotal swelling, scant productive cough. He states he has been on 2 liters of O2 at nasal cannula normally, but he was having to use it 29/12. He stated that he just cannot catch his breath got a history of CVA, TIA, Parkinson's, neuropathy, diabetes, CHF, coronary artery disease, chronic anemia, obstructive sleep apnea, reflux, chronic back pain, depression, anxiety, and bladder cancer. He was admitted to the inpatient unit secondary to exacerbation of underlying COPD. He has chronic respiratory failure with hypoxia. He was experiencing some delirium, confusion, agitation, and restlessness. Given his current medical state, it was not possible to determine exactly what his baseline function was, but it was clear that it was worse than normal. Chest x-ray showed mild central and peripheral pulmonary edema. There was alveolar densities in the lower lobes and pleural effusions. Cardiology, nephrology, and pulmonary were all consulted. Cardiology felt like this was acute systolic heart failure. He did have some anemia as well. He has been short of breath, having increasing edema in his extremities. His proBNP was elevated. He had had a heart cath in the past, and an echo that showed his ejection fraction was around 50%, felt like he had decompensated though. Pulmonary felt he had ofulj-ks-cpcimzx systolic heart failure. He was kept on CPAP 8 cm of water pressure at bedtime and DuoNeb, incentive spirometry. He was placed on diuretics. His fluid status was watched closely. He continued to be confused and disoriented. He underwent treatment to correct his underlying metabolic condition. The use of steroids seem to worsen this though. He was placed on a Trilafon at bedtime along with p.r.n. use of Geodon. He had also been placed on Cymbalta. He was very fatigued, had limited flexion and extension of his lower extremities. Proximal muscle strength was decreased. He is mod to max assist for ADLs and mod to max assist for sit to stand and bed to chair. He is actually highly motivated and has good family support hopefully to regain his strength and hopefully get him back home. COMORBIDITIES: In this patient include diabetes, qdbcm-gr-qgwilkj systolic heart failure, COPD, respiratory failure, microcytic anemia, electrolyte abnormalities, acute on chronic kidney disease, hypertension, coronary artery disease, diabetes, obstructive sleep apnea, Parkinson's, urinary retention, dyspnea, frequent falls, generalized weakness, and lower extremity edema. PAST MEDICAL HISTORY: Significant for CVA in the past, TIA, Parkinson's, neuropathy, vertigo, peripheral arterial disease, hypertension, CHF, edema, coronary artery disease with history of stent and also coronary artery bypass grafting, bladder cancer, reflux, chronic back pain, contractures, neuropathy, fibromyalgia, scrotal problems, epididymitis, depression, and anxiety. PAST SURGICAL HISTORY: Includes hernia surgery, back surgery, coronary artery bypass grafting. He has had a right knee replacement. He has had greater than 20 stents, cataract surgery, GI surgery, and hernia repair. HISTORY AND PHYSICAL [id number] YENI CORNELIUS ALLERGIES: BIAXIN. CURRENT MEDICATIONS: Include potassium 20 mEq daily. He is on Cozaar 100 mg daily. He is on furosemide, he is on 40 mg b.i.d. Cymbalta 40 mg daily. He is on Plavix 75 mg daily. He is on an aspirin 81 mg daily. He is on a glucose replacement protocol. He is also on an electrolyte protocol at this time. He is on zolpidem 5 mg at bedtime p.r.n. He is on Hytrin 5 mg at bedtime, Lyrica 150 mg t.i.d., Pravachol 20 mg at bedtime. He is on Trilafon 2 mg at bedtime, metoprolol 50 mg b.i.d., Atrovent updrafts q.i.d. p.r.n. He is on Levemir 55 units at bedtime. He is on an intermediate resistant sliding scale with Humulin. He is on Advair 2 puffs b.i.d. He is on Ventolin 2 puffs q.i.d. and he is on acetaminophen with codeine one tab q.8 hours p.r.n. HABITS: No current alcohol or tobacco use. FAMILY HISTORY: Noncontributory. SOCIAL HISTORY: The patient hopes to return back home and get back to his prior level of functioning. REVIEW OF SYSTEMS: GENERAL: He does complain of weakness and fatigue. HEENT: Denies cold, cough, or congestion. CARDIOVASCULAR: Denies any chest pain. LUNGS: Does complain of shortness of breath. PHYSICAL EXAMINATION: VITAL SIGNS: Stable. Temperature is 98.4. His respirations are 18, blood pressure 114/45, and sat is 95%. GENERAL: A somewhat obese gentleman, in no acute distress, alert upon exam. HEENT: Normocephalic and atraumatic. Mucosa moist. NECK: Supple. No lymphadenopathy. LUNGS: Clear in upper welsh. HEART: Regular rate and rhythm. No murmurs, rubs or gallops. ABDOMEN: Soft, nontender, nondistended. Positive bowel sounds times 4. EXTREMITIES: Does have 2+ peripheral edema. NEUROLOGIC: Does have some problems with mentation, but does answer most questions appropriately. LABORATORY DATA: White count 5.4, H&H of 10.5 and 34.6, and platelet count is noted to be 186. His MCV is decreased at 68.5. Sodium 142, potassium 3.3, BUN and creatinine of 19 and 1.2, and blood sugar is noted to be 56 this morning. ASSESSMENT: This is a 67-year-old gentleman admitted to the rehab with a working diagnosis of disuse myopathy. The patient has potential to make improvement. We instituted the following multidisciplinary therapies include, but not limited to physical, occupational, respiratory, speech, nutritional services, prosthetics and orthotics. Given his complex medical condition and risk for more complications, rehabilitation services cannot be provided at a low level of care such as skilled nurse facility. PLAN: 1. Admit to [facility] for intensive inpatient therapy to include the following disciplines: HISTORY AND PHYSICAL [id number] YENI CORNELIUS. Physical therapy to improve gait, all transfer skills and bed mobility to a modified independent level. B. Occupational therapy to a modified independent level. C. Case management to assist with discharge planning and placement options. D. Nutrition to assist with nutritional needs. E. Rehabilitation nursing to assist in monitoring the patient's underlying medical conditions and to assist with any type of bowel or bladder management. 2. The patient's current medication and medical care will be continued. 3. The patient will be placed on standard fall precautions. 4. The patient's estimated length of stay is approximately 7-10 days. 5. We will discuss this patient during care team staff meeting this week. Continue on electrolyte protocol at this time. We will use Geodon p.r.n. depending on his mental status and I will see again in the a.m. TRANSINT:[id number] Voice Confirmation ID: [id number] DOCUMENT ID: [id number] BETINA notes whether there has been none or any medical/functional change since admission: - No change since preadmission screen. BETINA attests patient continues to be appropriate for IRF: - Continues to be appropriate. PEDRO LUIS METZGER MD at 0807 CC: [id number] DICTATION DATE: 10/14/18821 BODY MECHANIC: 10/14/18 0855 ADM IN [place] [id number] [place] [id number]
[2018-10-20 08:29] LABS: CALCIUM 8.2 mg/dL (8.5-10.1); CARBON DIOXIDE 29.4 mmol/L (21.0-32.0); CREATININE - SERUM 1.3 mg/dL (0.6-1.3); POTASSIUM - SERUM 3.4 mmol/L (3.5-5.1)
--- NOTE | 2018-10-20 09:34 | NUR ---
PATIENT DISCHARGING HOME TODAY WITH FAMILY. [facility] WILL PROVIDE THERAPY AT HOME. NO NEW DME NEEDED AT THIS TIME. DR. VELÁZQUEZ/CANDELARIA CUMMINGS 10/28/18 @ 11:30. PATIENT CHOICE FORM AND IMFM FORMS SIGNED, COPY GIVEN TO PATIENT AND FILED IN CHART. DISCHARGE INSTRUCTIONS WITH FIM DATA FAXED TO PCP, HOME HEALTH AND REVIEWED WITH PATIENT.
--- NOTE | 2018-10-20 10:25 | NUR ---
PATIENT VERBALIZED UNDERSTANDING OF DC ORDERS. HERE TO TAKE HIM HOME. ASSISTED TO CAR PER STAFF IN FOR DC HOME WITH [facility]. NO CHANGE IN ASSESSMENT.
[2018-11-01] MEDS ORDERED: HYDROCODON-ACE1 EAC2 PO (04:41)
[2018-11-01] MEDS ORDERED: CYMBALTA60 MG PO (04:41)
[2018-11-09] MEDS ORDERED: FLAGYL500 MG PO (10:07)
[2018-11-09] MEDS ORDERED: BETAPACE 120 M120 MG PO (10:08)
--- NOTE | 2018-12-06 09:47 | DS ---
PATIENT:YENI CORNELIUS :54 MEDICAL RECORD: [id number] DISCHARGE SUMMARY ADMISSION DATE: 10/13/18 DISCHARGE DATE: 10/20/18 This is a discharge dated 10/19/2018 from inpatient rehabilitation. PRIMARY DIAGNOSIS: Decreased functional ability and ability to provide activities of daily living secondary to critical illness myopathy. SECONDARY DIAGNOSES: 1. Rccvm-qz-awdopeg hypoxic respiratory failure. 2. Parkinson disease. 3. Txlrm-bo-qxzirzm congestive heart failure, systolic. 4. Chronic obstructive pulmonary disease. 5. Diabetes. 6. Neuropathy. 7. Hyperlipidemia. 8. Obstructive sleep apnea. 9. Coronary artery disease. 10. Anemia. 11. Depression/anxiety. 12. Yjvdy-ms-ofeyzqa kidney disease. 13. Urinary retention. 14. History of bladder cancer. 15. Fibromyalgia with chronic pain. 16. Gastroesophageal reflux disease. 17. Vertigo. 18. Hypokalemia. 19. Non-Q-wave myocardial infarction. HOSPITAL COURSE: Full H and P is located elsewhere on the chart on this 67-year-old male who was admitted to inpatient rehab for physical therapy and occupational therapy to improve gait, transfer skills, bed mobility, and activities of daily living to a modified independent level. He was evaluated by PT and OT and their plans of care were followed. He required snf care for observation and assessment and medication administration. Electrolytes were managed by protocol. He remained on appropriate home medications. He had supplemental oxygen to keep sats greater than 90%, inhaled medications for respiratory support. Fingerstick blood sugars were monitored throughout his hospital stay with appropriate adjustment in medications as needed. He was cooperative with therapies, progressing towards goals. Case management was involved for discharge planning. He was considered stable for discharge on 10/19/2018 having met all of his OT and ST goals and made good progress with physical therapy. Additional therapy was recommended to continue upon discharge. Discharge medication as per discharge medication reconciliation. DISCHARGE DISPOSITION: The patient is discharged home. He will continue his current diet and level of activity. He will have [facility] for continued nursing and therapies. He will follow up with primary care and specialist as directed. At least 30 minutes was spent in this discharge activity. TRANSINT:[id number] Voice Confirmation ID: [id number] DOCUMENT ID: [id number] DISCHARGE SUMMARY REPORT [id number] YENI CORNELIUS Dictated By: MERLIN OKEEFE I have interviewed/examined the above patient and agree with these documented findings. PEDRO LUIS METZGER MD at 0947 at 0948 CC: [id number] DICTATION DATE: 12/04/18 1332 MIXER AND BLENDER: 12/05/18 0048 DIS IN 10/20/18 [facility] [address] [place] [id number]
== END 2018-10-20 10:23 | disposition home health service (06) | DRG 91 ==
LOC: D.REHAB 14:56
PROVIDERS: ADMIT Emergency Medicine; ATTEND Emergency Medicine
DX: G72.81 Critical illness myopathy (principal); I50.23 Acute on chronic systolic (congestive) heart failure; J96.90 Respiratory failure, unspecified, unspecified whether with hypoxia or hypercapnia; J96.21 Acute and chronic respiratory failure with hypoxia; I13.0 Hypertensive heart and chronic kidney disease with heart failure and stage 1 through stage 4 chronic kidney disease, or unspecified chronic kidney disease; N17.9 Acute kidney failure, unspecified; J44.1 Chronic obstructive pulmonary disease with (acute) exacerbation; E11.22 Type 2 diabetes mellitus with diabetic chronic kidney disease; N18.9 Chronic kidney disease, unspecified; G47.33 Obstructive sleep apnea (adult) (pediatric); D50.9 Iron deficiency anemia, unspecified; E87.8 Other disorders of electrolyte and fluid balance, not elsewhere classified; I25.10 Atherosclerotic heart disease of native coronary artery without angina pectoris; G20 Parkinson's disease; R33.9 Retention of urine, unspecified; R53.1 Weakness; R60.0 Localized edema; E11.65 Type 2 diabetes mellitus with hyperglycemia; R13.12 Dysphagia, oropharyngeal phase; E87.6 Hypokalemia

== ENCOUNTER 2018-10-25 14:53 | Inpatient (IN) | payer MEDICARE ==
[~2018-10-25] VITALS: Ht 175.3 cm; Wt 98.0 kg
--- NOTE | ~2018-10-25 | CN ---
PATIENT NAME:YENI ESPINOZA MEDICAL RECORD: [id number] : 54 LOCATION:D. D.2110 ADMIT DATE: 10/28/18 ACCOUNT: [id number] CONSULTING PHYSICIAN: NADINE PEREZ MD REFERRING PHYSICIAN: LISA RODRIGUEZ MD DATE OF CONSULTATION: 10/28/2018 CARDIOLOGY CONSULT DIAGNOSES: 1. Increased troponin. 2. Coronary artery disease. 3. Previous multivessel PTCA and stent. 4. Shortness of breath. 5. C. diff diarrhea. 6. Renal insufficiency. 7. Cardiomyopathy. 8. COPD. 9. Smoking history. 10. Hypertension. 11. Diabetes. HISTORY OF PRESENT ILLNESS: Mr. Espinoza is well known to us with past history of coronary artery disease, multivessel PTCA and stent, and cardiomyopathy with last ejection fraction in 35% to 40% range. He is admitted with C. diff and abdominal pain. No real chest pain. His troponin is mildly elevated. His EKG is with no acute ST-T abnormalities. He denies any chest pain. He has been short of breath, but his shortness of breath is a chronic thing. He does have cardiomyopathy with ejection fraction in 35% to 40% as of last echocardiogram, which was in last April. PHYSICAL EXAMINATION: GENERAL APPEARANCE: Well-nourished, well-developed, appears stated age. Level of distress, comfortable. PSYCHIATRIC: Mental status, alert, normal affect. Orientation, oriented to time, place and person. EYES: Lids and conjunctiva, noninjected. No discharge, no pallor. ENT: Lips, teeth, gums, normal dentition. Oropharynx, no cyanosis, no pallor. NECK: Carotid arteries, bilateral normal upstroke, no bruits, no thrills. JUGULAR VEINS: No jugular venous pressure or distention. CERVICAL LYMPH NODES: Nontender, nonenlarged. THYROID: Not enlarged. Nontender. No nodules. LUNGS: Respiratory effort, unlabored. CHEST: Normal curvature. No thoracic deformity. No chest wall tenderness. Percussion, resonant. Auscultation, clear. No wheezes, no rales, no rhonchi. CARDIOVASCULAR: Precordial exam, nondisplaced. No heaves or pericardial thrills. Rate and rhythm, regular. Heart sounds, normal S1, normal S2. No S3, no gallop, no rub. Systolic murmur, not heard. Diastolic murmur, not heard. EXTREMITIES: No cyanosis, no edema. Peripheral pulses, full and equal in all extremities, except as noted. No bruits appreciated. ABDOMEN: Soft, nondistended. Normal aorta. No bruit. Nontender. No masses. Liver, nontender, no hepatomegaly. Spleen, nontender, no splenomegaly. MUSCULOSKELETAL: No joint tenderness. No joint swelling. No erythema. NEUROLOGICAL: Normal gait, normal strength, normal tone. SKIN: Warm and dry. CONSULT REPORT [id number] YENI ESPINOZA OVERALL IMPRESSION: Elevated troponin, may be demand ischemia from all the GI issues that he has. Only cardiac symptom he has at this time is shortness of breath. I would not do any further workup from the standpoint of ischemic heart disease. Continue his current medications. We will get an echocardiogram to make sure his ejection fraction has not changed. Other than that, no other cardiac workup or treatment is necessary. TRANSINT:[id number] Voice Confirmation ID: [id number] DOCUMENT ID: [id number] NADINE PEREZ MD CC: [id number] DICTATION DATE: 10/28/181730 KITCHEN HAND: 10/28/182018 ADM IN [facility] [address] [place] [address]
[2018-10-25 16:13] LABS: ALBUMIN 2.5 g/dL (3.4-5.0); ANION GAP 12.9 mmol/L (8-16); BILIRUBIN - TOTAL 0.36 mg/dL (0.2-1.3); CALCIUM 8.2 mg/dL (8.5-10.1); CREATININE - SERUM 1.5 mg/dL (0.6-1.3); PROTEIN - SERUM 5.8 g/dL (6.4-8.2)
[2018-10-25 16:22] LABS: POTASSIUM - SERUM 2.9 mmol/L (3.5-5.1)
[2018-10-25 17:18] LABS: BASOPHILS 0 % (0-2); EOSINOPHILS 5.4 % (0-7); HEMATOCRIT 31.4 % (42.0-54.0); HEMOGLOBIN 9.8 g/dL (13.5-17.5); IMMATURE GRANULOCYTES 0.2 % (0-5); LYMPHOCYTES 23.4 % (15-50); MCH 21.3 pg (26.0-34.0); MCHC 31.2 g/dL (31.0-37.0); MCV 68.3 fL (80.0-100.0); MONOCYTES 8.2 % (2-11); NEUTROPHILS 62.8 % (40-80); PLATELET COUNT 125 10x3/uL (130-400); RDW 22.8 % (11.5-14.5)
[2018-10-25 17:24] LABS: AMYLASE - SERUM 22 U/L (25-115); LIPASE 81 U/L (73-393)
[2018-10-25 18:22] LABS: APPEARANCE CLEAR (CLEAR); BILIRUBIN NEGATIVE (NEGATIVE); COLOR YELLOW (YELLOW); GLUCOSE NEGATIVE (NEGATIVE); KETONE NEGATIVE (NEGATIVE); NITRITE NEGATIVE (NEGATIVE); PROTEIN NEGATIVE (NEGATIVE); UROBILINOGEN NORMAL (NORMAL)
[2018-10-25 19:27] VITALS: BP 173/91
[2018-10-25 20:00] VITALS: BP 139/73
[2018-10-25 20:30] VITALS: BP 166/80
[2018-10-26] VITALS: BP 135/61
[2018-10-26 01:08] VITALS: BP 135/61; BMI 31.9
[2018-10-26 04:00] VITALS: BP 149/57
[2018-10-26 06:53] LABS: HEMATOCRIT 29.5 % (42.0-54.0); HEMOGLOBIN 9.3 g/dL (13.5-17.5); MCH 21.5 pg (26.0-34.0); MCHC 31.5 g/dL (31.0-37.0); MCV 68.3 fL (80.0-100.0); PLATELET COUNT 123 10x3/uL (130-400); RBC 4.32 10x6/uL (4.20-6.10)
[2018-10-26 07:28] LABS: ALBUMIN 2.3 g/dL (3.4-5.0); BILIRUBIN - TOTAL 0.49 mg/dL (0.2-1.3); CARBON DIOXIDE 24.7 mmol/L (21.0-32.0); CREATININE - SERUM 1.1 mg/dL (0.6-1.3); MAGNESIUM - SERUM 1.5 mg/dL (1.8-2.4); PROTEIN - SERUM 5.6 g/dL (6.4-8.2)
[2018-10-26 07:29] LABS: POTASSIUM - SERUM 2.7 mmol/L (3.5-5.1)
[2018-10-26 08:01] VITALS: BP 144/84
[2018-10-26 08:08] LABS: EOSINOPHILS 3 % (0-7); LYMPHOCYTES 31 % (15-50); MONOCYTES 14 % (2-11); NEUTROPHILS 49 % (40-80); PLATELET ESTIMATE NORMAL
[2018-10-26 08:09] LABS: ANISOCYTOSIS OCC; HYPOCHROMASIA OCC; ROULEAUX OCC
[2018-10-26 11:58] VITALS: BMI 31.9
[2018-10-26 16:08] VITALS: BP 203/93
[2018-10-26 18:53] VITALS: Ht 175.3 cm; Wt 98.0 kg
[2018-10-26 20:00] VITALS: BP 165/87
[2018-10-27 00:09] VITALS: BP 149/55
[2018-10-27 04:00] VITALS: BP 129/71
[2018-10-27 06:21] LABS: ALBUMIN 2.3 g/dL (3.4-5.0); ANION GAP 9.9 mmol/L (8-16); BILIRUBIN - TOTAL 0.55 mg/dL (0.2-1.3); CALCIUM 8.2 mg/dL (8.5-10.1); CARBON DIOXIDE 27.9 mmol/L (21.0-32.0); CREATININE - SERUM 1.1 mg/dL (0.6-1.3); PROTEIN - SERUM 5.4 g/dL (6.4-8.2)
[2018-10-27 06:48] LABS: BASOPHILS 0.2 % (0-2); EOSINOPHILS 6.9 % (0-7); HEMATOCRIT 31.2 % (42.0-54.0); HEMOGLOBIN 9.8 g/dL (13.5-17.5); IMMATURE GRANULOCYTES 0.2 % (0-5); MCH 21.3 pg (26.0-34.0); MCHC 31.4 g/dL (31.0-37.0); MCV 67.8 fL (80.0-100.0); MONOCYTES 10.2 % (2-11); NEUTROPHILS 49.5 % (40-80); PLATELET COUNT 107 10x3/uL (130-400); RDW 23.2 % (11.5-14.5); WBC 4.5 10x3/uL (4.8-10.8)
[2018-10-27 07:24] LABS: POTASSIUM - SERUM 2.8 mmol/L (3.5-5.1)
[2018-10-27 08:48] VITALS: BP 139/61
[2018-10-27 11:59] VITALS: BP 168/95
[2018-10-27 16:17] VITALS: BP 130/58
[2018-10-27 20:00] VITALS: BP 125/68
[2018-10-28] VITALS: BP 128/62
[2018-10-28 04:00] VITALS: BP 99/51
[2018-10-28 06:41] LABS: BASOPHILS 0.1 % (0-2); EOSINOPHILS 0.1 % (0-7); HEMATOCRIT 32.6 % (42.0-54.0); HEMOGLOBIN 10.1 g/dL (13.5-17.5); IMMATURE GRANULOCYTES 0.2 % (0-5); LYMPHOCYTES 8.8 % (15-50); MCH 21.5 pg (26.0-34.0); MCV 69.4 fL (80.0-100.0); MONOCYTES 6.9 % (2-11); NEUTROPHILS 83.9 % (40-80); PLATELET COUNT 108 10x3/uL (130-400); RDW 23.4 % (11.5-14.5)
[2018-10-28 06:54] LABS: WBC 10.9 10x3/uL (4.8-10.8)
[2018-10-28 06:59] LABS: ALBUMIN 2.2 g/dL (3.4-5.0); BILIRUBIN - TOTAL 0.62 mg/dL (0.2-1.3); CALCIUM 7.6 mg/dL (8.5-10.1); CARBON DIOXIDE 26.3 mmol/L (21.0-32.0); MAGNESIUM - SERUM 1.5 mg/dL (1.8-2.4); PHOSPHOROUS 3.4 mg/dL (2.5-4.9); PROTEIN - SERUM 5.5 g/dL (6.4-8.2)
[2018-10-28 07:05] LABS: ANION GAP 12.6 mmol/L (8-16); CREATININE - SERUM 1.7 mg/dL (0.6-1.3); POTASSIUM - SERUM 2.9 mmol/L (3.5-5.1); TROPONIN-I 1.265 ng/mL (0.000-0.060)
[2018-10-28 07:50] VITALS: BP 98/54
[2018-10-28 11:30] VITALS: BP 106/65
[2018-10-28 15:39] VITALS: BP 99/53
[2018-10-28 19:12] LABS: CKMB 1.5 U/L (0.0-3.6); CREATINE KINASE 143 UL (21-232)
[2018-10-28 19:15] LABS: TROPONIN-I 0.652 ng/mL (0.000-0.060)
[2018-10-28 20:00] VITALS: BP 132/79
[2018-10-28 23:15] LABS: CKMB 1.9 U/L (0.0-3.6); CREATINE KINASE 169 UL (21-232)
[2018-10-28 23:16] LABS: TROPONIN-I 0.446 ng/mL (0.000-0.060)
[2018-10-29] VITALS: BP 98/66
[2018-10-29 06:39] LABS: BASOPHILS 0.1 % (0-2); EOSINOPHILS 0.6 % (0-7); HEMATOCRIT 29.9 % (42.0-54.0); HEMOGLOBIN 9.3 g/dL (13.5-17.5); IMMATURE GRANULOCYTES 0.3 % (0-5); LYMPHOCYTES 12.5 % (15-50); MCH 21.4 pg (26.0-34.0); MCHC 31.1 g/dL (31.0-37.0); MCV 68.7 fL (80.0-100.0); MONOCYTES 7.6 % (2-11); NEUTROPHILS 78.9 % (40-80); PLATELET COUNT 87 10x3/uL (130-400); RBC 4.35 10x6/uL (4.20-6.10); RDW 23.5 % (11.5-14.5)
[2018-10-29 06:41] LABS: WBC 7.3 10x3/uL (4.8-10.8)
[2018-10-29 07:07] LABS: ALBUMIN 2.1 g/dL (3.4-5.0); ALKALINE PHOSPHATASE 65 U/L (46-116); ALT (SGPT) 31 U/L (10-68); BILIRUBIN - TOTAL 0.43 mg/dL (0.2-1.3); CARBON DIOXIDE 25.1 mmol/L (21.0-32.0); CHLORIDE - SERUM 103 mmol/L (98-107); CKMB 8.5 U/L (0.0-3.6); CREATINE KINASE 156 UL (21-232); GLUCOSE 181 mg/dL (74-106); PROTEIN - SERUM 5.4 g/dL (6.4-8.2); SODIUM 137 mmol/L (136-145)
[2018-10-29 07:09] LABS: CALC OSMOLALITY 283 mosm/kg (275-300); CREATININE - SERUM 2.2 mg/dL (0.6-1.3); POTASSIUM - SERUM 3.6 mmol/L (3.5-5.1); UREA NITROGEN 26 mg/dL (7-18); eGFR NON AFRICAN AMERICAN 32 mL/min (90-120)
[2018-10-29 09:15] LABS: PLATELET ESTIMATE DECREASED
[2018-10-29 09:16] LABS: ANISOCYTOSIS OCC
[2018-10-29 09:17] LABS: ACANTHOCYTES OCC; CRENATED CELLS OCC; ROULEAUX OCC
[2018-10-29 09:38] VITALS: BP 89/54
[2018-10-29 12:43] VITALS: BP 119/67
[2018-10-29 17:57] VITALS: BP 106/55
[2018-10-29 20:00] VITALS: BP 107/59
[2018-10-30] VITALS: BP 103/49
[2018-10-30 04:00] VITALS: BP 115/63
[2018-10-30 04:30] LABS: BASOPHILS 0.2 % (0-2); EOSINOPHILS 7.2 % (0-7); HEMATOCRIT 28.6 % (42.0-54.0); HEMOGLOBIN 8.8 g/dL (13.5-17.5); IMMATURE GRANULOCYTES 0.3 % (0-5); LYMPHOCYTES 21.5 % (15-50); MCH 21.3 pg (26.0-34.0); MCHC 30.8 g/dL (31.0-37.0); MCV 69.1 fL (80.0-100.0); NEUTROPHILS 61.8 % (40-80); PLATELET COUNT 97 10x3/uL (130-400); RBC 4.14 10x6/uL (4.20-6.10); RDW 23.7 % (11.5-14.5); WBC 6.4 10x3/uL (4.8-10.8)
[2018-10-30 04:51] LABS: ALBUMIN 1.9 g/dL (3.4-5.0); ANION GAP 11.9 mmol/L (8-16); BILIRUBIN - TOTAL 0.38 mg/dL (0.2-1.3); CALCIUM 8.1 mg/dL (8.5-10.1); CARBON DIOXIDE 23.4 mmol/L (21.0-32.0); CREATININE - SERUM 1.7 mg/dL (0.6-1.3); POTASSIUM - SERUM 3.3 mmol/L (3.5-5.1); PROTEIN - SERUM 5.1 g/dL (6.4-8.2)
[2018-10-30 08:54] VITALS: BP 128/64
[2018-10-30 11:41] VITALS: BP 134/70
[2018-10-30 16:41] VITALS: BP 128/64
[2018-10-30 20:00] VITALS: BP 147/75
[2018-10-31] VITALS: BP 112/60
[2018-10-31 03:41] LABS: BASOPHILS 0.2 % (0-2); EOSINOPHILS 9.2 % (0-7); HEMATOCRIT 27.8 % (42.0-54.0); HEMOGLOBIN 8.4 g/dL (13.5-17.5); IMMATURE GRANULOCYTES 0.2 % (0-5); LYMPHOCYTES 23.3 % (15-50); MCH 21.1 pg (26.0-34.0); MCHC 30.2 g/dL (31.0-37.0); MCV 69.7 fL (80.0-100.0); MONOCYTES 10.5 % (2-11); NEUTROPHILS 56.6 % (40-80); PLATELET COUNT 103 10x3/uL (130-400); RBC 3.99 10x6/uL (4.20-6.10); RDW 23.9 % (11.5-14.5); WBC 5.2 10x3/uL (4.8-10.8)
[2018-10-31 04:00] VITALS: BP 138/84
[2018-10-31 04:01] LABS: ALBUMIN 1.8 g/dL (3.4-5.0); ANION GAP 10.3 mmol/L (8-16); BILIRUBIN - TOTAL 0.26 mg/dL (0.2-1.3); CALCIUM 7.9 mg/dL (8.5-10.1); CARBON DIOXIDE 25.6 mmol/L (21.0-32.0); CREATININE - SERUM 1.4 mg/dL (0.6-1.3); POTASSIUM - SERUM 3.9 mmol/L (3.5-5.1); PROTEIN - SERUM 5.1 g/dL (6.4-8.2)
[2018-10-31 07:57] VITALS: BP 133/68
[2018-10-31 11:57] VITALS: BP 119/57
[2018-10-31 15:57] VITALS: BP 149/74
[2018-11-01] MEDS ORDERED: CYMBALTA60 MG PO (04:41)
[2018-11-01] MEDS ORDERED: HYDROCODON-ACE1 EAC2 (04:41)
== END 2018-10-31 19:17 | disposition left against medical advice (07) | DRG 417 ==
LOC: D.ER 14:53 → D.M2 19:27 → OBSVTIME 19:27 → D.M2 10-28 11:15
PROVIDERS: Family Medicine; Surgery; ADMIT Internal Medicine Nephrology; ATTEND Internal Medicine Nephrology
PROC: BF101ZZ Fluoroscopy of Bile Ducts using Low Osmolar Contrast (ICD-10-PCS; 2018-10-27)
PROC: 0FT44ZZ Resection of Gallbladder, Percutaneous Endoscopic Approach (ICD-10-PCS; principal; 2018-10-27 11:30)
DX: K80.10 Calculus of gallbladder with chronic cholecystitis without obstruction (principal); I50.23 Acute on chronic systolic (congestive) heart failure; I13.0 Hypertensive heart and chronic kidney disease with heart failure and stage 1 through stage 4 chronic kidney disease, or unspecified chronic kidney disease; A04.72 Enterocolitis due to Clostridium difficile, not specified as recurrent; I42.9 Cardiomyopathy, unspecified; I24.8 Other forms of acute ischemic heart disease; Z86.73 Personal history of transient ischemic attack (TIA), and cerebral infarction without residual deficits; E11.22 Type 2 diabetes mellitus with diabetic chronic kidney disease; N18.9 Chronic kidney disease, unspecified; D50.9 Iron deficiency anemia, unspecified; I25.10 Atherosclerotic heart disease of native coronary artery without angina pectoris; E87.6 Hypokalemia; J44.9 Chronic obstructive pulmonary disease, unspecified; G20 Parkinson's disease; R16.0 Hepatomegaly, not elsewhere classified; I25.5 Ischemic cardiomyopathy; E11.51 Type 2 diabetes mellitus with diabetic peripheral angiopathy without gangrene; I95.9 Hypotension, unspecified; I48.91 Unspecified atrial fibrillation

== ENCOUNTER 2018-10-31 23:19 | Inpatient (IN) | payer MEDICARE | END 2018-11-09 16:45 | disposition home health service (06) | DRG 246 | LOC: D.ER 23:19 → D.M2 11-01 03:19 | PROVIDERS: ADMIT Internal Medicine Nephrology | PROC: 027034Z Dilation of Coronary Artery, One Artery with Drug-eluting Intraluminal Device, Percutaneous Approach (ICD-10-PCS; principal; 2018-11-04) | PROC: 02703ZZ Dilation of Coronary Artery, One Artery, Percutaneous Approach (ICD-10-PCS; 2018-11-04) | PROC: 4A023N7 Measurement of Cardiac Sampling and Pressure, Left Heart, Percutaneous Approach (ICD-10-PCS; 2018-11-04) | PROC: B2121ZZ Fluoroscopy of Single Coronary Artery Bypass Graft using Low Osmolar Contrast (ICD-10-PCS; 2018-11-04) | PROC: B2181ZZ Fluoroscopy of Left Internal Mammary Bypass Graft using Low Osmolar Contrast (ICD-10-PCS; 2018-11-04) | PROC: B2151ZZ Fluoroscopy of Left Heart using Low Osmolar Contrast (ICD-10-PCS; 2018-11-04) | DX: I21.4 Non-ST elevation (NSTEMI) myocardial infarction (principal); I50.23 Acute on chronic systolic (congestive) heart failure; N17.9 Acute kidney failure, unspecified; I13.0 Hypertensive heart and chronic kidney disease with heart failure and stage 1 through stage 4 chronic kidney disease, or unspecified chronic kidney disease; E11.65 Type 2 diabetes mellitus with hyperglycemia; N18.9 Chronic kidney disease, unspecified; G89.18 Other acute postprocedural pain; B96.89 Other specified bacterial agents as the cause of diseases classified elsewhere; D50.9 Iron deficiency anemia, unspecified; J44.9 Chronic obstructive pulmonary disease, unspecified; I25.10 Atherosclerotic heart disease of native coronary artery without angina pectoris; G20 Parkinson's disease; Z86.73 Personal history of transient ischemic attack (TIA), and cerebral infarction without residual deficits ==

== ENCOUNTER → 2019-02-08 14:48 | Outpatient (CLI) | payer MEDICARE ==
[2018-11-01 08:20] VITALS: BMI 34.0
[~2019-02-08 14:48] MED LIST changes: +BETAPACE 120 M120 MG PO; +FLAGYL500 MG PO; +HYDROCODON-ACE1 EAC2 PO
== END | disposition home or self-care (01) ==
LOC: D.CT 14:48
PROVIDERS: ATTEND Internal Medicine Pulmonary Disease
DX: R91.8 Other nonspecific abnormal finding of lung field (principal)

== ENCOUNTER 2019-03-04 20:34 | Emergency (ER) | payer MEDICARE, MEDICAID ==
[~2019-03-04] VITALS: Ht 175.3 cm; Wt 100.0 kg
[2019-03-04 20:39] VITALS: Ht 175.3 cm; Wt 100.0 kg
[2019-03-04 20:55] LABS: BASOPHILS 0.4 % (0-2); EOSINOPHILS 2.7 % (0-7); HEMATOCRIT 35.5 % (42.0-54.0); HEMOGLOBIN 10.9 g/dL (13.5-17.5); IMMATURE GRANULOCYTES 0.1 % (0-5); LYMPHOCYTES 32.6 % (15-50); MCH 22.1 pg (26.0-34.0); MCHC 30.7 g/dL (31.0-37.0); MEAN PLATELET VOLUME 10.6 fL (7.4-10.4); MONOCYTES 10.7 % (2-11); NEUTROPHILS 53.5 % (40-80); RBC 4.93 10x6/uL (4.20-6.10); RDW 18.7 % (11.5-14.5); WBC 7.3 10x3/uL (4.8-10.8)
[2019-03-04 20:58] LABS: PLATELET COUNT 178 10x3/uL (130-400)
[2019-03-04 21:09] LABS: ALBUMIN 3.7 g/dL (3.4-5.0); BILIRUBIN - TOTAL 0.53 mg/dL (0.2-1.3); CALCIUM 9.1 mg/dL (8.5-10.1); CARBON DIOXIDE 34.6 mmol/L (21.0-32.0); CREATININE - SERUM 1.6 mg/dL (0.6-1.3); POTASSIUM - SERUM 3.6 mmol/L (3.5-5.1); PROTEIN - SERUM 7.3 g/dL (6.4-8.2)
[2019-03-04 21:13] LABS: TROPONIN-I 0.02 ng/mL (0.000-0.060)
[2019-03-04 22:16] LABS: APPEARANCE CLEAR (CLEAR); BILIRUBIN NEGATIVE (NEGATIVE); COLOR YELLOW (YELLOW); GLUCOSE NEGATIVE (NEGATIVE); KETONE NEGATIVE (NEGATIVE); NITRITE NEGATIVE (NEGATIVE); PROTEIN TRACE mg/dL (NEGATIVE); SPECIFIC GRAVITY 1.015 (1.005-1.020); UROBILINOGEN NORMAL (NORMAL)
[2019-03-05] MEDS ORDERED: PROTONIX40 MG PO (01:11)
[2019-03-05 01:30] VITALS: BP 145/78
== END 2019-03-05 05:00 | disposition home or self-care (01) ==
LOC: D.ER 20:34
PROVIDERS: Family Medicine
DX: K29.70 Gastritis, unspecified, without bleeding (principal); E86.0 Dehydration; D64.9 Anemia, unspecified; F17.210 Nicotine dependence, cigarettes, uncomplicated; I10 Essential (primary) hypertension; J44.9 Chronic obstructive pulmonary disease, unspecified

== ENCOUNTER 2019-05-23 11:42 | Inpatient (IN) | payer MEDICARE, MEDICAID ==
[~2019-05-23] VITALS: Ht 175.3 cm; Wt 102.3 kg
[2019-05-23] MEDS ORDERED: HYZAAR 50-12.51 TAB PO (12:14)
[2019-05-23] MEDS ORDERED: TRELEGY ELLIPT1 EACH INH (12:17)
[2019-05-23 13:16] LABS: BASOPHILS 0.2 % (0-2); EOSINOPHILS 0.2 % (0-7); HEMATOCRIT 40.9 % (42.0-54.0); HEMOGLOBIN 13.4 g/dL (13.5-17.5); IMMATURE GRANULOCYTES 0.1 % (0-5); LYMPHOCYTES 17.9 % (15-50); MCH 26.5 pg (26.0-34.0); MCHC 32.8 g/dL (31.0-37.0); MONOCYTES 7.3 % (2-11); NEUTROPHILS 74.3 % (40-80); PLATELET COUNT 172 10x3/uL (130-400); RBC 5.05 10x6/uL (4.20-6.10); RDW 24.3 % (11.5-14.5); WBC 8.2 10x3/uL (4.8-10.8)
[2019-05-23 13:26] LABS: CALC OSMOLALITY 283 mosm/kg (275-300); CALCIUM 8.9 mg/dL (8.5-10.1); CARBON DIOXIDE 29.3 mmol/L (21.0-32.0); CHLORIDE - SERUM 101 mmol/L (98-107); CREATININE - SERUM 1.1 mg/dL (0.6-1.3); POTASSIUM - SERUM 3.9 mmol/L (3.5-5.1); SODIUM 139 mmol/L (136-145); UREA NITROGEN 19 mg/dL (7-18); eGFR NON AFRICAN AMERICAN 71 mL/min (90-120)
[2019-05-23 13:29] LABS: GLUCOSE 176 mg/dL (74-106)
[2019-05-23 13:42] LABS: ALBUMIN 3.4 g/dL (3.4-5.0); ALKALINE PHOSPHATASE 98 U/L (46-116); ALT (SGPT) 23 U/L (10-68); APTT 31.1 SECONDS (22.8-39.4); BILIRUBIN - TOTAL 1.07 mg/dL (0.2-1.3); CKMB 1.3 U/L (0.0-3.6); CREATINE KINASE 74 UL (21-232); INR 1.18 (0.85-1.17); MAGNESIUM - SERUM 1.9 mg/dL (1.8-2.4); PROTEIN - SERUM 6.7 g/dL (6.4-8.2); PROTIME 14.4 SECONDS (11.6-15.0); THYROID STIMULATING HORMONE 2.49 uIU/mL (0.36-3.74); TROPONIN-I < 0.017 ng/mL (0.000-0.060)
[2019-05-23 13:57] LABS: APPEARANCE HAZY (CLEAR); BILIRUBIN NEGATIVE (NEGATIVE); COLOR YELLOW (YELLOW); NITRITE NEGATIVE (NEGATIVE); SPECIFIC GRAVITY 1.015 (1.005-1.020); UROBILINOGEN NORMAL (NORMAL)
[2019-05-23 13:58] LABS: BACTERIA FEW /hpf (NEGATIVE); EPITHELIAL CELLS OCC /hpf (0-5)
[2019-05-23 14:00] VITALS: BP 140/60
[2019-05-23 14:13] LABS: GLUCOSE 50 mg/dL (NEGATIVE); KETONE SMALL mg/dL (NEGATIVE); PROTEIN 2+ mg/dL (NEGATIVE); WHITE CELLS - URINE RARE /hpf (NEGATIVE)
--- NOTE | 2019-05-23 14:14 | NUR ---
FSBS 149
[2019-05-23 14:15] LABS: UDS - AMPHET NEGATIVE QUAL (NEGATIVE); UDS - BARB NEGATIVE QUAL (NEGATIVE); UDS - BENZO NEGATIVE QUAL (NEGATIVE); UDS - COCAINE NEGATIVE QUAL (NEGATIVE); UDS - OPIATE POSITIVE QUAL (NEGATIVE); UDS - PCP NEGATIVE QUAL (NEGATIVE); UDS - THC NEGATIVE QUAL (NEGATIVE)
[2019-05-23 16:00] VITALS: BP 140/62
--- NOTE | 2019-05-23 19:16 | NUR ---
RECEIVED REPORT FROM OFF GOING NURSE. LAYING IN BED WITH EYES CLOSED. EASILY AROUSES WITH VERBAL STIMULI. EXPLAINED THAT I WOULD HAVE TO DO ASSESSMENT AND PT STATED " OH NO NOT NOW". ASKED IF HE WAS TIRED AND REPLIED "YES". TOLD HIM I WOULD LET HIM REST AND COME BACK LATER. IV TO LEFT AC SL.. DOES BECOME SOB WHEN SPEAKING. O2@ 2 LITERS PER N/C. DENIES ANY PAIN OR NEEDS AT THIS TIME.
[2019-05-23] MEDS ORDERED: CATAPRES0.1 MG PO (20:08)
[2019-05-23] MEDS ORDERED: BENTYL10 MG PO (20:10)
[2019-05-23] MEDS ORDERED: GABAPENTIN300 MG PO (20:11)
[2019-05-23] MEDS ORDERED: CYCLOBENZAPRINE10 MG PO (20:12)
[2019-05-23] MEDS ORDERED: TYLENOL W/CODEI1 TAB PO (20:14)
[2019-05-23 22:02] VITALS: BP 206/94; BMI 32.5
[2019-05-24] VITALS: BP 203/91
[2019-05-24 04:00] VITALS: BP 189/79
[2019-05-24 06:19] LABS: BASOPHILS 0.3 % (0-2); EOSINOPHILS 0.8 % (0-7); HEMATOCRIT 41.5 % (42.0-54.0); HEMOGLOBIN 13.3 g/dL (13.5-17.5); IMMATURE GRANULOCYTES 0.3 % (0-5); LYMPHOCYTES 17.8 % (15-50); MCH 26.1 pg (26.0-34.0); MCV 81.5 fL (80.0-100.0); MONOCYTES 10.8 % (2-11); PLATELET COUNT 175 10x3/uL (130-400); RBC 5.09 10x6/uL (4.20-6.10); RDW 23.8 % (11.5-14.5); WBC 7.5 10x3/uL (4.8-10.8)
[2019-05-24 06:29] LABS: ANION GAP 8.1 mmol/L (8-16); CARBON DIOXIDE 34.8 mmol/L (21.0-32.0); MAGNESIUM - SERUM 1.8 mg/dL (1.8-2.4); PHOSPHOROUS 3.9 mg/dL (2.5-4.9)
[2019-05-24 06:54] LABS: CREATININE - SERUM 1.5 mg/dL (0.6-1.3)
[2019-05-24 06:55] LABS: POTASSIUM - SERUM 2.9 mmol/L (3.5-5.1)
--- NOTE | 2019-05-24 07:54 | NUR ---
PT SITTING UP IN CHAIR. RR EVEN AND UNLABORED. DENIES NEEDS OR PAIN AT THIS TIME. CALL LIGHT WITHIN REACH. BED ALARM IN PLACE AND FUNCTIONING PROPERLY. BED IN LOWEST POSITION. IV NOTED TO LEFT AC SL. WILL CONTINUE TO MONITOR.
[2019-05-24 09:38] VITALS: BP 172/88
--- NOTE | 2019-05-24 10:13 | NUR ---
I have reviewed this patient and I concur with the Shift Assessment completed by the Licensed Practical Nurse today this shift.
[2019-05-24 11:10] VITALS: Ht 175.3 cm; Wt 102.3 kg
[2019-05-24 13:24] VITALS: BP 180/78
--- NOTE | 2019-05-24 15:41 | NUR ---
Pt has history of venous ulcers. No open ulcers noted at this time but there is a scabbed area on the left lower extremity. It is dry and no drainage is noted. Bilateral lower legs are discolored and hairless. Slight edema is noted. Recommended keeping legs elevated when up in chair. Wound care will continue to follow.
--- NOTE | 2019-05-24 17:04 | NUR ---
ASSISTED TO BATHROOM X2. LINENS CHANGED.
[2019-05-24 18:44] VITALS: BP 189/87
--- NOTE | 2019-05-24 19:20 | NUR ---
REPORT RECEIVED, WILL CONTINUE POC. PATIENT IS AAOX2, LYING IN SUPINE POSITION. PATIENT CONFUSED TO TIME AND SITUATION, REORIENTED AT THIS TIME. NO S/S OF DISTRESS OBSERVED, RR EVEN AND UNLABORED ON ROOM AIR. PATIENT DENIES NEEDS AT THIS TIME. CL IN REACH, BED LOCKED AND LOWERED, MONI ALARM ON. WILL CTM.
[2019-05-24 20:40] VITALS: BP 187/64
--- NOTE | 2019-05-24 21:00 | NUR ---
PT IV OUT, CATH TIP INTACT. PT REFUSING NEW IV INSERTION. IV LASIX NOT DUE UNTIL MORNING. WILL ATTEMPT INSERTING A NEW IV THEN.
[2019-05-25 00:20] VITALS: BP 124/76
[2019-05-25 04:47] VITALS: BP 149/65
--- NOTE | 2019-05-25 05:24 | NUR ---
PT DOES NOT WANT ANOTHER IV, PT IS CONFUSED. IV LASIX NOT GIVEN DUE TO NO IV ACCESS AT THIS TIME.
--- NOTE | 2019-05-25 06:15 | NUR ---
FSBS 142, INSULIN WITH HELD PER SLIDING SCALE
[2019-05-25 06:57] LABS: BASOPHILS 0.3 % (0-2); EOSINOPHILS 0.4 % (0-7); HEMATOCRIT 43.1 % (42.0-54.0); HEMOGLOBIN 13.9 g/dL (13.5-17.5); IMMATURE GRANULOCYTES 0.3 % (0-5); LYMPHOCYTES 18.7 % (15-50); MCH 26.6 pg (26.0-34.0); MCHC 32.3 g/dL (31.0-37.0); MCV 82.6 fL (80.0-100.0); MONOCYTES 13.3 % (2-11); PLATELET COUNT 175 10x3/uL (130-400); RBC 5.22 10x6/uL (4.20-6.10); RDW 23.9 % (11.5-14.5); WBC 7.4 10x3/uL (4.8-10.8)
[2019-05-25 07:17] LABS: ANION GAP 10.9 mmol/L (8-16); CARBON DIOXIDE 34.3 mmol/L (21.0-32.0); MAGNESIUM - SERUM 2.1 mg/dL (1.8-2.4); PHOSPHOROUS 3.8 mg/dL (2.5-4.9); POTASSIUM - SERUM 3.2 mmol/L (3.5-5.1)
[2019-05-25 07:18] LABS: CREATININE - SERUM 2.1 mg/dL (0.6-1.3)
--- NOTE | 2019-05-25 07:30 | NUR ---
PT RESTING IN BED WITH TV ON. EYES ARE CLOSED AND PT IS BREATHING EVELY WITH NO DISTRESS. BED IS IN LOW POSITION AND CALL LIGHT IS IN REACH. WILL CONTINUE TO MONITOR
[2019-05-25 10:02] VITALS: BP 123/62
[2019-05-25 12:43] VITALS: BP 147/61
--- NOTE | 2019-05-25 19:30 | NUR ---
REPORT RECEIVED, WILL CONTINUE POC. PATIENT IS AAOX3, SEMI-FOWLERS POSITION. AT BEDSIDE. NO S/S OF DISTRESS OBSERVED, RR EVEN AND UNLABORED ON 2L O2 VIA NC. PATIENT DENIES NEEDS AT THIS TIME. CL IN REACH, BED LOCKED AND LOWERED. WILL CTM.
[2019-05-25 20:00] VITALS: BP 137/56
[2019-05-26] VITALS (7 sets, daily range): BP systolic 122–144; BP diastolic 58–70
[2019-05-26 07:05] LABS: ANION GAP 6.7 mmol/L (8-16); CALCIUM 8.8 mg/dL (8.5-10.1); CARBON DIOXIDE 35.4 mmol/L (21.0-32.0); PHOSPHOROUS 4.2 mg/dL (2.5-4.9); POTASSIUM - SERUM 3.1 mmol/L (3.5-5.1)
--- NOTE | 2019-05-26 07:12 | NUR ---
REPORT RECEIVED. WILL CONTINUE WITH POC. PT CURRENTLY LYING SEMI FOWLERS. CALL LIGHT W/I REACH. PT IS ASLEEP WITH EYES CLOSED AT THIS TIME. RR EVEN AND UNLABORED ON 2L 02. L.AC PIV IS SALINE LOCKED. NO S/S OF DISTRESS NOTED. WILL CTM.
[2019-05-26 07:25] LABS: BASOPHILS 0.1 % (0-2); EOSINOPHILS 1.2 % (0-7); HEMATOCRIT 44.1 % (42.0-54.0); HEMOGLOBIN 14.2 g/dL (13.5-17.5); IMMATURE GRANULOCYTES 0.1 % (0-5); LYMPHOCYTES 18.7 % (15-50); MCH 26.8 pg (26.0-34.0); MCHC 32.2 g/dL (31.0-37.0); MCV 83.2 fL (80.0-100.0); MONOCYTES 11.6 % (2-11); NEUTROPHILS 68.3 % (40-80); PLATELET COUNT 153 10x3/uL (130-400); RDW 24.3 % (11.5-14.5); WBC 8.3 10x3/uL (4.8-10.8)
[2019-05-26] MEDS ORDERED: LASIX40 MG PO (10:16)
--- NOTE | 2019-05-26 15:53 | NUR ---
I have reviewed this patient and I concur with the Shift Assessment completed by the Licensed Practical Nurse today this shift.
--- NOTE | 2019-05-26 17:38 | MORECARE ---
CASE MANAGEMENT DISCHARGE SUMMARY PATIENT: YENI CORNELIUS UNIT: [id number] ADM DATE: 05/24/19 AGE: 68 : 52 SEX: M ROOM/BED: D.2137 AUTHOR: ROSE MARY TOBIN PHYSICIAN: REFERRING PHYSICIAN: LISA RODRIGUEZ MD DATE OF SERVICE: 05/26/19 Discharge Plan Patient Name: YENI CORNELIUS [facility] [facility] 1950 Planned Disposition: Inpatient Rehab Anticipated Discharge Date: 05/27/19 Discharge Date: Expected LOS: 3 Initial Reviewer: [email or web address] Initial Review Date: 05/26/2019 Generated: 05/26/19 6:37 pm Coverage Notice Reviewer: [email or web address] Mindi Leiva Notice Issued Date-Time: 05/23/2019 18:45 Notice Type: Medicare Outpatient Observation Notice Notice Delivered To: Family Member Relationship to Patient: Spouse Evp Business Development Name: Elida Ely Delivery Method: CERT - Certified Mail Niurka Days: Prior Verbal Notification: Yes Recipient Understood Notice: Recipient Signature: Med Rec Note Co-signed by Attending: Coverage Notice Comment: PANCHAL called to patient's via telephone. She verbalizes permission for PANCHAL. Copy to chart and original will be mailed to patient's . Patient Name: YENI CORNELIUS Page [phone] at 1738 All edits/amendments must be made on the electronic document DICTATION DATE: 05/26/191736 HIDE AND SKIN COLERER: TOMÁS 05/26/191736 RPT#: [id number] CT DATE: STATUS: ADM IN [facility] [address] [place] [address] END OF REPORT
--- NOTE | 2019-05-26 17:47 | MORECARE ---
CASE MANAGEMENT DISCHARGE SUMMARY PATIENT: YENI CORNELIUS UNIT: [id number] ADM DATE: 05/24/19 AGE: 68 : 52 SEX: M ROOM/BED: D.9056 AUTHOR: ROSE MARY TOBIN PHYSICIAN: REFERRING PHYSICIAN: LISA RODRIGUEZ MD DATE OF SERVICE: 05/26/19 Discharge Plan Patient Name: YENI CORNELIUS [facility] : 1950 Planned Disposition: Inpatient Rehab Anticipated Discharge Date: 05/27/19 Discharge Date: Expected LOS: 3 Initial Reviewer: [email or web address] Initial Review Date: 05/26/2019 Generated: 05/26/19 6:47 pm Comments DCP- Discharge Planning Updated by [email or web address]: Marv Polk on 05/26/19 4:[address] Patient Name: YENI CORNELIUS Admission Status: ER Accout number: [id number] Admission Date: 05-24-2019 : 1950 Admission Diagnosis: Attending: LISA RODRIGUEZ Current LOS: 2 Anticipated DC Date: 05-27-2019 Planned Disposition: Inpatient Rehab Primary Insurance: [facility] MEDICARE SOLUTIONS PLANNED EXTERAL PROVIDER: [facility] Discharge Planning Comments: CM RECEIVED DISCHARGE ORDER, CM MET WITH PT IN ROOM TO DISCUSS DISCHARGE PLANNING AND NEEDS. PT REPORTS LIVING AT HOME DEPENDENTLY WITH HIS WHO ASSIST WITH MEDICATIONS. PT HAS CANE, NEBULZER, TRILOGY MACHINE, HOME OXGYEN ADN WALKER FROM [facility]. PT HAS NO OUTSIDE SERVICES ASSISTING IN THE HOME. CM DISCUSSED AVAILABILITY OF HOME HEALTH, REHAB SERVICES AND MEDICAL EQUIPMENT. PT INFORMED CM HE DOES NOT WANT REHAB AND HAD HOME HEALTH AND DOES NOT WANT THEM NOW. PT DENIES DISCHARGE NEEDS, REPORTS HIS WILL PICK HER UP FOR DISCHARGE HOME AFTER SHE GETS OFF FROM WORK AND HE WILL CALL HER. CM LATER ADVISED BY BEDSIDE NURSE THAT PT'S HAS ARRIVED AND STATES PT NEEDS REHAB. CM MET WITH PT AND SPOUSE IN ROOM. PT'S SPOUSE REPORTS PT TOO WEAK TO GO HOME AND NEEDS REHAB TO GO HOME. PT DOES NOT THINK HE NEEDS REHAB BUT STATES HE WILL GO. PT'S STATES PT IS ANGRY BUT SHE JUST CANNOT LIFT PT IN HIS CURRENT STATE OF WEAKNESS. CM DISCUSSED REHAB OPTIONS, LOCATIONS AND PROVIDERS, OFFERED LISTING; PT'S REPORTS BEING FAMILIAR WITH REHABS AND WOULD LIKE PT IN INPATIENT REHAB AT [facility] INSURANCE WILL APPROVE THIS. CM ASKED FOR LONG-TERM SELECTIONS IN CASE INSURANCE DECLINED, SHE CHOSE [facility]. CHOICE COMPLETED. SALES HOST NURSE NOTIFED. ORDER FOR INPATIENT REHAB PRESCREEN OBTAINED. IF INSURANCE DECLINED INPATIENT REHAB, CM WILL REFER TO [facility] FOR LONG-TERM REHAB. Lighting Fixture Installer: Marv Polk DCPIA - Discharge Planning Initial Assessment Updated by [email or web address]: Mrav Polk on 05/26/19 5:38 pm * Is the patient Alert and Oriented? Yes * How many steps to enter\exit or inside your home? NONE * PCP [facility] * Pharmacy [facility] * Preadmission Environment Home with Family * ADLs Partial Dependent * Partial ADLs (Assistance needed) Medication Management * Equipment Cane Nebulizer Other Oxygen Walker * Other Equipment TRILOGY MACHINE HOME OXYGEN - [place] * List name and contact numbers for known caregivers / representatives who currently or will assist patient after discharge: ELIDA CORNELIUS, SPOUSE, * Verbal permission to speak to the caregivers and representatives has been obtained from the patient. Yes * Community resources currently utilized None * Please name any agencies selected above. NONE * Additional services required to return to the preadmission environment? No * Can the patient safely return to the preadmission environment? Yes * Has this patient been hospitalized within the prior 30 days at any hospital? No Coverage Notice Reviewer: [email or web address] Mindi Leiva Notice Issued Date-Time: 05/23/2019 18:45 Notice Type: Medicare Outpatient Observation Notice Notice Delivered To: Family Member Relationship to Patient: Spouse Recreational Counselor Name: Elida Petersantiago Delivery Method: CERT - Certified Mail Niurka Days: Prior Verbal Notification: Yes Recipient Understood Notice: Recipient Signature: Med Rec Note Co-signed by Attending: Coverage Notice Comment: ANSLEY called to patient's via telephone. She verbalizes permission for ANSLEY. Copy to chart and original will be mailed to patient's . Reviewer: [id number] - Marv Polk Notice Issued Date-Time: 05/26/2019 15:15 Notice Type: Patient Choice Letter Notice Delivered To: Family Member Relationship to Patient: Spouse Recreational Counselor Name: ELIDA CORNELIUS Delivery Method: HAND - Hand Delivered Niurka Days: Prior Verbal Notification: Recipient Understood Notice: Yes Recipient Signature: Yes Med Rec Note Co-signed by Attending: Coverage Notice Comment: [facility] IN[facility] RE[facility]; [facility] [place] DP export: 05/26/19 4:38 Patient Name: YENI CORNELIUS Page [phone] at 1747 All edits/amendments must be made on the electronic document DICTATION DATE: 05/26/191746 TOOL CARRIER: TOMÁS 05/26/191746 RPT#: [id number] DC DATE: STATUS: ADM IN [facility] [address] [place] [address] END OF REPORT
--- NOTE | 2019-05-26 19:38 | NUR ---
REPORT RECEIVED, WILL CONTINUE POC. PATIENT IS RESTING WITH EYES CLOSED, NO S/S OF DISTRESS OBSERVED, RR EVEN AND UNLABORED ON ROOM AIR. PATIENT DENIES NEEDS AT THIS TIME. CL IN REACH, BED LOCKED AND LOWERED. WILL CTM.
[2019-05-27 04:00] VITALS: BP 129/62
[2019-05-27 06:24] LABS: BASOPHILS 0.3 % (0-2); EOSINOPHILS 1.7 % (0-7); HEMATOCRIT 45.3 % (42.0-54.0); HEMOGLOBIN 14.3 g/dL (13.5-17.5); IMMATURE GRANULOCYTES 0.3 % (0-5); MCH 26.5 pg (26.0-34.0); MCHC 31.6 g/dL (31.0-37.0); MONOCYTES 13.6 % (2-11); NEUTROPHILS 58.1 % (40-80); PLATELET COUNT 147 10x3/uL (130-400); RBC 5.39 10x6/uL (4.20-6.10); RDW 24.5 % (11.5-14.5); WBC 6.5 10x3/uL (4.8-10.8)
[2019-05-27 06:34] LABS: CARBON DIOXIDE 34.9 mmol/L (21.0-32.0); MAGNESIUM - SERUM 2.3 mg/dL (1.8-2.4); PHOSPHOROUS 4.6 mg/dL (2.5-4.9)
[2019-05-27 07:20] LABS: POTASSIUM - SERUM 2.9 mmol/L (3.5-5.1)
[2019-05-27 09:48] VITALS: BP 129/60
--- NOTE | 2019-05-27 12:55 | NUR ---
Nutrition Follow-up: Good/fair PO intake. Diet: Cardiac Diabetic PO intake: 50-110% Wt: 225# (220# on admit) No BMs recorded Labs noted: K+ 2.9, GFR 36, Glu 92 Meds noted: Lasix, Lantus, KDur, Humalog -Offer Glucerna with meals. -May consider stool softener. -Monitor wt. -RD following.
--- NOTE | 2019-05-27 13:29 | NUR ---
OT NOTE: PT COMPLETED BED MOB WITH MIN-MOD A. PT COMPLETED TRANSFER WITH MIN-MOD A. PT COMPLETED UE AROM AXS. PT COMPLETED FACE WASH WITH SETUP. PT REQUIRED REST BREAKS. [phone] THANK YOU,NEL DELEON
[2019-05-27 17:16] VITALS: BP 103/72
[2019-05-27 17:27] VITALS: BP 120/61
--- NOTE | 2019-05-27 18:33 | NUR ---
I have reviewed this patient and I concur with the Shift Assessment completed by the Licensed Practical Nurse today this shift.
--- NOTE | 2019-05-27 19:10 | NUR ---
BEDSIDE REPORT RECEIVED FROM DAY SHIFT, PT CARE ASSUMED. INTRODUCED SELF AND WROTE NAME ON BOARD. PT SITTING UP IN BED WATCHING TV, A&A. REPOSITIONED FOR COMFORT. DENIES ANY NEEDS AT THIS TIME. BED IN LOWEST POSITION, SR X2, CALL LIGHT AND URINAL WITHIN REACH. WILL CONTINUE TO MONITOR.
[2019-05-27 20:00] VITALS: BP 156/81
[2019-05-28] VITALS: BP 147/84
[2019-05-28 04:00] VITALS: BP 158/93
--- NOTE | 2019-05-28 07:00 | NUR ---
RECEIVED REPORT. ASSUMED CARE OF PATIENT. REPORTED TO THIS CHICKEN AND FISH BUTCHER THAT PATIENT REFUSED HIS LASIX THIS AM HE DOES NOT THINK THAT HE NEEDS IT. PATIENT EASILY AROUSED. ALERT/ORIENTED. NO DISTRESS. CALL LIGHT WITHIN REACH.
[2019-05-28 07:02] LABS: BASOPHILS 0.4 % (0-2); EOSINOPHILS 3.3 % (0-7); HEMATOCRIT 44.2 % (42.0-54.0); IMMATURE GRANULOCYTES 0.3 % (0-5); LYMPHOCYTES 26.3 % (15-50); MCH 26.9 pg (26.0-34.0); MCHC 31.7 g/dL (31.0-37.0); MONOCYTES 11.6 % (2-11); NEUTROPHILS 58.1 % (40-80); PLATELET COUNT 142 10x3/uL (130-400); RDW 24.2 % (11.5-14.5); WBC 7.1 10x3/uL (4.8-10.8)
[2019-05-28 07:04] LABS: ANION GAP 10.7 mmol/L (8-16); CALCIUM 8.9 mg/dL (8.5-10.1); CARBON DIOXIDE 32.5 mmol/L (21.0-32.0); CREATININE - SERUM 1.8 mg/dL (0.6-1.3); MAGNESIUM - SERUM 2.4 mg/dL (1.8-2.4); PHOSPHOROUS 3.7 mg/dL (2.5-4.9); POTASSIUM - SERUM 3.2 mmol/L (3.5-5.1)
[2019-05-28 08:50] VITALS: BP 184/97
--- NOTE | 2019-05-28 08:58 | NUR ---
K+ SUPPLEMENT INITIATED AT THIS TIME.
--- NOTE | 2019-05-28 10:00 | NUR ---
PATIENT OOB TO CHAIR AT BEDSIDE WITH PT. PT SUGGESTS X2 NURSES TO GET PATIENT BACK TO BED SAFELY.
--- NOTE | 2019-05-28 11:27 | NUR ---
FSBS 246. 4 UNITS HUMALOG ADMINISTERED PER SLIDING SCALE. NO DISTRESS. CONTINUES SITTING UP IN CHAIR AT BEDSIDE. PATIENT WANTS TO KNOW WHEN HE CAN GO HOME. DISCUSSED THAT PATIENT IS STILL HERE WE ARE WAITING ON APPROVAL FROM INSURANCE FOR HIM TO GO TO REHAB AND IT MIGHT BE THURSDAY BEFORE WE HAVE AN ANSWER. CALL LIGHT WITHIN REACH. NO RESPONSE FROM PATIENT EXCEPT FOR DEEP SIGH.
[2019-05-28 11:59] VITALS: BP 132/76
[2019-05-28 16:41] VITALS: BP 159/58
--- NOTE | 2019-05-28 16:42 | NUR ---
FSBS 172. 2 UNITS HUMALOG ADMINISTERED ORDERED PER SLIDING SCALE. NO DISTRESS. RESTING IN BED AT THIS TIME. NO DISTRESS.
--- NOTE | 2019-05-28 19:20 | NUR ---
REPORT RECEIVED. PT UP IN BED WATCHING TV. RR EVEN AND UNLABORED. NO S/SX OF DISTRESS NOTED AT THIS TIME. NO NEEDS EXPRESSED. FALL PRECUATIONS IN PLACE. WILL CTM.
[2019-05-28 20:00] VITALS: BP 139/70
[2019-05-29] VITALS: BP 152/75
[2019-05-29 04:00] VITALS: BP 109/70
[2019-05-29 06:16] LABS: BASOPHILS 0.5 % (0-2); EOSINOPHILS 2.7 % (0-7); HEMATOCRIT 42.7 % (42.0-54.0); HEMOGLOBIN 13.6 g/dL (13.5-17.5); IMMATURE GRANULOCYTES 0.2 % (0-5); MCH 26.8 pg (26.0-34.0); MCHC 31.9 g/dL (31.0-37.0); MCV 84.2 fL (80.0-100.0); MONOCYTES 8.8 % (2-11); NEUTROPHILS 58.8 % (40-80); PLATELET COUNT 150 10x3/uL (130-400); RBC 5.07 10x6/uL (4.20-6.10); RDW 23.7 % (11.5-14.5); WBC 6.6 10x3/uL (4.8-10.8)
[2019-05-29 06:21] LABS: ANION GAP 9.5 mmol/L (8-16); CARBON DIOXIDE 31.7 mmol/L (21.0-32.0); CREATININE - SERUM 1.6 mg/dL (0.6-1.3); MAGNESIUM - SERUM 2.2 mg/dL (1.8-2.4); PHOSPHOROUS 3.7 mg/dL (2.5-4.9); POTASSIUM - SERUM 3.2 mmol/L (3.5-5.1)
--- NOTE | 2019-05-29 07:00 | NUR ---
RECEIVED REPORT. ASSUMED CARE OF PATIENT. PATIENT LYING IN BED WITH EYES CLOSED. RESP EVEN AND UNLABORED. CURRENTLY RECEIVING BREATHING TX VIA MASK. CALL LIGHT WITHIN REACH. NO DISTRESS.
--- NOTE | 2019-05-29 08:27 | NUR ---
ASSISTED OOB FOR AM MEAL. K+ SUPPLEMENT INITIATED FOR HYPOKALEMIA. PATIENT HAVING AM MEAL AT BEDSIDE IN CHAIR AT THIS TIME. NO DISTRESS.
[2019-05-29 08:48] VITALS: BP 148/68
--- NOTE | 2019-05-29 10:23 | NUR ---
RECEIVED DUPLICATE ORDER FOR PATIENT TO BE OOB FOR MEALS. PATIENT HAS BEEN OOB SINCE 0745 THIS AM SITTING IN CHAIR AT BEDSIDE PER THIS NURSE.
--- NOTE | 2019-05-29 11:37 | NUR ---
FSBS 284. 6 UNITS HUMALOG ADMINISTERED PER SLIDING SCALE.
--- NOTE | 2019-05-29 13:05 | NUR ---
PATIENT BEING ASSISTED BACK TO BED BY PHYSICAL THERAPY AT THIS TIME. NO DISTRESS.
[2019-05-29 13:08] VITALS: BP 110/66
--- NOTE | 2019-05-29 14:21 | NUR ---
OT NOTE: PT UP IN CHAIR. AGGREEABLE TO WALK TO SINK FOR HYGIENE, HOWEVER, PT ONLY ABLE TO AMB APPROX 6 FT TODAY. STATED THAT HIS "LEGS WERENT WORKING". PT WITH SIGNIFICANT DIFFICULTY ADVANCING R FOOT TODAY COMPARED TO THU. ASSISTED BACK TO EOB. PERFORMED SIT TO STAND WITH MOD ASSIST FROM BED AND PT ABLE TO SIDE STEP TO R SIDE WITH EXTENDED TIME PROVIDED AND MIN ASSIST. ABLE TO PERFORM SIMPLE GROOMING TASKS WHILE ON EOB. PT DID NOT REMEMBER THIS THERAPIST TODAY.. SLIGHTLY MORE CONFUSED BUT ABLE TO FOLLOW COMMANDS. BED MOB WITH MIN ASSIST AND MOD ASSIST TO REPOSITION IN BED. [phone] LISSETTE MACIAS, OTR/L
--- NOTE | 2019-05-29 16:30 | NUR ---
FSBS 137. NO INSULIN COVERAGE PER SLIDING SCALE.
[2019-05-29 17:00] VITALS: BP 142/81
--- NOTE | 2019-05-29 17:45 | NUR ---
rehab prescreen: just received notice of this eval. the patient has [facility] insurance with medicaid secondary. will need prior authorzation before being able to eval for admittance. the patient walked 30feet with 50% assist from physical therapy will make a good canidate for IRF. will notify as soon as get approval from insurance company. thank you for this eval. magaly rapp lpn clinical liasion
--- NOTE | 2019-05-29 19:43 | NUR ---
RECEIVED UP IN BED WITH EYES CLOSED. EASILY AROUSES WITH VERBAL STIMULI. ORIENTED X4 AT THIS TIME. DOES HAVE PERIODS OF CONFUSION. NO IV ACCESS. DENIES ANY NEEDS AT THIS TIME.
[2019-05-29 20:40] VITALS: BP 144/74
[2019-05-30 00:30] VITALS: BP 122/71
[2019-05-30 04:36] VITALS: BP 132/69
[2019-05-30 06:47] LABS: ANION GAP 10.3 mmol/L (8-16); CARBON DIOXIDE 32.7 mmol/L (21.0-32.0); CREATININE - SERUM 1.6 mg/dL (0.6-1.3)
--- NOTE | 2019-05-30 07:10 | NUR ---
PATIENT LAYING IN BED ON BACK WITH EYES CLOSED AND BREATHING EVENLY . WILL CONTINUE WITH PLAN OF CARE. SR UPX 2 BED IN LOW POSITION AND CALL LIGHT IN REACH.
[2019-05-30 07:32] LABS: BASOPHILS 0.5 % (0-2); EOSINOPHILS 2.9 % (0-7); HEMATOCRIT 43.8 % (42.0-54.0); LYMPHOCYTES 30.4 % (15-50); MCH 26.9 pg (26.0-34.0); MCV 84.2 fL (80.0-100.0); MONOCYTES 9.6 % (2-11); NEUTROPHILS 56.6 % (40-80); PLATELET COUNT 155 10x3/uL (130-400); RDW 23.7 % (11.5-14.5); WBC 6.6 10x3/uL (4.8-10.8)
[2019-05-30 09:59] VITALS: BP 151/67
--- NOTE | 2019-05-30 11:00 | NUR ---
PATIENT IS STABLE AND VSS. PATIENT DENIES ANY NEEDS OR PAIN. PATIENT UP TO BS CHAIR WITH PT. WILL CONTINUE TO MONITOR. SR UP X 2 BED IN LOW POSITION AND CALL LIGHT IN REACH.
--- NOTE | 2019-05-30 11:48 | NUR ---
*Late Entry* Rehab Note- Acute Inpatient Rehab prescreen order received on 05/26/19, the patient has [facility] insurance and requires a PreAuth- PreAuth was initiated & clinicals were faxed in on 05/27/19 to [facility] for review for possible acute inpatient rehab stay. Will continue to follow at this time and will await determination from [facility] for possible inpatient acute rehab stay. Thank you for this referral! Shayy Keenan RN CLinical Liaison, [facility] Rehab
[2019-05-30 12:32] VITALS: BP 120/66
--- NOTE | 2019-05-30 12:41 | NUR ---
OT NOTE: UPON ENTERING ROOM, PT WAS LIEING SIDEWAYS ON BED. ABLE TO PERFORM SUPINE TO SIT WITH MIN ASSIST; ATTEMPTED TO AMB TO SINK TO ALLOW PT TO PERFORM SINK BATH, HOWEVER, ONLY ABLE TO GET APPROX 5 FT AND HAD TO SIT BACK DOWN. PROVIDED PT WITH WASH CLOTHES AND HE WAS ABLE TO WASH FACE, HANDS, CHEST, AND ARMS WITH SET UP AND EXT TIME. REQUIRED TOTAL ASSIST WITH BACK, PERINEAL, AND LES. PT WAS INCONT OF BOWEL AND REQUIRED CLEANING AND CHANGING PADS. ABLE TO DOFF AND ALEXANDR B SOCKS WHILE SEATED ON EOB WITH EXT TIME AND FREQ CUES FOR SAFETY TO PREVENT FROM FALLING FORWARD ONTO FLOOR. AFTER SEVERAL MIN OF REST, PT WAS ABLE TO PERFORM SIT TO STAND WITH MIN ASSIST AND AMB APPROX 8 FT TO TOILET; TOILET TRANSFER WITH MIN ASSIST; HYGIENE WITH MAX ASSIST. [phone] LISSETTE MACIAS OTR/Ag Nam
--- NOTE | 2019-05-30 14:15 | NUR ---
PATIENT IS STABLE AND VSS. PATIENT DENIES ANY NEEDS OR PAIN. ORDERS RECEIVED FOR DC. WRITTEN AND VERBAL INSTRUCTIONS GIVEN TO PATIENT. PATIENT VERBALIZED UNDERSTANDING. PATIENT REQUESTS THAT SIGN PAPERS WHEN SHE COMES TO PICK HIM UP. WILL CONTINUE TO MONITOR. SR UP X 2 BED IN LOW POSITION AND CALL LIGHT IN REACH.
--- NOTE | 2019-05-30 15:09 | MORECARE ---
CASE MANAGEMENT DISCHARGE SUMMARY PATIENT: YENI CORNELIUS UNIT: [id number] ADM DATE: 05/24/19 AGE: 68 : 52 SEX: M ROOM/BED: D.3605 AUTHOR: CRISTADOC PHYSICIAN: REFERRING PHYSICIAN: LISA RODRIGUEZ MD DATE OF SERVICE: 05/30/19 Discharge Plan Patient Name: YENI CORNELIUS [facility] [facility] 1950 Planned Disposition: Inpatient Rehab Anticipated Discharge Date: 05/27/19 Discharge Date: Expected LOS: 3 Initial Reviewer: [id number] Initial Review Date: 05/26/2019 Generated: 05/30/19 4:09 pm DCP- Discharge Planning Updated by [email or web address]: Marv Polk on 05/26/19 4:[address] Patient Name: YENI CORNELIUS Admission Status: ER Accout number: [id number] Admission Date: 05-24-2019 : 1950 Admission Diagnosis: Attending: LISA RODRIGUEZ Current LOS: 2 Anticipated DC Date: 05-27-2019 Planned Disposition: Inpatient Rehab Primary Insurance: [facility] MEDICARE SOLUTIONS PLANNED EXTERAL PROVIDER: [facility] INPATIENT REHAB Discharge Planning Comments: CM RECEIVED DISCHARGE ORDER, CM MET WITH PT IN ROOM TO DISCUSS DISCHARGE PLANNING AND NEEDS. PT REPORTS LIVING AT HOME DEPENDENTLY WITH HIS WHO ASSIST WITH MEDICATIONS. PT HAS CANE, NEBULZER, TRILOGY MACHINE, HOME OXGYEN ADN WALKER FROM [facility]. PT HAS NO OUTSIDE SERVICES ASSISTING IN THE HOME. CM DISCUSSED AVAILABILITY OF HOME HEALTH, REHAB SERVICES AND MEDICAL EQUIPMENT. PT INFORMED CM HE DOES NOT WANT REHAB AND HAD HOME HEALTH AND DOES NOT WANT THEM NOW. PT DENIES DISCHARGE NEEDS, REPORTS HIS WILL PICK HER UP FOR DISCHARGE HOME AFTER SHE GETS OFF FROM WORK AND HE WILL CALL HER. CM LATER ADVISED BY BEDSIDE NURSE THAT PT'S HAS ARRIVED AND STATES PT NEEDS REHAB. CM MET WITH PT AND SPOUSE IN ROOM. PT'S SPOUSE REPORTS PT TOO WEAK TO GO HOME AND NEEDS REHAB TO GO HOME. PT DOES NOT THINK HE NEEDS REHAB BUT STATES HE WILL GO. PT'S STATES PT IS ANGRY BUT SHE JUST CANNOT LIFT PT IN HIS CURRENT STATE OF WEAKNESS. CM DISCUSSED REHAB OPTIONS, LOCATIONS AND PROVIDERS, OFFERED LISTING; PT'S REPORTS BEING FAMILIAR WITH REHABS AND WOULD LIKE PT IN INPATIENT REHAB AT [place] AND FEELS INSURANCE WILL APPROVE THIS. CM ASKED FOR LONG-TERM SELECTIONS IN CASE INSURANCE DECLINED, SHE CHOSE [facility] AND [facility]. CHOICE COMPLETED. LINEN MANAGER NURSE NOTIFED. ORDER FOR INPATIENT REHAB PRESCREEN OBTAINED. IF INSURANCE DECLINED INPATIENT REHAB, CM WILL REFER TO [facility] FOR LONG-TERM REHAB. Canteen Manager: Marv Polk DCPIA - Discharge Planning Initial Assessment Updated by [id number]: Marv Polk on 05/26/19 5:38 pm * Is the patient Alert and Oriented? Yes * How many steps to enter\exit or inside your home? NONE * PCP [facility] * Pharmacy [facility] * Preadmission Environment Home with Family * ADLs Partial Dependent * Partial ADLs (Assistance needed) Medication Management * Equipment Cane Nebulizer Other Oxygen Walker * Other Equipment TRILOGY MACHINE HOME OXYGEN - [facility] * List name and contact numbers for known caregivers / representatives who currently or will assist patient after discharge: ELIDA CORNELIUS, SPOUSE, * Verbal permission to speak to the caregivers and representatives has been obtained from the patient. Yes * Community resources currently utilized None * Please name any agencies selected above. NONE * Additional services required to return to the preadmission environment? No * Can the patient safely return to the preadmission environment? Yes * Has this patient been hospitalized within the prior 30 days at any hospital? No Coverage Notice Reviewer: [id number] Mindi Leiva Notice Issued Date-Time: 05/23/2019 18:45 Notice Type: Medicare Outpatient Observation Notice Notice Delivered To: Family Member Relationship to Patient: Spouse Photo Mask Processor Name: Elida Ely Delivery Method: CERT - Certified Mail Niurka Days: Prior Verbal Notification: Yes Recipient Understood Notice: Recipient Signature: Med Rec Note Co-signed by Attending: Coverage Notice Comment: ANSLEY called to patient's via telephone. She verbalizes permission for PANCHAL. Copy to chart and original will be mailed to patient's . Reviewer: [id number] - Marv Polk Notice Issued Date-Time: 05/26/2019 15:15 Notice Type: Patient Choice Letter Notice Delivered To: Family Member Relationship to Patient: Spouse Photo Mask Processor Name: ELIDA CORNELIUS Delivery Method: HAND - Hand Delivered Niurka Days: Prior Verbal Notification: Recipient Understood Notice: Yes Recipient Signature: Yes Med Rec Note Co-signed by Attending: Coverage Notice Comment: [facility] IN[facility] REHAB; [facility] OR [facility] Reviewer: [id number] Polk Notice Issued Date-Time: 05/30/2019 13:50 Notice Type: Patient Choice Letter Notice Delivered To: Patient Relationship to Patient: Photo Mask Processor Name: Delivery Method: HAND - Hand Delivered Niurka Days: Prior Verbal Notification: Recipient Understood Notice: Yes Recipient Signature: Yes Med Rec Note Co-signed by Attending: Coverage Notice Comment: ELITE Reviewer: [id number] Polk Notice Issued Date-Time: 05/30/2019 13:50 Notice Type: Notice Delivered To: Patient Relationship to Patient: Photo Mask Processor Name: Delivery Method: HAND - Hand Delivered Niurka Days: Prior Verbal Notification: Recipient Understood Notice: Yes Recipient Signature: Yes Med Rec Note Co-signed by Attending: Coverage Notice Comment: Last DP export: 05/26/19 4:47 Patient Name: YENI CORNELIUS Page [phone] at 1509 All edits/amendments must be made on the electronic document DICTATION DATE: 05/30/19 1509 PRINTING WORKER SUPERVISOR: TOMÁS 05/30/19 1509 RPT#: [id number] [place] DATE: STATUS: ADM IN [facility] [address] [place] [address] END OF REPORT
--- NOTE | 2019-05-30 15:18 | MORECARE ---
CASE MANAGEMENT DISCHARGE SUMMARY PATIENT: YENI CORNELIUS UNIT: [id number] ADM DATE: 05/24/19 AGE: 68 : 52 SEX: M ROOM/BED: D.6240 AUTHOR: CRISTA,DOC PHYSICIAN: REFERRING PHYSICIAN: LISA RODRIGUEZ MD DATE OF SERVICE: 05/30/19 Discharge Plan Patient Name: YENI CORNELIUS Facility: [facility]:[place] : 1950 Planned Disposition: Inpatient Rehab Anticipated Discharge Date: 05/27/19 Discharge Date: Expected LOS: 3 Initial Reviewer: [email or web address] Initial Review Date: 05/26/2019 Generated: 05/30/19 4:18 pm Comments DCP- Discharge Planning Updated by [email or web address]: Marv Polk on 05/30/19 2:[address] Patient Name: YENI CORNELIUS Encounter No: [id number] : 1950 Primary Insurance: [facility] MEDICARE SOLUTIONS Anticipated DC Date: 05-27-2019 Planned Disposition: HOME WITH HOME HEALTH External Planned Provider: [employer] [facility] DCP follow-up note: CM RECEIVED REQUEST TO MEET WITH PT AND SPOUSE IN ROOM, PT'S SPOUSE NOW WANTS TO TAKE PT HOME. CM MET WITH PT AND SPOUSE IN ROOM TO DISCUSS DISCHARGE NEEDS AND PLANNING. PT REPORTS BEING TIRED OF SITTING IN THE HOSPITAL WAITING ON INSURANCE TO PROVIDE AUTHORIZATION FOR REHAB SERVICES AND WANTS TO WAIT AT HOME. BOTH PT AND SPOUSE WANT TO GO HOME, PT'S SPOUSE REPORTS SHE AND PT'S ADULT SON WILL BE THERE TO TAKE CARE OF PT AT HOME THROUGH THE HOLIDAY. SHE WISHES TO CONTINUE WITH AUTHORIZATION FOR INPATIENT REHAB AND WILL BRING PT TO INPATIENT REHAB ONCE APPROVED. IT IS NOT APPROVED BY INSURANCE, SHE WOULD LIKE REFERRAL TO [facility] AND [facility] FOR REHAB SERVICES. PT IN AGREEMENT WITH PLAN. CHOICE FOR HOME HEALTH DISCUSSED, PT WANTS [facility] HE USED THEM IN THE PAST, CHOICE SIGNED. IMPORTANT MESSAGE FROM MEDICARE PROVIDED AND EXPLAINED. CM NOTIFIED EMILIANO JAY, RECEIVED DISCHARGE AND HOME HEALTH ORDERS. CM CALLED [facility], , SPOKE TO STEFANY, REFERRAL PROVIDED, PT PLACED ON SCHEDULE FOR THURSDAY AND IF THEY HAVE CANCELLATION, THEY WILL TRY TO SEE PT SOONER. CM SPOKE TO PT IN ROOM, PT IN AGREEMENT WITH PLAN AND DENIES FURTHER DISCHARGE NEEDS. CM FAXED REFERRAL AND DISCHARGE INFORMATION TO [facility] AT [phone]. ASPHALT BLENDER NURSE NOTIFIED. Marv Polk, CASE MANAGEMENT DCP- Discharge Planning Updated by [id number]: Marv Polk on 05/26/19 4:[address] Patient Name: YENI CORNELIUS Admission Status: ER Accout number: [id number] Admission Date: 05-24-2019 : 1950 Admission Diagnosis: Attending: LISA RODRIGUEZ Current LOS: 2 Anticipated DC Date: 05-27-2019 Planned Disposition: Inpatient Rehab Primary Insurance: [facility] MEDICARE SOLUTIONS PLANNED EXTERAL PROVIDER: [facility] INPATIENT REHAB Discharge Planning Comments: CM RECEIVED DISCHARGE ORDER, CM MET WITH PT IN ROOM TO DISCUSS DISCHARGE PLANNING AND NEEDS. PT REPORTS LIVING AT HOME DEPENDENTLY WITH HIS WHO ASSIST WITH MEDICATIONS. PT HAS CANE, NEBULZER, TRILOGY MACHINE, HOME OXGYEN ADN WALKER FROM [facility]. PT HAS NO OUTSIDE SERVICES ASSISTING IN THE HOME. CM DISCUSSED AVAILABILITY OF HOME HEALTH, REHAB SERVICES AND MEDICAL EQUIPMENT. PT INFORMED CM HE DOES NOT WANT REHAB AND HAD HOME HEALTH AND DOES NOT WANT THEM NOW. PT DENIES DISCHARGE NEEDS, REPORTS HIS WILL PICK HER UP FOR DISCHARGE HOME AFTER SHE GETS OFF FROM WORK AND HE WILL CALL HER. CM LATER ADVISED BY BEDSIDE NURSE THAT PT'S HAS ARRIVED AND STATES PT NEEDS REHAB. CM MET WITH PT AND SPOUSE IN ROOM. PT'S SPOUSE REPORTS PT TOO WEAK TO GO HOME AND NEEDS REHAB TO GO HOME. PT DOES NOT THINK HE NEEDS REHAB BUT STATES HE WILL GO. PT'S STATES PT IS ANGRY BUT SHE JUST CANNOT LIFT PT IN HIS CURRENT STATE OF WEAKNESS. CM DISCUSSED REHAB OPTIONS, LOCATIONS AND PROVIDERS, OFFERED LISTING; PT'S REPORTS BEING FAMILIAR WITH REHABS AND WOULD LIKE PT IN INPATIENT REHAB AT [place] AND FEELS INSURANCE WILL APPROVE THIS. CM ASKED FOR ALF SELECTIONS IN CASE INSURANCE DECLINED, SHE CHOSE [facility] AND [facility]. CHOICE COMPLETED. ASPHALT BLENDER NURSE NOTIFED. ORDER FOR INPATIENT REHAB PRESCREEN OBTAINED. IF INSURANCE DECLINED INPATIENT REHAB, CM WILL REFER TO [facility] FOR ALF REHAB. Poultry Veterinarian: Marv Polk DCPIA - Discharge Planning Initial Assessment Updated by [id number]: Marv Polk on 05/26/19 5:38 pm * Is the patient Alert and Oriented? Yes * How many steps to enter\exit or inside your home? NONE * PCP [facility] * Pharmacy [facility] * Preadmission Environment Home with Family * ADLs Partial Dependent * Partial ADLs (Assistance needed) Medication Management * Equipment Cane Nebulizer Other Oxygen Walker * Other Equipment TRILOGY MACHINE HOME OXYGEN - [place] * List name and contact numbers for known caregivers / representatives who currently or will assist patient after discharge: ELIDA CORNELIUS, SPOUSE, * Verbal permission to speak to the caregivers and representatives has been obtained from the patient. Yes * Community resources currently utilized None * Please name any agencies selected above. NONE * Additional services required to return to the preadmission environment? No * Can the patient safely return to the preadmission environment? Yes * Has this patient been hospitalized within the prior 30 days at any hospital? No Coverage Notice Reviewer: [id number] Mindi Polk Notice Issued Date-Time: 05/26/2019 15:15 Notice Type: Patient Choice Letter Notice Delivered To: Family Member Relationship to Patient: Spouse Instrument Calibrator Name: ELIDA CORNELIUS Delivery Method: HAND - Hand Delivered Niurka Days: Prior Verbal Notification: Recipient Understood Notice: Yes Recipient Signature: Yes Med Rec Note Co-signed by Attending: Coverage Notice Comment: [facility] IN REHAB; [facility] OR [facility] Reviewer: [id number] Mindi Leiva Notice Issued Date-Time: 05/23/2019 18:45 Notice Type: Medicare Outpatient Observation Notice Notice Delivered To: Family Member Relationship to Patient: Spouse Instrument Calibrator Name: Elida Ely Delivery Method: CERT - Certified Mail Niurka Days: Prior Verbal Notification: Yes Recipient Understood Notice: Recipient Signature: Med Rec Note Co-signed by Attending: Coverage Notice Comment: PANCHAL called to patient's via telephone. She verbalizes permission for PANCHAL. Copy to chart and original will be mailed to patient's . Reviewer: [id number] Mindi Polk Notice Issued Date-Time: 05/30/2019 13:50 Notice Type: Notice Delivered To: Patient Relationship to Patient: Instrument Calibrator Name: Delivery Method: HAND - Hand Delivered Niurka Days: Prior Verbal Notification: Recipient Understood Notice: Yes Recipient Signature: Yes Med Rec Note Co-signed by Attending: Coverage Notice Comment: Reviewer: [id number] - Marv Polk Notice Issued Date-Time: 05/30/2019 13:50 Notice Type: Patient Choice Letter Notice Delivered To: Patient Relationship to Patient: Instrument Calibrator Name: Delivery Method: HAND - Hand Delivered Niurka Days: Prior Verbal Notification: Recipient Understood Notice: Yes Recipient Signature: Yes Med Rec Note Co-signed by Attending: Coverage Notice Comment: ELITE Last DP export: 05/30/19 2:09 Patient Name: YENI CORNELIUS Page [id number] at 1518 All edits/amendments must be made on the electronic document DICTATION DATE: 05/30/191517 MANAGER ADMINISTRATION: TOMÁS 05/30/191517 RPT#: [id number] DC DATE: STATUS: ADM IN [facility] [address] [place] [address] END OF REPORT
--- NOTE | 2019-05-30 15:26 | MORECARE ---
CASE MANAGEMENT DISCHARGE SUMMARY PATIENT: YENI CORNELIUS UNIT: [id number] ADM DATE: 05/24/19 AGE: 68 : 54 SEX: M ROOM/BED: D.0109 AUTHOR: CRISTA,DOC PHYSICIAN: REFERRING PHYSICIAN: LISA RODRIGUEZ MD DATE OF SERVICE: 05/30/19 Discharge Plan Patient Name: YENI CORNELIUS Facility: [facility]:[place] : 1950 Planned Disposition: Inpatient Rehab Anticipated Discharge Date: 05/27/19 Discharge Date: Expected LOS: 3 Initial Reviewer: [id number] Initial Review Date: 05/26/2019 Generated: 05/30/19 4:26 pm Comments DCP- Discharge Planning Updated by [id number]: Marv Polk on 05/30/19 2:[address] Patient Name: YENI CORNELIUS Encounter No: [id number] : 1950 Primary Insurance: [facility] MEDICARE SOLUTIONS Anticipated DC Date: 05-27-2019 Planned Disposition: HOME WITH HOME HEALTH External Planned Provider: [facility] DCP follow-up note: CM RECEIVED REQUEST TO MEET WITH PT AND SPOUSE IN ROOM, PT'S SPOUSE NOW WANTS TO TAKE PT HOME. CM MET WITH PT AND SPOUSE IN ROOM TO DISCUSS DISCHARGE NEEDS AND PLANNING. PT REPORTS BEING TIRED OF SITTING IN THE HOSPITAL WAITING ON INSURANCE TO PROVIDE AUTHORIZATION FOR REHAB SERVICES AND WANTS TO WAIT AT HOME. BOTH PT AND SPOUSE WANT TO GO HOME, PT'S SPOUSE REPORTS SHE AND PT'S ADULT SON WILL BE THERE TO TAKE CARE OF PT AT HOME THROUGH THE HOLIDAY. SHE WISHES TO CONTINUE WITH AUTHORIZATION FOR INPATIENT REHAB AND WILL BRING PT TO INPATIENT REHAB ONCE APPROVED. IT IS NOT APPROVED BY INSURANCE, SHE WOULD LIKE REFERRAL TO [facility] AND [facility] FOR REHAB SERVICES. PT IN AGREEMENT WITH PLAN. CHOICE FOR HOME HEALTH DISCUSSED, PT WANTS [facility] HE USED THEM IN THE PAST, CHOICE SIGNED. IMPORTANT MESSAGE FROM MEDICARE PROVIDED AND EXPLAINED. CM NOTIFIED EMILIANO JAY, RECEIVED DISCHARGE AND HOME HEALTH ORDERS. CM CALLED [facility], , SPOKE TO STEFANY, REFERRAL PROVIDED, PT PLACED ON SCHEDULE FOR THURSDAY AND IF THEY HAVE CANCELLATION, THEY WILL TRY TO SEE PT SOONER. CM SPOKE TO PT IN ROOM, PT IN AGREEMENT WITH PLAN AND DENIES FURTHER DISCHARGE NEEDS. CM FAXED REFERRAL AND DISCHARGE INFORMATION TO [facility] AT [phone]. DIRECTOR OUTPATIENT SERVICES NURSE NOTIFIED. Marv Polk, CASE MANAGEMENT DCP- Discharge Planning Updated by [id number]: Marv Polk on 05/26/19 4:[address] Patient Name: YENI CORNELIUS Admission Status: ER Accout number: [id number] Admission Date: 05-24-2019 : 1950 Admission Diagnosis: Attending: LISA RODRIGUEZ Current LOS: 2 Anticipated DC Date: 05-27-2019 Planned Disposition: Inpatient Rehab Primary Insurance: [facility] MEDICARE SOLUTIONS PLANNED EXTERAL PROVIDER: [facility] INPATIENT REHAB Discharge Planning Comments: CM RECEIVED DISCHARGE ORDER, CM MET WITH PT IN ROOM TO DISCUSS DISCHARGE PLANNING AND NEEDS. PT REPORTS LIVING AT HOME DEPENDENTLY WITH HIS WHO ASSIST WITH MEDICATIONS. PT HAS CANE, NEBULZER, TRILOGY MACHINE, HOME OXGYEN ADN WALKER FROM [facility]. PT HAS NO OUTSIDE SERVICES ASSISTING IN THE HOME. CM DISCUSSED AVAILABILITY OF HOME HEALTH, REHAB SERVICES AND MEDICAL EQUIPMENT. PT INFORMED CM HE DOES NOT WANT REHAB AND HAD HOME HEALTH AND DOES NOT WANT THEM NOW. PT DENIES DISCHARGE NEEDS, REPORTS HIS WILL PICK HER UP FOR DISCHARGE HOME AFTER SHE GETS OFF FROM WORK AND HE WILL CALL HER. CM LATER ADVISED BY BEDSIDE NURSE THAT PT'S HAS ARRIVED AND STATES PT NEEDS REHAB. CM MET WITH PT AND SPOUSE IN ROOM. PT'S SPOUSE REPORTS PT TOO WEAK TO GO HOME AND NEEDS REHAB TO GO HOME. PT DOES NOT THINK HE NEEDS REHAB BUT STATES HE WILL GO. PT'S STATES PT IS ANGRY BUT SHE JUST CANNOT LIFT PT IN HIS CURRENT STATE OF WEAKNESS. CM DISCUSSED REHAB OPTIONS, LOCATIONS AND PROVIDERS, OFFERED LISTING; PT'S REPORTS BEING FAMILIAR WITH REHABS AND WOULD LIKE PT IN INPATIENT REHAB AT [place] AND FEELS INSURANCE WILL APPROVE THIS. CM ASKED FOR LONGTERM SELECTIONS IN CASE INSURANCE DECLINED, SHE CHOSE [facility] AND [facility]. CHOICE COMPLETED. DIRECTOR OUTPATIENT SERVICES NURSE NOTIFED. ORDER FOR INPATIENT REHAB PRESCREEN OBTAINED. IF INSURANCE DECLINED INPATIENT REHAB, CM WILL REFER TO [facility] AND [facility] FOR LONGTERM REHAB. [employer] Assistant: Marv Polk DCPIA - Discharge Planning Initial Assessment Updated by [id number]: Marv Polk on 05/26/19 5:38 pm * Is the patient Alert and Oriented? Yes * How many steps to enter\exit or inside your home? NONE * PCP [facility] * Pharmacy [facility] * Preadmission Environment Home with Family * ADLs Partial Dependent * Partial ADLs (Assistance needed) Medication Management * Equipment Cane Nebulizer Other Oxygen Walker * Other Equipment TRILOGY MACHINE HOME OXYGEN - [facility] * List name and contact numbers for known caregivers / representatives who currently or will assist patient after discharge: ELIDA CORNELIUS, SPOUSE, * Verbal permission to speak to the caregivers and representatives has been obtained from the patient. Yes * Community resources currently utilized None * Please name any agencies selected above. NONE * Additional services required to return to the preadmission environment? No * Can the patient safely return to the preadmission environment? Yes * Has this patient been hospitalized within the prior 30 days at any hospital? No External Providers [facility] Next Contact Date: 05/30/2019 Service Request Date: Service Type: Resolution: Reviewer: Comments: Coverage Notice Reviewer: [id number] Mindi Polk Notice Issued Date-Time: 05/26/2019 15:15 Notice Type: Patient Choice Letter Notice Delivered To: Family Member Relationship to Patient: Spouse Plaster Maker Name: ELIDA CORNELIUS Delivery Method: HAND - Hand Delivered Niurka Days: Prior Verbal Notification: Recipient Understood Notice: Yes Recipient Signature: Yes Med Rec Note Co-signed by Attending: Coverage Notice Comment: [facility] IN REHAB; [facility] OR [facility] Reviewer: [id number] Mindi Leiva Notice Issued Date-Time: 05/23/2019 18:45 Notice Type: Medicare Outpatient Observation Notice Notice Delivered To: Family Member Relationship to Patient: Spouse Plaster Maker Name: Elida Jhoana Delivery Method: CERT - Certified Mail Niurka Days: Prior Verbal Notification: Yes Recipient Understood Notice: Recipient Signature: Med Rec Note Co-signed by Attending: Coverage Notice Comment: PANCHAL called to patient's via telephone. She verbalizes permission for PANCHAL. Copy to chart and original will be mailed to patient's . Reviewer: [email or web address] Mindi Polk Notice Issued Date-Time: 05/30/2019 13:50 Notice Type: Notice Delivered To: Patient Relationship to Patient: Plaster Maker Name: Delivery Method: HAND - Hand Delivered Niurka Days: Prior Verbal Notification: Recipient Understood Notice: Yes Recipient Signature: Yes Med Rec Note Co-signed by Attending: Coverage Notice Comment: Reviewer: [id number] - Marv Polk Notice Issued Date-Time: 05/30/2019 13:50 Notice Type: Patient Choice Letter Notice Delivered To: Patient Relationship to Patient: Plaster Maker Name: Delivery Method: HAND - Hand Delivered Niurka Days: Prior Verbal Notification: Recipient Understood Notice: Yes Recipient Signature: Yes Med Rec Note Co-signed by Attending: Coverage Notice Comment: TANA Last DP export: 05/30/19 2:18 Patient Name: YENI CORNELIUS Page [phone] at 1526 All edits/amendments must be made on the electronic document DICTATION DATE: 05/30/191525 GRAPHICS COORDINATOR: TOMÁS 05/30/191525 RPT#: [id number] DC DATE: STATUS: ADM IN [facility] [address] [place] [address] END OF REPORT
--- NOTE | 2019-05-30 15:56 | NUR ---
Recieved a call from [facility]. This patient has been denied by the medical billing representative for inpatient rehab. If physician disagrees a peer to peer can be done by calling [phone] with the name of the physician and a contact number before 4:00 PM 05/31/19. Discussed with the CM Robson Polk. Ann Paredes RN Clinical Liaison, Rehab
[2019-05-30 18:26] VITALS: BP 118/75
--- NOTE | 2019-05-31 15:55 | MORECARE ---
CASE MANAGEMENT DISCHARGE SUMMARY PATIENT: YENI CORNELIUS UNIT: [id number] ADM DATE: 05/24/19 AGE: 68 : 54 SEX: M ROOM/BED: D.2047 AUTHOR: CRISTA,DOC PHYSICIAN: REFERRING PHYSICIAN: LISA RODRIGUEZ MD DATE OF SERVICE: 05/31/19 Discharge Plan Patient Name: YENI CORNELIUS Facility: [facility]:[place] : 1950 Planned Disposition: Inpatient Rehab Anticipated Discharge Date: 05/27/19 Discharge Date: 05/30/2019 Expected LOS: 3 Initial Reviewer: [id number] Initial Review Date: 05/26/2019 Generated: 05/31/19 4:54 pm Comments DCP- Discharge Planning Updated by [id number]: Marv Polk on 05/30/19 2:[address] Patient Name: YENI CORNELIUS Encounter No: [id number] : 1950 Primary Insurance: [facility] MEDICARE SOLUTIONS Anticipated DC Date: 05-27-2019 Planned Disposition: HOME WITH HOME HEALTH External Planned Provider: [facility] DCP follow-up note: CM RECEIVED REQUEST TO MEET WITH PT AND SPOUSE IN ROOM, PT'S SPOUSE NOW WANTS TO TAKE PT HOME. CM MET WITH PT AND SPOUSE IN ROOM TO DISCUSS DISCHARGE NEEDS AND PLANNING. PT REPORTS BEING TIRED OF SITTING IN THE HOSPITAL WAITING ON INSURANCE TO PROVIDE AUTHORIZATION FOR REHAB SERVICES AND WANTS TO WAIT AT HOME. BOTH PT AND SPOUSE WANT TO GO HOME, PT'S SPOUSE REPORTS SHE AND PT'S ADULT SON WILL BE THERE TO TAKE CARE OF PT AT HOME THROUGH THE HOLIDAY. SHE WISHES TO CONTINUE WITH AUTHORIZATION FOR INPATIENT REHAB AND WILL BRING PT TO INPATIENT REHAB ONCE APPROVED. IT IS NOT APPROVED BY INSURANCE, SHE WOULD LIKE REFERRAL TO [facility] FOR REHAB SERVICES. PT IN AGREEMENT WITH PLAN. CHOICE FOR HOME HEALTH DISCUSSED, PT WANTS [facility] HE USED THEM IN THE PAST, CHOICE SIGNED. IMPORTANT MESSAGE FROM MEDICARE PROVIDED AND EXPLAINED. CM NOTIFIED EMILIANO JAY, RECEIVED DISCHARGE AND HOME HEALTH ORDERS. CM CALLED [facility], , SPOKE TO STEFANY, REFERRAL PROVIDED, PT PLACED ON SCHEDULE FOR THURSDAY AND IF THEY HAVE CANCELLATION, THEY WILL TRY TO SEE PT SOONER. CM SPOKE TO PT IN ROOM, PT IN AGREEMENT WITH PLAN AND DENIES FURTHER DISCHARGE NEEDS. CM FAXED REFERRAL AND DISCHARGE INFORMATION TO [facility] AT [phone]. PLANT HR MANAGER NURSE NOTIFIED. Marv Polk, CASE MANAGEMENT DCP- Discharge Planning Updated by [email or web address]: Marv Polk on 05/26/19 4:[address] Patient Name: YENI CORNELIUS Admission Status: ER Accout number: [id number] Admission Date: 05-24-2019 : 1950 Admission Diagnosis: Attending: LISA RODRIGUEZ Current LOS: 2 Anticipated DC Date: 05-27-2019 Planned Disposition: Inpatient Rehab Primary Insurance: [facility] MEDICARE SOLUTIONS PLANNED EXTERAL PROVIDER: [facility] INPATIENT REHAB Discharge Planning Comments: CM RECEIVED DISCHARGE ORDER, CM MET WITH PT IN ROOM TO DISCUSS DISCHARGE PLANNING AND NEEDS. PT REPORTS LIVING AT HOME DEPENDENTLY WITH HIS WHO ASSIST WITH MEDICATIONS. PT HAS CANE, NEBULZER, TRILOGY MACHINE, HOME OXGYEN ADN WALKER FROM [facility]. PT HAS NO OUTSIDE SERVICES ASSISTING IN THE HOME. CM DISCUSSED AVAILABILITY OF HOME HEALTH, REHAB SERVICES AND MEDICAL EQUIPMENT. PT INFORMED CM HE DOES NOT WANT REHAB AND HAD HOME HEALTH AND DOES NOT WANT THEM NOW. PT DENIES DISCHARGE NEEDS, REPORTS HIS WILL PICK HER UP FOR DISCHARGE HOME AFTER SHE GETS OFF FROM WORK AND HE WILL CALL HER. CM LATER ADVISED BY BEDSIDE NURSE THAT PT'S HAS ARRIVED AND STATES PT NEEDS REHAB. CM MET WITH PT AND SPOUSE IN ROOM. PT'S SPOUSE REPORTS PT TOO WEAK TO GO HOME AND NEEDS REHAB TO GO HOME. PT DOES NOT THINK HE NEEDS REHAB BUT STATES HE WILL GO. PT'S STATES PT IS ANGRY BUT SHE JUST CANNOT LIFT PT IN HIS CURRENT STATE OF WEAKNESS. CM DISCUSSED REHAB OPTIONS, LOCATIONS AND PROVIDERS, OFFERED LISTING; PT'S REPORTS BEING FAMILIAR WITH REHABS AND WOULD LIKE PT IN INPATIENT REHAB AT [place] AND FEELS INSURANCE WILL APPROVE THIS. CM ASKED FOR DETENTION SELECTIONS IN CASE INSURANCE DECLINED, SHE CHOSE [facility] AND [facility]. CHOICE COMPLETED. PLANT HR MANAGER NURSE NOTIFED. ORDER FOR INPATIENT REHAB PRESCREEN OBTAINED. IF INSURANCE DECLINED INPATIENT REHAB, CM WILL REFER TO [facility] FOR DETENTION REHAB. Limnologist: Marv Polk DCPIA - Discharge Planning Initial Assessment Updated by [id number]: Marv Polk on 05/26/19 5:38 pm * Is the patient Alert and Oriented? Yes * How many steps to enter\exit or inside your home? NONE * PCP [facility] * Pharmacy [facility] * Preadmission Environment Home with Family * ADLs Partial Dependent * Partial ADLs (Assistance needed) Medication Management * Equipment Cane Nebulizer Other Oxygen Walker * Other Equipment TRILOGY MACHINE HOME OXYGEN - [facility] * List name and contact numbers for known caregivers / representatives who currently or will assist patient after discharge: ELIDA CORNELIUS, SPOUSE, * Verbal permission to speak to the caregivers and representatives has been obtained from the patient. Yes * Community resources currently utilized None * Please name any agencies selected above. NONE * Additional services required to return to the preadmission environment? No * Can the patient safely return to the preadmission environment? Yes * Has this patient been hospitalized within the prior 30 days at any hospital? No External Providers [facility] Provider[facility] Next Contact Date: 05/31/2019 Service Request Date: Service Type: Resolution: Reviewer: Comments: External Provider: [facility] Next Contact Date: 05/31/2019 Service Request Date: Service Type: Resolution: Reviewer: Comments: Coverage Notice Reviewer: [id number] - Marv Polk Notice Issued Date-Time: 05/26/2019 15:15 Notice Type: Patient Choice Letter Notice Delivered To: Family Member Relationship to Patient: Spouse Travel Professional Name: ELIDA CORNELIUS Delivery Method: HAND - Hand Delivered Niurka Days: Prior Verbal Notification: Recipient Understood Notice: Yes Recipient Signature: Yes Med Rec Note Co-signed by Attending: Coverage Notice Comment: [facility] IN REHAB; [facility] OR [facility] Reviewer: [id number] Mindi Leiva Notice Issued Date-Time: 05/23/2019 18:45 Notice Type: Medicare Outpatient Observation Notice Notice Delivered To: Family Member Relationship to Patient: Spouse Travel Professional Name: Elida Ely Delivery Method: CERT - Certified Mail Niurka Days: Prior Verbal Notification: Yes Recipient Understood Notice: Recipient Signature: Med Rec Note Co-signed by Attending: Coverage Notice Comment: ANSLEY called to patient's via telephone. She verbalizes permission for PANCHAL. Copy to chart and original will be mailed to patient's . Reviewer: [id number] Mindi Polk Notice Issued Date-Time: 05/30/2019 13:50 Notice Type: Notice Delivered To: Patient Relationship to Patient: Travel Professional Name: Delivery Method: HAND - Hand Delivered Niurka Days: Prior Verbal Notification: Recipient Understood Notice: Yes Recipient Signature: Yes Med Rec Note Co-signed by Attending: Coverage Notice Comment: Reviewer: [id number] Mindi Polk Notice Issued Date-Time: 05/30/2019 13:50 Notice Type: Patient Choice Letter Notice Delivered To: Patient Relationship to Patient: Travel Professional Name: Delivery Method: HAND - Hand Delivered Niurka Days: Prior Verbal Notification: Recipient Understood Notice: Yes Recipient Signature: Yes Med Rec Note Co-signed by Attending: Coverage Notice Comment: TANA Re[place] DP export: 05/30/19 2:26 Patient Name: YENI CORNELIUS Page [id number] at 1555 All edits/amendments must be made on the electronic document DICTATION DATE: 05/31/191553 INSULATION MANAGER: TOMÁS 05/31/19 155 RPT#: [id number] DC DATE:05/30/19 STATUS: DIS IN [facility] [address] [place] [address] END OF REPORT
--- NOTE | 2019-06-02 12:23 | MORECARE ---
CASE MANAGEMENT DISCHARGE SUMMARY PATIENT: YENI CORNELIUS UNIT: [id number] ADM DATE: 05/24/19 AGE: 68 : 54 SEX: M ROOM/BED: D.2137 AUTHOR: CRISTADOC PHYSICIAN: REFERRING PHYSICIAN: LISA RODRIGUEZ MD DATE OF SERVICE: 06/02/19 Discharge Plan Patient Name: YENI CORNELIUS Facility: [facility]:[place] : 1950 Planned Disposition: Inpatient Rehab Anticipated Discharge Date: 05/27/19 Discharge Date: 05/30/2019 Expected LOS: 3 Initial Reviewer: [id number] Initial Review Date: 05/26/2019 Generated: 06/02/19 1:22 pm Comments DCP- Discharge Planning Updated by [email or web address]: Marv Polk on 06/02/19 11:[address] Patient Name: YENI CORNELIUS Encounter No: [id number] : 1950 Primary Insurance: [facility] MED[employer] SOLUTIONS Anticipated DC Date: 05-27-2019 Planned Disposition: HOME HEALTH External Planned Provider: [facility] DCP follow-up note: PT HAS DISCHARGED HOME WITH SPOUSE AND [facility]. CM RECEIVED INSURANCE DENIAL NOTIFY IN FORM OF PHONE CALL FROM ADRIAN OF INPATIENT REHAB ON 05-31-19. CM FAXED REFERRALS FOR REHAB TO [facility]. CM CALLED PT'S SPOUSE, ELIDA, 06-02-19, TO INFORM HER OF THE DENIAL AND REFERRALS. CM RECEIVED MESSAGE FROM JEZ ISAAC OF [facility] WHO WILL SCREEN PT AT HOME FOR [facility]. Marv Polk, CASE GONZALO DCP- Discharge Planning Updated by [email or web address]: Marv Polk on 05/30/19 2:[address] Patient Name: YENI CORNELIUS Encounter No: [id number] : 1950 Primary Insurance: [facility] MEDIC[facility] SOLUTIONS Anticipated DC Date: 05-27-2019 Planned Disposition: HOME WITH HOME HEALTH External Planned Provider: [facility] DCP follow-up note: CM RECEIVED REQUEST TO MEET WITH PT AND SPOUSE IN ROOM, PT'S SPOUSE NOW WANTS TO TAKE PT HOME. CM MET WITH PT AND SPOUSE IN ROOM TO DISCUSS DISCHARGE NEEDS AND PLANNING. PT REPORTS BEING TIRED OF SITTING IN THE HOSPITAL WAITING ON INSURANCE TO PROVIDE AUTHORIZATION FOR REHAB SERVICES AND WANTS TO WAIT AT HOME. BOTH PT AND SPOUSE WANT TO GO HOME, PT'S SPOUSE REPORTS SHE AND PT'S ADULT SON WILL BE THERE TO TAKE CARE OF PT AT HOME THROUGH THE HOL. SHE WISHES TO CONTINUE WITH AUTHORIZATION FOR INPATIENT REHAB AND WILL BRING PT TO INPATIENT REHAB ONCE APPROVED. IT IS NOT APPROVED BY INSURANCE, SHE WOULD LIKE REFERRAL TO [facility] FOR REHAB SERVICES. PT IN AGREEMENT WITH PLAN. CHOICE FOR HOME HEALTH DISCUSSED, PT WANTS [facility] HE USED THEM IN THE PAST, CHOICE SIGNED. IMPORTANT MESSAGE FROM MEDICARE PROVIDED AND EXPLAINED. CM NOTIFIED EMILIANO JAY, RECEIVED DISCHARGE AND HOME HEALTH ORDERS. CM CALLED [facility], , SPOKE TO STEFANY, REFERRAL PROVIDED, PT PLACED ON SCHEDULE FOR THURSDAY AND IF THEY HAVE CANCELLATION, THEY WILL TRY TO SEE PT SOONER. CM SPOKE TO PT IN ROOM, PT IN AGREEMENT WITH PLAN AND DENIES FURTHER DISCHARGE NEEDS. CM FAXED REFERRAL AND DISCHARGE INFORMATION TO [facility] AT [phone]. PRESS TENDER SMOKE SIGNAL NURSE NOTIFIED. Marv Polk, CASE MANAGEMENT DCP- Discharge Planning Updated by [id number]: Marv Polk on 05/26/19 4:[address] Patient Name: YENI CORNELIUS Admission Status: ER Accout number: [id number] Admission Date: 05-24-2019 : 1950 Admission Diagnosis: Attending: LISA RODRIGUEZ Current LOS: 2 Anticipated DC Date: 05-27-2019 Planned Disposition: Inpatient Rehab Primary Insurance: [facility] MEDIC[facility] SOLUTIONS PLANNED EXTERAL PROVIDER: [facility] Discharge Planning Comments: CM RECEIVED DISCHARGE ORDER, CM MET WITH PT IN ROOM TO DISCUSS DISCHARGE PLANNING AND NEEDS. PT REPORTS LIVING AT HOME DEPENDENTLY WITH HIS WHO ASSIST WITH MEDICATIONS. PT HAS CANE, NEBULZER, TRILOGY MACHINE, HOME OXGYEN ADN WALKER FROM [facility]. PT HAS NO OUTSIDE SERVICES ASSISTING IN THE HOME. CM DISCUSSED AVAILABILITY OF HOME HEALTH, REHAB SERVICES AND MEDICAL EQUIPMENT. PT INFORMED CM HE DOES NOT WANT REHAB AND HAD HOME HEALTH AND DOES NOT WANT THEM NOW. PT DENIES DISCHARGE NEEDS, REPORTS HIS WILL PICK HER UP FOR DISCHARGE HOME AFTER SHE GETS OFF FROM WORK AND HE WILL CALL HER. CM LATER ADVISED BY BEDSIDE NURSE THAT PT'S HAS ARRIVED AND STATES PT NEEDS REHAB. CM MET WITH PT AND SPOUSE IN ROOM. PT'S SPOUSE REPORTS PT TOO WEAK TO GO HOME AND NEEDS REHAB TO GO HOME. PT DOES NOT THINK HE NEEDS REHAB BUT STATES HE WILL GO. PT'S STATES PT IS ANGRY BUT SHE JUST CANNOT LIFT PT IN HIS CURRENT STATE OF WEAKNESS. CM DISCUSSED REHAB OPTIONS, LOCATIONS AND PROVIDERS, OFFERED LISTING; PT'S REPORTS BEING FAMILIAR WITH REHABS AND WOULD LIKE PT IN INPATIENT REHAB AT [place] AND FEELS INSURANCE WILL APPROVE THIS. CM ASKED FOR LONGTERM SELECTIONS IN CASE INSURANCE DECLINED, SHE CHOSE [facility]. CHOICE COMPLETED. PRESS TENDER SMOKE SIGNAL NURSE NOTIFED. ORDER FOR INPATIENT REHAB PRESCREEN OBTAINED. IF INSURANCE DECLINED INPATIENT REHAB, CM WILL REFER TO [facility] FOR LONGTERM REHAB. Cutting Table Operator First: Marv Polk DCPIA - Discharge Planning Initial Assessment Updated by [id number]: Marv Polk on 05/26/19 5:38 pm * Is the patient Alert and Oriented? Yes * How many steps to enter\exit or inside your home? NONE * PCP [facility] * Pharmacy [facility] * Preadmission Environment Home with Family * ADLs Partial Dependent * Partial ADLs (Assistance needed) Medication Management * Equipment Cane Nebulizer Other Oxygen Walker * Other Equipment TRILOGY MACHINE HOME OXYGEN - [place] * List name and contact numbers for known caregivers / representatives who currently or will assist patient after discharge: ELIDA CORNELIUS, SPOUSE, * Verbal permission to speak to the caregivers and representatives has been obtained from the patient. Yes * Community resources currently utilized None * Please name any agencies selected above. NONE * Additional services required to return to the preadmission environment? No * Can the patient safely return to the preadmission environment? Yes * Has this patient been hospitalized within the prior 30 days at any hospital? No Coverage Notice Reviewer: [id number] - Marv Polk Notice Issued Date-Time: 05/26/2019 15:15 Notice Type: Patient Choice Letter Notice Delivered To: Family Member Relationship to Patient: Spouse Lye Boiler Name: ELIDA CORNELIUS Delivery Method: HAND - Hand Delivered Niurka Days: Prior Verbal Notification: Recipient Understood Notice: Yes Recipient Signature: Yes Med Rec Note Co-signed by Attending: Coverage Notice Comment: [facility] IN[facility]; [facility] Reviewer: [id number] - Ingris Leiva Notice Issued Date-Time: 05/23/2019 18:45 Notice Type: Medicare Outpatient Observation Notice Notice Delivered To: Family Member Relationship to Patient: Spouse Lye Boiler Name: Elida Ely Delivery Method: CERT - Certified Mail Niurka Days: Prior Verbal Notification: Yes Recipient Understood Notice: Recipient Signature: Med Rec Note Co-signed by Attending: Coverage Notice Comment: ANSLEY called to patient's via telephone. She verbalizes permission for PANCHAL. Copy to chart and original will be mailed to patient's . Reviewer: [id number] Mindi Polk Notice Issued Date-Time: 05/30/2019 13:50 Notice Type: Notice Delivered To: Patient Relationship to Patient: Lye Boiler Name: Delivery Method: HAND - Hand Delivered Niurka Days: Prior Verbal Notification: Recipient Understood Notice: Yes Recipient Signature: Yes Med Rec Note Co-signed by Attending: Coverage Notice Comment: Reviewer: [id number] Mindi Polk Notice Issued Date-Time: 05/30/2019 13:50 Notice Type: Patient Choice Letter Notice Delivered To: Patient Relationship to Patient: Lye Boiler Name: Delivery Method: HAND - Hand Delivered Niurka Days: Prior Verbal Notification: Recipient Understood Notice: Yes Recipient Signature: Yes Med Rec Note Co-signed by Attending: Coverage Notice Comment: TANA Last DP export: 05/31/19 2:55 Patient Name: YENI CORNELIUS Page [phone] at 1223 All edits/amendments must be made on the electronic document DICTATION DATE: 06/02/191221 PASSENGER BARGE MASTER: TOMÁS 06/02/19 1222 RPT#: [id number] DC DATE:05/30/19 STATUS: DIS IN [facility] [address] [place] [address] END OF REPORT
== END 2019-05-30 18:30 | disposition home health service (06) | DRG 291 ==
LOC: D.ER 11:42 → D.M2 17:24 → OBSVTIME 18:05 → D.M2 05-24 12:34
PROVIDERS: Family Medicine; ADMIT Internal Medicine Nephrology; ATTEND Internal Medicine Nephrology
DX: I13.0 Hypertensive heart and chronic kidney disease with heart failure and stage 1 through stage 4 chronic kidney disease, or unspecified chronic kidney disease (principal); I50.23 Acute on chronic systolic (congestive) heart failure; G93.41 Metabolic encephalopathy; N17.9 Acute kidney failure, unspecified; N18.9 Chronic kidney disease, unspecified; E11.22 Type 2 diabetes mellitus with diabetic chronic kidney disease; G20 Parkinson's disease; D63.1 Anemia in chronic kidney disease; J44.9 Chronic obstructive pulmonary disease, unspecified; E11.51 Type 2 diabetes mellitus with diabetic peripheral angiopathy without gangrene; E78.5 Hyperlipidemia, unspecified; K21.9 Gastro-esophageal reflux disease without esophagitis; E87.6 Hypokalemia; I16.0 Hypertensive urgency; I25.10 Atherosclerotic heart disease of native coronary artery without angina pectoris; Z86.73 Personal history of transient ischemic attack (TIA), and cerebral infarction without residual deficits